=== PATIENT | female | born 1940 | race Caucasian/White ===

== ENCOUNTER 2019-11-22 08:22 | Outpatient (CLI) | payer MEDICARE, SELFPAY ==
--- NOTE | ~2019-11-22 | MM_ITS ---
EXAMINATION: MM screening michelle BI w jina HISTORY: Screening TECHNIQUE: Craniocaudal and mediolateral oblique 3-D tomosynthesis images were obtained and synthetic 2-D images were generated. CAD analysis was submitted and interpreted. COMPARISON: Comparison to multiple prior studies sequentially, with oldest reviewed study dated 09/30. BREAST PARENCHYMAL COMPOSITION: There are scattered areas of fibroglandular density. FINDINGS: There is no evidence of suspicious mass, calcification, or architectural distortion to sugg est malignancy in either breast. There has been no suspicious interval change. IMPRESSION: 1. No mammographic evidence of malignancy. 2. Recommend routine screening mammography in one year. BI-RADS Category 1: Negative Reviewed, dictated and finalized at location A.
== END 2019-11-22 08:23 | disposition home or self-care (01) ==
LOC: ANHIMG 08:25
PROVIDERS: PCP Internal Medicine; Visit Provider Obstetrics & Gynecology
DX: Z12.31 Encounter for screening mammogram for malignant neoplasm of breast (principal)
CPT/HCPCS: 77063; 77067

== ENCOUNTER 2020-11-27 08:25 | Outpatient (CLI) | payer MEDICARE, SELFPAY ==
--- NOTE | ~2020-11-27 | MM_ITS ---
EXAMINATION: MM screening michelle BI w jina HISTORY: Screening mammogram TECHNIQUE: Craniocaudal and mediolateral oblique 3-D tomosynthesis images were obtained and synthetic 2-D images were generated. CAD analysis was submitted and interpreted. COMPARISON: 12/09/2019, , 10/28/2017 bilateral digital screening mammogram examinations BREAST PARENCHYMAL COMPOSITION: The breasts are almost entirely fatty. FINDINGS: There is no evidence of suspicious mass, calcification, or architectural distortion to sugg est malignancy in either breast. There has been no suspicious interval change. IMPRESSION: 1. No mammographic evidence of malignancy. 2. Recommend routine screening mammography in one year. BI-RADS Category 1: Negative Reviewed, dictated and finalized at location A.
== END 2020-11-27 08:26 | disposition home or self-care (01) ==
LOC: ANHIMG 08:32
PROVIDERS: PCP Internal Medicine; Visit Provider Obstetrics & Gynecology
DX: Z12.31 Encounter for screening mammogram for malignant neoplasm of breast (principal)
CPT/HCPCS: 77063; 77067

== ENCOUNTER 2021-08-16 14:02 | Emergency (ER) | payer MEDICARE, SELFPAY ==
[2021-08-16 14:10] VITALS: BP 114/45; PULSE 82; RESP 20; TEMP 36.6; O2SAT 98
--- NOTE | 2021-08-16 14:34 | ED.FEMALEGU ---
HPI - Female Genitourinary General Chief complaint: Urogenital-Female Stated complaint: uti symptoms Time Seen by Provider: 08/16/21 14:24 Source: patient Mode of arrival: ambulatory Limitations: no limitations History of Present Illness HPI Narrative: Patient presents today complaint of a 2-day history of urinary frequency, urgency, dysuria, and incontinence. Denies abdominal pain, back pain, fever, or any additional symptoms. She has been taking [id number] Azo for her symptoms. Last dose was 1 hour prior to arrival. Related Data Home Medications Medication Instructions Recorded Confirmed folic acid 1 mg tablet 1 mg PO DAILY 05/22/19 08/16/21 gabapentin 300 mg capsule 300 mg PO TID 05/28/19 08/16/21 hydroxychloroquine 200 mg tablet 200 mg PO BID 05/28/19 08/16/21 (Plaquenil) methotrexate sodium 2.5 mg tablet 20 mg PO WEEKLY 05/28/19 08/16/21 cholecalciferol (vitamin D3) 50 mcg PO DAILY 12/11/20 08/16/21 multivitamin 1 tablet PO DAILY 06/17/21 06/17/21 aspirin 81 mg tablet 81 mg PO DAILY 08/16/21 08/16/21 vitamin B12 1,000 mcg-folic acid tablet sublingual 08/16/21 400 mcg sublingual tablet Allergies Allergy/AdvReac Type Severity Reaction Status Date / Time cephalexin Allergy Severe RASH Verified 08/16/21 14:21 morphine Allergy Severe HIVES Verified 08/16/21 14:21 propoxyphene AdvReac Severe Unknown Verified 08/16/21 14:21 nitrofurantoin AdvReac Intermediate Weakness Verified 08/16/21 14:21 [From Macrobid] Review of Systems Review of Systems: CONSTITUTIONAL: Denies body aches, fever, chills, or sweats. EYES: Denies visual changes, redness, or discharge. ENT: Denies rhinorrhea, congestion, sore throat, or otalgia. CARDIOVASCULAR: Denies chest pain, palpitations, or edema. RESPIRATORY: Denies cough or dyspnea. GASTROINTESTINAL: Denies abdominal pain, nausea, vomiting, or diarrhea. GENITOURINARY: Denies hematuria.+ Dysuria, frequency, urgency SKIN: Denies rash, itching, or wounds. MUSCULOSKELETAL: Denies back pain, joint pain, or myalgia. NEUROLOGIC: Denies headache, numbness, tingling, or weakness. PSYCH: Denies depression or anxiety. PMFSH Past Medical History Medical History (Updated 08/16/21 @ 14:39 by Teetee Barton, [employer] SCHOOL PROFESSIONAL, ) History of vaginal delivery x 2 Surgical History Surgical History History of hysterectomy History of knee replacement Family History Family History Father Family history of elevated blood lipids Family history of coronary artery disease, Onset Age: 81 Family history of malignant neoplasm of bone, Onset Age: 81 Mother Family history of elevated blood lipids Family history of coronary artery disease, Onset Age: 79 Family history of blood dyscrasia, Onset Age: 79 Family history of osteoarthritis, Onset Age: 79 Sibling Family history of primary malignant neoplasm of liver Family history of renal failure No family history of diabetes mellitus Social History Social History Second hand tobacco smoke exposure: Yes Alcohol intake: never Substance use: never Comments At time of signature, I have reviewed and agree with nursing past medical, surgical, social and family history unless otherwise noted. Please see nursing chart for further information. There is no relevant family history pertinent to the presenting complaint Exam Narrative: GENERAL: Well-appearing, well-nourished, and in no acute distress. HEAD: Normocephalic, atraumatic. EYES: EOMI. No redness or drainage. Conjunctivae normal. ENT: Mucous membranes pink and moist. NECK: Normal AROM. CHEST: No respiratory distress. Clear to auscultation. HEART: Regular rate and rhythm. No murmur appreciated. Normal peripheral pulses. ABDOMEN: Soft, nontender, nondistended, normal active bowel sounds.-CVAT MU
== END 2021-08-16 14:45 | disposition home or self-care (01) ==
PROVIDERS: Emergency Provider Nurse Practitioner; PCP Internal Medicine
DX: N39.0 Urinary tract infection, site not specified (principal); I48.91 Unspecified atrial fibrillation; E78.00 Pure hypercholesterolemia, unspecified; I10 Essential (primary) hypertension; K21.9 Gastro-esophageal reflux disease without esophagitis; Z96.653 Presence of artificial knee joint, bilateral; Z96.611 Presence of right artificial shoulder joint; E03.9 Hypothyroidism, unspecified
CPT/HCPCS: 81003; 87077; 87086; 87186; 99213; G0463

== ENCOUNTER 2021-09-01 10:20 | Outpatient (CLI) | payer MEDICARE, SELFPAY ==
[2021-09-01 13:18] LABS: Appearance Urine Turbid (Clear); Bilirubin Urine Negative (Negative); Blood Urine 1+ (Negative); Glucose Urine UA Negative (Negative); Ketones Urine Negative (Negative); Leukocyte Esterase Ur 2+ LEU/UL (Negative); Nitrate Urine Positive (Negative); Protein Urine 2+ mg/dL (Negative); Specific Grav Ur >= 1.030 (1.001-1.035); Urobilinogen Urine 0.2 mg/dL (<2.0)
[2021-09-01 13:24] LABS: RBC Urine 21-50 /hpf (0-2); Squamous Epithelial Cell Urine Many /hpf (Few); WBC Urine >75 /hpf
[2021-09-01 15:26] LABS: Add Urine Microscopic? YES; Color Urine Dark Yellow (Yellow)
== END 2021-09-01 10:21 | disposition home or self-care (01) ==
LOC: ANHWCLAB 10:21
PROVIDERS: PCP Internal Medicine; Visit Provider Nurse Practitioner
DX: R30.0 Dysuria (principal)
CPT/HCPCS: 81001; 87077; 87086; 87186

== ENCOUNTER 2022-01-28 09:14 | Outpatient (CLI) | payer MEDICARE, SELFPAY ==
--- NOTE | ~2022-01-28 | MM_ITS ---
EXAMINATION: MM screening michelle BI w jina HISTORY: Screening mammogram TECHNIQUE: Craniocaudal and mediolateral oblique 3-D tomosynthesis images were obtained and synthetic 2-D images were generated. CAD analysis was submitted and interpreted. COMPARISON: 11/27/2020, 12/09/2019, 11/09/2018 bilateral screening mammogram examinations BREAST PARENCHYMAL COMPOSITION: There are scattered areas of fibroglandular density. FINDINGS: There is no evidence of suspicious mass, calcification, or architectural distortion to sugg est malignancy in either breast. There has been no suspicious interval change. IMPRESSION: 1. No mammographic evidence of malignancy. 2. Recommend routine screening mammography in one year. BI-RADS Category 1: Negative Reviewed, dictated and finalized at location A. HANDLER
== END 2022-01-28 09:15 | disposition home or self-care (01) ==
PROVIDERS: PCP Internal Medicine; Visit Provider Obstetrics & Gynecology
DX: Z12.31 Encounter for screening mammogram for malignant neoplasm of breast (principal)
CPT/HCPCS: 77063; 77067

== ENCOUNTER 2022-01-29 08:49 | Outpatient (CLI) | payer MEDICARE, SELFPAY ==
--- NOTE | ~2022-01-29 | MR_ITS ---
EXAMINATION: MR lower leg RT wo/w con DATE: 01/29/2022 09:44 INDICATION: Bilateral calf swelling, pain and erythema. Right calf ulcers. TECHNIQUE: Magnetic resonance imaging (MRI) of the right lower leg was performed without intravenous contrast. Sequences included axial, sagittal and coronal T1-weighted FSE and fluid sensitive FSE STIR , axial T1-weighted FS FSE and postcontrast axial and coronal T1-weighted FS FSE. The contralateral l eft lower leg is included on the axial and coronal imaging. COMPARISON: None. FINDINGS: Metallic magnetic field artifact at both knees consistent with bilateral total knee arthroplasties. T his obscures the immediately adjacent bone and soft tissues. Bone alignment is normal. There is piper l bone marrow signal throughout with no reactive edema, fracture or pathologic marrow replacing proce ss. No periostitis. There are small geographic regions of focal fatty atrophy involving portion of th e bilateral soleus and gastrocnemius muscles there is subtle muscular edema without abnormal enhancem ent along the margins of the regions of fatty atrophy. There is diffuse subcutaneous edema throughout the bilateral calves, right slightly more prominent than left. No abscess or other abnormal loculate d fluid collections. No abnormal enhancing lesions or masses identified. Contrast is seen within the larger deep and superficial veins at the bilateral calves. On the STIR images there is suggestion of layering hematocrit levels in some of the intramuscular veins soleal muscles with alternating. On the postcontrast images these are varying enhanced or nonenhanced depending on the axial level of which appear completely contrast-enhanced on the coronal postcontrast images which suggests sluggish flow. No evident venous thrombosis. IMPRESSION: 1. No abscesses or abnormally enhancing lesions identified in either calf. 2. Nonspecific subtle muscular edema along the margins of multiple small geographic regions of fatty atrophy in the bilateral gastrocnemius and soleus muscles suggesting sequela of chronic insult or den ervation change. 2. Relatively symmetric subcutaneous edema at the bilateral calves, right greater than left. No evide nt deep venous thrombosis. There does however appear to be sluggish flow in the intramuscular soleal veins on both the left and right. Reviewed, dictated and finalized at location A. NARY INSTRUCTOR IMPRESSION: 1. No abscesses or abnormally enhancing lesions identified in either calf. 2. Nonspecific subtle muscular edema along the margins of multiple small geogra phic regions of fatty atrophy in the bilateral gastrocnemius and soleus muscles suggesting sequela of chronic insult or denervation change. 2. Relatively symmetric subcutaneous edema at the bilateral calves, right great er than left. No evident deep venous thrombosis. There does however appear to b e sluggish flow in the intramuscular soleal veins on both the left and right.
== END 2022-01-29 08:50 | disposition home or self-care (01) ==
PROVIDERS: PCP Internal Medicine; Visit Provider Internal Medicine
DX: M79.89 Other specified soft tissue disorders (principal)
CPT/HCPCS: 73720; A9577

== ENCOUNTER 2023-03-20 13:05 | Emergency (ER) | payer MEDICARE, SELFPAY ==
--- NOTE | ~2023-03-20 | XR_ITS ---
EXAMINATION: XR chest 2V Exam Date/Time: 03/20/2023 14:50 SPLICER HELPER HISTORY: cough for 3 months Comparison: 02/23/2018. RESULT: Lines, tubes, and devices: Partially visualized right shoulder arthroplasty. Extensive partially vis ualized spinal fusion hardware with fractured bilateral fusion rods, a chronic finding. Lungs and pleura: Mild diffuse reticulonodular opacities. Patchy bilateral groundglass opacities. Li near bibasilar scar/atelectasis Cardiomediastinal silhouette: Stable. Other: No acute osseous or upper abdominal finding. IMPRESSION: Mild interstitial edema and/or respiratory bronchiolitis. Patchy groundglass opacities may represent atelectasis, edema, or infection. Reviewed, dictated and finalized at location K. CER HELPER IMPRESSION: Mild interstitial edema and/or respiratory bronchiolitis. Patchy groundglass op acities may represent atelectasis, edema, or infection.
[2023-03-20 13:21] VITALS: BP 135/61; PULSE 72; RESP 20; TEMP 36.6; O2SAT 100
--- NOTE | 2023-03-20 13:35 | ED.URI ---
HPI - URI/Sore Throat General Chief Complaint: Upper Respiratory Infection <Pat Allen NP - Last Filed: 03/20/23 16:23> Stated Complaint: COUGH <Pat Allen NP - Last Filed: 03/20/23 16:23> Time Seen by Provider: 03/20/23 13:35 <Pat Allen NP - Last Filed: 03/20/23 16:23> Source: patient <Pat Allen NP - Last Filed: 03/20/23 16:23> Mode of arrival: ambulatory <Pat Allen NP - Last Filed: 03/20/23 16:23> Limitations: no limitations <Pat Allen NP - Last Filed: 03/20/23 16:23> History of Present Illness HPI Narrative: 82-year-old female presents with complaint of dry cough for 3 months. Reports that cough for started with COVID and never got better. Reports she was at an appointment with her primary care physician and asked him about cough and was told it could last ?months ?. He did not listen to her lungs at that time because it was not her own appointment. She called back about a month later and complained that she still had cough and was prescribed an antibiotic. She was not seen in office. Patient here today due to continued cough, exhaustion. Reports some mild shortness of breath with exertion but not all the time. Afebrile. Taking Tessalon Perles. Patient would like chest x-ray to rule out pneumonia. All systems reviewed and negative except as noted above. <Pat Allen NP - Last Filed: 03/20/23 16:23> Related Data Home Medications: Home Medications Medication Instructions Recorded Confirmed folic acid 1 mg tablet 1 mg PO DAILY 05/22/19 03/20/23 hydroxychloroquine 200 mg tablet 200 mg PO BID 05/28/19 03/20/23 (Plaquenil) methotrexate sodium 2.5 mg tablet 20 mg PO WEEKLY 05/28/19 03/20/23 multivitamin 1 tablet PO DAILY 06/17/21 09/07/22 vitamin B12 1,000 mcg-folic acid tablet sublingual 08/16/21 09/07/22 400 mcg sublingual tablet gabapentin 300 mg capsule 300 mg PO BID 09/06/22 03/20/23 cholecalciferol (vitamin D3) 50 50 mcg PO DAILY 09/07/22 03/20/23 mcg (2,000 unit) capsule <Pat Allen NP - Last Filed: 03/20/23 16:23> Allergies/Adverse Reactions: Allergies Allergy/AdvReac Type Severity Reaction Status Date / Time cephalexin Allergy Severe RASH Verified 03/20/23 13:20 morphine Allergy Severe HIVES Verified 03/20/23 13:20 nitrofurantoin AdvReac Intermediate Weakness Verified 03/20/23 13:20 [From Macrobid] <Pat Allen NP - Last Filed: 03/20/23 16:23> Review of Systems Review of Systems: CONSTITUTIONAL: Denies fever, chills, or sweats. Reports fatigue. EYES: Denies visual changes, redness, or discharge. ENT: Denies rhinorrhea, congestion, sore throat, or otalgia. CARDIOVASCULAR: Denies chest pain, palpitations, or edema. RESPIRATORY: Reports cough and intermittent dyspnea with exertion. GASTROINTESTINAL: Denies abdominal pain, nausea, vomiting, or diarrhea. GENITOURINARY: Denies dysuria or hematuria. SKIN: Denies rash or itching. MUSCULOSKELETAL: Denies back pain, joint pain, or myalgia. NEUROLOGIC: Denies headache, numbness, or weakness. PSYCHIATRIC: Denies anxiety or depression. All other systems reviewed are negative, except as documented in HPI. <Pat Allen NP - Last Filed: 03/20/23 16:23> [facility] Past Medical History Medical History: Medical History History of vaginal delivery x 2 <Pat Allen NP - Last Filed: 03/20/23 16:23> Surgical History Surgical History: Surgical History H/O shoulder replacement History of back surgery History of hysterectomy History of knee replacement <Pat Allen NP - Last Filed: 03/20/23 16:23> Family History Family History: Family History Father Family history of elevated blood lipids Family hi
[2023-03-20] MEDS: ALBUTEROL SULFATE NEB 2.5 MG/3 ML INH INHALATION (13:51)
--- NOTE | 2023-03-20 14:33 | PC.NURSE ---
[facility] is without an technology applications engineer today. Patient elected to complete her treatment at [facility]
--- NOTE | 2023-03-20 14:34 | PC.NURSE ---
1420 REPORT TO FAIZA MAK AT [facility]. SYLVIE RUTHERFORD RN
== END 2023-03-20 16:24 | disposition home or self-care (01) ==
PROVIDERS: Emergency Provider Nurse Practitioner Family; PCP Nurse Practitioner
DX: J18.1 Lobar pneumonia, unspecified organism (principal)
CPT/HCPCS: 71046; 99213; G0463

== ENCOUNTER 2023-04-04 04:07 | Inpatient (IN) | payer MEDICARE, SELFPAY ==
[2023-04-04] VITALS (19 sets, daily range): BP systolic 106–134; BP diastolic 32–49; PULSE 72–109; RESP 12–28; TEMP 36.6–37.2; O2SAT 92–100; BMI 25.4
--- NOTE | ~2023-04-04 | XR_ITS ---
EXAMINATION: XR chest 1V portable DATE: 04/05/2023 13:31 INDICATION: Status post bronchoscopy TECHNIQUE: frontal view of the chest was obtained. COMPARISON: Chest radiograph and chest CT dated 04/04/2023 FINDINGS: Persistent interstitial and patchy groundglass opacities throughout both lungs relatively sparing the left upper lung zone and with some interval worsening in the right lower lung zone. No pleural effus ion or pneumothorax. Heart size is normal. Severe left glenohumeral osteoarthritis and right-sided re verse total shoulder arthroplasty. Multilevel laminectomies in the lower thoracic spine with T11-T12 interspace pleural effusion and extensive thoracic posterior spinal fusion with bilateral vertical ro d and pedicle screw fixation beginning at T5 and extending to at least T12 and beyond the inferior ma rgin of the [id number]. IMPRESSION: 1. No pneumothorax or pleural effusion post reported interval bronchoscopy. 2. Diffuse bilateral interstitial and airspace opacities consistent with likely chronic interstitial lung disease. There is been some increase in opacities in the right lower lung zone which could repre sent atelectasis, pneumonia or lavage fluid related to the bronchoscopy. Reviewed, dictated and finalized at location A. POND WORKER IMPRESSION: 1. No pneumothorax or pleural effusion post reported interval bronchoscopy. 2. Diffuse bilateral interstitial and airspace opacities consistent with likely chronic interstitial lung disease. There is been some increase in opacities in the right lower lung zone which could represent atelectasis, pneumonia or lava ge fluid related to the bronchoscopy.
--- NOTE | ~2023-04-04 | CT_ITS ---
CT Scan of the Chest without Contrast: Clinical Indication: Chronic cough Technique: Contiguous sections were acquired throughout the chest without intravenous contrast. Dose reduction technique was used on this scan by utilizing automated exposure control and iterative recon struction technique. The dose-length product (DLP) was 179.65 mGy-cm. Findings: There is no evidence of any significant mediastinal, hilar or axillary lymphadenopathy. The mediastin al soft tissues appear normal. There is no evidence of pleural or pericardial effusion. There is extensive interstitial thickening, subpleural reticulation, and mild patchy groundglass opac ity. Findings are consistent with chronic interstitial disease. No suspicious pulmonary nodule seen. Images through the upper abdomen reveal no abnormalities. Extensive spinal fixation hardware is prese nt. There is apparent partial fusion across the T10-T11 disc space with irregular lucency in this reg ion. There is severe degenerative spondylosis in the upper thoracic spine as well. Impression: Chronic interstitial pulmonary disease, as detailed above. Extensive postoperative changes in the spine with severe degenerative changes and areas of fusion. Co rrelate with surgical history. Reviewed, dictated and finalized at [facility]. 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 Extensive postoperative changes in the spine with severe degenerative changes a nd areas of fusion. Correlate with surgical history.
--- NOTE | ~2023-04-04 | XR_ITS ---
Portable chest x-ray Comparison: 03/20/2023 Clinical History: Vazquez's of breath Findings: There is chronic interstitial disease, similar to prior exam. Questionable minimal hazines s left midlung, also probably similar to prior exam. Cardiomediastinal silhouette is stable. Thoraco lumbar spinal fixation hardware and right shoulder arthroplasty are unchanged.. Impression: Probable chronic interstitial disease, unchanged from prior exam. No definite acute pulmonary patholo gy. Extensive orthopedic hardware, as above. Reviewed, dictated and finalized at location M. 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 No definite a cute pulmonary pathology. Extensive orthopedic hardware, as above.
--- NOTE | 2023-04-04 04:19 | ECG_ITS ---
Measurements Intervals [place] Rate: 79 P: 4 DE: 179 QRS: -39 QRSD: 118 T: 7 QT: 403 QTc: 464 Interpretive Statements SINUS RHYTHM LEFT AXIS DEVIATION LEFT VENTRICULAR HYPERTROPHY WITH ST-T CHANGE POOR R WAVE PROGRESSION, ANTERIOR LEADS INFERIOR INFARCT, AGE INDETERMINATE ABNORMAL ECG NO PREVIOUS ECG AVAILABLE FOR COMPARISON Electronically Signed On 04-04-2023 6:25:05 FRENCH FOLDER by Manny Sylvetser D.O.
[2023-04-04 04:37] LABS: Basophils Absolute Auto 0.1 K/mm3 (0.0-0.1); Basophils Percent Auto 0.6 % (0.2-1.2); Eosinophils Absolute Auto 0.2 K/mm3 (0-0.3); Eosinophils Percent Auto 2.7 % (0-4.4); Hematocrit 32.2 % (37.0-47.0); Hemoglobin 10.7 g/dL (12.0-15.0); Immature Granulocyte Absolute 0.03 K/mm3 (0.00-0.031); Immature Granulocyte Percent A 0.4 % (0-0.5); Lymphocytes Percent Auto 7.5 % (18.3-44.2); Mean Corpuscular HGB Conc 33.2 g/dl (32-36); Mean Corpuscular Hemoglobin 32.5 pg (26-34); Mean Corpuscular Volume 97.9 fl (80-100); Mean Platelet Volume 10.3 fl (7.4-10.4); Monocytes Absolute Auto 1.1 K/mm3 (0.1-0.6); Monocytes Percent Auto 13.4 % (2.6-8.5); Neutrophils Absolute Auto 6.1 K/mm3 (1.3-6.7); Neutrophils Percent Auto 75.4 % (45.5-73.1); Platelet Count Result 246 k/mm3 (150-375); Red Blood Count 3.29 M/mm3 (4.2-5.4); Red Cell Distribution Width 14.5 % (11.5-14.5); White Blood Count 8.1 K/mm3 (4.5-10.0)
--- NOTE | 2023-04-04 04:45 | PCRCNOTE ---
RT to ED 10 for updraft treatment. Patient in CT scan and X ray. Will administer when patient returns.
[2023-04-04 04:48] LABS: Alanine Aminotransferase 23 U/L (6-35); Albumin Level 3.8 g/dL (3.5-5.1); Alkaline Phosphatase 56 U/L (38-126); Anion Gap 6 mmol/L (8-16); Aspartate Amino Transferase 47 U/L (14-36); Bilirubin,Total 0.7 mg/dL (0.2-1.3); Blood Urea Nitrogen 17 mg/dL (7-17); Calcium 8.8 mg/dL (8.4-10.2); Carbon Dioxide 28 mmol/L (22-30); Chloride 103 mmol/L (98-107); Estimated CRCL calculation 34 ml/min; Estimated Glomerular Filt Rate > 60; Glucose 110 mg/dL (65-110); Potassium 3.9 mmol/L (3.4-5.0); Sodium 137 mmol/L (137-145)
[2023-04-04] MEDS: IPRATROPIUM BR 0.02% INH SOLN 0.5 MG/2.5 ML VIAL 1 MG INHALATION (04:50)
[2023-04-04] MEDS: ALBUTEROL SULFATE NEB 2.5 MG/3 ML INH 10 MG INHALATION (04:51)
[2023-04-04 04:56] LABS: NT Pro B Type Natriuretic Pept 194 pg/mL (19.9-100)
[2023-04-04 05:13] LABS: Influenza A QL RT-PCR Negative (Negative); Influenza B QL RT-PCR Negative (Negative); RSV RNA, RT-PCR Negative (Negative); SARS-CoV-2 RNA PCR Negative (Negative)
--- NOTE | 2023-04-04 05:32 | ED.GENADULT ---
HPI - General Adult General Chief complaint: Shortness of Breath/Dyspnea Stated complaint: Shortness of breath, Time Seen by Provider: 04/04/23 04:18 History of Present Illness HPI narrative: This is a 82-year-old female presenting ED with chief complaint of shortness of breath. She has had a nonproductive cough since December of last year after she had covid. She has undergone multiple rounds of antibiotics. She has received breathing treatments which she says have helped in the past. She was prescribed an albuterol inhaler but she did not use it because she was unsure how it worked. At this time patient is barely able to walk around her apartment without becoming shortness of breath. She is denying fevers, chest pain, abdominal pain, lower extremity edema. Related Data Home Medications Medication Instructions Recorded Confirmed folic acid 1 mg tablet 1 mg PO DAILY 05/22/19 03/24/23 hydroxychloroquine 200 mg tablet 200 mg PO BID 05/28/19 03/20/23 (Plaquenil) methotrexate sodium 2.5 mg tablet 20 mg PO WEEKLY 05/28/19 03/24/23 multivitamin 1 tablet PO DAILY 06/17/21 03/24/23 vitamin B12 1,000 mcg-folic acid tablet sublingual 08/16/21 03/24/23 400 mcg sublingual tablet gabapentin 300 mg capsule 300 mg PO BID 09/06/22 03/24/23 cholecalciferol (vitamin D3) 50 50 mcg PO DAILY 09/07/22 03/24/23 mcg (2,000 unit) capsule Allergies Allergy/AdvReac Type Severity Reaction Status Date / Time cephalexin Allergy Severe RASH Verified 04/04/23 04:16 morphine Allergy Severe HIVES Verified 04/04/23 04:16 nitrofurantoin AdvReac Intermediate Weakness Verified 04/04/23 04:16 [From Macrobid] [facility] Past Medical History Medical History History of vaginal delivery x 2 Surgical History Surgical History H/O shoulder replacement History of back surgery History of hysterectomy History of knee replacement Family History Family History Father Family history of elevated blood lipids Family history of coronary artery disease, Onset Age: 81 Family history of malignant neoplasm of bone, Onset Age: 81 Mother Family history of elevated blood lipids Family history of coronary artery disease, Onset Age: 79 Family history of blood dyscrasia, Onset Age: 79 Family history of osteoarthritis, Onset Age: 79 Sibling Family history of primary malignant neoplasm of liver Family history of renal failure No family history of diabetes mellitus Social History Social History Smoking status: Never smoker Second hand tobacco smoke exposure: Yes Alcohol intake: never Substance use: never Substance use type: does not use Lack of Transportation: No Lack of Food: Never True Current Housing: I Have Housing Concerned About Future Housing: No Difficulty Paying Gas/Electric Bills: No Difficulty Paying for Meds: No Currently Unemployed: No Education: Associate Degree Difficulty w/ Childcare or Family Care: No Living arrangements: with family Occupation/Education: retired Gender identity (if verbalized by the patient): Female Sexual Orientation (if Verbalized by the Patient): Straight or Heterosexual Exam Narrative: APPEARANCE: No apparent distress. intermittent coughing Head: atraumatic. EYES: EOMI, NOSE: Atraumatic NECK: Trachea midline RESPIRATORY: No increased rate of breathing, speaking full sentences, fine crackles/scattered wheezing CARDIOVASCULAR: RRR, no peripheral edema ABDOMINAL: Non-distended, soft nontender MUSCULOSKELETAl: No obvious deformities NEURO: Alert. Moving 4/4 extremities SKIN:: Warm, dry. Normal color PSYCHIATRIC: Normal affect Course Vital Signs Vital signs: Vital Signs Temperature 97.9 F 04/04/23 04:13 Pulse Rate 85 04/04/23
[2023-04-04] MEDS: guaiFENesin/DEXTROMETHORPHAN 10 ML UDC PO (05:48)
--- NOTE | 2023-04-04 06:37 | PC.NURSE ---
This RN ambulated pt to restroom. Pt able to ambulate with steady gait using her cane, but became short of breath along with increased respiratory rate. Pts O2 saturation stayed between 90-93%. EDP notified.
[2023-04-04 06:59] LABS: Appearance Urine Clear (Clear); Bacteria Urine None Seen /hpf; Blood Urine Negative (Negative); Color Urine Dark Yellow (Yellow); Glucose Urine UA Negative (Negative); Ketones Urine Negative (Negative); Leukocyte Esterase Ur 2+ LEU/UL (Negative); Need Manual Microscopic Reviewed; Nitrate Urine Positive (Negative); Non Pathogenic Casts 0-2; Protein Urine Trace mg/dL (Negative); RBC Urine 0-2 /hpf (0-2); Specific Grav Ur 1.011 (1.001-1.035); Squamous Epithelial Cell Urine None seen /hpf (Few); WBC Urine 51-100 /hpf
[2023-04-04 07:00] LABS: Add Urine Microscopic? YES
--- NOTE | 2023-04-04 08:19 | ADMGEN ---
This patient, Negrita Tomas, was admitted to [facility] Surg Room 324-02 at 0819. Patient/family oriented to hospital policies and general routines including ID bracelet, bed and alarms, visiting hours, pain management, procedures, bathroom and other care routines, personal items, smoking policy, room service/diet, and visiting hours. Information on how to activate the Rapid Response Team has been discussed. Patient/Family are encouraged to report perceived risks to care and to ask questions if they do not understand what they are told or what they should do.
[2023-04-04] MEDS: IPRATROPIUM 0.5 MG/ALBUTEROL SULFATE 2.5 MG AMPUL.NEB 3 ML INHALATION ×2 (13:50→19:25)
--- NOTE | 2023-04-04 14:36 | PM.IMHP ---
H&P: HPI History of Present Illness Date/Time: 04/04/23 14:36 Chief Complaint: Recurrent cough, 3 moth Narrative: Ms Tomas is an 82 yo F with a mHx signficant for Hypothyroidism, RA, GERD, Dyslipidemia Over the last 3 months, she has been battling a persistent cough with little to no sputum; it is aggravated by exertion and activity, alleviated by rest; associated with malaise, poor performance of ADLs; she denies fevers, chillls, chest pain, leg swellings, PND, Orthopnea or hemoptysis. In 12/2022, she developed symptoms of malaise, fatigue, myalgia and flu-like symptoms in 12/2022; she performed a home-kit COVID-19 test that came back positive. She did not develop dyspnea, need oxygen or get any evaluations from a health care center. She simply managed her symptoms supportively with OTC analgesics. 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 The mediastinal soft tissues appear normal. There is no evidence of pleural or pericardial effusion. There is extensive interstitial thickening, subpleural reticulation, and mild patchy groundglass opacity. Findings are consistent with chronic interstitial disease. No suspicious pulmonary nodule seen. CBC: Remarkable for Hb 10 UA: Unremarkable She will be admitted, evaluated and managed for ILD and chronic cough. Review of Systems Constitutional: Constitutional: Reports no additional constitutional complaints Eyes: Eyes: Reports no additional eye complaints ENT: Reports system reviewed and no additional complaints, except as documented Cardiovascular: Cardiovascular: Reports no additional cardiovascular complaints Respiratory: Respiratory: Reports cough and Reports dyspnea Gastrointestinal: Gastrointestinal: Reports no additional gastrointestinal complaints Genitourinary: Genitourinary: Reports no additional female genitourinary complaints Musculoskeletal: Musculoskeletal: Reports no additional musculoskeletal complaints Integumentary/Breasts: Skin/Breast: Reports system reviewed and no additional complaints, except as docu Neurologic: Reports system reviewed and no additional complaints, except as documented Psychiatric: Psychiatric: Reports no additional psychiatric complaints PMFSH Past Medical History Medical History History of vaginal delivery x 2 Surgical History Surgical History H/O shoulder replacement History of back surgery History of hysterectomy History of knee replacement Family History Family History Father Family history of elevated blood lipids Family history of coronary artery disease, Onset Age: 81 Family history of malignant neoplasm of bone, Onset Age: 81 Mother Family history of elevated blood lipids Family history of coronary artery disease, Onset Age: 79 Family history of blood dyscrasia, Onset Age: 79 Family history of osteoarthritis, Onset Age: 79 Sibling Family history of primary malignant neoplasm of liver Family history of renal failure No family history of diabetes mellitus Social History Social History Smoking status: Never smoker Second hand tobacco smoke exposure: Yes Alcohol intake: never Substance use: never Substance use type: does not use Do You Feel Safe in your Home?: Yes Lack of Transportation: No Lack of Food: Never True Current Housing: I Have Housing Concern
--- NOTE | 2023-04-04 15:19 | PM.CNPUL ---
Assessment and Plan Assessment and plan (1) Interstitial lung disease: Code(s): J84.9 - Interstitial pulmonary disease, unspecified Status: Acute Assessment and Plan: An 82-year-old female patient, with a history of seronegative arthritis and long-term methotrexate use for over 5 years, has been experiencing a cough and progressively worsening dyspnea on exertion. These symptoms began following a COVID-19 infection in December of the previous year. Physical examination revealed crackles, and a chest CT scan demonstrated bilateral interstitial lung disease. Upon review, the chest CT primarily showed ground-glass infiltrates, occasional reticulation, rare lung nodules, and mild bronchiectasis. The chest CT pattern is suggestive of chronic hypersensitivity pneumonitis or fibrotic Non-Specific Interstitial Pneumonia (NSIP). In this context, the differential diagnosis includes methotrexate pneumonitis, given the patient's weekly 20 mg methotrexate regimen for over 5 years, or interstitial lung disease associated with her underlying autoimmune condition. The possibility of an infection such as Pneumocystis jiroveci, given her immunosuppressed status, is less likely but should not be overlooked. The plan moving forward includes holding methotrexate, proceeding with serology screening, and considering bronchoscopy with Bronchoalveolar Lavage (BAL). The patient should also be initiated on Deep Vein Thrombosis (DVT) prophylaxis. 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: Qualifiers: Rheumatoid arthritis location: unspecified site Qualified Code(s): M06.00 - Rheumatoid arthritis without rheumatoid factor, unspecified site Code(s): M06.00 - Rheumatoid arthritis without rheumatoid factor, unspecified site Status: Acute History of Present Illness History of Present Illness Consult date: 04/04/23 Chief complaint: Interstitial Hazen Disease Narrative: An 82-year-old female patient, with a history of arthritis resembling psoriatic arthritis without skin manifestations or a combination of inflammatory arthritis and osteoarthritis, has been experiencing a dry cough and progressively worsening shortness of breath over the past three months. She has been on a regimen of 20 mg of methotrexate weekly for the past 5-6 years, managed by the Rheumatology services at [facility]. Her symptoms began following a diagnosis of COVID-19 last December. At the time, she did not exhibit fever or chills and did not require hospitalization. Since then, she has been experiencing a dry cough without sputum production. In recent weeks, she has noticed an increase in shortness of breath, primarily during physical activities. The cough seems to be activity-related and does not occur during sleep. She has not reported chest pain, palpitations, hemoptysis, night sweats, or lower extremity edema. Despite receiving treatment with Augmentin and a one-week course of oral steroids on two separate occasions since December 2022, there has been no improvement in her cough or shortness of breath. A chest CT scan revealed evidence of interstitial lung disease (please refer to the chest CT report for more details). She did not present with leukocytosis. The patient has no history of joint swelling but does experience morning hand stiffness lasting approximately 10-15 minutes due to her arthritis. She has no prior history of lung disease. 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 Review of Systems Review of Systems: The patient has experienced unintentional weight loss in recent weeks, accompanied by a decrease in appetite. She snider
[2023-04-04 16:09] LABS: Rheumatoid Factor < 12.0 IU/ML (<12)
[2023-04-04 16:10] LABS: CRP 5.7 mg/dL (<1.0)
[2023-04-04] MEDS: LEVOTHYROXINE SODIUM 75 MCG TABLET PO (16:22)
[2023-04-04] MEDS: ROSUVASTATIN 5 MG TABLET PO (16:22)
[2023-04-04] MEDS: GABAPENTIN 300 MG CAPSULE PO (16:23)
[2023-04-04] MEDS: IBUPROFEN 600 MG TABLET PO (16:55)
[2023-04-05] VITALS (27 sets, daily range): BP systolic 100–133; BP diastolic 35–63; PULSE 71–121; RESP 12–28; TEMP 36.7–37; O2SAT 91–99
[2023-04-05] MEDS: IPRATROPIUM 0.5 MG/ALBUTEROL SULFATE 2.5 MG AMPUL.NEB 3 ML INHALATION ×4 (01:04→21:42)
[2023-04-05] MEDS: LEVOTHYROXINE SODIUM 75 MCG TABLET PO (05:23)
[2023-04-05 07:23] LABS: Basophils Percent Auto 0.1 % (0.2-1.2); Hematocrit 29.8 % (37.0-47.0); Hemoglobin 9.4 g/dL (12.0-15.0); Immature Granulocyte Absolute 0.07 K/mm3 (0.00-0.031); Immature Granulocyte Percent A 0.5 % (0-0.5); Lymphocytes Absolute Auto 0.63 K/mm3 (0.9-3.2); Lymphocytes Percent Auto 4.7 % (18.3-44.2); Mean Corpuscular HGB Conc 31.5 g/dl (32-36); Mean Corpuscular Hemoglobin 32.1 pg (26-34); Mean Corpuscular Volume 101.7 fl (80-100); Mean Platelet Volume 10.8 fl (7.4-10.4); Monocytes Absolute Auto 1.4 K/mm3 (0.1-0.6); Monocytes Percent Auto 10.6 % (2.6-8.5); Neutrophils Absolute Auto 11.3 K/mm3 (1.3-6.7); Neutrophils Percent Auto 84.1 % (45.5-73.1); Platelet Count Result 222 k/mm3 (150-375); Red Blood Count 2.93 M/mm3 (4.2-5.4); Red Cell Distribution Width 14.7 % (11.5-14.5); White Blood Count 13.5 K/mm3 (4.5-10.0)
[2023-04-05 07:34] LABS: Alanine Aminotransferase 18 U/L (6-35); Albumin Level 3.3 g/dL (3.5-5.1); Alkaline Phosphatase 59 U/L (38-126); Anion Gap 3 mmol/L (8-16); Aspartate Amino Transferase 37 U/L (14-36); Bilirubin,Total 0.4 mg/dL (0.2-1.3); Blood Urea Nitrogen 18 mg/dL (7-17); Calcium 8.9 mg/dL (8.4-10.2); Carbon Dioxide 30 mmol/L (22-30); Chloride 105 mmol/L (98-107); Estimated CRCL calculation 31 ml/min; Estimated Glomerular Filt Rate 60; Glucose 97 mg/dL (65-110); Potassium 3.7 mmol/L (3.4-5.0); Sodium 138 mmol/L (137-145)
[2023-04-05 09:22] LABS: INR 1.1; Prothrombin Time 14.8 Seconds (11.1-14.7)
[2023-04-05] MEDS: CYANOCOBALAMIN 1,000 MCG TABLET 1000 MCG PO (10:15)
[2023-04-05] MEDS: CHOLECALCIFEROL 1,000 UNITS TABLET 2000 UNITS PO (10:15)
[2023-04-05] MEDS: FOLIC ACID 0.4 MG TABLET PO (10:15)
[2023-04-05] MEDS: IBUPROFEN 600 MG TABLET PO ×2 (10:15→21:17)
[2023-04-05] MEDS: GABAPENTIN 300 MG CAPSULE PO ×2 (10:15→17:47)
[2023-04-05] MEDS: FOLIC ACID 1 MG TABLET PO (10:15)
[2023-04-05] MEDS: LACTATED RINGERS 1,000 ML 150 ML IV CONT (11:35)
--- NOTE | 2023-04-05 12:10 | WPDANESEPPF ---
Anes - Initial Pre Proc Eval Procedure: Operation Date: 04/05/23 12:30 Proposed Procedures p Flexible Bronchoscopy - Lonnie Torres MD Date/Time: 04/05/23 12:10 Surgeon: Shola Arredondo MD Pre Op Diagnosis: Interstitial Lung Disease Patient Data Age: 82 Gender: F Height: 1.52 m Weight: 59 kg Last Vital Signs Temp 98.2 F 04/05/23 11:33 Pulse 81 04/05/23 11:33 Resp 20 04/05/23 11:33 BP 133/51 L 04/05/23 11:33 Pulse Ox 96 04/05/23 11:33 O2 Del Method Room Air 04/05/23 11:33 Allergies Allergy/AdvReac Type Severity Reaction Status Date / Time cephalexin Allergy Severe RASH Verified 04/05/23 11:31 morphine Allergy Severe HIVES Verified 04/05/23 11:31 nitrofurantoin AdvReac Intermediate Weakness Verified 04/05/23 11:31 [From Macrobid] Home Medications Medication Instructions Recorded Confirmed Type folic acid 1 mg tablet 1 mg PO DAILY 05/22/19 04/04/23 History hydroxychloroquine 200 mg tablet 100 mg PO BID 05/28/19 04/04/23 History (Plaquenil) methotrexate sodium 2.5 mg tablet 20 mg PO WEEKLY 05/28/19 04/04/23 History multivitamin 1 tablet PO DAILY 06/17/21 04/04/23 History vitamin B12 1,000 mcg-folic acid 1 tablet sublingual EVERY OTHER DAY 08/16/21 04/04/23 History 400 mcg sublingual tablet gabapentin 300 mg capsule 300 mg PO BID 09/06/22 04/04/23 History cholecalciferol (vitamin D3) 50 50 mcg PO DAILY 09/07/22 04/04/23 History mcg (2,000 unit) capsule levothyroxine 75 mcg tablet 75 mcg PO DAILY #90 tabs 01/17/23 04/04/23 Rx omeprazole 20 mg capsule,delayed See Rx Instructions PO ONCE #90 03/15/23 04/04/23 Rx release caps albuterol sulfate 90 mcg/actuation 2 inh inhalation Q4H #8.5 grams 03/24/23 04/04/23 Rx aerosol inhaler rosuvastatin 5 mg tablet See Rx Instructions .Route 03/24/23 04/04/23 Rx .COMPLEX #90 tabs ibuprofen 600 mg tablet 600 mg PO DAILY PRN Pain 04/04/23 04/04/23 History ibuprofen 600 mg tablet 600 mg PO Q12H Pain 04/04/23 04/04/23 History Laboratory Tests 04/04/23 04/05/23 04/05/23 15:50 06:37 08:54 WBC 13.5 H K/mm3 (4.5-10.0) RBC 2.93 L M/mm3 (4.2-5.4) Hgb 9.4 L g/dL (12.0-15.0) Hct 29.8 L % (37.0-47.0) MCV 101.7 H fl (80-100) MCH 32.1 pg (26-34) MCHC 31.5 L g/dl (32-36) RDW 14.7 H % (11.5-14.5) Plt Count 222 k/mm3 (150-375) MPV 10.8 H fl (7.4-10.4) Immature Gran % (Auto) 0.5 % (0-0.5) Neut % (Auto) 84.1 H % (45.5-73.1) Lymph % (Auto) 4.7 L % (18.3-44.2) [place] % (Auto) 10.6 H % (2.6-8.5) Eos % (Auto) 0.0 % (0-4.4) Baso % (Auto) 0.1 L % (0.2-1.2) Lymph # (Auto) 0.63 L K/mm3 (0.9-3.2) [place] # (Auto) 1.4 H K/mm3 (0.1-0.6) Eos # (Auto) 0.0 K/mm3 (0-0.3) Baso # (Auto) 0.0 K/mm3 (0.0-0.1) Abs Immat Gran (auto) 0.07 H K/mm3 (0.00-0.031) Absolute Neuts (auto) 11.3 H K/mm3 (1.3-6.7) Absolute Nucleated RBC 0.0 K/mm3 (0.0-0.012) Nucleated RBC % 0.0 % (0.0-0.2) PT 14.8 H Seconds (11.1-14.7) INR 1.1 Sodium 138 mmol/L (137-145) Potassium 3.7 mmol/L (3.4-5.0) Chloride 105 mmol/L (98-107) Carbon Dioxide 30 mmol/L (22-30) Anion Gap 3 L mmol/L (8-16) BUN 18 H mg/dL (7-17) Creatinine 0.90 mg/dL (0.7-1.0) Estim Creat Clear Calc 31 ml/min Estimated GFR 60 (59 - ) Glucose 97 mg/dL (65-110) Calcium 8.9 mg/dL (8.4-10.2) Total Bilirubin 0.4 mg/dL (0.2-1.3) AST 37 H U/L (14-36) ALT 18 U/L (6-35) Alkaline Phosphatase 59 U/L (38-126) C-Reactive Protein 5.7 H mg/dL (<1.0) Total Protein 6.0 L g/dL (6.3-8.2) Albumin 3.3 L g/dL (3.5-5.1)
[2023-04-05] MEDS: SODIUM CHLORIDE 0.9% IV 500 ML BAG 100 ML IRRIGATION (12:58)
[2023-04-05] MEDS: LIDOCAINE HCL 2% LOCAL INJ 20 ML VIAL INFILTRATE (12:59)
[2023-04-05] MEDS: LIDOCAINE HCL 2% JELLY 5 ML TUBE 1 APPLIC MUCOUS MEM (13:00)
--- NOTE | 2023-04-05 13:51 | PM.PNPUL ---
Progress Note: A&P Assessment and Plan (1) Interstitial lung disease: Code(s): J84.9 - Interstitial pulmonary disease, unspecified Status: Acute Assessment and Plan: An 82-year-old female with seronegative arthritis and a history of long-term methotrexate use presented with a cough and worsening dyspnea on exertion, symptoms that began after a COVID-19 infection 3 months ago. Physical examination revealed crackles and a chest CT scan showed bilateral interstitial lung disease, with features suggestive of chronic hypersensitivity pneumonitis or fibrotic Non-Specific Interstitial Pneumonia (NSIP). The differential diagnosis includes methotrexate pneumonitis due to her long-term use of the drug, or interstitial lung disease related to her autoimmune condition. The possibility of an infection, such as Pneumocystis jiroveci, is less likely but should be ruled out due to her immunosuppressed status. Patient underwent bronchoscopy with BAL this p.m.. Bronchial airways were unremarkable. Lavage was obtained from right lower lobe and left lower lobe. Plan: Continue with supportive care, patient should go on DVT prophylaxis. 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 She underwent bronchoscopy with BAL this p.m. Review of Systems Review of Systems: All systems reviewed & are unremarkable except as noted in HPI and below (HPI and below) Exam Narrative: GENERAL APPEARANCE: Well developed, well nourished, alert and cooperative, and appears to be in no acute distress SKIN: Inspection of the skin reveals no rashes, ulcerations or petechiae. HEENT: Sclerae anicteric and conjunctivae pink and moist. Extraocular movements were intact and pupils were equal, round, and reactive to light. The oral mucosa, hard and soft palate, tongue and posterior pharynx were normal. NECK: Supple. There was no thyroid enlargement, and no tenderness, or masses were felt. LUNGS: Crackles at bases posteriorly mcc up, no wheezing. CARDIAC: There was a regular rate and rhythm without any murmurs, gallops, rubs. ABDOMEN: Soft and nontender with normal bowel sounds. There was no organomegaly. LYMPH NODES: No lymphadenopathy was appreciated in the neck. EXTREMITIES: No cyanosis, clubbing or edema. NEUROLOGIC: Alert and oriented x 3. Normal affect. Objective Data Vital Signs Vital Signs: Vital Signs - 24 hr 04/04/23 13:54 04/04/23 14:00 04/04/23 14:00 Temperature 36.9 C Pulse Rate 89 79 Respiratory Rate 20 18 Blood Pressure 116/42 L Pulse Oximetry 93 94 Oxygen Delivery Room Air Oxygen Flow Rate 04/04/23 16:00 04/04/23 19:25 04/04/23 19:51 Temperature Pulse Rate 82 75 78 Respiratory Rate 18 18 Blood Pressure Pulse Oximetry Oxygen Delivery Oxygen Flow Rate 04/04/23 21:00 04/04/23 20:00 04/05/23 01:05 Temperature 37.2 C Pulse Rate 91 94 81 Respiratory Rate 12 18 Blood Pressure 130/44 L Pulse Oximetry 93 Oxygen Delivery Oxygen Flow Rate 04/05/23 01:22 04/05/23 00:00 04/05/23 04:00 Temperature Pulse Rate 79 77 79 Respiratory Rate 18 Blood Pressure Pulse Oximetry Oxygen Delivery Oxygen Flow Rate 04/05/23 05:38 04/05/23 08:33 04/05/23 08:35 Temperature 36.9 C Pulse Rate 80 73 Respiratory Rate 12 16 Blood Pressure 100/44 L Pulse Oximetry 93 92 Oxygen Delivery Room Air Oxygen Flow Rate 04/05/23 08:40 04/05/23 11:33 04/05/23 13:06 Temperature 36.8 C 36
[2023-04-05 13:52] LABS: Source Bronchial Fluid Bronchial Lavage
[2023-04-05 13:53] LABS: Appearance Bronchial Fluid Hazy; Color Bronchial Fluid Red; Eosinophils Bronchial Fluid 3 %; Lymphocytes Bronchial Fluid 7 %; Macrophages Bronchial Fluid 10; Monocytes Bronchial Fluid 8 %; Neutrophils Bronchial Fluid 64 %; Other Cells Bronchial Fluid 8 %
--- NOTE | 2023-04-05 14:12 | PC.NURSE ---
report from Brianna MAK 1412, patient on her way back up to room after bronchoscopy
[2023-04-05] MEDS: ENOXAPARIN 40 MG/0.4 ML SYRINGE SUB-Q (15:31)
--- NOTE | 2023-04-05 15:54 | PM.IMPN ---
Progress Note: A&P Assessment and Plan (1) Interstitial lung disease: Code(s): J84.9 - Interstitial pulmonary disease, unspecified Status: Acute Assessment and Plan: Consult Pulmonolgy Incentive spirometry supplemental oxygen PRN (2) Cough present for greater than 3 weeks: Code(s): R05.8 - Other specified cough Status: Acute Assessment and Plan: Hold MTX BAL today, 04/07/23 (3) Hypothyroidism, unspecified: Qualifiers: Hypothyroidism type: acquired Qualified Code(s): E03.9 - Hypothyroidism, unspecified Code(s): E03.9 - Hypothyroidism, unspecified Status: Acute Assessment and Plan: Resume Levothyroxine (4) Hyperlipidemia, unspecified: Qualifiers: Hyperlipidemia type: unspecified Qualified Code(s): E78.5 - Hyperlipidemia, unspecified Code(s): E78.5 - Hyperlipidemia, unspecified Status: Acute Assessment and Plan: Resume Statin (5) Acute dyspnea: Code(s): R06.00 - Dyspnea, unspecified Status: Acute (6) Gastro-esophageal reflux disease without esophagitis: Code(s): K21.9 - Gastro-esophageal reflux disease without esophagitis Status: Acute Assessment and Plan: Resume PPI (7) 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 She underwent bronchoscopy with BAL this p.m. Review of Systems Constitutional: Constitutional: Reports no additional constitutional complaints Eyes: Eyes: Reports no additional eye complaints ENT: Reports system reviewed and no additional complaints, except as documented Cardiovascular: Cardiovascular: Reports no additional cardiovascular complaints and Reports dyspnea Respiratory: Respiratory: Reports cough and Reports dyspnea Gastrointestinal: Gastrointestinal: Reports no additional gastrointestinal complaints Genitourinary: Genitourinary: Reports no additional female genitourinary complaints Musculoskeletal: Musculoskeletal: Reports no additional musculoskeletal complaints Integumentary/Breasts: Skin/Breast: Reports system reviewed and no additional complaints, except as docu Neurologic: Reports system reviewed and no additional complaints, except as documented Psychiatric: Psychiatric: Reports no additional psychiatric complaints Objective Data Vital Signs Vital Signs: Vital Signs - 24 hr 04/04/23 16:00 04/04/23 19:25 04/04/23 19:51 Temperature Pulse Rate 82 75 78 Respiratory Rate 18 18 Blood Pressure Pulse Oximetry Oxygen Delivery Oxygen Flow Rate 04/04/23 21:00 04/04/23 20:00 04/05/23 01:05 Temperature 98.9 F Pulse Rate 91 94 81 Respiratory Rate 12 18 Blood Pressure 130/44 L Pulse Oximetry 93 Oxygen Delivery Oxygen Flow Rate 04/05/23 01:22 04/05/23 00:00 04/05/23 04:00 Temperature Pulse Rate 79 77 79 Respiratory Rate 18 Blood Pressure Pulse Oximetry Oxygen Delivery Oxygen Flow Rate 04/05/23 05:38 04/05/23 08:33 04/05/23 08:35 Temperature 98.5 F Pulse Rate 80 73 Respiratory Rate 12 16 Blood Pressure 100/44 L Pulse Oximetry 93 92 Oxygen Delivery Room Air Oxygen Flow Rate 04/05/23 08:40 04/05/23 11:33 04/05/23 13:06 Temperature 98.2 F 98.5 F Pulse Rate 76 81 88 Respiratory Rate 16 20 27 H Blood Pressure 133/51 L 119/63 Pulse Oximetry 96 99 Oxygen Delivery Room
--- NOTE | 2023-04-05 18:49 | PC.NURSE ---
called Shania regarding 13 beats Vtach, no new orders. Spoke to him over the phone at [phone]
[2023-04-06] VITALS (14 sets, daily range): BP systolic 110–160; BP diastolic 45–80; PULSE 63–87; RESP 13–22; TEMP 36.4–36.6; O2SAT 91–95
[2023-04-06] MEDS: IPRATROPIUM 0.5 MG/ALBUTEROL SULFATE 2.5 MG AMPUL.NEB 3 ML INHALATION ×2 (03:06→07:55)
[2023-04-06 06:29] LABS: Basophils Percent Auto 0.1 % (0.2-1.2); Hematocrit 30.7 % (37.0-47.0); Hemoglobin 9.8 g/dL (12.0-15.0); Immature Granulocyte Percent A 0.7 % (0-0.5); Lymphocytes Absolute Auto 0.52 K/mm3 (0.9-3.2); Lymphocytes Percent Auto 3.5 % (18.3-44.2); Mean Corpuscular HGB Conc 31.9 g/dl (32-36); Mean Corpuscular Hemoglobin 32.1 pg (26-34); Mean Corpuscular Volume 100.7 fl (80-100); Mean Platelet Volume 10.5 fl (7.4-10.4); Monocytes Percent Auto 6.4 % (2.6-8.5); Neutrophils Absolute Auto 13.3 K/mm3 (1.3-6.7); Neutrophils Percent Auto 89.3 % (45.5-73.1); Platelet Count Result 251 k/mm3 (150-375); Red Blood Count 3.05 M/mm3 (4.2-5.4); White Blood Count 14.9 K/mm3 (4.5-10.0)
[2023-04-06 06:38] LABS: Alanine Aminotransferase 22 U/L (6-35); Albumin Level 3.6 g/dL (3.5-5.1); Alkaline Phosphatase 63 U/L (38-126); Anion Gap 7 mmol/L (8-16); Aspartate Amino Transferase 44 U/L (14-36); Bilirubin,Total 0.4 mg/dL (0.2-1.3); Blood Urea Nitrogen 24 mg/dL (7-17); Calcium 8.9 mg/dL (8.4-10.2); Carbon Dioxide 25 mmol/L (22-30); Chloride 106 mmol/L (98-107); Estimated CRCL calculation 28 ml/min; Estimated Glomerular Filt Rate 53; Glucose 139 mg/dL (65-110); Potassium 3.9 mmol/L (3.4-5.0); Sodium 138 mmol/L (137-145)
[2023-04-06] MEDS: LEVOTHYROXINE SODIUM 75 MCG TABLET PO (08:00)
[2023-04-06] MEDS: CHOLECALCIFEROL 1,000 UNITS TABLET 2000 UNITS PO (08:05)
[2023-04-06] MEDS: GABAPENTIN 300 MG CAPSULE PO ×2 (08:05→17:24)
[2023-04-06] MEDS: HYDROXYCHLOROQUINE SULFATE 100 MG TABLET PO (08:05)
[2023-04-06] MEDS: ROSUVASTATIN 5 MG TABLET PO (08:05)
[2023-04-06] MEDS: IBUPROFEN 600 MG TABLET PO ×2 (08:05→20:39)
[2023-04-06] MEDS: FOLIC ACID 1 MG TABLET PO (08:05)
--- NOTE | 2023-04-06 08:08 | P.PNAN_ITS ---
Anes - Prog Note Post-Op Date/Time: 04/06/23 08:08 Cardiovascular status: normal Respiratory status: normal Airway patency: baseline Mental status: baseline Post-Op hydration status: normal Vital Signs: Last Vital Signs Temp 36.5 C 04/06/23 05:59 Pulse 76 04/06/23 07:56 Resp 18 04/06/23 07:56 BP 110/53 L 04/06/23 05:59 Pulse Ox 92 04/06/23 07:56 O2 Del Method Room Air 04/06/23 07:56 O2 Flow Rate 2 04/05/23 14:06 FiO2 21 04/06/23 07:56 Pain Score (VAS): 0/10 I/O: Intake & Output 04/05/23 04/06/23 04/06/23 23:59 07:59 15:59 Intake Total 790 750 Balance 790 750 Laboratory Tests 04/06/23 06:20 04/06/23 06:20 04/05/23 04/05/23 04/06/23 08:54 Unknown 06:20 WBC 14.9 H RBC 3.05 L Hgb 9.8 L Hct 30.7 L MCV 100.7 H MCH 32.1 MCHC 31.9 L RDW 15.0 H Plt Count 251 MPV 10.5 H Immature Gran % (Auto) 0.7 H Neut % (Auto) 89.3 H Lymph % (Auto) 3.5 L [place] % (Auto) 6.4 Eos % (Auto) 0.0 Baso % (Auto) 0.1 L Lymph # (Auto) 0.52 L [place] # (Auto) 1.0 H Eos # (Auto) 0.0 Baso # (Auto) 0.0 Abs Immat Gran (auto) 0.10 H Absolute Neuts (auto) 13.3 H Absolute Nucleated RBC 0.0 Nucleated RBC % 0.0 PT 14.8 H INR 1.1 Sodium 138 Potassium 3.9 Chloride 106 Carbon Dioxide 25 Anion Gap 7 L BUN 24 H Creatinine 1.00 Estim Creat Clear Calc 28 Estimated GFR 53 L Glucose 139 H Calcium 8.9 Total Bilirubin 0.4 AST 44 H ALT 22 Alkaline Phosphatase 63 Total Protein 6.0 L Albumin 3.6 Bronch Specimen Source Bronchial lavage Bronchial Fluid Color Red Bronchial Fluid Appearance Hazy Bronchial Neutrophils 64 Bronchial Lymphocytes 7 Bronchial Monocytes 8 Bronchial Eosinophils 3 Bronchial Macrophages 10 Bronchial Other Cells 8 CMV Culture Pending Pneumocystis carinii Ag Pending Microbiology 04/04/23 06:35 Urine Clean Catch Urine Culture - Preliminary Escherichia Coli Post-procedural complaints: none Patient Feedback: Patient satisfied with anesthetic care.
--- NOTE | 2023-04-06 09:00 | PM.PNPUL ---
Progress Note: A&P Assessment and Plan (1) Interstitial lung disease: Code(s): J84.9 - Interstitial pulmonary disease, unspecified Status: Acute Assessment and Plan: An 82-year-old female with seronegative arthritis and a history of long-term methotrexate use presented with a cough and worsening dyspnea on exertion, symptoms that began after a COVID-19 infection 3 months ago. Physical examination revealed crackles and a chest CT scan showed bilateral interstitial lung disease, with features suggestive of chronic hypersensitivity pneumonitis or fibrotic Non-Specific Interstitial Pneumonia (NSIP). The differential diagnosis includes methotrexate pneumonitis due to her long-term use of the drug, or interstitial lung disease related to her autoimmune condition. The possibility of an infection, such as Pneumocystis jiroveci, is less likely but should be ruled out due to her immunosuppressed status. Patient underwent bronchoscopy with BAL yesterday.. Bronchial airways were unremarkable. Lavage was obtained from right lower lobe and left lower lobe. BAL fluid analysis showed mostly neutrophilic lavage. Small number lymphocytes approximately 7%. Remainder of BAL test pending. Plan: Patient was started on Solu-Medrol 60 mg IV. Anticipate discharging patient to home by the end of the week. She will continue with oral steroids on an outpatient basis. She will return to pulmonary clinic for further evaluation with pulmonary function testing. Discussed management with patient and her family. Patient needs to follow-up with her veterinary medicine scientist at [facility] as well. 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 She stated she feels better today. Cough less than before Review of Systems Review of Systems: All systems reviewed & are unremarkable except as noted in HPI and below (HPI and below) Exam Narrative: GENERAL APPEARANCE: Well developed, well nourished, alert and cooperative, and appears to be in no acute distress SKIN: Inspection of the skin reveals no rashes, ulcerations or petechiae. HEENT: Sclerae anicteric and conjunctivae pink and moist. Extraocular movements were intact and pupils were equal, round, and reactive to light. The oral mucosa, hard and soft palate, tongue and posterior pharynx were normal. NECK: Supple. There was no thyroid enlargement, and no tenderness, or masses were felt. LUNGS: Crackles at bases posteriorly snf up, no wheezing. CARDIAC: There was a regular rate and rhythm without any murmurs, gallops, rubs. ABDOMEN: Soft and nontender with normal bowel sounds. There was no organomegaly. LYMPH NODES: No lymphadenopathy was appreciated in the neck. EXTREMITIES: No cyanosis, clubbing or edema. NEUROLOGIC: Alert and oriented x 3. Normal affect. Objective Data Vital Signs Vital Signs: Vital Signs - 24 hr 04/05/23 11:33 04/05/23 13:06 04/05/23 13:16 Temperature 36.8 C 36.9 C Pulse Rate 81 88 87 Respiratory Rate 20 27 H 18 Blood Pressure 133/51 L 119/63 124/53 L Pulse Oximetry 96 99 98 Oxygen Delivery Room Air Simple Face Mask Simple Face Mask Oxygen Flow Rate 6 4 Fraction of Inspired Oxygen 04/05/23 13:26 04/05/23 13:36 04/05/23 13:46 Temperature Pulse Rate 86 78 79 Respiratory Rate 26 H 23 H 28 H Blood Pressure 125/57 L 101/45 L 113/46 L Pulse Oximetry 96 93 92 Oxygen Delivery Nasal Cannula Nasal Cannula Nasal Cannula Oxygen Flow Rate 2 2 2 Fraction of Inspired Oxygen 04/05/23 13:56 04/05/23
[2023-04-06] MEDS: PIPERACILLN/TAZ 3.375GM/NS50ML 3.375 GM/50 ML BAG IVPB ×2 (09:48→17:24)
[2023-04-06] MEDS: methylPREDNISolone SOD SUCC 125 MG VIAL 60 MG IV PUSH (09:48)
[2023-04-06 10:13] LABS: Procalcitonin 0.1 ng/mL
--- NOTE | 2023-04-06 17:45 | PM.IMPN ---
Progress Note: A&P Assessment and Plan (1) Interstitial lung disease: Code(s): J84.9 - Interstitial pulmonary disease, unspecified Status: Acute Assessment and Plan: Consult Pulmonolgy Incentive spirometry supplemental oxygen PRN (2) Cough present for greater than 3 weeks: Code(s): R05.8 - Other specified cough Status: Acute Assessment and Plan: Hold MTX BAL today, 04/07/23 (3) Hypothyroidism, unspecified: Qualifiers: Hypothyroidism type: acquired Qualified Code(s): E03.9 - Hypothyroidism, unspecified Code(s): E03.9 - Hypothyroidism, unspecified Status: Acute Assessment and Plan: Resume Levothyroxine (4) Hyperlipidemia, unspecified: Qualifiers: Hyperlipidemia type: unspecified Qualified Code(s): E78.5 - Hyperlipidemia, unspecified Code(s): E78.5 - Hyperlipidemia, unspecified Status: Acute Assessment and Plan: Resume Statin (5) Acute dyspnea: Code(s): R06.00 - Dyspnea, unspecified Status: Acute (6) Gastro-esophageal reflux disease without esophagitis: Code(s): K21.9 - Gastro-esophageal reflux disease without esophagitis Status: Acute Assessment and Plan: Resume PPI (7) 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 Coli on urine culture Concepciónsydeclan; Plan To undergo a bronchoscopy today, 04/05/23 Hold MTX for concerns of Pneumonitis Time Spent With Patient Time with patient: 25 - 35 minutes Subjective Date/time seen: 04/06/23 17:45 Interval history: Patient has no new respiratory symptoms. She stated she feels better today. Cough less than before Review of Systems Constitutional: Constitutional: Reports no additional constitutional complaints Eyes: Eyes: Reports no additional eye complaints ENT: Reports system reviewed and no additional complaints, except as documented Cardiovascular: Cardiovascular: Reports no additional cardiovascular complaints and Reports dyspnea Respiratory: Respiratory: Reports cough and Reports dyspnea Gastrointestinal: Gastrointestinal: Reports no additional gastrointestinal complaints Genitourinary: Genitourinary: Reports no additional female genitourinary complaints Musculoskeletal: Musculoskeletal: Reports no additional musculoskeletal complaints Integumentary/Breasts: Skin/Breast: Reports system reviewed and no additional complaints, except as docu Neurologic: Reports system reviewed and no additional complaints, except as documented Psychiatric: Psychiatric: Reports no additional psychiatric complaints Objective Data Vital Signs Vital Signs: Vital Signs - 24 hr 04/05/23 18:42 04/05/23 21:36 04/05/23 21:43 Temperature 98.4 F Pulse Rate 121 H 80 77 Respiratory Rate 13 16 Blood Pressure 124/44 L Pulse Oximetry 91 Oxygen Delivery Fraction of Inspired Oxygen 04/05/23 21:53 04/05/23 21:54 04/05/23 20:00 Temperature Pulse Rate 79 Respiratory Rate 16 Blood Pressure Pulse Oximetry 93 Oxygen Delivery Room Air Room Air Fraction of Inspired Oxygen 04/06/23 03:06 04/06/23 03:17 04/05/23 20:00 Temperature Pulse Rate 78 82 76 Respiratory Rate 16 16 Blood Pressure Pulse Oximetry Oxygen Delivery Fraction of Inspired Oxygen 0
[2023-04-06 22:29] LABS: Anti Cyclic Citrullinated Pept <16 Units (<20)
[2023-04-07] VITALS (14 sets, daily range): BP systolic 121–143; BP diastolic 53–67; PULSE 52–96; RESP 14–18; TEMP 36–36.9; O2SAT 87–97
[2023-04-07] MEDS: PIPERACILLN/TAZ 3.375GM/NS50ML 3.375 GM/50 ML BAG IVPB ×3 (01:16→17:05)
[2023-04-07] MEDS: LEVOTHYROXINE SODIUM 75 MCG TABLET PO (05:41)
[2023-04-07 07:04] LABS: Basophils Percent Auto 0.1 % (0.2-1.2); Hematocrit 34.3 % (37.0-47.0); Hemoglobin 10.9 g/dL (12.0-15.0); Immature Granulocyte Absolute 0.11 K/mm3 (0.00-0.031); Immature Granulocyte Percent A 0.8 % (0-0.5); Lymphocytes Absolute Auto 0.97 K/mm3 (0.9-3.2); Lymphocytes Percent Auto 6.8 % (18.3-44.2); Mean Corpuscular HGB Conc 31.8 g/dl (32-36); Mean Corpuscular Hemoglobin 32.2 pg (26-34); Mean Corpuscular Volume 101.2 fl (80-100); Mean Platelet Volume 10.4 fl (7.4-10.4); Monocytes Absolute Auto 1.2 K/mm3 (0.1-0.6); Monocytes Percent Auto 8.1 % (2.6-8.5); Neutrophils Percent Auto 84.2 % (45.5-73.1); Platelet Count Result 287 k/mm3 (150-375); Red Blood Count 3.39 M/mm3 (4.2-5.4); Red Cell Distribution Width 14.8 % (11.5-14.5); White Blood Count 14.3 K/mm3 (4.5-10.0)
[2023-04-07 07:19] LABS: Alanine Aminotransferase 23 U/L (6-35); Albumin Level 3.8 g/dL (3.5-5.1); Alkaline Phosphatase 66 U/L (38-126); Anion Gap 6 mmol/L (8-16); Aspartate Amino Transferase 39 U/L (14-36); Bilirubin,Total 0.6 mg/dL (0.2-1.3); Blood Urea Nitrogen 25 mg/dL (7-17); Calcium 9.1 mg/dL (8.4-10.2); Carbon Dioxide 28 mmol/L (22-30); Chloride 106 mmol/L (98-107); Estimated CRCL calculation 28 ml/min; Estimated Glomerular Filt Rate 53; Glucose 77 mg/dL (65-110); Potassium 3.7 mmol/L (3.4-5.0); Sodium 140 mmol/L (137-145)
--- NOTE | 2023-04-07 09:22 | PM.PNPUL ---
Progress Note: A&P Assessment and Plan (1) Interstitial lung disease: Code(s): J84.9 - Interstitial pulmonary disease, unspecified Status: Acute Assessment and Plan: An 82-year-old female with seronegative arthritis and a history of long-term methotrexate use presented with a cough and worsening dyspnea on exertion, symptoms that began after a COVID-19 infection 3 months ago. Physical examination revealed crackles and a chest CT scan showed bilateral interstitial lung disease, with features suggestive of chronic hypersensitivity pneumonitis or fibrotic Non-Specific Interstitial Pneumonia (NSIP). The differential diagnosis includes methotrexate pneumonitis due to her long-term use of the drug, or interstitial lung disease related to her autoimmune condition. The possibility of an infection, such as Pneumocystis jiroveci, is less likely but should be ruled out due to her immunosuppressed status. Patient underwent bronchoscopy with BAL yesterday.. Bronchial airways were unremarkable. Lavage was obtained from right lower lobe and left lower lobe. BAL fluid analysis showed mostly neutrophilic lavage, with 64% neutrophils, alveolar macrophages 10% eosinophils 3%. Small percentage of lymphocytes, approximately 7%. Remainder of BAL test pending including stain for Pneumocystis jiroveci. Plan: The patient was administered a single dose of Solu-Medrol 60 mg IV yesterday and commenced on a daily regimen of prednisone 40 mg this morning. A comprehensive discussion was held with the patient, her , and daughter regarding future management strategies. At this point, it remains uncertain whether the patient is experiencing late-onset methotrexate-induced pneumonitis with neutrophilia on BAL or an interstitial lung disease like NSIP with fibrotic features associated with her autoimmune condition. An infection such as Pneumocystis jiroveci is deemed unlikely, given the evidence of fibrotic features on the chest CT. The patient will discontinue methotrexate and is scheduled to consult with her eap clinician at [facility] for follow-up. She will have evaluation for home oxygen prior to DC home today. She will continue with prednisone 40 mg daily until she returns to Pulmonary Clinic in approximately 10 days from today for additional investigations. Gave the patient my business card to call to make an appointment in approximately 7-10 days from today. 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 She continues to have a mild coughing no wheezing. He has been afebrile, on room air Review of Systems Review of Systems: All systems reviewed & are unremarkable except as noted in HPI and below (HPI and below) Exam Narrative: GENERAL APPEARANCE: Well developed, well nourished, alert and cooperative, and appears to be in no acute distress SKIN: Inspection of the skin reveals no rashes, ulcerations or petechiae. HEENT: Sclerae anicteric and conjunctivae pink and moist. Extraocular movements were intact and pupils were equal, round, and reactive to light. The oral mucosa, hard and soft palate, tongue and posterior pharynx were normal. NECK: Supple. There was no thyroid enlargement, and no tenderness, or masses were felt. LUNGS: Crackles at bases posteriorly care home up, no wheezing. CARDIAC: There was a regular rate and rhythm without any murmurs, gallops, rubs. ABDOMEN: Soft and nontender with normal bowel sounds. There was no organomegaly. LYMPH NODES: No lymphadenopathy was apprec
[2023-04-07] MEDS: predniSONE 20 MG TABLET 40 MG PO (09:24)
[2023-04-07] MEDS: IBUPROFEN 600 MG TABLET PO ×2 (09:25→21:35)
[2023-04-07] MEDS: CHOLECALCIFEROL 1,000 UNITS TABLET 2000 UNITS PO (09:25)
[2023-04-07] MEDS: ROSUVASTATIN 5 MG TABLET PO (09:25)
[2023-04-07] MEDS: GABAPENTIN 300 MG CAPSULE PO ×2 (09:25→17:07)
[2023-04-07] MEDS: CYANOCOBALAMIN 1,000 MCG TABLET 1000 MCG PO (09:26)
[2023-04-07] MEDS: HYDROXYCHLOROQUINE SULFATE 100 MG TABLET PO (09:26)
--- NOTE | 2023-04-07 15:40 | HOMEO2EVAL ---
Evaluation was performed at [facility] Home Oxygen Evaluation RC: Home Oxygen (O2) Evaluation Start: 04/07/23 15:07 Freq: ONCE Status: Active Protocol: RPE Activity Type Activity Date Activity User E-sign Co-sign Detail Recorded Client Recorded Date Recorded By Document 04/07/23 15:00 CLARITA [email or web address] 04/07/23 15:40 CLARITA Document 04/07/23 15:10 CLARITA [email or web address] 04/07/23 15:40 CLARITA Document 04/07/23 15:12 CLARITA [email or web address] 04/07/23 15:40 CLARITA Document 04/07/23 15:13 CLARITA [email or web address] 04/07/23 15:40 CLARITA Document 04/07/23 15:25 CLARITA [id number] 04/07/23 15:40 CLARITA 04/07/23 04/07/23 04/07/23 15:00 15:10 15:12 Home O2 Evaluation [Oxygen] -Test Phase Resting Exercise Exercise -Oxygen Delivery Room Air Room Air Nasal Cannula -Oxygen Flow Rate (L/min) 1 [Pulse Oximetry] -Pulse Oximetry (90-100 %) 93 87 L 87 L [Pulse Rate] -Pulse Rate (60-100 beats/min) 80 96 [Comments] -Home Oxygen Evaluation Comments [Charges] -Evaluation Charges O2 Evaluation by Pulmonary 04/07/23 04/07/23 15:13 15:25 Home O2 Evaluation [Oxygen] -Test Phase Exercise Resting -Oxygen Delivery Nasal Cannula Room Air -Oxygen Flow Rate (L/min) 2 [Pulse Oximetry] -Pulse Oximetry (90-100 %) 92 93 [Pulse Rate] -Pulse Rate (60-100 beats/min) 93 89 [Comments] -Home Oxygen Evaluation Comments Pt requires 2 L home O2 with activity/ exertion. [Charges] -Evaluation Charges
--- NOTE | 2023-04-07 16:10 | PCRCNOTE ---
Home o2 set up with IV resp care. Tank in room for transport home. 2 L with activity. RN notified.
--- NOTE | 2023-04-07 17:08 | PM.IMPN ---
Progress Note: A&P Assessment and Plan (1) Interstitial lung disease: Code(s): J84.9 - Interstitial pulmonary disease, unspecified Status: Acute Assessment and Plan: Consult Pulmonolgy Incentive spirometry supplemental oxygen PRN (2) Cough present for greater than 3 weeks: Code(s): R05.8 - Other specified cough Status: Acute Assessment and Plan: Hold MTX BAL today, 04/07/23 (3) Hypothyroidism, unspecified: Qualifiers: Hypothyroidism type: acquired Qualified Code(s): E03.9 - Hypothyroidism, unspecified Code(s): E03.9 - Hypothyroidism, unspecified Status: Acute Assessment and Plan: Resume Levothyroxine (4) Hyperlipidemia, unspecified: Qualifiers: Hyperlipidemia type: unspecified Qualified Code(s): E78.5 - Hyperlipidemia, unspecified Code(s): E78.5 - Hyperlipidemia, unspecified Status: Acute Assessment and Plan: Resume Statin (5) Acute dyspnea: Code(s): R06.00 - Dyspnea, unspecified Status: Acute (6) Gastro-esophageal reflux disease without esophagitis: Code(s): K21.9 - Gastro-esophageal reflux disease without esophagitis Status: Acute Assessment and Plan: Resume PPI (7) 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 Coli on urine culture Zosyn; sensitivities: Sensitive to Unasyn, Zosyn and Nitrofurantoin she states that she has a poor tolerance to Nitrofurantoin Will DC home on Zosyn IV Plan To undergo a bronchoscopy today, 04/05/23 Hold MTX for concerns of Pneumonitis Will DC on Prednisone and f/u with Audioprosthologist and Community Development Planner Time Spent With Patient Time with patient: 25 - 35 minutes Subjective Date/time seen: 04/07/23 17:08 Interval history: Patient has no new respiratory symptoms. She continues to have a mild coughing no wheezing. He has been afebrile, on room air She is eager to be discharged. Review of Systems Constitutional: Constitutional: Reports no additional constitutional complaints Eyes: Eyes: Reports no additional eye complaints ENT: Reports system reviewed and no additional complaints, except as documented Cardiovascular: Cardiovascular: Reports no additional cardiovascular complaints and Reports dyspnea Respiratory: Respiratory: Reports cough and Reports dyspnea Gastrointestinal: Gastrointestinal: Reports no additional gastrointestinal complaints Genitourinary: Genitourinary: Reports no additional female genitourinary complaints Musculoskeletal: Musculoskeletal: Reports no additional musculoskeletal complaints Integumentary/Breasts: Skin/Breast: Reports system reviewed and no additional complaints, except as docu Neurologic: Reports system reviewed and no additional complaints, except as documented Psychiatric: Psychiatric: Reports no additional psychiatric complaints Objective Data Vital Signs Vital Signs: Vital Signs - 24 hr 04/06/23 21:04 04/06/23 22:48 04/06/23 20:39 Temperature 97.9 F Pulse Rate 63 64 Respiratory Rate 18 Blood Pressure 160/80 H 148/60 H Pulse Oximetry 91 Oxygen Delivery Oxygen Flow Rate 04/07/23 00:00 04/07/23 04:00 04/07/23 06:00 Temperature 98.4 F Pulse Rate 58 L 52 L 60 Respiratory Rate 18 Blood Pressure 143/65 H Pulse O
[2023-04-07 17:22] LABS: Procalcitonin 0.1 ng/mL
[2023-04-07] MEDS: PANTOPRAZOLE SOD SESQUIHYDRATE 20 MG TAB PO (17:55)
[2023-04-07 19:14] LABS: ANCA Screen Negative (Negative)
[2023-04-08] VITALS (10 sets, daily range): BP systolic 121–143; BP diastolic 41–80; PULSE 43–87; RESP 18–20; TEMP 36.2–36.7; O2SAT 93–95
[2023-04-08] MEDS: PIPERACILLN/TAZ 3.375GM/NS50ML 3.375 GM/50 ML BAG IVPB ×2 (00:12→08:49)
[2023-04-08] MEDS: LEVOTHYROXINE SODIUM 75 MCG TABLET PO (05:18)
[2023-04-08 06:42] LABS: Basophils Percent Auto 0.2 % (0.2-1.2); Eosinophils Percent Auto 0.3 % (0-4.4); Hematocrit 32.4 % (37.0-47.0); Hemoglobin 10.1 g/dL (12.0-15.0); Immature Granulocyte Absolute 0.06 K/mm3 (0.00-0.031); Immature Granulocyte Percent A 0.5 % (0-0.5); Lymphocytes Absolute Auto 1.31 K/mm3 (0.9-3.2); Lymphocytes Percent Auto 11.7 % (18.3-44.2); Mean Corpuscular HGB Conc 31.2 g/dl (32-36); Mean Corpuscular Hemoglobin 31.5 pg (26-34); Mean Corpuscular Volume 100.9 fl (80-100); Mean Platelet Volume 10.8 fl (7.4-10.4); Monocytes Absolute Auto 1.1 K/mm3 (0.1-0.6); Monocytes Percent Auto 9.8 % (2.6-8.5); Neutrophils Absolute Auto 8.7 K/mm3 (1.3-6.7); Neutrophils Percent Auto 77.5 % (45.5-73.1); Platelet Count Result 273 k/mm3 (150-375); Red Blood Count 3.21 M/mm3 (4.2-5.4); Red Cell Distribution Width 14.6 % (11.5-14.5); White Blood Count 11.2 K/mm3 (4.5-10.0)
[2023-04-08 06:58] LABS: Alanine Aminotransferase 21 U/L (6-35); Albumin Level 3.1 g/dL (3.5-5.1); Alkaline Phosphatase 62 U/L (38-126); Anion Gap 6 mmol/L (8-16); Aspartate Amino Transferase 30 U/L (14-36); Bilirubin,Total 0.5 mg/dL (0.2-1.3); Blood Urea Nitrogen 25 mg/dL (7-17); Calcium 8.5 mg/dL (8.4-10.2); Carbon Dioxide 24 mmol/L (22-30); Chloride 110 mmol/L (98-107); Estimated CRCL calculation 31 ml/min; Estimated Glomerular Filt Rate 60; Glucose 72 mg/dL (65-110); Potassium 3.3 mmol/L (3.4-5.0); Sodium 140 mmol/L (137-145)
[2023-04-08] MEDS: GABAPENTIN 300 MG CAPSULE PO ×2 (08:47→16:47)
[2023-04-08] MEDS: HYDROXYCHLOROQUINE SULFATE 100 MG TABLET PO (08:47)
[2023-04-08] MEDS: PANTOPRAZOLE SOD SESQUIHYDRATE 20 MG TAB PO (08:47)
[2023-04-08] MEDS: IBUPROFEN 600 MG TABLET PO ×2 (08:47→20:30)
[2023-04-08] MEDS: CHOLECALCIFEROL 1,000 UNITS TABLET 2000 UNITS PO (08:47)
[2023-04-08] MEDS: ROSUVASTATIN 5 MG TABLET PO (08:47)
[2023-04-08] MEDS: LIDOCAINE HCL 1% LOCAL INJ 2 ML AMPUL 5 ML INFILTRATE (09:45)
[2023-04-08] MEDS: ERTAPENEM 1 GM/NS 50 ML 1 GM/50 ML BAG IVPB (11:24)
[2023-04-08] MEDS: SALINE LOCK FLUSH 10 ML IV PUSH (13:41)
--- NOTE | 2023-04-08 16:21 | PM.IMPN ---
Progress Note: A&P Assessment and Plan (1) Interstitial lung disease: Code(s): J84.9 - Interstitial pulmonary disease, unspecified Status: Acute Assessment and Plan: Consult Pulmonolgy Incentive spirometry supplemental oxygen PRN (2) Cough present for greater than 3 weeks: Code(s): R05.8 - Other specified cough Status: Acute Assessment and Plan: Hold MTX BAL today, 04/07/23 Rx: Steroids, Pulmonology consult (3) Hypothyroidism, unspecified: Qualifiers: Hypothyroidism type: acquired Qualified Code(s): E03.9 - Hypothyroidism, unspecified Code(s): E03.9 - Hypothyroidism, unspecified Status: Acute Assessment and Plan: Resume Levothyroxine (4) Hyperlipidemia, unspecified: Qualifiers: Hyperlipidemia type: unspecified Qualified Code(s): E78.5 - Hyperlipidemia, unspecified Code(s): E78.5 - Hyperlipidemia, unspecified Status: Acute Assessment and Plan: Resume Statin (5) Acute dyspnea: Code(s): R06.00 - Dyspnea, unspecified Status: Acute (6) Gastro-esophageal reflux disease without esophagitis: Code(s): K21.9 - Gastro-esophageal reflux disease without esophagitis Status: Acute Assessment and Plan: Resume PPI (7) 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 Coli on urine culture Zosyn; sensitivities: Sensitive to Unasyn, Zosyn and Nitrofurantoin she states that she has a poor tolerance to Nitrofurantoin Will DC home on Ertapenem 04/08/23: Plan is to set up Ertapenem for outpatient infusion; Care coordination in charge. Plan To undergo a bronchoscopy today, 04/05/23 Hold MTX for concerns of Pneumonitis Will DC on Prednisone and f/u with Lehr Cutter and Outer Diameter Technician Time Spent With Patient Time with patient: 25 - 35 minutes Subjective Date/time seen: 04/08/23 16:21 Interval history: Patient has no new respiratory symptoms. She continues to have a mild coughing no wheezing. He has been afebrile, on room air She is eager to be discharged. Review of Systems Constitutional: Constitutional: Reports no additional constitutional complaints Eyes: Eyes: Reports no additional eye complaints ENT: Reports system reviewed and no additional complaints, except as documented Cardiovascular: Cardiovascular: Reports no additional cardiovascular complaints and Reports dyspnea Respiratory: Respiratory: Reports cough and Reports dyspnea Gastrointestinal: Gastrointestinal: Reports no additional gastrointestinal complaints Genitourinary: Genitourinary: Reports no additional female genitourinary complaints Musculoskeletal: Musculoskeletal: Reports no additional musculoskeletal complaints Integumentary/Breasts: Skin/Breast: Reports system reviewed and no additional complaints, except as docu Neurologic: Reports system reviewed and no additional complaints, except as documented Psychiatric: Psychiatric: Reports no additional psychiatric complaints Objective Data Vital Signs Vital Signs: Vital Signs - 24 hr 04/07/23 22:00 04/07/23 21:20 04/07/23 20:00 Temperature 96.8 F L Pulse Rate 61 Respiratory Rate 14 Blood Pressure 141/67 H Pulse Oximetry 95 Oxygen Delivery Room Air 04/08/23 00:00 04/08/23 04:00 04/08/23
[2023-04-08] MEDS: predniSONE 20 MG TABLET 40 MG PO (16:47)
[2023-04-09] VITALS (8 sets, daily range): BP systolic 116–147; BP diastolic 58–62; PULSE 58–74; RESP 16–18; TEMP 36.6–36.9; O2SAT 95–98
[2023-04-09] MEDS: SALINE LOCK FLUSH 10 ML IV PUSH ×3 (06:17→20:49)
[2023-04-09] MEDS: LEVOTHYROXINE SODIUM 75 MCG TABLET PO (06:17)
[2023-04-09 06:51] LABS: Basophils Percent Auto 0.1 % (0.2-1.2); Eosinophils Percent Auto 0.1 % (0-4.4); Hematocrit 33.3 % (37.0-47.0); Hemoglobin 10.8 g/dL (12.0-15.0); Immature Granulocyte Absolute 0.05 K/mm3 (0.00-0.031); Immature Granulocyte Percent A 0.5 % (0-0.5); Lymphocytes Absolute Auto 0.61 K/mm3 (0.9-3.2); Lymphocytes Percent Auto 6.7 % (18.3-44.2); Mean Corpuscular HGB Conc 32.4 g/dl (32-36); Mean Corpuscular Hemoglobin 32.3 pg (26-34); Mean Corpuscular Volume 99.7 fl (80-100); Mean Platelet Volume 10.7 fl (7.4-10.4); Monocytes Absolute Auto 0.6 K/mm3 (0.1-0.6); Monocytes Percent Auto 6.4 % (2.6-8.5); Neutrophils Absolute Auto 7.9 K/mm3 (1.3-6.7); Neutrophils Percent Auto 86.2 % (45.5-73.1); Platelet Count Result 268 k/mm3 (150-375); Red Blood Count 3.34 M/mm3 (4.2-5.4); Red Cell Distribution Width 14.4 % (11.5-14.5); White Blood Count 9.2 K/mm3 (4.5-10.0)
[2023-04-09 07:02] LABS: Alanine Aminotransferase 20 U/L (6-35); Albumin Level 3.3 g/dL (3.5-5.1); Alkaline Phosphatase 62 U/L (38-126); Anion Gap 5 mmol/L (8-16); Aspartate Amino Transferase 26 U/L (14-36); Bilirubin,Total 0.4 mg/dL (0.2-1.3); Blood Urea Nitrogen 24 mg/dL (7-17); Calcium 8.6 mg/dL (8.4-10.2); Carbon Dioxide 27 mmol/L (22-30); Chloride 107 mmol/L (98-107); Estimated CRCL calculation 34 ml/min; Estimated Glomerular Filt Rate > 60; Glucose 97 mg/dL (65-110); Potassium 4.3 mmol/L (3.4-5.0); Sodium 139 mmol/L (137-145)
[2023-04-09] MEDS: ENOXAPARIN 40 MG/0.4 ML SYRINGE SUB-Q (09:02)
[2023-04-09] MEDS: CHOLECALCIFEROL 1,000 UNITS TABLET 2000 UNITS PO (09:03)
[2023-04-09] MEDS: predniSONE 20 MG TABLET 40 MG PO (09:03)
[2023-04-09] MEDS: CYANOCOBALAMIN 1,000 MCG TABLET 1000 MCG PO (09:03)
[2023-04-09] MEDS: PANTOPRAZOLE SOD SESQUIHYDRATE 20 MG TAB PO (09:04)
[2023-04-09] MEDS: IBUPROFEN 600 MG TABLET PO ×2 (09:04→20:48)
[2023-04-09] MEDS: GABAPENTIN 300 MG CAPSULE PO ×2 (09:04→16:15)
[2023-04-09] MEDS: ROSUVASTATIN 5 MG TABLET PO (09:04)
[2023-04-09] MEDS: HYDROXYCHLOROQUINE SULFATE 100 MG TABLET PO (09:05)
[2023-04-09] MEDS: ERTAPENEM 1 GM/NS 50 ML 1 GM/50 ML BAG IVPB (09:06)
--- NOTE | 2023-04-09 15:43 | PM.IMPN ---
Progress Note: A&P Assessment and Plan (1) Interstitial lung disease: Code(s): J84.9 - Interstitial pulmonary disease, unspecified Status: Acute Assessment and Plan: Related to autoimmune disorder versus methotrexate versus infection Methotrexate on hold BAL results pending Symptoms improving on steroids (2) UTI (urinary tract infection): Qualifiers: Hematuria presence: without hematuria Urinary tract infection type: acute cystitis Qualified Code(s): N30.00 - Acute cystitis without hematuria Code(s): N39.0 - Urinary tract infection, site not specified Status: Inactive Assessment and Plan: Resistant E coli. Continue ertapenem through April 12. (3) Hypothyroidism, unspecified: Qualifiers: Hypothyroidism type: acquired Qualified Code(s): E03.9 - Hypothyroidism, unspecified Code(s): E03.9 - Hypothyroidism, unspecified Status: Acute Assessment and Plan: Resume Levothyroxine (4) Hyperlipidemia, unspecified: Qualifiers: Hyperlipidemia type: unspecified Qualified Code(s): E78.5 - Hyperlipidemia, unspecified Code(s): E78.5 - Hyperlipidemia, unspecified Status: Acute Assessment and Plan: Resume Statin (5) Gastro-esophageal reflux disease without esophagitis: Code(s): K21.9 - Gastro-esophageal reflux disease without esophagitis Status: Acute Assessment and Plan: Continue PEEP Subjective Date/time seen: 04/09/23 15:43 Interval history: Cough much better. No chest pain or shortness of breath. No swelling. Tolerating diet. No GI wants. No further dysuria and frequency. No abnormal bleeding. Joint pain and stiffness improved on steroids Review of Systems Review of Systems: All systems reviewed & are unremarkable except as noted in HPI and below Exam Narrative: HEENT: PERRL, sclerae nonicteric, pharyngeal mucosa pink and intact NECK: No JVD CHEST: Diffuse fine inspiratory crackles with no wheezes. Normal effort. HEART: NL S1/S2, regular, no murmur ABDOMEN: BS+, soft, nontender, no mass, no bruits EXTREMITIES: No cyanosis, edema, or clubbing NEUROLOGIC: CN intact and symmetric to inspection. MUSCULOSKELETAL: Tone and strength symmetric. PSYCH: Alert. Oriented to person, place, and time. Objective Data Vital Signs Vital Signs: Vital Signs - 24 hr 04/08/23 16:00 04/08/23 18:00 04/08/23 20:00 Temperature Pulse Rate 61 61 Respiratory Rate Blood Pressure Pulse Oximetry Oxygen Delivery Room Air 04/08/23 21:57 04/09/23 05:57 04/08/23 20:00 Temperature 97.7 F 97.9 F Pulse Rate 63 60 63 Respiratory Rate 20 18 Blood Pressure 143/61 H 147/58 H Pulse Oximetry 93 98 Oxygen Delivery 04/09/23 00:10 04/09/23 04:00 04/09/23 08:00 Temperature Pulse Rate 58 L 59 L 69 Respiratory Rate Blood Pressure Pulse Oximetry Oxygen Delivery 04/09/23 08:00 04/09/23 12:00 04/09/23 14:00 Temperature 98.4 F Pulse Rate 69 74 71 Respiratory Rate 16 Blood Pressure 116/62 Pulse Oximetry 95 96 Oxygen Delivery Room Air Intake/Output Intake/Output: Intake & Output 04/06/23 04/07/23 04/08/23 04/09/23 23:59 23:59 23:59 23:59 Intake Total 2045 2059 1670 930 Balance 2045 2059 1670 930 Meds/Results Medications: Active Medications Generic Name Dose Route Start Last Admin Trade Name Freq PRN Reason Stop Dose Admin Albuterol/Ipratropium 3 ml 04/06/23 16:34 Ipratropium 0.5 Mg/Albuterol Sulfate 2.5 Mg Ampul.Neb 3 Ml INHALATION Q6H PRN Wheezing Cyanocobalamin 1,000 mcg 04/05/23 09:00 04/09/23 09:03 Cyanocobalamin 1,000 Mcg Tablet PO 1,000 mcg Q48H MIKAYLA Administration Enoxaparin Sodium 40 mg 04/05/23 09:00 04/09/23 09:02 Enoxaparin 40 Mg/0.4 Ml Syringe SUB-Q 40 mg DAILY MIKAYLA Administration Folic Acid 1 mg 04/05/23 09:00 04/09/23 09:01 Folic Acid 1 Mg Tablet PO Not Given
[2023-04-09] MEDS: SACCHAROMYCES BOULARDII 250 MG CAPSULE PO (16:22)
[2023-04-10] MEDS: LEVOTHYROXINE SODIUM 75 MCG TABLET PO (05:53)
[2023-04-10] MEDS: SALINE LOCK FLUSH 10 ML IV PUSH ×2 (05:54→16:22)
[2023-04-10 06:00] VITALS: BP 132/62; PULSE 53; RESP 18; TEMP 36.6; O2SAT 97
[2023-04-10 06:13] LABS: Basophils Percent Auto 0.1 % (0.2-1.2); Eosinophils Absolute Auto 0.2 K/mm3 (0-0.3); Eosinophils Percent Auto 1.7 % (0-4.4); Hematocrit 37.7 % (37.0-47.0); Hemoglobin 11.3 g/dL (12.0-15.0); Immature Granulocyte Absolute 0.07 K/mm3 (0.00-0.031); Immature Granulocyte Percent A 0.7 % (0-0.5); Lymphocytes Absolute Auto 1.23 K/mm3 (0.9-3.2); Lymphocytes Percent Auto 11.8 % (18.3-44.2); Mean Corpuscular Hemoglobin 31.8 pg (26-34); Mean Corpuscular Volume 106.2 fl (80-100); Mean Platelet Volume 10.7 fl (7.4-10.4); Monocytes Percent Auto 9.4 % (2.6-8.5); Neutrophils Absolute Auto 7.9 K/mm3 (1.3-6.7); Neutrophils Percent Auto 76.3 % (45.5-73.1); Platelet Count Result 268 k/mm3 (150-375); Red Blood Count 3.55 M/mm3 (4.2-5.4); Red Cell Distribution Width 14.4 % (11.5-14.5); White Blood Count 10.4 K/mm3 (4.5-10.0)
[2023-04-10 06:30] LABS: Alanine Aminotransferase 18 U/L (6-35); Albumin Level 3.1 g/dL (3.5-5.1); Alkaline Phosphatase 49 U/L (38-126); Anion Gap 5 mmol/L (8-16); Aspartate Amino Transferase 30 U/L (14-36); Bilirubin,Total 0.5 mg/dL (0.2-1.3); Blood Urea Nitrogen 24 mg/dL (7-17); Calcium 8.3 mg/dL (8.4-10.2); Carbon Dioxide 24 mmol/L (22-30); Chloride 110 mmol/L (98-107); Estimated CRCL calculation 34 ml/min; Estimated Glomerular Filt Rate > 60; Glucose 68 mg/dL (65-110); Potassium 3.9 mmol/L (3.4-5.0); Sodium 139 mmol/L (137-145)
[2023-04-10] MEDS: ENOXAPARIN 40 MG/0.4 ML SYRINGE SUB-Q (08:45)
[2023-04-10] MEDS: GABAPENTIN 300 MG CAPSULE PO ×2 (08:45→18:04)
[2023-04-10] MEDS: ERTAPENEM 1 GM/NS 50 ML 1 GM/50 ML BAG IVPB (08:45)
--- NOTE | 2023-04-10 08:49 | PM.IMPN ---
Progress Note: A&P Assessment and Plan (1) Interstitial lung disease: Code(s): J84.9 - Interstitial pulmonary disease, unspecified Status: Acute Assessment and Plan: Related to autoimmune disorder versus methotrexate versus infection Methotrexate on hold BAL results pending Symptoms improving on steroids (2) UTI (urinary tract infection): Qualifiers: Hematuria presence: without hematuria Urinary tract infection type: acute cystitis Qualified Code(s): N30.00 - Acute cystitis without hematuria Code(s): N39.0 - Urinary tract infection, site not specified Status: Inactive Assessment and Plan: Resistant E coli. Continue ertapenem through April 12. Plan for discharge after last dose of ertapenem on 04/12/2023. (3) Hypothyroidism, unspecified: Qualifiers: Hypothyroidism type: acquired Qualified Code(s): E03.9 - Hypothyroidism, unspecified Code(s): E03.9 - Hypothyroidism, unspecified Status: Acute Assessment and Plan: Resume Levothyroxine (4) Hyperlipidemia, unspecified: Qualifiers: Hyperlipidemia type: unspecified Qualified Code(s): E78.5 - Hyperlipidemia, unspecified Code(s): E78.5 - Hyperlipidemia, unspecified Status: Acute Assessment and Plan: Resume Statin (5) Gastro-esophageal reflux disease without esophagitis: Code(s): K21.9 - Gastro-esophageal reflux disease without esophagitis Status: Acute Assessment and Plan: Continue PEEP Subjective Date/time seen: 04/10/23 08:49 Interval history: Mild dry cough intermittently. No chest pain. No shortness of breath at rest but some with exertion such as walking to bathroom. Ate well. Review of Systems Review of Systems: All systems reviewed & are unremarkable except as noted in HPI and below Exam Narrative: HEENT: PERRL, sclerae nonicteric, pharyngeal mucosa pink and intact NECK: No JVD CHEST: Diffuse fine inspiratory crackles with no wheezes. Normal effort. HEART: NL S1/S2, regular, no murmur ABDOMEN: BS+, soft, nontender, no mass, no bruits EXTREMITIES: No cyanosis, edema, or clubbing NEUROLOGIC: CN intact and symmetric to inspection. MUSCULOSKELETAL: Tone and strength symmetric. PSYCH: Alert. Oriented to person, place, and time. Objective Data Vital Signs Vital Signs: Vital Signs - 24 hr 04/09/23 12:00 04/09/23 14:00 04/09/23 21:18 Temperature 98.4 F 97.8 F Pulse Rate 74 71 59 L Respiratory Rate 16 18 Blood Pressure 116/62 139/58 L Pulse Oximetry 96 97 Oxygen Delivery 04/09/23 20:00 04/10/23 06:00 Temperature 97.9 F Pulse Rate 53 L Respiratory Rate 18 Blood Pressure 132/62 Pulse Oximetry 97 97 Oxygen Delivery Room Air Intake/Output Intake/Output: Intake & Output 04/07/23 04/08/23 04/09/23 04/10/23 23:59 23:59 23:59 23:59 Intake Total 2059 1670 1150 50 Balance 2059 1670 1150 50 Meds/Results Medications: Active Medications Generic Name Dose Route Start Last Admin Trade Name Freq PRN Reason Stop Dose Admin Albuterol/Ipratropium 3 ml 04/06/23 16:34 Ipratropium 0.5 Mg/Albuterol Sulfate 2.5 Mg Ampul.Neb 3 Ml INHALATION Q6H PRN Wheezing Cyanocobalamin 1,000 mcg 04/05/23 09:00 04/09/23 09:03 Cyanocobalamin 1,000 Mcg Tablet PO 1,000 mcg Q48H MIKAYLA Administration Enoxaparin Sodium 40 mg 04/05/23 09:00 04/10/23 08:45 Enoxaparin 40 Mg/0.4 Ml Syringe SUB-Q 40 mg DAILY MIKAYLA Administration Folic Acid 1 mg 04/05/23 09:00 04/10/23 08:45 Folic Acid 1 Mg Tablet PO 1 mg DAILY MIKAYLA Administration Folic Acid 0.4 mg 04/05/23 09:00 04/09/23 09:01 Folic Acid 0.4 Mg Tablet PO Not Given Q48H MIKAYLA Gabapentin 300 mg 04/04/23 17:00 04/10/23 08:45 Gabapentin 300 Mg Capsule PO 300 mg BID MIKAYLA Administration Guaifenesin/Dextromethorphan 10 ml 04/06/23 17:44 Guaifenesin/Dextromethorphan 10 Ml Udc PO Q4H PRN Cou
[2023-04-10] MEDS: SACCHAROMYCES BOULARDII 250 MG CAPSULE PO ×2 (09:05→18:04)
[2023-04-10] MEDS: ROSUVASTATIN 5 MG TABLET PO (09:05)
[2023-04-10] MEDS: PANTOPRAZOLE SOD SESQUIHYDRATE 20 MG TAB PO (09:05)
[2023-04-10] MEDS: CHOLECALCIFEROL 1,000 UNITS TABLET 2000 UNITS PO (09:05)
[2023-04-10] MEDS: HYDROXYCHLOROQUINE SULFATE 100 MG TABLET PO (09:05)
[2023-04-10] MEDS: IBUPROFEN 600 MG TABLET PO ×2 (09:05→20:41)
[2023-04-10] MEDS: predniSONE 20 MG TABLET 40 MG PO (09:05)
[2023-04-10 09:32] VITALS: O2SAT 94
[2023-04-10] MEDS: NEOMYCIN/POLYMYXIN/BACITRACIN OINTMENT PACKET 1 PACKET (12:00)
[2023-04-10 14:00] VITALS: BP 135/68; PULSE 72; RESP 18; O2SAT 97
[2023-04-10 20:00] VITALS: O2SAT 97
[2023-04-10 22:00] VITALS: BP 131/65; PULSE 59; RESP 16; TEMP 36.1; O2SAT 95
[2023-04-11] MEDS: LEVOTHYROXINE SODIUM 75 MCG TABLET PO (05:45)
[2023-04-11 06:00] VITALS: BP 174/66; PULSE 67; RESP 14; TEMP 35.8; O2SAT 98
[2023-04-11 06:04] LABS: Basophils Percent Auto 0.1 % (0.2-1.2); Eosinophils Absolute Auto 0.1 K/mm3 (0-0.3); Eosinophils Percent Auto 0.5 % (0-4.4); Hematocrit 33.3 % (37.0-47.0); Hemoglobin 10.8 g/dL (12.0-15.0); Immature Granulocyte Absolute 0.07 K/mm3 (0.00-0.031); Immature Granulocyte Percent A 0.7 % (0-0.5); Lymphocytes Absolute Auto 0.79 K/mm3 (0.9-3.2); Mean Corpuscular HGB Conc 32.4 g/dl (32-36); Mean Corpuscular Hemoglobin 32.3 pg (26-34); Mean Corpuscular Volume 99.7 fl (80-100); Monocytes Percent Auto 9.7 % (2.6-8.5); Platelet Count Result 287 k/mm3 (150-375); Red Blood Count 3.34 M/mm3 (4.2-5.4); Red Cell Distribution Width 14.4 % (11.5-14.5); White Blood Count 9.9 K/mm3 (4.5-10.0)
[2023-04-11 06:15] LABS: Alanine Aminotransferase 18 U/L (6-35); Alkaline Phosphatase 59 U/L (38-126); Anion Gap 3 mmol/L (8-16); Aspartate Amino Transferase 24 U/L (14-36); Bilirubin,Total 0.4 mg/dL (0.2-1.3); Blood Urea Nitrogen 25 mg/dL (7-17); Calcium 8.6 mg/dL (8.4-10.2); Carbon Dioxide 28 mmol/L (22-30); Chloride 108 mmol/L (98-107); Estimated CRCL calculation 34 ml/min; Estimated Glomerular Filt Rate > 60; Glucose 84 mg/dL (65-110); Potassium 3.8 mmol/L (3.4-5.0); Sodium 139 mmol/L (137-145)
[2023-04-11] MEDS: IBUPROFEN 600 MG TABLET PO ×2 (08:39→20:12)
[2023-04-11] MEDS: GABAPENTIN 300 MG CAPSULE PO ×2 (08:39→16:52)
[2023-04-11] MEDS: ROSUVASTATIN 5 MG TABLET PO (08:39)
[2023-04-11] MEDS: FOLIC ACID 1 MG TABLET PO (08:39)
[2023-04-11] MEDS: SACCHAROMYCES BOULARDII 250 MG CAPSULE PO ×2 (08:39→16:52)
[2023-04-11] MEDS: CYANOCOBALAMIN 1,000 MCG TABLET 1000 MCG PO (08:39)
[2023-04-11] MEDS: HYDROXYCHLOROQUINE SULFATE 100 MG TABLET PO (08:39)
[2023-04-11] MEDS: CHOLECALCIFEROL 1,000 UNITS TABLET 2000 UNITS PO (08:39)
[2023-04-11] MEDS: predniSONE 20 MG TABLET 40 MG PO (08:39)
[2023-04-11] MEDS: FOLIC ACID 0.4 MG TABLET PO (08:40)
[2023-04-11] MEDS: PANTOPRAZOLE SOD SESQUIHYDRATE 20 MG TAB PO (08:40)
[2023-04-11] MEDS: ENOXAPARIN 40 MG/0.4 ML SYRINGE SUB-Q (08:42)
[2023-04-11] MEDS: ERTAPENEM 1 GM/NS 50 ML 1 GM/50 ML BAG IVPB (10:00)
--- NOTE | 2023-04-11 11:03 | PCNFU ---
Nutrition Follow-Up Complete: Suboptimal po intake related to appetite as evidenced by pt report, charted intake, unintentional weight loss Goal:PO intake greater than 50% of meals Pt meeting goal. continue with same goal. Pt current nutrition is Regular, nutrition ice cream cups daily. Nutrition recommendation: continue with current plan of care Last recorded weight is 59 kg. Bowel Motility: +BM 04/07 Labs Reviewed: Hgb:10.8, HCt:33.3, Alb:3.0, BUN:25 Meds Noted: lovenox, folic acid, protonix, prednisone. Skin: WNL Additional Notes: Pt continues on a regular diet, intake improved to 50-100%, eating well. Continue to encourage good po intake Monitor intake, wt, labs. Follow up in 7 days.
[2023-04-11 14:00] VITALS: BP 124/49; PULSE 66; RESP 18; TEMP 36.5; O2SAT 96
[2023-04-11] MEDS: SALINE LOCK FLUSH 10 ML IV PUSH ×2 (14:10→22:00)
--- NOTE | 2023-04-11 14:57 | PM.IMPN ---
Progress Note: A&P Assessment and Plan (1) Interstitial lung disease: Code(s): J84.9 - Interstitial pulmonary disease, unspecified Status: Acute Assessment and Plan: Related to autoimmune disorder versus methotrexate versus infection Methotrexate on hold BAL results pending Symptoms improving on steroids (2) UTI (urinary tract infection): Qualifiers: Hematuria presence: without hematuria Urinary tract infection type: acute cystitis Qualified Code(s): N30.00 - Acute cystitis without hematuria Code(s): N39.0 - Urinary tract infection, site not specified Status: Inactive Assessment and Plan: Resistant E coli. Continue ertapenem through April 12. Plan for discharge after last dose of ertapenem on 04/12/2023. Will DC tomorrow, after last dose of ertapenem (3) Hypothyroidism, unspecified: Qualifiers: Hypothyroidism type: acquired Qualified Code(s): E03.9 - Hypothyroidism, unspecified Code(s): E03.9 - Hypothyroidism, unspecified Status: Acute Assessment and Plan: Resume Levothyroxine (4) Hyperlipidemia, unspecified: Qualifiers: Hyperlipidemia type: unspecified Qualified Code(s): E78.5 - Hyperlipidemia, unspecified Code(s): E78.5 - Hyperlipidemia, unspecified Status: Acute Assessment and Plan: Resume Statin (5) Gastro-esophageal reflux disease without esophagitis: Code(s): K21.9 - Gastro-esophageal reflux disease without esophagitis Status: Acute Assessment and Plan: Continue PEEP Subjective Date/time seen: 04/11/23 14:57 Interval history: Seen and examined; eager to go home tomorrow after last dose of Ertapenem Review of Systems Review of Systems: All systems reviewed & are unremarkable except as noted in HPI and below Constitutional: Constitutional: Reports no additional constitutional complaints Eyes: Eyes: Reports no additional eye complaints ENT: Reports system reviewed and no additional complaints, except as documented Cardiovascular: Cardiovascular: Reports no additional cardiovascular complaints and Reports dyspnea Respiratory: Respiratory: Reports cough and Reports dyspnea Gastrointestinal: Gastrointestinal: Reports no additional gastrointestinal complaints Genitourinary: Genitourinary: Reports no additional female genitourinary complaints Musculoskeletal: Musculoskeletal: Reports no additional musculoskeletal complaints Integumentary/Breasts: Skin/Breast: Reports system reviewed and no additional complaints, except as docu Neurologic: Reports system reviewed and no additional complaints, except as documented Psychiatric: Psychiatric: Reports no additional psychiatric complaints Exam Narrative: HEENT: PERRL, sclerae nonicteric, pharyngeal mucosa pink and intact NECK: No JVD CHEST: Diffuse fine inspiratory crackles with no wheezes. Normal effort. HEART: NL S1/S2, regular, no murmur ABDOMEN: BS+, soft, nontender, no mass, no bruits EXTREMITIES: No cyanosis, edema, or clubbing NEUROLOGIC: CN intact and symmetric to inspection. MUSCULOSKELETAL: Tone and strength symmetric. PSYCH: Alert. Oriented to person, place, and time. Objective Data Vital Signs Vital Signs: Vital Signs - 24 hr 04/10/23 20:00 04/10/23 22:00 04/11/23 06:00 Temperature 96.9 F L 96.4 F L Pulse Rate 59 L 67 Respiratory Rate 16 14 Blood Pressure 131/65 174/66 H Pulse Oximetry 97 95 98 Oxygen Delivery Room Air 04/11/23 08:00 04/11/23 14:00 Temperature 97.7 F Pulse Rate 66 Respiratory Rate 18 Blood Pressure 124/49 L Pulse Oximetry 96 Oxygen Delivery Room Air Intake/Output Intake/Output: Intake & Output 04/08/23 04/09/23 04/10/23 04/11/23 23:59 23:59 23:59 23:59 Intake Total 1670 1150 938 286 Balance 1670 1150 938 286 Meds/Results Medications: Active Medications Generic Name Dose Route Start Last Admin Trade Name Freq PRN Reason Stop
[2023-04-11 21:35] VITALS: BP 143/95; PULSE 62; RESP 20; TEMP 36.8; O2SAT 95
[2023-04-11 21:39] VITALS: BP 142/60
[2023-04-12] MEDS: SALINE LOCK FLUSH 10 ML IV PUSH (05:45)
[2023-04-12] MEDS: LEVOTHYROXINE SODIUM 75 MCG TABLET PO (05:45)
[2023-04-12 06:00] VITALS: BP 166/63; PULSE 57; RESP 18; TEMP 36.9; O2SAT 97
[2023-04-12 08:07] VITALS: BP 146/69
[2023-04-12] MEDS: PANTOPRAZOLE SOD SESQUIHYDRATE 20 MG TAB PO (09:10)
[2023-04-12] MEDS: FOLIC ACID 1 MG TABLET PO (09:10)
[2023-04-12] MEDS: predniSONE 20 MG TABLET 40 MG PO (09:10)
[2023-04-12] MEDS: GABAPENTIN 300 MG CAPSULE PO (09:10)
[2023-04-12] MEDS: SACCHAROMYCES BOULARDII 250 MG CAPSULE PO (09:10)
[2023-04-12] MEDS: HYDROXYCHLOROQUINE SULFATE 100 MG TABLET PO (09:10)
[2023-04-12] MEDS: ERTAPENEM 1 GM/NS 50 ML 1 GM/50 ML BAG IVPB (09:10)
[2023-04-12] MEDS: IBUPROFEN 600 MG TABLET PO (09:10)
[2023-04-12] MEDS: CHOLECALCIFEROL 1,000 UNITS TABLET 2000 UNITS PO (09:10)
[2023-04-12] MEDS: ROSUVASTATIN 5 MG TABLET PO (09:11)
[2023-04-12] MEDS: ENOXAPARIN 40 MG/0.4 ML SYRINGE SUB-Q (09:11)
--- NOTE | 2023-04-12 10:56 | PM.DS ---
DS: Admitting Diagnosis Discharge Date 04/12/23 Admitting Diagnosis ILD UTI, E. Coli DS: Discharge Diagnosis Discharge Diagnosis Plan Assessment and Plan Acute and principal conditions 1. ILD Acute hypoxic respiratory failure Cough Dyspnea on exertion. 2. UTI, E. Coli. ESBL s/p Zosyn, Ertapenem s/p bronchoscopy, 04/06/23 with BAL, unremarkable microscopy, stain and culture Prednisone; DC on Prednisome f/u with Pulmonology and Rheumatology post-DC Chronic and stable conditions. 1. RA. -ve RF; MTX held due to concerns for drug related pneumonitis 2. GERD. On PPI 3. Hypothyroidism. on Levofloxacin 4. Dyslipidemia. Resume statin Disposition. DC home VTE prophylaxis. on Lovenox Nutrition. Heart healthy DS: Summary Hospital Course Reason for hospitalization: Dyspnea on exertion UTI, ESBL E. coli ILD Hospital Course: Chief Complaint: Recurrent cough, 3 month Narrative: Ms Tomas is an 82 yo F with a mHx signficant for Hypothyroidism, RA, GERD, Dyslipidemia Over the last 3 months, she has been battling a persistent cough with little to no sputum; it is aggravated by exertion and activity, alleviated by rest; associated with malaise, poor performance of ADLs; she denies fevers, chillls, chest pain, leg swellings, PND, Orthopnea or hemoptysis. In 12/2022, she developed symptoms of malaise, fatigue, myalgia and flu-like symptoms in 12/2022; she performed a home-kit COVID-19 test that came back positive. She did not develop dyspnea, need oxygen or get any evaluations from a health care center. She simply managed her symptoms supportively with OTC analgesics. 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 The mediastinal soft tissues appear normal. There is no evidence of pleural or pericardial effusion. There is extensive interstitial thickening, subpleural reticulation, and mild patchy groundglass opacity. Findings are consistent with chronic interstitial disease. No suspicious pulmonary nodule seen. CBC: Remarkable for Hb 10 UA: Unremarkable She will be admitted, evaluated and managed for ILD and chronic cough. Assessment and Plan Acute and principal conditions 1. ILD Acute hypoxic respiratory failure Cough Dyspnea on exertion. 2. UTI, E. Coli. ESBL s/p Zosyn, Ertapenem Prednisone; DC on Prednisome f/u with Pulmonology and Rheumatology post-DC Chronic and stable conditions. 1. RA. MTX held due to concerns for drug related pneumonitis 2. GERD. On PPI 3. Hypothyroidism. on Levofloxacin 4. Dyslipidemia. Resume statin Disposition. DC home VTE prophylaxis. on Lovenox Nutrition. Heart healthy Time Spent with Patient Time attestation: Total time spent providing and/or coordinating discharge services: Exam Const: General: no acute distress HENMT: Mouth: Yes moist mucous membranes Eyes: General: appearance normal, both eyes and all related structures Pupils: Equal, round and reactive pupils present Neck: Neck: supple Resp: Auscultation: rales bilateral Cardio: Rate: regular rate GI: GI Palp: Yes Soft to palpation and No Tenderness to palpation present (GI) Urinary Catheter: Urinary Catheter: urine clear Skin: General skin exam: normal color Neuro: General: gait normal Extrem: General: normal to inspection Psych: Mental Status: mental status grossly normal DS: Data Data Completed and Pending Pending studies at discharge: Pending at discharge 04/05/23 13:11 Cytology [PTH] Routine Labs on day of discharge: Labs from last 24 hours 04/05/23
== END 2023-04-12 12:26 | disposition home or self-care (01) | DRG 197 ==
LOC: ANHED 06:41 → ANH3MEDSUR 07:25
PROVIDERS: Internal Medicine Pulmonary Disease; Admitting Provider Internal Medicine; Emergency Provider Emergency Medicine; PCP Nurse Practitioner; Visit Provider Internal Medicine
PROC: 0BJ08ZZ Inspection of Tracheobronchial Tree, Via Natural or Artificial Opening Endoscopic (ICD-10-PCS; CPT 31622; principal; 2023-04-05 12:30)
DX: J84.89 Other specified interstitial pulmonary diseases (principal); N39.0 Urinary tract infection, site not specified; Z16.12 Extended spectrum beta lactamase (ESBL) resistance; T45.1X5A Adverse effect of antineoplastic and immunosuppressive drugs, initial encounter; M06.00 Rheumatoid arthritis without rheumatoid factor, unspecified site; E03.9 Hypothyroidism, unspecified; E78.5 Hyperlipidemia, unspecified; K21.9 Gastro-esophageal reflux disease without esophagitis; B96.20 Unspecified Escherichia coli [E. coli] as the cause of diseases classified elsewhere; Z20.822 Contact with and (suspected) exposure to COVID-19; Z96.619 Presence of unspecified artificial shoulder joint; Z96.659 Presence of unspecified artificial knee joint; Z79.631 Long term (current) use of antimetabolite agent
CPT/HCPCS: 36415; 36569; 71045; 71250; 80053; 81001; 83880; 84145; 85025; 85610; 85999; 86036; 86140; 86200; 86430; 87015; 87070; 87077; 87086; 87088; 87102; 87116; 87186; 87205; 87206; 87254; 87281; 87637; 88108; 88305; 93005; 94618; 94640; 99285; A9270; J1100; J1335; J1650; J2543; J2704; J2930; J7040; J7120; J7512

== ENCOUNTER 2023-04-13 13:33 | Outpatient (CLI) | payer MEDICARE, SELFPAY ==
[2023-04-13 13:30] VITALS: PULSE 69; O2SAT 95
[2023-04-13 13:35] VITALS: PULSE 82; O2SAT 87
[2023-04-13 13:40] VITALS: PULSE 82; O2SAT 88
[2023-04-13 13:45] VITALS: PULSE 84; O2SAT 91
[2023-04-13 13:55] VITALS: PULSE 66; O2SAT 95
--- NOTE | 2023-04-13 14:10 | HOMEO2EVAL ---
Evaluation was performed at [facility] Home Oxygen Evaluation RC: Home Oxygen (O2) Evaluation Start: 04/13/23 14:08 Freq: Status: Active Protocol: RPE Activity Type Activity Date Activity User E-sign Co-sign Detail Recorded Client Recorded Date Recorded By Document 04/13/23 13:30 [email or web address] [email or web address] 04/13/23 14:09 DJO Document 04/13/23 13:35 [email or web address] [email or web address] 04/13/23 14:09 DJO Document 04/13/23 13:40 [email or web address] [email or web address] 04/13/23 14:09 DJO Document 04/13/23 13:45 [email or web address] [email or web address] 04/13/23 14:09 DJO Document 04/13/23 13:55 [email or web address] [email or web address] 04/13/23 14:09 DJO 04/13/23 04/13/23 04/13/23 13:30 13:35 13:40 Home O2 Evaluation [Oxygen] -Test Phase Resting Exercise Exercise -Oxygen Delivery Room Air Room Air Nasal Cannula -Oxygen Flow Rate (L/min) 1 [Pulse Oximetry] -Pulse Oximetry (90-100 %) 95 87 L 88 L [Pulse Rate] -Pulse Rate (60-100 beats/min) 69 82 82 [Evaluation] -Activity Tolerance [Charges] -Evaluation Charges O2 Evaluation by Pulmonary 04/13/23 04/13/23 13:45 13:55 Home O2 Evaluation [Oxygen] -Test Phase Exercise Resting -Oxygen Delivery Nasal Cannula Room Air -Oxygen Flow Rate (L/min) 2 [Pulse Oximetry] -Pulse Oximetry (90-100 %) 91 95 [Pulse Rate] -Pulse Rate (60-100 beats/min) 84 66 [Evaluation] -Activity Tolerance Good [Charges] -Evaluation Charges
== END 2023-04-13 13:34 | disposition home or self-care (01) ==
LOC: ANHPFT 13:34
PROVIDERS: PCP Nurse Practitioner; Visit Provider Physician Assistant
DX: J84.9 Interstitial pulmonary disease, unspecified (principal)
CPT/HCPCS: 94618

== ENCOUNTER 2023-04-20 13:06 | Outpatient (CLI) | payer MEDICARE, SELFPAY | END 2023-04-20 13:07 | disposition home or self-care (01) | PROVIDERS: PCP Nurse Practitioner; Visit Provider Internal Medicine Pulmonary Disease | DX: J84.9 Interstitial pulmonary disease, unspecified (principal) | CPT/HCPCS: 36415; 86038 ==

== ENCOUNTER 2023-04-29 09:41 | Outpatient (CLI) | payer MEDICARE, SELFPAY ==
--- NOTE | ~2023-04-29 | CT_ITS ---
EXAMINATION: CT chest high resolution wo wi DATE: 04/29/2023 10:38 INDICATION: Interstitial pulmonary disease TECHNIQUE: Computed tomography (CT) of the chest was performed without intravenous contrast. The dose -length product (DLP) was 132.41 mGy-cm. Automated exposure control and iterative reconstruction tech nique were employed. COMPARISON: 04/04/2023 FINDINGS: There are widespread subpleural groundglass and reticular opacities which demonstrate inter jody worsening since the comparison examination. No bronchiectasis or honeycombing are identified. No pleural effusion or pneumothorax. Cardiomegaly is noted. No definite thoracic lymphadenopathy is iden tified. There are changes of posterior thoracolumbar fusion. IMPRESSION: 1. Chronic interstitial lung disease in a pattern of nonspecific interstitial pneumonia (NSIP). Inter jody worsening of airspace opacities could reflect superimposed pneumonia and/or pulmonary edema versu s acute exacerbation. Reviewed, dictated and finalized at location B. DROMAT MANAGER IMPRESSION: 1. Chronic interstitial lung disease in a pattern of nonspecific interstitial p neumonia (NSIP). Interval worsening of airspace opacities could reflect superim posed pneumonia and/or pulmonary edema versus acute exacerbation.
[2023-04-29 10:45] VITALS: PULSE 75; O2SAT 95
[2023-04-29 10:50] VITALS: PULSE 93; O2SAT 87
[2023-04-29 10:55] VITALS: PULSE 96; O2SAT 88
[2023-04-29 11:00] VITALS: PULSE 99; O2SAT 90
[2023-04-29 11:15] VITALS: PULSE 78; O2SAT 95
--- NOTE | 2023-04-29 11:51 | HOMEO2EVAL ---
Evaluation was performed at [facility] Home Oxygen Evaluation RC: Home Oxygen (O2) Evaluation Start: 04/29/23 11:49 Freq: Status: Active Protocol: RPE Activity Type Activity Date Activity User E-sign Co-sign Detail Recorded Client Recorded Date Recorded By Document 04/29/23 10:45 [email or web address] 04/29/23 11:51 DJO Document 04/29/23 10:50 [email or web address] [email or web address] 04/29/23 11:51 DJO Document 04/29/23 10:55 [email or web address] [email or web address] 04/29/23 11:51 DJO Document 04/29/23 11:00 [email or web address] [email or web address] 04/29/23 11:51 DJO Document 04/29/23 11:15 [email or web address] [email or web address] 04/29/23 11:51 DJO 04/29/23 04/29/23 04/29/23 10:45 10:50 10:55 Home O2 Evaluation [Oxygen] -Test Phase Resting Exercise Exercise -Oxygen Delivery Room Air Room Air Nasal Cannula -Oxygen Flow Rate (L/min) 1 [Pulse Oximetry] -Pulse Oximetry (90-100 %) 95 87 L 88 L [Pulse Rate] -Pulse Rate (60-100 beats/min) 75 93 96 [Evaluation] -Activity Tolerance [Charges] -Evaluation Charges O2 Evaluation by Pulmonary 04/29/23 04/29/23 11:00 11:15 Home O2 Evaluation [Oxygen] -Test Phase Exercise Resting -Oxygen Delivery Nasal Cannula Room Air -Oxygen Flow Rate (L/min) 2 [Pulse Oximetry] -Pulse Oximetry (90-100 %) 90 95 [Pulse Rate] -Pulse Rate (60-100 beats/min) 99 78 [Evaluation] -Activity Tolerance Good [Charges] -Evaluation Charges
--- NOTE | 2023-04-29 13:23 | WPDPFTINT ---
PFT Procedure Performed PFT Procedure Performed Spirometry with Pre/Post Bronchodilator Plethysmography (Lung Vol) Diffusing Cap (DLCO) Flow Vol Loop PFT Interpretation This is a pulmonary function test with pre and post-bronchodilator spirometry, plethysmography and diffusing capacity. The test was performed and results interpreted in accordance with the 2019 and 2005 ATS/ERS Task Force guidelines respectively using the Global Lung Function Initiative-2012 reference equations. Patient demonstrated good effort and cooperation. Reproducibility criteria were met. The quality of the pre bronchodilator spirometry maneuver was Grade A and post bronchodilator spirometry maneuver was Grade A. Findings: Spirometry: There is an early expiratory pause in 1 of 3 pre bronchodilator maneuvers and in 1 of 3 post bronchodilator maneuvers. Otherwise the contour of the expiratory flow tracing is normal. The contour the inspiratory flow tracing is normal. The pre bronchodilator FVC is 1.50 L, 57% predicted. The pre bronchodilator FEV1 is 1.26 L, 63% predicted. The pre bronchodilator FEV1: FVC ratio was 84%. The post bronchodilator FVC is 1.44 L, representing a 4% decrease. The post bronchodilator FEV1 is 1.26 L, representing no change. The post bronchodilator FEV1: FVC ratio is 87%. Plethysmography: The total lung capacity is 2.76 L, 55% predicted. The functional residual capacity is 1.41 L, 54% predicted. The residual volume is 1.23 L, 58% predicted. Diffusing capacity: The diffusing capacity unadjusted for hemoglobin and carboxyhemoglobin is 7.9, 41% predicted. The diffusing capacity adjusted for alveolar volume is 3.51, 84% predicted. Impression: There is a moderate restrictive ventilatory abnormality. The spirometry demonstrates an early expiratory pause in 1 of 3 pre bronchodilator maneuvers and 1 of 3 post bronchodilator maneuvers that is consistent with a starting hesitation to the maneuver. There is no significant improvement after inhaling a single dose of albuterol. The diffusing capacity unadjusted for hemoglobin and carboxyhemoglobin is moderately decreased and normalizes when adjusted for alveolar volume. There are no prior studies for comparison
== END 2023-04-29 09:42 | disposition home or self-care (01) ==
PROVIDERS: PCP Nurse Practitioner; Visit Provider Internal Medicine Pulmonary Disease
DX: J84.9 Interstitial pulmonary disease, unspecified (principal); R94.2 Abnormal results of pulmonary function studies
CPT/HCPCS: 71250; 94060; 94618; 94726; 94729

== ENCOUNTER 2023-05-04 11:45 | Outpatient (CLI) | payer MEDICARE, SELFPAY ==
--- NOTE | ~2023-05-04 | XR_ITS ---
XR chest 2V DATE: 05/04/2023 12:16 INDICATION: Interstitial pulmonary disease TECHNIQUE: PA and lateral views COMPARISON: April 21, 2023 CT chest high resolution scan 04/05/2023 portable AP chest 03/20/2023 PA and lateral chest FINDINGS: Heart size is within normal limits. There is mild aortic unfolding. Extensive chronic interstitial fibrotic changes are noted. There is increased density overlying the l eft mid lung costello suggesting superimposed infiltrate or atelectasis. No pleural effusion or pulmonary vascular congestion or pneumothorax is detected. Diffuse osteopenia. Right glenohumeral joint replacement. Bilateral thoracolumbar spinal rods and pedicle screws. IMPRESSION: Chronic interstitial fibrotic change with suspicion of superimposed infiltrate or atelect asis in the left mid lung compared to 03/20/2023 Reviewed, dictated and finalized at location B. ISTICIAN IMPRESSION: Chronic interstitial fibrotic change with suspicion of superimposed infiltrate or atelectasis in the left mid lung compared to 03/20/2023
[2023-05-04 12:40] LABS: Basophils Percent Auto 0.5 % (0.2-1.2); Eosinophils Absolute Auto 0.1 K/mm3 (0-0.3); Eosinophils Percent Auto 0.6 % (0-4.4); Hemoglobin 11.8 g/dL (12.0-15.0); Immature Granulocyte Absolute 0.05 K/mm3 (0.00-0.031); Immature Granulocyte Percent A 0.6 % (0-0.5); Lymphocytes Absolute Auto 0.28 K/mm3 (0.9-3.2); Lymphocytes Percent Auto 3.6 % (18.3-44.2); Mean Corpuscular HGB Conc 31.9 g/dl (32-36); Mean Corpuscular Hemoglobin 32.9 pg (26-34); Mean Corpuscular Volume 103.1 fl (80-100); Mean Platelet Volume 10.8 fl (7.4-10.4); Monocytes Absolute Auto 0.6 K/mm3 (0.1-0.6); Neutrophils Absolute Auto 6.8 K/mm3 (1.3-6.7); Neutrophils Percent Auto 86.7 % (45.5-73.1); Platelet Count Result 219 k/mm3 (150-375); Red Blood Count 3.59 M/mm3 (4.2-5.4); Red Cell Distribution Width 14.2 % (11.5-14.5); White Blood Count 7.9 K/mm3 (4.5-10.0)
[2023-05-04 13:00] LABS: NT Pro B Type Natriuretic Pept 445 pg/mL (19.9-100)
== END 2023-05-04 11:46 | disposition home or self-care (01) ==
PROVIDERS: PCP Nurse Practitioner; Visit Provider Internal Medicine Pulmonary Disease
DX: R91.8 Other nonspecific abnormal finding of lung field (principal); J84.9 Interstitial pulmonary disease, unspecified; I50.9 Heart failure, unspecified
CPT/HCPCS: 36415; 71046; 83880; 85025

== ENCOUNTER 2023-05-05 08:28 | Outpatient (CLI) | payer MEDICARE, SELFPAY | END 2023-05-05 08:29 | disposition home or self-care (01) | LOC: ANHLAB 08:29 | PROVIDERS: PCP Nurse Practitioner; Visit Provider Internal Medicine Pulmonary Disease | DX: J84.9 Interstitial pulmonary disease, unspecified (principal) | CPT/HCPCS: 87070; 87205 ==

== ENCOUNTER 2023-05-11 09:14 | Outpatient (RCR) | payer MEDICARE, SELFPAY | END 2023-08-08 23:59 | disposition home or self-care (01) | LOC: ANHLAB 09:14 | PROVIDERS: PCP Nurse Practitioner; Visit Provider Internal Medicine Pulmonary Disease | DX: J84.9 Interstitial pulmonary disease, unspecified (principal); R05.8 Other specified cough | CPT/HCPCS: 87070; 87205 ==

== ENCOUNTER 2023-05-17 13:12 | Outpatient (CLI) | payer MEDICARE, SELFPAY ==
--- NOTE | ~2023-05-17 | XR_ITS ---
EXAMINATION: XR chest 2V DATE: 05/17/2023 13:53 INDICATION: Other specified cough TECHNIQUE: PA and lateral views of the chest are obtained. COMPARISON: 03/03/2024 FINDINGS: There are chronic reticular opacities of the lungs. There are persistent airspace opacities of the left midlung zone. No pleural effusion or pneumothorax. The heart size is normal. There are c hanges of posterior thoracolumbar fusion. 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 Changes of right shoulder arthroplasty are noted. IMPRESSION: 1. Chronic interstitial lung disease without definite acute cardiopulmonary abnormality. Reviewed, dictated and finalized at location L. ON AND BOND COLLECTION CLERK IMPRESSION: 1. Chronic interstitial lung disease without definite acute cardiopulmonary abn ormality.
[2023-05-17 13:53] LABS: Basophils Percent Auto 0.1 % (0.2-1.2); Eosinophils Percent Auto 0.1 % (0-4.4); Hematocrit 37.6 % (37.0-47.0); Hemoglobin 11.7 g/dL (12.0-15.0); Immature Granulocyte Absolute 0.13 K/mm3 (0.00-0.031); Immature Granulocyte Percent A 0.8 % (0-0.5); Lymphocytes Absolute Auto 0.44 K/mm3 (0.9-3.2); Lymphocytes Percent Auto 2.8 % (18.3-44.2); Mean Corpuscular HGB Conc 31.1 g/dl (32-36); Mean Corpuscular Hemoglobin 31.8 pg (26-34); Mean Corpuscular Volume 102.2 fl (80-100); Mean Platelet Volume 10.2 fl (7.4-10.4); Monocytes Absolute Auto 0.2 K/mm3 (0.1-0.6); Monocytes Percent Auto 1.2 % (2.6-8.5); Neutrophils Absolute Auto 15.2 K/mm3 (1.3-6.7); Platelet Count Result 379 k/mm3 (150-375); Red Blood Count 3.68 M/mm3 (4.2-5.4); Red Cell Distribution Width 13.8 % (11.5-14.5)
[2023-05-17 14:28] LABS: Alanine Aminotransferase 22 U/L (6-35); Albumin Level 3.8 g/dL (3.5-5.1); Alkaline Phosphatase 55 U/L (38-126); Anion Gap 9 mmol/L (8-16); Aspartate Amino Transferase 34 U/L (14-36); Bilirubin,Total 0.7 mg/dL (0.2-1.3); Blood Urea Nitrogen 26 mg/dL (7-17); Calcium 8.9 mg/dL (8.4-10.2); Carbon Dioxide 27 mmol/L (22-30); Chloride 101 mmol/L (98-107); Estimated Glomerular Filt Rate > 60; Glucose 131 mg/dL (65-110); Potassium 4.3 mmol/L (3.4-5.0); Sodium 137 mmol/L (137-145)
== END 2023-05-17 13:13 | disposition home or self-care (01) ==
PROVIDERS: PCP Nurse Practitioner; Visit Provider Internal Medicine Pulmonary Disease
DX: J84.9 Interstitial pulmonary disease, unspecified (principal); R05.8 Other specified cough
CPT/HCPCS: 36415; 71046; 80053; 85025

== ENCOUNTER 2023-06-06 12:40 | Outpatient (CLI) | payer MEDICARE, SELFPAY ==
--- NOTE | ~2023-06-06 | XR_ITS ---
Clinical Indication: Interstitial pulmonary disease PA and lateral views of the chest: Comparison: 05/17/2023 Findings: Hazy/interstitial pulmonary disease the right lung base and left midlung is similar to prio r exam. Cardiomediastinal silhouette is within normal limits. Stable extensive spinal fixation hardw are as well as right shoulder arthroplasty. Impression: Stable haziness/interstitial pulmonary disease in the right lung base and left midlung. Extensive orthopedic hardware, as above, unchanged. Reviewed, dictated and finalized at location M. Impression: Stable haziness/interstitial pulmonary disease in the right lung base and left midlung. Extensive orthopedic hardware, as above, unchanged.
== END 2023-06-06 12:41 | disposition home or self-care (01) ==
LOC: ANHIMG 12:42
PROVIDERS: PCP Nurse Practitioner; Visit Provider Nurse Practitioner Family
DX: J84.9 Interstitial pulmonary disease, unspecified (principal); R91.8 Other nonspecific abnormal finding of lung field
CPT/HCPCS: 71046

== ENCOUNTER 2023-06-10 10:26 | Outpatient (CLI) | payer MEDICARE, SELFPAY ==
--- NOTE | ~2023-06-10 | XR_ITS ---
XR_[id number]_CR DATE: 06/10/2023 10:55 INDICATION: Neck pain TECHNIQUE: AP, open-mouth, odontoid and lateral views COMPARISON: None FINDINGS: There is cervical and thoracic kyphosis. Pedicle screws and rods are noted at the thoracic spine. There is normal alignment of C1 and C2. The odontoid process appears intact. There is approximately 2 mm anterolisthesis at C3-4 and C4-5. Moderately prominent degenerative disc disease at C4-5. Severe degenerative disease at C5-6 and C6-7. Degenerative changes of the apophyseal joints throughout the cervical spine. Osteopenia IMPRESSION: Kyphosis Thoracic spinal rods Osteopenia Moderate degenerative disease at C4-5 and severe degenerative disc disease at C5-6 and C6-7 2 mm anterolisthesis at C3-4 and C4-5 Reviewed, dictated and finalized at Location A. Reviewed, dictated and finalized at location B. IMPRESSION: Kyphosis Thoracic spinal rods Osteopenia Moderate degenerative disease at C4-5 and severe degenerative disc disease at C 5-6 and C6-7 2 mm anterolisthesis at C3-4 and C4-5
== END 2023-06-10 10:27 ==
LOC: MICIMG 10:27
PROVIDERS: PCP Nurse Practitioner; Visit Provider Nurse Practitioner
DX: M50.321 Other cervical disc degeneration at C4-C5 level (principal); M50.322 Other cervical disc degeneration at C5-C6 level; M50.323 Other cervical disc degeneration at C6-C7 level; M43.12 Spondylolisthesis, cervical region; M40.202 Unspecified kyphosis, cervical region; M40.204 Unspecified kyphosis, thoracic region; M85.88 Other specified disorders of bone density and structure, other site; Z98.1 Arthrodesis status
CPT/HCPCS: 72040

== ENCOUNTER 2023-08-01 09:33 | Outpatient (CLI) | payer MEDICARE, SELFPAY ==
--- NOTE | ~2023-08-01 | MM_ITS ---
EXAMINATION: MM screening michelle BI w jina HISTORY: Screening mammogram TECHNIQUE: Craniocaudal and mediolateral oblique 3-D tomosynthesis images were obtained and synthetic 2-D images were generated. CAD analysis was submitted and interpreted. COMPARISON: 01/28/2022, 11/27/2020 bilateral screening mammogram examinations BREAST PARENCHYMAL COMPOSITION: There are scattered areas of fibroglandular density. FINDINGS: There is no evidence of suspicious mass, calcification, or architectural distortion to sugg est malignancy in either breast. There has been no suspicious interval change. IMPRESSION: 1. No mammographic evidence of malignancy. 2. Recommend routine screening mammography in one year. BI-RADS Category 1: Negative Reviewed, dictated and finalized at location A.
== END 2023-08-01 09:34 | disposition home or self-care (01) ==
LOC: ANHIMG 09:38
PROVIDERS: PCP Nurse Practitioner; Visit Provider Obstetrics & Gynecology
DX: Z12.31 Encounter for screening mammogram for malignant neoplasm of breast (principal)
CPT/HCPCS: 77063; 77067

== ENCOUNTER 2023-08-18 12:12 | Outpatient (RCR) | payer MEDICARE, SELFPAY ==
[2023-08-18 13:20] VITALS: BMI 26.1
== END 2023-11-07 12:07 | disposition home or self-care (01) ==
LOC: ANHWOC 12:12
PROVIDERS: PCP Nurse Practitioner; Visit Provider Nurse Practitioner
DX: L89.90 Pressure ulcer of unspecified site, unspecified stage (principal)
CPT/HCPCS: 99214; G0463

== ENCOUNTER 2023-09-04 17:49 | Emergency (ER) | payer MEDICARE, SELFPAY ==
[2023-09-04 18:02] VITALS: BP 147/60; PULSE 83; RESP 16; TEMP 36.4; O2SAT 99
--- NOTE | 2023-09-04 18:07 | ED.FEMALEGU ---
HPI - Female Genitourinary General Chief complaint: Urogenital-Female Stated complaint: uti Source: patient and RN notes reviewed Mode of arrival: ambulatory Limitations: no limitations History of Present Illness HPI Narrative: 82 y/o female presented for c/o painful urination, urgency and frequency. Onset last night. Reports history of UTIs and says it feels similar. Denies hematuria, nausea, vomiting, abdominal pain, flank pain, constipation, diarrhea, fevers or chills. Took AZO last night and twice today. Related Data Home Medications Medication Instructions Recorded Confirmed multivitamin 1 tablet PO DAILY 06/17/21 09/04/23 vitamin B12 1,000 mcg-folic acid 1 tablet sublingual EVERY OTHER DAY 08/16/21 09/04/23 400 mcg sublingual tablet gabapentin 300 mg capsule 300 mg PO Q8H 09/06/22 09/04/23 cholecalciferol (vitamin D3) 50 50 mcg PO DAILY 09/07/22 09/04/23 mcg (2,000 unit) capsule ibuprofen 600 mg tablet 600 mg PO DAILY PRN Pain 04/04/23 09/04/23 ibuprofen 600 mg tablet 600 mg PO Q12H Pain 04/04/23 09/04/23 hydroxychloroquine 200 mg tablet 100 mg PO QPM 06/06/23 09/04/23 (Plaquenil) mycophenolate mofetil 500 mg tablet 1,000 mg PO QPM 06/10/23 09/04/23 hydroxychloroquine 200 mg tablet 200 mg PO QAM 09/04/23 09/04/23 mycophenolate mofetil 500 mg tablet 1,500 mg PO QAM 09/04/23 09/04/23 Allergies Allergy/AdvReac Type Severity Reaction Status Date / Time cephalexin Allergy Severe RASH Verified 09/04/23 17:56 morphine Allergy Severe HIVES Verified 09/04/23 17:56 nitrofurantoin AdvReac Intermediate Weakness Verified 09/04/23 17:56 [From Macrobid] Review of Systems Review of Systems: CONSTITUTIONAL: Denies body aches, fever, chills, or sweats. CARDIOVASCULAR: Denies chest pain, palpitations, or edema. RESPIRATORY: Denies cough or dyspnea. GASTROINTESTINAL: Denies abdominal pain, nausea, vomiting, or diarrhea. GENITOURINARY: Reports dysuria, frequency, urgency, denies hematuria, flank pain SKIN: Denies rash, itching, or wounds. MUSCULOSKELETAL: Denies back pain or myalgia. PMFSH Past Medical History Medical History History of vaginal delivery x 2 Surgical History Surgical History H/O shoulder replacement History of back surgery History of hysterectomy History of knee replacement Family History Family History Father Family history of elevated blood lipids Family history of coronary artery disease, Onset Age: 81 Family history of malignant neoplasm of bone, Onset Age: 81 Mother Family history of elevated blood lipids Family history of coronary artery disease, Onset Age: 79 Family history of blood dyscrasia, Onset Age: 79 Family history of osteoarthritis, Onset Age: 79 Sibling Family history of primary malignant neoplasm of liver Family history of renal failure No family history of diabetes mellitus Social History Social History Smoking status: Never smoker Second hand tobacco smoke exposure: Yes Alcohol intake: never Substance use: never Substance use type: does not use Do You Feel Safe in your Home?: Yes Lack of Transportation: No Lack of Food: Never True Current Housing: I Have Housing Concerned About Future Housing: No Difficulty Paying Gas/Electric Bills: No Difficulty Paying for Meds: No Currently Unemployed: No Education: Associate Degree Difficulty w/ Childcare or Family Care: No Living arrangements: with family Occupation/Education: retired Gender identity (if verbalized by the patient): Female Sexual Orientation (if Verbalized by the Patient): Straight or Heterosexual Spiritual care concerns: No Comments At time of signature, I have reviewed and agree with nursing past medical, surgical, social and famil
== END 2023-09-04 18:30 | disposition home or self-care (01) ==
PROVIDERS: Emergency Provider Nurse Practitioner Family; PCP Nurse Practitioner
DX: N39.0 Urinary tract infection, site not specified (principal); B96.20 Unspecified Escherichia coli [E. coli] as the cause of diseases classified elsewhere
CPT/HCPCS: 81003; 87077; 87086; 87088; 87186; 99213; G0463

== ENCOUNTER 2023-09-16 09:30 | Outpatient (RCR) | payer MEDICARE, SELFPAY ==
[2023-08-09 12:03] VITALS: BP 140/70; PULSE 78; RESP 16; O2SAT 98
[2023-08-09 12:09] VITALS: PULSE 78
== END 2023-09-16 10:38 | disposition home or self-care (01) ==
LOC: ANHCPREHAB 09:30
PROVIDERS: PCP Nurse Practitioner
DX: J84.9 Interstitial pulmonary disease, unspecified (principal)
CPT/HCPCS: 94625; G0239

== ENCOUNTER 2023-11-01 07:38 | Outpatient (CLI) | payer MEDICARE, SELFPAY ==
[2023-11-01 09:37] LABS: Add Urine Microscopic? YES; Appearance Urine Turbid (Clear); Bacteria Urine 4+ /hpf; Bilirubin Urine 1+ (Negative); Blood Urine 3+ (Negative); Color Urine Dark Yellow (Yellow); Glucose Urine UA Negative (Negative); Ketones Urine Negative (Negative); Leukocyte Esterase Ur 3+ LEU/UL (Negative); Nitrate Urine Positive (Negative); Non Pathogenic Casts 0-2; Protein Urine 4+ mg/dL (Negative); RBC Urine >100 /hpf (0-2); Specific Grav Ur 1.022 (1.001-1.035); Squamous Epithelial Cell Urine None Seen /hpf (Few); WBC Urine >100 /hpf (0-3)
== END 2023-11-01 07:39 | disposition home or self-care (01) ==
LOC: ANHLAB 07:40
PROVIDERS: PCP Nurse Practitioner; Visit Provider Nurse Practitioner
DX: R39.9 Unspecified symptoms and signs involving the genitourinary system (principal)
CPT/HCPCS: 81001; 87077; 87086; 87088; 87186

== ENCOUNTER 2024-01-02 14:49 | Outpatient (CLI) | payer MEDICARE, SELFPAY ==
--- NOTE | ~2024-01-02 | XR_ITS ---
EXAMINATION: XR chest 2V DATE: 01/02/2024 15:09 INDICATION: Cough TECHNIQUE: PA and lateral views of the chest were obtained. COMPARISON: Chest radiograph dated 06/06/2023 FINDINGS: Unchanged mild elevation of the left hemidiaphragm. No significant interval change in bilateral diffu se coarse reticular and mild groundglass opacities with peripheral and lower lung predominance. No ne w airspace opacities, pleural effusion or pneumothorax. Heart size is normal. Excessive instrumented posterior spinal fusion with bilateral vertical maureen and pedicle screw fixation beginning in the upper thoracic spine and extending to the lower thoracic spine. Reverse right total shoulder arthroplasty. IMPRESSION: 1. Stable appearance of peripheral and lower lung predominant coarse interstitial and mild airspace o pacities consistent with chronic interstitial lung disease. Reviewed, dictated and finalized at location A. IMPRESSION: 1. Stable appearance of peripheral and lower lung predominant coarse interstiti al and mild airspace opacities consistent with chronic interstitial lung diseas e.
== END 2024-01-02 14:50 | disposition home or self-care (01) ==
LOC: ANHIMG 14:56
PROVIDERS: PCP Nurse Practitioner; Visit Provider Internal Medicine
DX: R91.8 Other nonspecific abnormal finding of lung field (principal); R05.9 Cough, unspecified
CPT/HCPCS: 71046

== ENCOUNTER 2024-02-21 01:13 | Emergency (ER) | payer MEDICARE, SELFPAY ==
[2024-02-21 01:37] VITALS: BP 162/68; PULSE 90; RESP 15; TEMP 36.3; O2SAT 97
--- NOTE | 2024-02-21 01:42 | ECG_ITS ---
Test Date: 2024-02-21 01:48:57 Measurements Intervals [place] Rate: 87 P: -5 [place]: 179 QRS: -41 QRSD: 120 T: 42 QT: 354 QTc: 426 Interpretive Statements SINUS RHYTHM MARKED LEFT AXIS DEVIATION [QRS AXIS < -30] LEFT VENTRICULAR HYPERTROPHY AND ST-T CHANGE [VOLTAGE CRITERIA PLUS ST/T ABNORMALITY] POSSIBLE ANTERIOR MYOCARDIAL INFARCTION , OF INDETERMINATE AGE [30 ms Q WAVE IN V3/V4, OR R < 0.2 mV IN V4] No previous ECG available for comparison Electronically Signed On 02-21-2024 15:15:17 SOLUTIONS DELIVERY CONSULTANT by Henny Anton M.D.
--- NOTE | 2024-02-21 03:05 | PC.NURSE ---
Pt came to triage desk and states she does not want to wait to be seen any longer. Pt states she would rather go home and take some ibuprofen and follow up with her PCP in the morning. Pt was helped into her husbands car by ED security.
== END 2024-02-21 03:33 | disposition left against medical advice (07) ==
PROVIDERS: Emergency Provider Emergency Medicine; PCP Nurse Practitioner
DX: R07.9 Chest pain, unspecified (principal)
CPT/HCPCS: 93005; 99199

== ENCOUNTER 2024-05-14 18:07 | Inpatient (IN) | payer MEDICARE, SELFPAY ==
[2024-05-14] VITALS (10 sets, daily range): BP systolic 92–151; BP diastolic 34–62; PULSE 87–118; RESP 20–24; TEMP 36.8–38.8; O2SAT 91–99
--- NOTE | ~2024-05-14 | XR_ITS ---
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 RESULT: Lines, tubes, and devices: Partially visualized spinal fusion hardware. Partially visualized right s houlder is posterior hardware. Lungs and pleura: Moderate diffuse coarse reticular and groundglass pulmonary opacities. Left hemidi aphragm elevation. Cardiomediastinal silhouette: Stable. Other: No acute osseous or upper abdominal finding. IMPRESSION: No acute cardiopulmonary process. Chronic interstitial lung disease. Reviewed, dictated and finalized at location K. FURRING INSTALLER
--- NOTE | 2024-05-14 18:14 | ECG_ITS ---
Test Date: 2024-05-14 20:21:07 Measurements Intervals [place] Rate: 106 P: -12 CA: 172 QRS: -44 QRSD: 130 T: 109 QT: 369 QTc: 492 Interpretive Statements SINUS TACHYCARDIA LEFT AXIS DEVIATION INTRAVENTRICULAR CONDUCTION DELAY LEFT VENTRICULAR HYPERTROPHY AND ST-T CHANGE POSSIBLE ANTERIOR MYOCARDIAL INFARCTION , OF INDETERMINATE AGE CONSIDER INFERIOR INFARCT, AGE INDETERMINATE BASELINE ARTIFACT- I, III, AVR, AVL ABNORMAL ECG Compared to ECG 02/21/2024 01:48:57 HEART RATE HAS INCREASED Electronically Signed On 05-15-2024 06:36:44 SERVER SUPPORT TECHNICIAN by Manny Sylvester D.O.
[2024-05-14] MEDS: IPRATROPIUM 0.5 MG/ALBUTEROL SULFATE 2.5 MG AMPUL.NEB 3 ML INHALATION (18:38)
[2024-05-14 18:57] LABS: Hemoglobin 9.1 g/dL (12.0-15.0); Mean Corpuscular HGB Conc 32.5 g/dl (32-36); Mean Corpuscular Hemoglobin 31.9 pg (26-34); Mean Corpuscular Volume 98.2 fl (80-100); Mean Platelet Volume 10.7 fl (7.4-10.4); Platelet Count Result 216 k/mm3 (150-375); Red Blood Count 2.85 M/mm3 (4.2-5.4); Red Cell Distribution Width 13.2 % (11.5-14.5)
--- NOTE | 2024-05-14 18:58 | ED.GENADULT ---
HPI - General Adult General Chief complaint: Fever Stated complaint: Fever, cough, weakness Time Seen by Provider: 05/14/24 18:11 History of Present Illness HPI narrative: The patient is 83-year-old female who presents emergency department with chief complaint of cough fever nausea the patient states that she has felt a little short of breath but the patient is chronically on oxygen and has history of interstitial lung disease. Related Data Home Medications ?Medication ?Instructions ?Recorded ?Confirmed ?Last Taken ?Type multivitamin 1 tablet PO DAILY 06/17/21 04/23/24 04/03/23 History gabapentin 300 mg capsule 300 mg PO Q8H 09/06/22 04/23/24 04/03/23 History cholecalciferol (vitamin D3) 50 50 mcg PO DAILY 09/07/22 04/23/24 04/03/23 History mcg (2,000 unit) capsule ibuprofen 600 mg tablet 600 mg PO Q12H Pain 04/04/23 04/23/24 04/03/23 21:00 History prednisone 5 mg tablet 5 mg PO DAILY 10/06/23 04/23/24 Unknown History vitamin B12 1,000 mcg-folic acid 1 tablet sublingual EVERY OTHER DAY 10/06/23 04/23/24 Unknown History 400 mcg sublingual tablet mycophenolate mofetil 500 mg tablet 1,000 mg PO QPM 04/03/24 04/23/24 Unknown History mycophenolate mofetil 500 mg tablet 1,500 mg PO QAM 04/03/24 04/23/24 Unknown History Allergies Allergy/AdvReac Type Severity Reaction Status Date / Time cephalexin Allergy Severe RASH Verified 04/20/24 12:08 morphine Allergy Severe HIVES Verified 04/20/24 12:08 nitrofurantoin (From AdvReac Intermediate Weakness Verified 04/20/24 12:08 Macrobid) Review of Systems Review of Systems: A 10 system review of systems was completed on the patient and is negative except for what is stated in the HPI. Nursing and ancillary documentation was reviewed. [facility], [facility] Past Medical History Medical History BMI 24.0-24.9, adult History of vaginal delivery x 2 Surgical History Surgical History H/O shoulder replacement History of back surgery History of hysterectomy History of knee replacement Family History Family History Father Family history of elevated blood lipids Family history of coronary artery disease, Onset Age: 81 Family history of malignant neoplasm of bone, Onset Age: 81 Acute myocardial infarction Mother Family history of elevated blood lipids Family history of coronary artery disease, Onset Age: 79 Family history of blood dyscrasia, Onset Age: 79 Family history of osteoarthritis, Onset Age: 79 Heart disease Acute myocardial infarction CHF (congestive heart failure) Sibling Family history of primary malignant neoplasm of liver Family history of renal failure No family history of diabetes mellitus Heart disease Diabetes mellitus Social History Social History Smoking status: Never smoker Second hand tobacco smoke exposure: Yes Alcohol intake: never Substance use: never Substance use type: does not use Do You Feel Safe in your Home?: Yes Lack of Transportation: No Lack of Food: Never True Current Housing: I Have Housing Concerned About Future Housing: No Difficulty Paying Gas/Electric Bills: No Difficulty Paying for Meds: No Currently Unemployed: No Education: Associate Degree Difficulty w/ Childcare or Family Care: No Living arrangements: with family Occupation/Education: retired Additional occupation/education comments: -[employer] Gender identity (if verbalized by the patient): Female Sexual Orientation (if Verbalized by the Patient): Straight or Heterosexual Spiritual care concerns: No Exam Narrative: GENERAL: Well-appearing, well-nourished, and in no acute distress. HEAD: Normocephalic, atraumatic. EYES: PERRLA and EOMI. ENT: Nares clear, no rhinorrhea or epistaxis. Mucous membranes moist. NECK: Supple. CHEST: Clear to auscultation. No respiratory distress. HEART: Regular rate and rhythm. No murmur heard. Normal peripheral pulses. ABDOMEN: Soft, nontender, nondistended, normal active bowel sounds. EXTREMITIES: Normal range of motion. No edema. SKIN: Warm, dry, no rash. NEURO: No focal deficits. Alert and oriented x3. PSYCH: Normal mood and affect. Course Vital Signs Vital signs: Vital Signs Temperature 38.8 C H 05/14/24 18:05 Pulse Rate 115 H 05/14/24 18:05 Respiratory Rate 24 H 05/14/24 18:05 Blood Pressure 151/62 H 05/14/24 18:05 Pulse Oximetry 94 05/14/24 18:05 Oxygen Delivery Nasal Cannula 05/14/24 18:05 Oxygen Flow Rate 2 05/14/24 18:05 Temperature 38.8 C H 05/14/24 18:05 Pulse Rate 118 H 05/14/24 18:48 Respiratory Rate 24 H 05/14/24 18:48 Blood Pressure 151/62 H 05/14/24 18:05 Pulse Oximetry 97 05/14/24 18:38 Oxygen Delivery Nasal Cannula 05/14/24 18:38 Oxygen Flow Rate 2 05/14/24 18:38 Fraction of Inspired Oxygen 28 05/14/24 18:38 Medical Decision Making Vital Signs Vital Signs: Vital Signs Temperature 38.8 C H 05/14/24 18:05 Pulse Rate 115 H 05/14/24 18:05 Respiratory Rate 24 H 05/14/24 18:05 Blood Pressure 151/62 H 05/14/24 18:05 Pulse Oximetry 94 05/14/24 18:05 Oxygen Delivery Nasal Cannula 05/14/24 18:05 Oxygen Flow Rate 2 05/14/24 18:05 Temperature 38.8 C H 05/14/24 18:05 Pulse Rate 118 H 05/14/24 18:48 Respiratory Rate 24 H 05/14/24 18:48 Blood Pressure 151/62 H 05/14/24 18:05 Pulse Oximetry 97 05/14/24 18:38 Oxygen Delivery Nasal Cannula 05/14/24 18:38 Oxygen Flow Rate 2 05/14/24 18:38 Fraction of Inspired Oxygen 28 05/14/24 18:38 Lab Data 05/14/24 18:43 05/14/24 18:43 Labs: Lab Results 05/14/24 05/14/24 Range/Units 18:43 18:49 WBC 8.0 (4.5-10.0) K/mm3 RBC 2.85 L (4.2-5.4) M/mm3 Hgb 9.1 L (12.0-15.0) g/dL Hct 28.0 L (37.0-47.0) % MCV 98.2 (80-100) fl MCH 31.9 (26-34) pg MCHC 32.5 (32-36) g/dl RDW 13.2 (11.5-14.5) % Plt Count 216 (150-375) k/mm3 MPV 10.7 H (7.4-10.4) fl Immature Gran % (Auto) Not Reportable Neut % (Auto) Not Reportable Lymph % (Auto) Not Reportable [place] % (Auto) Not Reportable Eos % (Auto) Not Reportable Baso % (Auto) Not Reportable Lymph # (Auto) Not Reportable [place] # (Auto) Not Reportable Eos # (Auto) Not Reportable Baso # (Auto) Not Reportable Abs Immat Gran (auto) Not Reportable Absolute Neuts (auto) Not Reportable Absolute Nucleated RBC Not Reportable Total Counted 100 Neutrophils % (Manual) 83 H (46-73) % Band Neutrophils % 9 H (0-6) % Lymphocytes % (Manual) 3.0 L (18-44) % Monocytes % (Manual) 3 (3-9) % Eosinophils % (Manual) 2 (0-4) % Nucleated RBC % Not Reportable Abs Neuts (Manual) 7.36 H (1.7-7.2) K/mm3 Abs Lymphs (Manual) 0.24 L (1.1-4.5) K/mm3 Abs Monocytes (Manual) 0.24 (0.1-0.90) K/mm3 Absolute Eos (Manual) 0.16 (0.02-0.50) K/mm3 Platelet Estimate Adequate (Adequate) Schistocytes None seen PT 16.2 H (11.1-14.7) Seconds INR 1.2 APTT 31.0 (22.3-36.8) Seconds Sodium 135 L (137-145) mmol/L Potassium 3.2 L (3.4-5.0) mmol/L Chloride 101 (98-107) mmol/L Carbon Dioxide 24 (22-30) mmol/L Anion Gap 10 (4-12) mmol/L BUN 24 H (7-17) mg/dL Creatinine 1.14 H (0.7-1.0) mg/dL Estim Creat Clear Calc Not Reportable Estimated GFR 46 L (59 - ) Glucose 103 (65-110) mg/dL Lactic Acid 1.7 (0.7-2.0) mmol/L Calcium 8.9 (8.4-10.2) mg/dL Magnesium 1.8 (1.6-2.3) mg/dL Total Bilirubin 0.8 (0.2-1.3) mg/dL AST 36 (14-36) U/L ALT 20 (6-35) U/L Alkaline Phosphatase 78 (38-126) U/L Troponin I 0.047 H* (0.000-0.034) ng/mL NT-Pro-B Natriuret Pep 1060 H (19.9-100) pg/mL Total Protein 7.0 (6.3-8.2) g/dL Albumin 3.3 L (3.5-5.1) g/dL Procalcitonin 1.8 ng/mL Urine Color Yellow (Yellow) Urine Appearance Cloudy H (Clear) Urine pH 5.5 (5.0-9.0) Ur Specific [place] 1.019 (1.001-1.035) Urine Protein 2+ H (Negative) mg/dL Urine Glucose (UA) Negative (Negative) mg/dL Urine Ketones Negative (Negative) mg/dL Ur Blood (Man) Trace (Negative) Urine Nitrate Positive H (Negative) Urine Bilirubin Negative (Negative) Urine Urobilinogen 0.2 (<2.0) mg/dL Leukocyte Esterase Rfl 3+ H (Negative) PALOA/UL Urine RBC 0-2 (0-2) /hpf Urine WBC >100 H (0-3) /hpf Ur Squamous Epith Cells None seen (Few) /hpf Urine Bacteria 4+ H /hpf Urine Casts 0-2 Influenza A (RT-PCR) Negative (Negative) Influenza B (RT-PCR) Negative (Negative) RSV (RT-PCR) Negative (Negative) SARS-CoV-2 RNA (RT-PCR) Negative (Negative) Discharge Plan Discharge Clinical Impression: Acute UTI, Sepsis, Elevated troponin Patient Disposition: Still a Patient Condition: Stable Patient Language: Turkmen Prescriptions: No Action mycophenolate mofetil 500 mg tablet 1,500 mg PO QAM mycophenolate mofetil 500 mg tablet 1,000 mg PO QPM multivitamin Tablet 1 tablet PO DAILY gabapentin 300 mg capsule 300 mg PO Q8H cholecalciferol (vitamin D3) 50 mcg (2,000 unit) capsule 50 mcg PO DAILY prednisone 5 mg tablet 5 mg PO DAILY vitamin [id number] acid 1,000-400 mcg tablet, sublingual 1 tablet SUBLINGUAL EVERY OTHER DAY Rx Instructions: Takes every other day ibuprofen 600 mg Tablet 600 mg PO Q12H omeprazole 20 mg capsule,delayed release(DR/EC) See Rx Instructions PO ONCE Qty: 90 3RF Rx Instructions: 20mg PO once daily; levothyroxine 88 mcg tablet 88 mcg PO DAILY Qty: 90 1RF rosuvastatin 5 mg tablet See Rx Instructions .ROUTE .COMPLEX Qty: 90 1RF Dose Instruction: TAKE 1 TABLET BY MOUTH DAILY Rx Instructions: TAKE 1 TABLET BY MOUTH DAILY Follow-up/Referrals: Rajinder Rick APRN [Primary Care Provider] - Time of Disposition: 19:44
[2024-05-14 19:06] LABS: Add Urine Microscopic? YES; Appearance Urine Cloudy (Clear); Bacteria Urine 4+ /hpf; Bilirubin Urine Negative (Negative); Blood Urine Trace (Negative); Color Urine Yellow (Yellow); Glucose Urine UA Negative (Negative); Ketones Urine Negative (Negative); Leukocyte Esterase Ur 3+ LEU/UL (Negative); Nitrate Urine Positive (Negative); Non Pathogenic Casts 0-2; Protein Urine 2+ mg/dL (Negative); RBC Urine 0-2 /hpf (0-2); Specific Grav Ur 1.019 (1.001-1.035); Squamous Epithelial Cell Urine None Seen /hpf (Few); Urobilinogen Urine 0.2 mg/dL (<2.0); WBC Urine >100 /hpf (0-3); pH Urine 5.5 (5.0-9.0)
[2024-05-14 19:13] LABS: INR 1.2; Prothrombin Time 16.2 Seconds (11.1-14.7)
[2024-05-14 19:17] LABS: Lactic Acid Reflex 1.7 mmol/L (0.7-2.0)
[2024-05-14 19:19] LABS: Alanine Aminotransferase 20 U/L (6-35); Albumin Level 3.3 g/dL (3.5-5.1); Alkaline Phosphatase 78 U/L (38-126); Anion Gap 10 mmol/L (4-12); Aspartate Amino Transferase 36 U/L (14-36); Bilirubin,Total 0.8 mg/dL (0.2-1.3); Blood Urea Nitrogen 24 mg/dL (7-17); Calcium 8.9 mg/dL (8.4-10.2); Carbon Dioxide 24 mmol/L (22-30); Chloride 101 mmol/L (98-107); Estimated Glomerular Filt Rate 46; Glucose 103 mg/dL (65-110); Magnesium 1.8 mg/dL (1.6-2.3); Potassium 3.2 mmol/L (3.4-5.0); Sodium 135 mmol/L (137-145)
--- OUTSIDE RECORDS SUMMARY | 2024-05-14 19:22 | XMS_ITS | Clinical Summary ---
Author Organization [facility] Address [address] Attn: Epic Prelude ADT MARLEEN DODD [id number] Care Team Providers Care Optical Instrument Assembly Supervisor Name Role Phone Erik Xie MD Primary Care Provider [phone] Allergies Active Allergy Reactions Criticality Noted Date Comments Cephalexin Hives High 07/03/2015 Morphine Hives High 07/03/2015 Medications levothyroxine 50 mcg tablet Take 50 mcg by mouth daily ticket collector or usher. 07/03/2015 Active acetaminophen (TYLENOL ORAL) Take by mouth. 07/03/2015 Active rosuvastatin (CRESTOR) 5 mg tablet Take 5 mg by mouth daily at bedtime. 07/03/2015 Active ramipriL (ALTACE) 5 mg capsule Take 5 mg by mouth daily. 07/03/2015 Active omeprazole (PriLOSEC) 20 mg Capsule, Delayed Release(E.C.) Take 20 mg by mouth daily. 07/03/2015 Active Social History Tobacco Use Types Packs/Day Years Used Date Smoking Tobacco: Never Alcohol Use Standard Drinks/Week Comments Not Asked 0 (1 standard drink = 0.6 oz pur e alcohol) Comments Unknown Sex and Gender Information Value Date Recorded Sex Assigned at Not on file Legal Sex Female 2:24 AM VB DEVELOPER Gender Identity Not on file Sexual Orientation Not on file Last Filed Vital Signs Vital Sign Reading Time Taken Comments Blood Pressure 122/61 07/03/2015 10:41 AM CDT Pulse 84 07/03/2015 10:41 AM CDT Temperature 37.2 C (98.9 F) 07/03/2015 10:41 AM CDT Respiratory Rate 20 07/03/2015 10:41 AM CDT Oxygen Saturation - - Inhaled Oxygen Concentration - - Weight 65.8 kg (145 lb) 07/03/2015 10:41 AM CDT Height 157.5 cm (5' 2 ) 07/03/2015 10:41 AM CDT Body Mass Index 26.52 07/03/2015 10:41 AM CDT Plan of Treatment Health Maintenance Due Date Last Done Comments DTAP/TDAP/TD VACCINES (1 - Tdap) 1960 PNEUMOCOCCAL VACCINE 65+ YEARS (1 of 1 - PCV) 12/09/18 92 ZOSTER VACCINE (1 of 2) 12/10/1991 OSTEOPOROSIS SCREENING 2006 RSV VACCINE (60+ or ) (1 - 1-dose 75+ series) 2016 INFLUENZA VACCINE (#1) 2023 Care Teams Optical Instrument Assembly Supervisor Relationship Specialty Start Date End Date Erik Xie MD [address] [facility] [address] [place] [address] PCP - General Internal Medicine 07/03/15
--- OUTSIDE RECORDS SUMMARY | 2024-05-14 19:22 | XMS_ITS | Referral Summary ---
Author Organization [facility] Address [address] [place] [address] Care Team Providers Care Hospital Tray Service Worker Name Role Phone Provider, N Ot A User/ Primary Care Provider Radha vailable Source Comments [facility],non-owned Affiliates and Associated Physician Practices is amultiple site organization consisting of ambulatory clinics and hospital sitesin [place], [place], [place] and [place]. This disclosure is being madepursuant to the Care Everywhere program and may not contain all information available regarding this patient. Last updated 17.[facility] Immunizations Name Administration Dates Next Due INFLUENZA VACCINE, HIGH-DOSE , QUADR. (FLUZONE HIGH-DOSE QUADRIVALENT; 65Y+), 0.7 ML (HD-[id number]) 12/08/2015 Social History Tobacco Use Types Packs/Day Years Used Date Smoking Tobacco: Never Assessed Sex and Gender Information Value Date Recorded Sex Assigned at Not on file Gender Identity Not on file Sexual Orientation Not on file Plan of Treatment Not on file Care Teams Hospital Tray Service Worker Relationship Specialty Start Date End Date Provider, N Ot A User/ PCP - General 12/08/15
--- OUTSIDE RECORDS SUMMARY | 2024-05-14 19:22 | XMS_ITS | Encounter Summary ---
Author Organization [facility] Address [address] [place] [address] Care Team Providers Care Blend Plant Operator Name Role Phone Erik Xie MD Primary Care Provider [phone] Encounter Details Date Type Department Care Team (Late st Contact Info) Description 05/13/2006 Outpatient Historical [facility] Dwain Laughlin, DO [address] [place] [address] Abdominal Pain, Unspecified Site (Primary Dx) Social History Tobacco Use Types Packs/Day Years Used Date Smoking Tobacco: Never Assessed Comments Unknown Sex and Gender Information Value Date Recorded Sex Assigned at Not on file Legal Sex Female 3:03 AM UNIFORM DESIGNER Gender Identity Not on file Sexual Orientation Not on file documented as of this encounter Plan of Treatment Not on file documented as of this encounter Procedures Procedure Name Priority Date/Time Associated Diagnosis Comments RBC MORPHOLOGY Routine 05/13/2006 9:46 PM UNIFORM DESIGNER CBC WITH DIFFERENTIAL Routine 05/13/2006 9:46 PM UNIFORM DESIGNER CBC WITH DIFFERENTIAL Routine 05/13/2006 9:46 PM UNIFORM DESIGNER LIPASE Routine 05/13/2006 9:46 PM UNIFORM DESIGNER AMYLASE Routine 05/13/2006 9:46 PM UNIFORM DESIGNER COMPREHENSIVE METABOLIC PANEL Routine 05/13/2006 9:46 PM UNIFORM DESIGNER URINALYSIS WITH REFLEX CULTURE Routine 05/13/2006 9:30 PM UNIFORM DESIGNER documented in this encounter Results * RBC MORPHOLOGY (05/13/2006 9:46 PM UNIFORM DESIGNER) 05/13/2006 9:46 PM UNIFORM DESIGNER Historical Provider HEMATOLOGY ORDERABLES Final Result Performing Organization Address [facility] de Phone Number INTERFACE SYSTEM Refer to clinic/hospital department * CBC WITH DIFFERENTIAL (05/13/2006 9:46 PM UNIFORM DESIGNER) BANDS 0 0 - 6 % INTERFACE SYSTEM PLATELET EST. Adequate INTERF HIEU SYSTEM 05/13/2006 9:46 PM UNIFORM DESIGNER 05/13/2006 10:30 PM UNIFORM DESIGNER Historical Provider HEMATOLOGY ORDERABLES Final Result Performing Organization Address [facility] Phone Number INTERFACE SYSTEM Refer to clinic/hospital department * CBC WITH DIFFERENTIAL (05/13/2006 9:46 PM UNIFORM DESIGNER) WBC 6.9 4.5 - 11.0 10E3 INTERFACE SYSTEM RBC 4.08 3.80 - 5.30 10E6 INTERFACE SYSTEM HEMOGLOBIN 12.1 11.7 - 16.0 g/dL INTERFACE SYSTEM HEMATOCRIT 36.7 35.0 - 47.0 % INTERFACE SYSTEM MCV 90 81 - 101 fL INTERFACE SYSTEM MCH 29.6 27 - 34 pG INTERFACE SYSTEM MCHC 32.9 31.0 - 36.0 g/dL INTERFACE SYSTEM RDW CV 14.4 11 - 16 CV INTERFACE SYSTEM PLATELETS 312 150 - 450 10E3 INTERFACE SYSTEM MPV 8.7 8.6 - 11.7 fl INTERFACE SYSTEM NEUTROPHIL 59 36 - 78 % INTERFACE SYSTEM LYMPHOCYTES 35 24 - 44 % INTERFAC E SYSTEM MONOCYTE 5 0 - 8 % INTERFACE SYSTEM EOSINOPHILS 1 0 - 6 % INTERFAC E SYSTEM BASOPHILS 0 0 - 1 % INTERFACE SYSTEM NEUTROPHIL ABSOLUTE 4.33 1.62 - 8.58 10E3 INTERFACE SYSTEM LYMPHOCYTE ABSOLUTE 1.92 1.08 - 4.84 10E3 INTERFACE SYSTEM MONOCYTE ABSOLUTE 0.52 0.10 - 0.88 10E3 INTERFACE SYSTEM BASOPHILS ABSOLUTE 0.07 0.0 - 0.72 10E3 INTERFACE SYSTEM EOSINOPHIL ABSOLUTE 0.06 0.0 - 0.30 10E3 INTERFACE SYSTEM 05/13/2006 9:46 PM UNIFORM DESIGNER 05/13/2006 10:08 PM UNIFORM DESIGNER Historical Provider HEMATOLOGY ORDERABLES Final Result INTERFACE SYSTEM Refer to clinic/hospital department * LIPASE (05/13/2006 9:46 PM UNIFORM DESIGNER) LIPASE 27 5 - 51 U/L INTERFACE SYSTEM 05/13/2006 9:46 PM UNIFORM DESIGNER 05/13/2006 10:24 PM UNIFORM DESIGNER Historical Provider CHEMISTRY ORDERABLES Final R esult Performing Organization Address [facility] Phone Number INTERFACE SYSTEM Refer to clinic/hospital department * (ABNORMAL) AMYLASE (05/13/2006 9:46 PM UNIFORM DESIGNER) AMYLASE 27(L) 30 - 110 U/L INTERFACE SYSTEM 05/13/2006 9:46 PM UNIFORM DESIGNER 05/13/2006 10:24 PM UNIFORM DESIGNER Historical Provider CHEMISTRY ORDERABLES Final R esult Performing Organization Address [facility] Phone Number INTERFACE SYSTEM Refer to clinic/hospital department * (ABNORMAL) COMPREHENSIVE METABOLIC PANEL (05/13/2006 9:46 PM UNIFORM DESIGNER) SODIUM 141 137 - 145 mmol/L INTERFACE SYSTEM POTASSIUM 3.7 3.6 - 5.0 mmol/L INTERFACE SYSTEM CHLORIDE 108 95 - 110 mmol/L INTERFACE SYSTEM CO2 25 20 - 31 mmol/L INTERFACE SYSTEM ANION GAP 8 0 - 12 INTERFACE SYSTEM BUN 15 6 - 20 mg/dL INTERFACE SYSTEM CREATININE 0.6 0.6 - 1.3 mg/dL INTERFACE SYSTEM GLUCOSE 94 70 - 110 mg/dL INTERFACE SYSTEM TOTAL PROTEIN 6.3 6.2 - 8.3 gm/dL INTERFACE SYSTEM ALBUMIN 4.0 3.5 - 5.0 g/dL INTERFACE SYSTEM CALCIUM 8.6 8.2 - 10.3 mg/dL INTERFACE SYSTEM BILIRUBIN TOTAL 0.2 0.0 - 1.5 mg/dL INTERFACE SYSTEM ALKALINE PHOSPHATASE 61 34 - 132 U/L INTERFACE SYSTEM AST 31 3 - 45 U/L INTERFACE SYSTEM ALT 29 7 - 40 U/L INTERFACE SYSTEM HEMOLYSIS 1+(A) No Hemo INTERFACE SYSTEM 05/13/2006 9:46 PM UNIFORM DESIGNER 05/13/2006 10:24 PM UNIFORM DESIGNER us Historical Provider CHEMISTRY ORDERABLES Final R esult Performing Organization Address [facility]/ZIP Co de Phone Number INTERFACE SYSTEM Refer to clinic/hospital department * (ABNORMAL) URINALYSIS WITH REFLEX CULTURE (05/13/2006 9:30 PM UNIFORM DESIGNER) COLOR UA Yellow INTERFACE SYSTEM CLARITY UA Clear INTERFACE SYSTEM SPECIFIC GRAVITY UA 1.025 1.005 - 1.030 INTERFACE SYSTEM PH UA 5.5 4.6 - 8.0 INTERFACE SYSTEM PROTEIN UA Negative Negative MG/DL INTERFACE SYSTEM GLUCOSE UA Negative Negative mg/dL INTERFACE SYSTEM KETONES UA Trace(A) Negative mg/dL INTERFACE SYSTEM BILIRUBIN UA Negative Negative INTERFA CE SYSTEM BLOOD UA Negative Negative INTERFACE SYSTEM UROBILINOGEN UA 0.2 0.1 - 1.0 EU/dL INTERFACE SYSTEM NITRITE UA Negative Negative INTERFACE SYSTEM LEUKOCYTE ESTERASE UA Negative Negative INTERFACE SYSTEM RBC UA none seen 0 - 3 /HPF INTERFACE SYSTEM WBC UA 0-3 0 - 5 /HPF INTERFACE SYSTEM EPITHELIAL CELLS, URINE 0-5 /HPF INTERFACE SYSTEM MULTIPLE OF MEDIAN 1+ INTERFACE SYSTEM BACTERIA UA Rare Neg INTERFAC E SYSTEM URINE CULTURE ORDER No INTERFACE SYSTEM 05/13/2006 9:30 PM UNIFORM DESIGNER 05/13/2006 9:45 PM UNIFORM DESIGNER us Historical Provider URINE ORDERABLES Final Resul t Performing Organization Address [facility]/ZIP Co de Phone Number INTERFACE SYSTEM Refer to clinic/hospital department documented in this encounter Visit Diagnoses Diagnosis Abdominal pain, unspecified site- Primary documented in this encounter Care Teams Blend Plant Operator Relationship Specialty Start Date End Date Erik Xie MD [address] [facility] [address] [place] [address] PCP - General Internal Medicine 07/03/15 documented as of this encounter
--- OUTSIDE RECORDS SUMMARY | 2024-05-14 19:22 | XMS_ITS | Encounter Summary ---
Author Organization [facility] Address [address] [place] [address] Phone Care Team Providers Care Locate Technician Name Role Phone Nael Mccormick Primary Care Provider [phone] Encounter Details Date Type Department Care Team (Latest Contact Info) Description 05/17/2023 Orders Only [facility] Scanning, Provider Social History Tobacco Use Types Packs/Day Years Used Date Smoking Tobacco: Never Smokeless Tobacco: Never Alcohol Use Standard Drinks/Week Comments Never 0 (1 standard drink = 0.6 oz pur e alcohol) AUDIT-C Answer Date Recorded Q1: How often do you have a drink containing alc ohol? Never 03/24/2020 Average Number of Drinks Not on file 021 Frequency of Binge Drinking Not on file 06/2020 Personal Safety Answer Date Recorded Getting School Help Needed Denies 04/07 Comments Unknown Sex and Gender Information Value Date Recorded Sex Assigned at Not on file Legal Sex Female 7:53 PM ELECTRODE CLEANER Gender Identity Female 03/18/2020 8:08 AM ELECTRODE CLEANER Sexual Orientation Straight 12/13/2019 2: 05 PM CDT documented as of this encounter Plan of Treatment Not on file documented as of this encounter Procedures Procedure Name Priority Date/Time Associated Diagnosis Comments SCAN - RADIOLOGY/IMAGING 05/17/2023 SCAN - LABS 05/17/2023 documented in this encounter Results * SCAN - LABS (05/17/2023) us Provider Scanning Final Result * SCAN - RADIOLOGY/IMAGING (05/17/2023) Anatomical Region Laterality Modality Other us Provider Scanning Final Result documented in this encounter Visit Diagnoses Not on filedocumented in this encounter Additional Health Concerns Infection Onset Date Last Indicated Resolved Time 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 01/18/2024 01/18/2024 04/17/2024 3:[address] documented as of this encounter Care Teams Locate Technician Relationship Specialty Start Date End Date Nael Mccormick DO PCP - General Internal Medicine 09/29/17 documented as of this encounter
--- OUTSIDE RECORDS SUMMARY | 2024-05-14 19:22 | XMS_ITS | Encounter Summary ---
Author Organization [facility] Address [address] [place] [address] Phone Care Team Providers Care Gambling Floor Supervisor Name Role Phone Nael Mccormick Primary Care Provider [phone] Marcus Paredes MD Unavailable [phone] Encounter Details Date Type Department Care Team (Late st Contact Info) Description 11/20/2019 Orders Only [facility] Scanning, Provider Social History Tobacco Use Types Packs/Day Years Used Date Smoking Tobacco: Never Smokeless Tobacco: Never Comments Unknown Sex and Gender Information Value Date Recorded Sex Assigned at Not on file Legal Sex Female 7:53 PM ASSESSMENT NURSE PRACTITIONER Gender Identity Female 03/18/2020 8:08 AM ASSESSMENT NURSE PRACTITIONER Sexual Orientation Straight 12/13/2019 2: 05 PM CDT documented as of this encounter Plan of Treatment Not on file documented as of this encounter Procedures Procedure Name Priority Date/Time Associated Diagnosis Comments SCAN - LABS 11/20/2019 documented in this encounter Results * SCAN - LABS (11/20/2019) us Provider Scanning Final Result documented in [...] documented as of this encounter Care Teams Gambling Floor Supervisor Relationship Specialty Start Date End Date Nael Mccormick DO PCP - General Internal Medicine 09/29/17 Marcus Paredes MD Referring Physician Family Practice 08/26/22 08/26/22 documented as of this encounter
--- OUTSIDE RECORDS SUMMARY | 2024-05-14 19:22 | XMS_ITS | Clinical Summary ---
Author Organization [facility] Address [address] [place] [address] Care Team Providers Care Electric Blanket Packer Name Role Phone Provider, N Ot A User/ Primary Care Provider Radha vailable Source Comments [facility] Affiliates and Associated Physician Practices is amultiple site organization consisting of ambulatory clinics and hospital sitesin [place], [place], [place] and [place]. This disclosure is being madepursuant to the Care Everywhere program and may not contain all information available regarding this patient. Last updated 17.[facility] Immunizations Name Administration Dates Next Due INFLUENZA VACCINE, HIGH-DOSE , QUADR. (FLUZONE HIGH-DOSE QUADRIVALENT; 65Y+), 0.7 ML ([id number]) 12/08/2015 Social History Tobacco Use Types Packs/Day Years Used Date Smoking Tobacco: Never Assessed Sex and Gender Information Value Date Recorded Sex Assigned at Not on file Gender Identity Not on file Sexual Orientation Not on file Plan of Treatment Health Maintenance Due Date Last Done Comments BONE DENSITY TESTING 1941 DTAP/TDAP/TD VACCINES (1 - Tdap) 1960 PNEUMOCOCCAL VACCINE 50+ (1 of 1 - PCV) 12/10/1991 ZOSTER VACCINE (1 of 2) 12/10/1991 Respiratory Syncytial Virus (RSV) Vaccine Pt: or over 60 yrs (1 - 1-dose 75+ series) 2016 COVID-19 VACCINE ( - 2023-2 5 season) 2023 INFLUENZA VACCINE (#1) 2023 12/08/2015 DEPRESSION SCREENING 03/21/2024 HEPATITIS B VACCINE Aged Out No longe r eligible based on patient's age to complete this topic HIB VACCINE Aged Out No longer eligi ble based on patient's age to complete this topic HPV VACCINE Aged Out No longer eligi ble based on patient's age to complete this topic MENINGOCOCCAL (Group B) VACCINE Aged Out No longer eligible based on patient's age to complete this topic MENINGOCOCCAL VACCINE Aged Out No kristin job eligible based on patient's age to complete this topic Care Teams Electric Blanket Packer Relationship Specialty Start Date End Date Provider, N Ot A User/ PCP - General 12/08/15
--- OUTSIDE RECORDS SUMMARY | 2024-05-14 19:22 | XMS_ITS | Encounter Summary ---
Author Organization [facility] Address [address] [facility] [place] [address] Phone Care Team Providers Care Real Estate Office Supervisor Name Role Phone Nael Mccormick Primary Care Provider [phone] Encounter Details Date Type Department Care Team (Latest Contact Info) Description 04/29/2023 Orders Only [facility] Scanning, Provider [...] on file Legal Sex Female 7:53 PM DIRECT SERVICE WORKER Gender Identity Female 03/18/2020 8:08 AM DIRECT SERVICE WORKER Sexual Orientation Straight 12/13/2019 2: 05 PM CDT documented as of this encounter Plan of Treatment Not on file documented as of this encounter Procedures Procedure Name Priority Date/Time Associated Diagnosis Comments PULMONARY - RESULT SCAN 04/29/2023 documented in this encounter Results * PULMONARY - RESULT SCAN (04/29/2023) Anatomical Region Laterality Modality Other us Provider [...] documented as of this encounter Care Teams Real Estate Office Supervisor Relationship Specialty Start Date End Date Nael Mccormick DO PCP - General Internal Medicine 09/29/17 documented as of this encounter
--- OUTSIDE RECORDS SUMMARY | 2024-05-14 19:22 | XMS_ITS | Encounter Summary ---
Author Organization [facility] Address [address] [place] [address] Phone Care Team Providers Care Emergency Medical Technician Name Role Phone Nael Mccormick Primary Care Provider Marcus Paredes MD Unavailable [phone] Encounter Details Date Type Department Care Team (Late st Contact Info) Description 11/09/2018 Orders Only [facility] Scanning, Provider Social History Tobacco Use Types Packs/Day Years Used Date Smoking Tobacco: Never Smokeless Tobacco: Never Comments Unknown Sex and Gender Information Value Date Recorded Sex Assigned at Not on file Legal Sex Female 7:53 PM POLISHER NUMERAL Gender Identity Female 03/18/2020 8:08 AM POLISHER NUMERAL Sexual Orientation Straight 12/13/2019 2: 05 PM CDT documented as of this encounter Plan of Treatment Not on file documented as of this encounter Procedures Procedure Name Priority Date/Time Associated Diagnosis Comments SCAN - RADIOLOGY/IMAGING 11/09/2018 documented in this encounter Results * SCAN - RADIOLOGY/IMAGING (11/09/2018) Anatomical Region Laterality Modality Other us Provider [...] documented as of this encounter Care Teams Emergency Medical Technician Relationship Specialty Start Date End Date Nael Mccormick DO PCP - General Internal Medicine 09/29/17 Marcus Paredes MD Referring Physician Family Practice 08/26/22 08/26/22 documented as of this encounter
--- OUTSIDE RECORDS SUMMARY | 2024-05-14 19:22 | XMS_ITS | Continuity of Care Document ---
Author Name [facility] Address [address] [place] [address] Organization [facility] Care Team Providers Care Tray Filler Name Role Phone [facility] Unavailable Unavailable Problems Problem Status Onset Date Problem Type Date of Resolution Comme nts Source Urinary tract infectious disease (disorder) 12/17/2023 Diagnosis Abdominal distension (gaseous) Active Diagnosis History of urinary tract infection (situation) Diagnosis Allergies, Adverse Reactions, Alerts Substance Category Reaction Severity Reaction type Status Date Reported Comments Source morphine Assertion Drug allergy [facility] Keflex Assertion Drug allergy [facility] Macrodantin Assertion Drug allergy [facility] Results Order Name Results Value Reference Range Date Interpretation Comments Source GENERAL CHEMISTRY AST-SGOT 28 U/L 12/16 22:44 :00 [facility] GENERAL CHEMISTRY Albumin 3.2 g/dL 3.4 - 5.0 12/16 22:44 :00 [facility] GENERAL CHEMISTRY Alkaline Phosphatase 61 U/L 35 - 104 12/16 22:44 :00 [facility] GENERAL CHEMISTRY ALT-SGPT 15 U/L 10 - 40 12/16 22:44 :00 [facility] GENERAL CHEMISTRY BUN 16 mg/dL 8 - 23 12/16 22:44 :00 [facility] GENERAL CHEMISTRY Calcium 8.9 mg/dL 8.3 - 10.6 12/16 22:44 :00 [facility] GENERAL CHEMISTRY Glucose Lvl 129 mg/dL 70 - 139 12/16 22:44 :00 [facility] GENERAL CHEMISTRY Chloride 103 mmol/L 98 - 107 12/16 22:44 :00 [facility] GENERAL CHEMISTRY Sodium 137 mmol/L 136 - 145 12/16 22:44 :00 [facility] GENERAL CHEMISTRY Potassium 3.4 mmol/L 3.5 - 5.1 12/16 22:44 :00 [facility] GENERAL CHEMISTRY CO2 27 mmol/L 20 - 31 12/16 22:44 :00 [facility] GENERAL CHEMISTRY Anion gap 10 mmol/L 0 - 20 12/16 22:44 :00 [facility] GENERAL CHEMISTRY T Bili 0.33 mg/dL 0.30 - 1.20 12/16 22:44 :00 [facility] GENERAL CHEMISTRY Total Protein 6.4 g/dL 5.7 - 8.2 12/16 22:44 :00 [facility] GENERAL CHEMISTRY Creatinine, standardized 1.0 mg/dL 0.5 - 1.0 12/16 22:44 :00 Interpretive Data: Wiyilp-kh-isy e transgender patients on testosterone therapy should have results assessed using the male reference range. Pqfj-ym-idcjn e transgender patients on hormone-modul ating therapy clinical judgment is advisedfor assessment. [facility] GENERAL CHEMISTRY Estimated GFR for Adults 58 mL/min/1.7 3m 12/16 22:44 :00 Interpretive Data: Changed to CKD-EPI 2020 on 2020. [facility] CHEMISTRY Estimated GFR for peds Not calculated 12/16 22:44 :00 Interpretive Data: The estimated GFR was calculated using the Tello rojas Faustin equation (2009) . Reference: Pediatric GFR calculator at [employer] Website. [facility] HEMATOLOGY PROFILES WBC 10.32 x10(9)/L 3.50 - 10.50 12/16 22:44 :00 [facility] HEMATOLOGY PROFILES RBC 2.48 x10(12)/L 3.90 - 5.03 12/16 22:44 :00 [facility] HEMATOLOGY PROFILES HGB 7.9 g/dL 12.0 - 15.5 12/16 22:44 :00 Interpretive Data: Wwjwkz-jl-alu e transgender patients on testosterone therapy should have results assessed using the male reference range. Oxcq-ie-nowcw e transgender patients on hormone-modul ating therapy clinical judgment is advisedfor assessment. [facility] HEMATOLOGY PROFILES HCT 25.4 % 34.9 - 44.5 12/16 22:44 :00 Interpretive Data: Zfusai-rv-bcd e transgender patients on testosterone therapy should have results assessed using the male reference range. Bbmk-rf-vdukt e transgender patients on hormone-modul ating therapy clinical judgment is advisedfor assessment. [facility] HEMATOLOGY PROFILES MCV 102.4 fL 81.6 - 98.3 12/16 22:44 :00 [facility] HEMATOLOGY PROFILES MCH 31.9 pg 26.0 - 33.0 12/16 22:44 :00 [facility] HEMATOLOGY PROFILES MCHC 31.1 g/dL 32.0 - 36.0 12/16 22:44 :00 [facility] HEMATOLOGY PROFILES RDW CV 12.6 % 11.9 - 15.5 12/16 22:44 :00 [facility] HEMATOLOGY PROFILES RDW SD 47.6 fL 36.4 - 46.3 12/16 22:44 :00 [facility] HEMATOLOGY PROFILES PLT 176 x10(9)/L 150 - 450 12/16 22:44 :00 [facility] HEMATOLOGY PROFILES MPV 10.6 8.0 - 12.0 12/16 22:44 :00 [facility] HEMATOLOGY PROFILES % Nucleated RBCs 0.0 % 12/16 22:44 :00 [facility] HEMATOLOGY PROFILES Absolute Nucleated RBCs 0.0 x10(9)/L 0.0 - 0.0 12/16 22:44 :00 Interpretive Data: Normal values not established in patients less than 18 years old. [facility] HEMATOLOGY PROFILES % Neutrophils 90.6 % 12/16 22:44 :00 [facility] HEMATOLOGY PROFILES % Lymphocytes 2.4 % 12/16 22:44 :00 [facility] HEMATOLOGY PROFILES % Monocytes 5.5 % 12/16 22:44 :00 [facility] HEMATOLOGY PROFILES % Eosinophils 0.6 % 12/16 22:44 :00 [facility] HEMATOLOGY PROFILES % Basophils 0.2 % 12/16 22:44 :00 [facility] HEMATOLOGY PROFILES % Immature Granulocytes 0.70 % 0.02 - 0.42 12/16 22:44 :00 [facility] HEMATOLOGY PROFILES Absolute Granulocytes 9.35 x10(9)/L 1.70 - 7.00 12/16 22:44 :00 [facility] HEMATOLOGY PROFILES Abs Lymphocytes 0.25 x10(9)/L 0.90 - 2.90 12/16 22:44 :00 [facility] HEMATOLOGY PROFILES Abs Monocytes 0.57 x10(9)/L 0.30 - 0.90 12/16 22:44 :00 [facility] HEMATOLOGY PROFILES Abs Eosinophils 0.06 x10(9)/L 0.05 - 0.50 12/16 22:44 :00 [facility] HEMATOLOGY PROFILES Abs Basophils 0.02 x10(9)/L 0.00 - 0.30 12/16 22:44 :00 [facility] HEMATOLOGY PROFILES Abs Immature Granulocytes 0.07 x10(9)/L 0.00 - 0.03 12/16 22:44 :00 [facility] HEMATOLOGY PROFILES Morphology Present *NA* (12/17/23 5:44 PM) 12/16 22:44 :00 [facility] HEMATOLOGY PROFILES Platelet Estimate Adequate *NA* (12/17/23 5:44 PM) 12/16 22:44 :00 [facility] HEMATOLOGY PROFILES Macro 1+ (25-50%) *NA* (12/17/23 5:44 PM) 12/16 22:44 :00 [facility] HEMATOLOGY PROFILES Internal Review Yes (12/17/23 5:44 PM) 12/16 22:44 :00 [facility] HEMATOLOGY PROFILES QA Review Agree (12/17/23 5:44 PM) 12/16 22:44 :00 [facility] URINALYSIS Urine Collection Method Clean Catch UR (12/17/23 5:39 PM) 12/16 22:39 :00 [facility] URINALYSIS CLARITY Cloudy *ABNORMAL* (12/17/23 5:39 PM) 12/16 22:39 :00 [facility] URINALYSIS COLOR Yellow (12/17/23 5:39 PM) 12/16 22:39 :00 [facility] URINALYSIS SPECIFIC GRAVITY 1.018 1.006 - 1.030 12/16 22:39 :00 [facility] URINALYSIS UA PH 5 (12/17/23 5:39 PM) 4.5 - 8.0 12/16 22:39 :00 [facility] URINALYSIS UA GLUCOSE Negative mg/dL 12/16 22:39 :00 [facility] URINALYSIS UA KETONES Negative mg/dL 12/16 22:39 :00 [facility] URINALYSIS BILIRUBIN Negative (12/17/23 5:39 PM) 12/16 22:39 :00 [facility] URINALYSIS UA UROBILINOGEN Negative Domenica unit/dL 0.2 - 1.0 12/16 22:39 :00 [facility] URINALYSIS UA BLOOD Moderate *ABNORMAL* (12/17/23 5:39 PM) 12/16 22:39 :00 [facility] URINALYSIS UA LEUKOCYTES Large *ABNORMAL* (12/17/23 5:39 PM) 12/16 22:39 :00 [facility] URINALYSIS UA NITRITE Negative (12/17/23 5:39 PM) 12/16 22:39 :00 [facility] URINALYSIS UA PROTEIN 100 mg/dL 12/16 22:39 :00 [facility] URINALYSIS WBC >30 /hpf 0 - 3 12/16 22:39 :00 [facility] URINALYSIS WBC CLUMPS Present *ABNORMAL* (12/17/23 5:39 PM) 12/16 22:39 :00 [facility] URINALYSIS RBC >30 /hpf 0 - 2 12/16 22:39 :00 [facility] URINALYSIS UA Epithelial Cells Moderate /lpf 12/16 22:39 :00 [facility] URINALYSIS UA Bacteria 1+ *ABNORMAL* (12/17/23 5:39 PM) 12/16 22:39 :00 [facility] Consultation Notes Results Value Date Source Emergency Services Note Basic Informatio n Chief Complaint MSC- CONFUSION AT TIMES, N/V YEST, SORE THROAT SINCE YEST. KNOWN UTI AND UROLOGIST UNSURE OF WHAT TO TRY NEXT. History of Present Illness Patient is an 83-year-old female with PMH of recurrent UTIs, arthritis, hypothyroidism, interstitial lung disease on home O2 who presents today with family due to mental status changes, nausea, and urgency. Patient states that she sees a urologist for her recurrent UTIs and that she was recently prescribed methenamine hippurate for her most recent UTI. She is allergic to keflex and macrodantin. Family with her also reports that she has been more confused over the past few days, but that this is intermittent. Patient states that she was nauseous yesterday but not today, and that she has had a sore throat today. Review of Systems Review of systems is negative except as otherwise stated in the HPI. Physical Exam Vitals and Measurements T: 37.5 C HR: 89 RR: 27 BP: 133/60 SpO2: 94% WT: 58.1 kg General: Alert and oriented, no acute distress. HEENT: Normocephalic, PERRLA, EOMI, normal conjunctiva, moist mucous membranes. Neck: Supple, no JVD. Cardiac: Regular rate and rhythm, no murmur, no edema, adequate peripheral perfusion. Pulmonary: Clear to auscultation bilaterally, symmetric expansion, normal inspiratory effort. Abdomen: Soft, non-tender, non-distended, no rebound or guarding. MSK: Normal strength, no deformity or ecchymosis. Integument: Warm, dry, no rash. Neuro: CN II-XII grossly intact, no focal deficits. Psych: Cooperative, appropriate mood and affect. Procedure Medical Decision Making Presentation: Patient is an 83-year-old female with PMH of recurrent UTIs currently on methenamine hippurate, hypothyroidism, interstitial lung disease on home O2, and arthritis who presents today with family due to increased confusion, urgency, and nausea. Patient states that she was having increased pain and nausea yesterday, which she thinks was due to the methenamine hippurate and has since stopped taking it. Here in the emergency department, vital signs are within normal limits. See physical exam above. Differential Diagnoses: Include but are not limited to UTI, pyelonephritis (less likely due to lack of fevers), kidney stone (less likely due to lack of flank or abdominal pain) Labs/Imaging (independently interpreted by myself): Labs obtained: CBC, CMP, UA Pertinent laboratory results: No evidence of leukocytosis. Macrocytic anemia noted with hemoglobin of 7.9 and MCV of 102.4. normal electrolytes. normal kidney function. UA shows evidence of UTI. ED Course: Patient treated here in the ED with 1g IV ceftriaxone. Patient reports that her allergy to keflex was that she got a rash at one time. She states that she has had augmentin and other cephalosporins without issue. On re-evaluation, patient is resting on the stretcher comfortably. Discussed results with the patient and her family. Prescribed cefpodoxime. Advised patient to follow up with her PCP when she gets back home. Patient is in agreement with plan. All questions answered at this time. Return precautions given. Disposition: Discharge home Reexamination/Reevaluation Assessment/Plan 1. Urinary tract infection Orders: cefpodoxime(cefpodoxime 100 mg oral tablet), 100 mg= 1 Tablet(s), Oral, q12h Patient Education UTI (Urinary Tract Infection): Female Follow Up With When Contact Information Return to Emergency Department Within As Needed, only if needed Additional Instructions: If symptoms worsen. [facility] [address] [place] [address] Follow up with primary care provider Within 1 to 2 weeks Additional Instructions: If symptoms persist. You must contact this provider to schedule your appointment. Medication Reconciliation ED Forms Attestation by Carlos Willett MD on December 20, 2023 17:22 I personally saw and evaluated the patient. I discussed the management with the resident and reviewed the resident s note. I agree with the documented findings and plan of care. Procedures: No procedures were performed during the visit. Critical Care: No critical care was needed for this visit. Problem List/Past Medical History Procedure/Surgical History Medication Administration Given cefTRIAXone, 1 g, IV Push. For: Urinary tract infection Allergies Keflex Macrodantin morphine Social History Family History Lab Results HEMATOLOGY PROFILES LATEST RESULTS WBC 12/17/23 17:44 10.32 RBC 12/17/23 17:44 2.48 Low HGB 12/17/23 17:44 7.9 Low HCT 12/17/23 17:44 25.4 Low MCV 12/17/23 17:44 102.4 High MCH 12/17/23 17:44 31.9 MCHC 12/17/23 17:44 31.1 Low RDW SD 12/17/23 17:44 47.6 High RDW CV 12/17/23 17:44 12.6 PLT 12/17/23 17:44 176 MPV 12/17/23 17:44 10.6 % Neutrophils 12/17/23 17:44 90.6 Absolute Granulocytes 12/17/23 17:44 9.35 High % Immature Granulocytes 12/17/23 17:44 .70 High Abs Immature Granulocytes 12/17/23 17:44 0.07 High % Lymphocytes 12/17/23 17:44 2.4 Abs Lymphocytes 12/17/23 17:44 0.25 Low % Monocytes 12/17/23 17:44 5.5 Abs Monocytes 12/17/23 17:44 0.57 % Eosinophils 12/17/23 17:44 0.6 Abs Eosinophils 12/17/23 17:44 0.06 % Basophils 12/17/23 17:44 0.2 Abs Basophils 12/17/23 17:44 0.02 % Nucleated RBCs 12/17/23 17:44 0.0 Absolute Nucleated RBCs 12/17/23 17:44 0.0 RBC Morphology 12/17/23 17:44 Present Macrocytosis 12/17/23 17:44 1+ (25-50%) Platelet Estimate 12/17/23 17:44 Adequate Internal Review 12/17/23 17:44 Yes GENERAL CHEMISTRY LATEST RESULTS Sodium 12/17/23 17:44 137 Potassium 12/17/23 17:44 3.4 Low Chloride 12/17/23 17:44 103 CO2 12/17/23 17:44 27 Anion gap 12/17/23 17:44 10 Glucose Lvl 12/17/23 17:44 129 BUN 12/17/23 17:44 16 Creatinine, standardized 12/17/23 17:44 1.0 Estimated GFR for Adults 12/17/23 17:44 58 Low Estimated GFR for peds 12/17/23 17:44 Not calculated Calcium 12/17/23 17:44 8.9 Total Protein 12/17/23 17:44 6.4 Albumin 12/17/23 17:44 3.2 Low T Bili 12/17/23 17:44 0.33 Alkaline Phosphatase 12/17/23 17:44 61 AST-SGOT 12/17/23 17:44 28 ALT-SGPT 12/17/23 17:44 15 URINALYSIS LATEST RESULTS COLOR 12/17/23 17:39 Yellow CLARITY 12/17/23 17:39 Cloudy Abnormal SPECIFIC GRAVITY 12/17/23 17:39 1.018 UA PH 12/17/23 17:39 5 UA GLUCOSE 12/17/23 17:39 Negative UA KETONES 12/17/23 17:39 Negative BILIRUBIN 12/17/23 17:39 Negative UA UROBILINOGEN 12/17/23 17:39 Negative UA BLOOD 12/17/23 17:39 Moderate Abnormal UA LEUKOCYTES 12/17/23 17:39 Large Abnormal UA NITRITE 12/17/23 17:39 Negative UA PROTEIN 12/17/23 17:39 100 Abnormal WBC 12/17/23 17:39 >30 Abnormal WBC CLUMPS 12/17/23 17:39 Present Abnormal RBC 12/17/23 17:39 >30 Abnormal UA Epithelial Cells 12/17/23 17:39 Moderate Abnormal UA Bacteria 12/17/23 17:39 1+ Abnormal Urine Collection Method 12/17/23 17:39 Clean Catch UR Diagnostic Results ECG 12/17/2023 Vital Signs Vital Sign Value Date Comments Source SpO2 98 % 12/18/2023 00:14:56 [facility] Respiratory Rate 24 12/18/2023 00:14:45 [facility] Heart Rate 75 bpm 12/18/2023 00:14:15 [facility] Respiratory Rate 23 12/17/2023 23:47:21 [facility] SpO2 98 % 12/17/2023 23:47:21 [facility] Heart Rate 80 bpm 12/17/2023 23:47:19 [facility] SpO2 94 % 12/17/2023 22:53:47 [facility] Heart Rate 89 bpm 12/17/2023 22:53:46 [facility] Respiratory Rate 27 12/17/2023 22:53:46 [facility] Mean NIBP 62 mm[Hg] 12/17/2023 22:53:00 [facility] SBP NIBP 133 mm[Hg] 12/17/2023 22:53:00 [facility] DBP NIBP 60 mm[Hg] 12/17/2023 22:53:00 [facility] Temperature (Celsius) 37.5 Rosa 12/17/2023 22:53:00 [facility] Weight (kg) 58.1 kg 12/17/2023 22:31:00 [facility] SBP NIBP 126 mm[Hg] 12/17/2023 22:31:00 [facility] DBP NIBP 60 mm[Hg] 12/17/2023 22:31:00 [facility] Heart Rate 94 bpm 12/17/2023 22:31:00 [facility] Respiratory Rate 22 12/17/2023 22:31:00 [facility] SpO2 93 % 12/17/2023 22:31:00 [facility] Temperature (Celsius) 38.1 Rosa 12/17/2023 22:31:00 [facility] Encounters Location Location Details Encounter Type Encounter Number Reason For Visit Attending Provider ADM Date DC Date Status Source [facility] Emergency [id number] Danielito Clementine 12/16 22:29 :43 12/17 00:25 :00 [facility] Social History Social History Date Source No data available for this section 12/18/2023 [facility]
--- OUTSIDE RECORDS SUMMARY | 2024-05-14 19:22 | XMS_ITS | Encounter Summary ---
Author Organization [facility] Address [address] [place] [address] Phone Care Team Providers Care Aircraft Metalsmith Name Role Phone Erik Xie MD Primary Care Provider [phone] Nael Mccormick DO Primary Care Provider [phone] Marcus Paredes MD Unavailable [phone] Encounter Details Date Type Department Care Team (Latest Contact Info) Description 11/05/2016 Orders Only [facility] CONVERSION Scanning, Provider Social History Tobacco Use Types Packs/Day Years Used Date Smoking Tobacco: Never Assessed Comments Unknown Sex and Gender Information Value Date Recorded Sex Assigned at Not on file Legal Sex Female 7:53 PM 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 Gender Identity Female 03/18/2020 8:08 AM 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 Sexual Orientation Straight 12/13/2019 2: 05 PM CDT documented as of this encounter Plan of Treatment Not on file documented as of this encounter Procedures Procedure Name Priority Date/Time Associated Diagnosis Comments VASCULAR LABORATORY REPORT 11/05/2016 7:21 AM CDT documented in this encounter Results * VASCULAR LABORATORY REPORT (11/05/2016 7:21 AM CDT) Anatomical Region Laterality Modality Ultrasound us Provider Scanning CV VASCULAR PROCEDURES Final R esult documented in this encounter Visit Diagnoses Not [...] documented as of this encounter Care Teams Aircraft Metalsmith Relationship Specialty Start Date End Date Erik Xie MD PCP - General 08/18/16 09/28/17 Nael Mccormick DO PCP - General Internal Medicine 09/29/17 Marcus Paredes MD Referring Physician Family Practice 08/26/22 08/26/22 documented as of this encounter
--- OUTSIDE RECORDS SUMMARY | 2024-05-14 19:22 | XMS_ITS | Encounter Summary ---
Author Organization [facility] Address [address] [place] [address] Phone Care Team Providers Care Claims Assistant Name Role Phone Nael Mccormick Primary Care Provider [phone] Encounter Details Date Type Department Care Team (Latest Contact Info) Description 06/06/2023 Orders Only [facility] Scanning, Provider [...] Answer Date Recorded Getting School Help Needed Not on file 06/03 Comments Unknown Sex and Gender Information Value Date Recorded Sex Assigned at Not on file Legal Sex Female 7:53 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 Gender Identity Female 03/18/2020 8:08 AM ELECTRONICS TECHNOLOGY DEPARTMENT CHAIR Sexual Orientation Straight 12/13/2019 2: 05 PM CDT documented as of this encounter Plan of Treatment Not on file documented as of this encounter Procedures Procedure Name Priority Date/Time Associated Diagnosis Comments SCAN - RADIOLOGY/IMAGING 06/06/2023 documented in this encounter Results * SCAN - RADIOLOGY/IMAGING (06/06/2023) Anatomical Region Laterality Modality Other us Provider [...] documented as of this encounter Care Teams Claims Assistant Relationship Specialty Start Date End Date Nael Mccormick DO PCP - General Internal Medicine 09/29/17 documented as of this encounter
--- OUTSIDE RECORDS SUMMARY | 2024-05-14 19:22 | XMS_ITS | Clinical Summary ---
Author Organization [facility] Address [facility] [place] [address] Care Team Providers Care Director Teen Post Name Role Phone Unavailable Primary Care Provider Unavailabl e Social History Tobacco Use Types Packs/Day Years Used Date Smoking Tobacco: Never Assessed Comments Unknown Sex and Gender Information Value Date Recorded Sex Assigned at Not on file Legal Sex Female 5:08 PM CDT Gender Identity Not on file Sexual Orientation Not on file Plan of Treatment Health Maintenance Due Date Last Done Comments DTaP, Tdap and Td Vaccines ( 1 - Tdap) 1960 Zoster Vaccines (1 of 2) 12/10/1991 Dexa Scan (General) 2006 Pneumococcal Vaccine: 65+ Ye ars (1 of 1 - PCV) 2006 RSV Immunization or 60+ Years (1 - 1-dose 75+ series) 2016 COVID-19 Vaccine (2023-2 5 season) 2023 Influenza Adult (#1) 2023 Meningococcal B Vaccine Aged Out No l onger eligible based on patient's age to complete this topic Meningococcal Vaccine Aged Out No kristin job eligible based on patient's age to complete this topic RSV Immunizations Under 20 Months Aged Out No longer eligible based on patient's age to complete this topic
--- OUTSIDE RECORDS SUMMARY | 2024-05-14 19:22 | XMS_ITS | Clinical Summary ---
Author Organization [facility] al Address [address] [place] [address] Care Team Providers Care Lead Inspector Name Role Phone Nael Mccormick DO Primary Care Provider [phone] Allergies Active Allergy Reactions Criticality Noted Date Comments Cephalexin Hives Medium Patient reported tolerating amoxicillin, augmentin, and cefpodoxime. Morphine Hives Medium Nitrofurantoin Headache,Nausea only Low 03/06/2020 Medications multivitamin capsule daily. 03/08/20 08 Active omeprazole (PriLOSEC) 20 mg capsule Take 1 capsule (20 mg total) by mouth daily 0 08/17/19 18 Active cholecalcifer ol (VITAMIN D-3) 2,000 unit tablet 1 tablet (2,000 Units total) daily Active rosuvastatin (CRESTOR) 5 mg tablet TAKE 1 TABLET BY MOUTH DAILY 90 tablet 03/24/19 19 Active cyanocobalami n (Vitamin B-12) 1,000 mcg tabletIndicat ions:Preventi on of Vitamin B12 Deficiency Take 1 tablet (1,000 mcg total) by mouth every other day Active levothyroxine (SYNTHROID) 88 mcg tablet Take 1 tablet (88 mcg total) by mouth daily 12/08/19 24 Active hydroxychloro quine (PLAQUENIL) 200 mg tablet Take 1 tablet (200 mg total) by mouth daily 04/08/19 25 Active gabapentin (NEURONTIN) 300 mg capsule Take 1 capsule (300 mg total) by mouth 2 (two) times a day Active hydroxychloro quine (PLAQUENIL) 200 mg tablet Take 0.5 tablets (100 mg total) by mouth nightly Active predniSONE (DELTASONE) 10 mg tablet Take 0.5 tablets (5 mg) by mouth daily Active azaTHIOprine (IMURAN) 50 mg tablet Take 1 tablet (50 mg total) by mouth daily 30 tablet 5 04/26/19 25 025 Active cevimeline (EVOXAC) 30 mg capsule Take 1 capsule (30 mg total) by mouth 3 (three) times a day 270 capsule 05/11/19 25 Active cevimeline (EVOXAC) 30 mg capsuleIndica tions:Xerosto shadia Secondary to Sjogren's Syndrome Take 1 capsule (30 mg total) by mouth 2 (two) times a day 025 Discontinued cefdinir (OMNICEF) 300 mg capsuleIndica tions:Skin/So ft Tissue Infection,Uri nary Tract/Genitou rinary Infection,Rosa lulitis of right hand, UTI with Klebsiella oxytoca Take 1 capsule (300 mg total) by mouth 2 (two) times a day for 5 days 10 capsule 04/13/19 25 025 Additional Information Patient not taking.Reported on 04/26/2024 mycophenolate mofetil (CELLCEPT) 500 mg tablet Take 2 tablets (1,000 mg total) by mouth 2 (two) times a day 360 tablet 1 05/09/19 25 025 Discontinued(Th erapy completed) Active Problems Problem Noted Date Diagnosed Date Erosive osteoarthritis of right hand 04/12/2024 Cellulitis of hand, right 04/10/2024 Hypokalemia 04/10/2024 Hypoglycemia, unspecified 04/10/2024 Stage 3a chronic kidney disease 04/10/2024 Idiopathic peripheral neuropathy 04/10/2024 Cellulitis of right hand 04/09/2024 Abdominal distension (gaseous) 01/23/2024 Abnormal weight loss 01/23/2024 Other fatigue 01/23/2024 Moderate protein-calorie malnutrition (CMS/HCC) 01/08/2024 Acute on chronic respiratory failure with hypoxi a (CMS/HCC) 01/08/2024 Assessment & Plan (01/08/2024 5:14 PM CDT): See pneumonia problem Pneumonia 01/07/2024 Assessment & Plan (01/07/2024 12:06 PM CDT): Recent COVID infection on 12/18 and felt to be declining since then with persistent cough and SOB. CT PE noting increased ground glass opacities and septal line thickening with known fibrotic changes, thought to be due to infectious vs worsening ILD. RVP + for COVID and mycoplasma pneumonia. Now back to home oxygen requirement of 2L. Significantly improved SOB. -Pulmonology following -Azithro 500mg x1 (01/05), followed by 250mg x4 days (01/06-01/09) - continue Dexamethasone 6mg x 5 days and Remdesivir x 4 days - switch to prednisone 40 mg daily after dex with plan for longer taper w/ pulm -Pulmonary hygiene with incentive spirometry and OOB daily -Oxygen assessment prior to discharge Assessment & Plan (01/08/2024 5:11 PM CDT): 83F with history of CTD-ILD on MMF presented with progressive SOB, productive cough, fatigue and loss of appetite. Diagnosed with COVID infection 12/19/23, not treated, and since that time has felt her breathing has steadily declined. Labs notable for leukocytosis. CT PE with findings of increased GGOs and septal line thickening with known fibrotic changes of ILD. 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 Could have had an ILD flare triggered by the pneumonia. RECS Azithro 500mg x1, followed by 250mg x4 days for M. Pneumoniae Dexamethasone and Remdesivir for Covid-19, w prednisone taper on discharge over 9 days to 10 mg po daily. Hold MMF and HCQ during acute infection (Rx per rheumatology and Dr. Watt as outpatient). Bactrim PJP prophylaxis after azithromycin done (watch QTc). PPI Hearing loss 01/07/2024 Assessment & Plan (01/07/2024 12:10 PM CDT): Reports sudden bilateral hearing loss after recent COVID infection that begun ~1 week ago. No history of diminished hearing. Denies associated symptoms. Possible sinus infection given immunosuppressed state with MMF with current covid infx/ myco PNA vs autoimmune hearing loss. Significantly improved hearing today. -uncertain if improvement due to steroid vs antibiotics vs anti-viral -continue to monitor -consider outpatient audiology referral if not continuing to improve Macrocytic anemia 01/06/2024 Assessment & Plan (01/07/2024 12:20 PM CDT): Progressive over past few months. Being worked up by Silvering Applicator and has Heme appt 01/18 - outpatient workup: iron studies c/w AoCD, LDH high but normal hapto and bili, direct sandra negative, vit D WNL, parvovirus + - workup here: folate WNL, B12 wnl, retic abnormally normal, peripheral smear/ zinc/HIV/ copper ordered. no active s/sx of bleed. Possible 2/2 MMF but only one cell line affected. - s/p 1u pRBC in ED. Hgb 6.6->7.9->7.9 - consent located in Media tab, transfuse if < 7 - monitor CBC - has outpatient Heme appt 01/18 Urinary tract infection, site not specified 12/19 Assessment & Plan (01/07/2024 12:16 PM CDT): C/o dysuria. Hx chronic UTI, most recently on Cefpodoxime x7d (12/17-12/23). No cx data available. Appears she has been Rx'd methenamine but is not on home med list provided by pt. UA in ED with 3+ leuk esterase and >50 WBC with noted hematuria, Urine culture + e coli. Bcx NGTD 01/06. - urine culture drug susceptibilities pending - s/p macrobid in ED, change to CTX given PNA above - monitor CBC - follows with OP urologist for frequent UTIs but requests referral to urology here for 2nd opinion. - possible hematuria noted in UA is chronic or 2/2 UTI, consider repeat UA after current treatment to assess if needs further OP eval Seronegative rheumatoid arthritis (CMS/HCC) 12/19 Assessment & Plan (01/07/2024 11:47 AM CDT): Follows with Dr. Fausitn, Rheum. 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 -Rheumatology following - MMF and HCQ on hold - Not on steroids at home but is now on 40 mg daily prednison for pulmonary concerns (ILD and covid PNA), noted elsewhere Physical deconditioning 01/05/2024 Assessment & Plan (01/08/2024 5:07 PM CDT): Needs PT Assessment & Plan (01/08/2024 8:32 AM CDT): Months of functional decline and general deconditioning from worsening ILD and multiple recent infections (covid, UTI, PNA). With noted recent weight loss over past year. -Consulted paving foreman: appreciate recs -PT/OT to evaluate, however pt now does not want placement and would like to go home after discharge ILD (interstitial lung disease) ([facility]) 2023 Assessment & Plan (01/08/2024 5:12 PM CDT): See pneumonia problem Assessment & Plan (01/07/2024 12:47 PM CDT): Follows with Dr. Watt, Pulm. P/w shortness of breath, FTT symptoms since March but now progressive since COVID diagnosis 12/18. Not on steroids at home. CT showed findings c/w ILD exacerbation and possible superimposed viral PNA. RVP + for covid and mycoplasma PNA. Required up to 5L in ED, now back to home requirement of 2L. TTE with LVEF 55-60%, grade 1 diastolic dysfunction, PASP 26 mmHg, normal RA pressure. - pulmonology following: See pneumonia for abx and steroid management - CMV, sputum cultures, MRSA pending - hold MMF - incentive spirometer Urinary tract infection 10/22/2016 Ischial bursitis 09/09/2016 Arthropathy of shoulder region 08/13/2016 Osteoarthritis of hand 05/20/2016 Encounter for preventive health examination 04/2016 Rheumatoid arthritis(714.0) 01/29/2016 Arthritis 10/16/2015 Assessment & Plan (01/01/2021 11:48 AM CDT): She has several episodes of joint courtney in one or several of her finger/hand joints at various times of the day. The pain is stiffness and aching that lasts 5-10 minutes and improves if she moves her joints which could be inflammatory or could be due to erosive osteoarthritis. She does not think the medications (HCQ, MTX, Xeljanz) have helped at all. She has morning stiffness 20-30 minutes. -Will trial coming off medications -Stop MTX today and see how she does -Consider stopping Xeljanz at next visit Peripheral neuropathic pain 10/16/2015 Magnetic resonance imaging of brain abnormal Paraparesis ([facility]) 03/06/2015 Osteoarthritis of multiple joints 04/27/2012 Assessment & Plan (01/01/2021 11:47 AM CDT): She has several episodes of joint courtney in one or several of her finger/hand joints at various times of the day. The pain is stiffness and aching that lasts 5-10 minutes and improves if she moves her joints which could be inflammatory or could be due to erosive osteoarthritis. She does not think the medications (HCQ, MTX, Xeljanz) have helped at all. HAs Heberden's nodes/chronic bony changes c/w OA. -Offered diclofenac gel but patient did not want it because not having bothersome enough symptoms. Sprain of rotator cuff capsule 02/28/2012 Shoulder pain 02/25/2012 Osteoarthritis of cervical spine without myelopa thy 01/13/2012 Arthralgia 12/23/2011 Scoliosis 07/05/2011 Polymyalgia rheumatica ([facility]) 10/08/2010 Hypercholesteremia 07/18/2010 High risk medication use 07/18/2010 Assessment & Plan (01/01/2021 11:44 AM CDT): On HCQ and Xeljanz, stopping MTX for Inflammatory Arthritis. Patient has had baseline CBC, CMP, HBV, HCV and TB screening. -Yearly lipid panel -Yearly TB screen -CBC and CMP every 3 months -Ok to continue above medications unless results from above testing are concerning Hypothyroidism 07/18/2010 Assessment & Plan (01/06/2024 10:35 AM CDT): TSH 6.28 with T3 1.75 11/30 -> Synthroid increased to 88mcg 12/07 - continue synthroid 88mcg - outpt TFTs Encounter for preventive health examination 02/19 Encounters Date Type Department Care Team Description 5 Documentation [facility] Rheumatology [facility] 5th [place] [address] [place] [address] Ashu Faustin MD 5 8:02 AM K[employer] PICKER CLOTH - 5 11:59 PM [facility]OTH Hospital Encounter [address] [address] Macrocytic anemia; High risk medication use Discharge Disposition: Discharge to home or self care 5 8:00 AM KNOT PICKER CLOTH Lab [facility] Outpatient Lab at [address] [phone] Need for prophylactic chemotherapy (Primary Dx); Simple chronic anemia 5 Orders Only [facility] Rheumatology [address] [place] [address] [place] [address] Ashu Faustin MD Macrocytic anemia (Primary Dx) 5 2:30 PM KNOT PICKER CLOTH Office Visit [facility] Hematology [address] [facility] Floor 6 [place] [address] Cecy Bowser MD Anemia, unspecified type (Primary Dx) 5 1:30 PM [employer]ER CLOTH Lab [facility] - Lab Collection [address] [facility] [address] 6 [place] [address] Anemia, unspecified type; High risk medication use 5 11:00 AM K[employer] PICKER CLOTH Office Visit [facility] Rheumatology [address] [place] [address] [place] [address] Ashu Faustin MD ILD (interstitial lung disease) (CMS/HCC) (HCC) (Primary Dx); High risk medication use 5 9:00 AM [employer]OTH Therapy [facility] Physical Therapy [address] [phone] Margareth Lake DPT Spinal deformity (Primary Dx) 5 9:00 AM [employer]OTH Lab [facility] Outpatient Lab at [address] [phone] Hypercholesteremia (Primary Dx); High risk medication use 5 8:53 AM K[employer] PICKER CLOTH - 5 11:59 PM [facility]OTH Hospital Encounter [address] [address] Acute cystitis without hematuria; Macrocytic anemia; Cellulitis of hand, right; Hypokalemia; Hypoglycemia, unspecified; Stage 3a chronic kidney disease (HCC) Discharge Disposition: Discharge to home or self care 5 12:22 PM K[employer] PICKER CLOTH - 5 2:23 PM [employer]OTH Hospital Encounter [address] [address] Chip Garrido MD Paruchuri, Tharun, MD Yaganti, Srinivasarao C., MD Cellulitis of right hand (Primary Dx); Hypokalemia; Long-term use of immunosuppressant medication; Acute cystitis without hematuria; Hypoglycemia, unspecified; Macrocytic anemia; Seronegative rheumatoid arthritis (CMS/HCC) (HCC); Hypercholesteremia; Stage 3a chronic kidney disease (HCC); Idiopathic peripheral neuropathy; Acquired hypothyroidism; Cellulitis of hand, right; Erosive osteoarthritis of right hand Discharge Disposition: Discharge to home or self care 5 9:30 AM K[employer] PICKER CLOTH Office Visit [facility] Convenient Care at [address] [phone] Mendy Leonard NP Swelling of right hand (Primary Dx); Cellulitis of right arm; Cellulitis of right hand 5 Orders Only [facility] Rheumatology [address] [facility] Advanced Medicine 5th [place] [address] Ashu Faustin MD 5 Documentation [facility] Rheumatology [address] [facility] 5th [place] [address] [place] [address] Ashu Faustin MD 5 9:30 AM [employer]OTH Therapy [facility] Physical Therapy [address] [address] Margareth Lake DPT Spinal deformity (Primary Dx) 4 10:09 AM KNOT PICKER CLOTH - 4 11:59 PM [employer] P[employer]ER CLOTH Hospital Encounter [facility] Radiology [facility] Advanced Medicine ([facility]) [address] [place] [address] Seronegative arthritis; ILD (interstitial lung disease) (CMS/HCC) (HCC); Macrocytic anemia; High risk medication use; Dry mouth; Neck swelling Discharge Disposition: Discharge to home or self care 4 Plan of Care Documentation [facility] Physical Therapy [address] [place] [phone] 4 11:00 AM K[employer] P[employer]OTH Therapy [facility] Physical Therapy [address] [place] [phone] Margareth Lake DPT Spinal deformity (Primary Dx) 4 Telephone [facility] Rheumatology [address] [place] [address] Advanced Medicine 5th [place] [address] [place] [address] Shakeel Monaco MD 4 2:09 PM KNOT PICKER CLOTH - 4 11:59 PM [employer] P[employer]ER CLOTH Hospital Encounter [address] [address] Elevated serum creatinine Discharge Disposition: Discharge to home or self care 4 8:30 AM K[employer] PICKER CLOTH Lab [facility] Outpatient Lab at [address] [phone] Hyperlipidemia (Primary Dx); Hypothyroidism 4 Telephone [facility] Con[facility]ient Care at [address] [phone] Yen Curry MA 4 Orders Only [address] [address] Mendy Leonard NP 4 4:22 PM K[employer] P[employer]ER CLOTH - 4 11:59 PM [employer]OTH Hospital Encounter [address] [address] Discharge Disposition: Discharge to home or self care 4 4:15 PM [employer]OTH Lab [facility] Outpatient Lab at [address] [phone] 4 11:34 AM K[employer] PICKER CLOTH - 4 11:59 PM K[employer] PICKER CLOTH Hospital Encounter [facility] [address] [place] [address] Seronegative arthritis; ILD (interstitial lung disease) ([facility]) (HCC); Macrocytic anemia; High risk medication use; Dry mouth; Neck swelling Discharge Disposition: Discharge to home or self care 4 11:15 AM KNOT PICKER CLOTH Lab [facility] Endocrinology Metabolism and Lipid [address] [place] [address] [place] [phone] Seronegative arthritis; ILD (interstitial lung disease) ([facility]/HCC) (HCC); Macrocytic anemia; High risk medication use; Dry mouth; Neck swelling 4 10:15 AM K[employer] PICKER CLOTH Office Visit [facility] Rheumatology [address] [place] [address] [place] [phone] Ashu Faustin MD Seronegative arthritis (Primary Dx); ILD (interstitial lung disease) ([facility]) (HCC); Macrocytic anemia; High risk medication use; Dry mouth; Neck swelling 4 Orders Only [facility] Rheumatology [address] [place] [address] [place] [phone] Ashu Faustin MD Elevated serum creatinine (Primary Dx) 4 10:24 AM KNOT PICKER CLOTH - 4 11:59 PM [facility] P[employer]ER CLOTH Hospital Encounter [address] [address] Acute cystitis with hematuria Discharge Disposition: Discharge to home or self care 4 9:45 AM K[employer] PICKER CLOTH Office Visit [facility] Convenient Care at [address] [phone] Brianda Hodgson NP Rib pain on left side (Primary Dx); Acute cystitis with hematuria 4 9:40 AM K[employer] PICKER CLOTH Ancillary Procedure [facility] Imaging at [address] [phone] Rib pain on left side 4 Telephone [facility] Orthopaedic Surgery [address] [place] [address] 6th [place] [address] [place] [address] Chirag Zavala MD Fall from Last 3 Months Immunizations Immunization Administration Dates Next Due Influenza, Quadrivalent, Hig h Dose, Preservative Free, Intrr 11/21/2019,12/08/2015 Influenza, Trivalent, Adjuva nted, Intramuscular 12/16/2017 Influenza, Trivalent, High D ose, Split, Preservative Free, Intramuscular 12/06/2018,12/20/2016,01/23/2015 Influenza, Trivalent, IM (MDV) 12/13/2012,2011 Influenza, Unspecified 12/08/2015 Pneumococcal Conjugate PCV 13 10/03/2014 Pneumococcal Conjugate Pcv20 04/26/2024 Pneumococcal Polysaccharide PPV23 2018,03/17/2017,12/13/2012,12/22 ZOSTER Recombinant 05/23/2017,03/17/2017 Surgical History Surgery Date Site/Laterality Comments CENTRAL LINE PLACEMENT > 5 YEARS 03/31/2015 N/A PUNCTURE CERVICAL W INJECTION 05/02/2015 N/A SPINAL FUSION 2006 and 2016 FLUORO GUIDED INJECTION SHOU LDER LEFT 01/19/2022 Left FLUORO GUIDED INJECTION SHOU LDER LEFT 05/31/2022 Left KNEE SURGERY BL knees 2003 and 2009 SHOULDER SURGERY Right 2017 Medical History Medical History Date Comments Scoliosis Arthritis Osteoarthritis Thyroid disease Urinary tract infection Varicella Hypercholesteremia Hypertension Lung disease, interstitial (CMS/HCC) ([facility]) Acute on chronic respiratory failure with hypoxi a (CMS/HCC) ([facility]) 01/08/2024 Family History Medical History Relation Name Comments Heart disease Brother Hypertension Father Arthritis Mother Gout Mother Heart disease Mother Hypertension Mother Diabetes Sister Relation Name Status Comments Brother Father Mother Sister Social History Tobacco Use Types Packs/Day Years Used Date Smoking Tobacco: Never Passive Smoke Exposure: Never Smokeless Tobacco: Never Tobacco Cessation:Counseling Given: Not Answered Alcohol Use Standard Drinks/Week Comments Never 0 (1 standard drink = 0.6 oz pur e alcohol) [facility] Utilities Answer Date Recorded In the past 12 months has th e electric, gas, oil, or water company threatened to shut off services in your home? No 04/10/2024 Social Connection and Isolation Panel [NHANES] A nswer Date Recorded In a typical week, how many times do you talk on the phone with family, friends, or neighbors? Three times a week 04/10/19 How often do you get togethe r with friends or relatives? Three times a week 04/10/2024 How often do you attend chur ch or sikhism services? 1 to 4 times per year 04/10/2024 Do you belong to any clubs o r organizations such as evangelical groups, unions, fraternal or athletic groups, or school groups? Yes 04/10/2024 How often do you attend meet ings of the clubs or organizations you belong to? 1 to 4 times per year 04/10/2024 Are you , , di vorced, , never , or living with a partner? 04/10/2024 AUDIT-C Answer Date Recorded Q1: How often do you have a drink containing alcohol? Never 04/09/2024 Q2: How many drinks containi ng alcohol do you have on a typical day when you are drinking? Patient does not drink Q3: How often do you have si x or more drinks on one occasion? Never 04/09/2024 Overall Financial Resource Strain (CARDIA) Answe r Date Recorded How hard is it for you to pa y for the very basics like food, housing, medical care, and heating? Not hard at all 04/10/2024 Hunger Vital Sign Answer Date Recorded Within the past 12 months, y ou worried that your food would run out before you got the money to buy more. Never true 04/10/19 Within the past 12 months, t he food you bought just didn't last and you didn't have money to get more. Never true 04/10/2024 PRAPARE - Transportation Answer Date Re corded In the past 12 months, has l ack of transportation kept you from medical appointments or from getting medications? No 03/22 In the past 12 months, has l ack of transportation kept you from meetings, work, or from getting things needed for daily living? No 04/10/2024 Housing Stability Vital Sign Answer Brown e Recorded In the last 12 months, was t here a time when you were not able to pay the mortgage or rent on time? No 04/10/2024 In the past 12 months, how m any times have you moved where you were living? 0 04/10/2024 At any time in the past 12 m [facility], were you homeless or living in a half-way (including now)? No 04/10/2024 Personal Safety Answer Date Recorded Have you ever been in or are you currently in a harmful physical or emotional relationship or is someone making you feel afraid or unsafe? 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 Not on file Not on file Obstetrics History Last Filed Vital Signs Vital Sign Reading Time Taken Comments Blood Pressure 131/73 04/26/2024 2:21 PM KNOT PICKER CLOTH first bp 150/66 right arm sitting Pulse 84 04/26/2024 2:21 PM KNOT PICKER CLOTH Temperature 36.5 C (97.7 F) 04/26/2024 2:21 PM KNOT PICKER CLOTH Respiratory Rate 16 04/12/2024 7:37 AM KNOT PICKER CLOTH Oxygen Saturation 97% 04/26/2024 2:2 1 PM K[employer] PICKER CLOTH Inhaled Oxygen Concentration - - Weight 53.3 kg (117 lb 6.4 oz) 04/26/2024 2:21 PM KNOT PICKER CLOTH Height 146.2 cm (4' 9.56 ) 04/26/2024 2 :21 PM KNOT PICKER CLOTH Body Mass Index 24.91 04/26/2024 2:21 PM KNOT PICKER CLOTH Plan of Treatment Health Maintenance Due Date Last Done Comments Depression Screening 1941 DTaP/Tdap/Td Vaccine (1 - Tdap) 1952 Hepatitis B Screening 12[birth year]10/1958 Well Visit 65+ 2006 Influenza Vaccine (#1) 2023 0, 12/06/2018, 12/16/2017, Additional history exists Osteoporosis Screening-Bone Density Scan 01/06/2025 01/06/2023, 01/01/2021, 05/20/2016, Additional history exists Fall Risk Assessment 04/12/2025 04/12/2024 Zoster Vaccine Completed 05/23/2017, 03/17/2017 Pneumococcal vaccine 65+ Completed 025, 01/18/2019, 03/17/2017, Additional history exists Procedures Procedure Name Priority Date/Time Associated Diagnosis Comments EGFR Routine 05/04/2024 8:02 AM K[employer] PICKER CLOTH High risk medication use DIFFERENTIAL AUTO Routine 05/04/2024 8:0 2 AM K[employer] P[employer]ER CLOTH High risk medication use CBC WITH AUTO DIFFERENTIAL Routine 05/04/2024 8:02 AM K[employer] P[employer]ER CLOTH High risk medication use COMPREHENSIVE METABOLIC PANEL Routine 05/04/2024 8:02 AM [facility] High risk medication use TPMT ACTIVITY Routine 05/04/2024 8:02 AM [facility] High risk medication use LACTATE DEHYDROGENASE Routine 05/04/2024 8:02 AM [facility] Macrocytic anemia EGFR Routine 04/26/2024 1:42 PM [facility] High risk medication use DIFFERENTIAL AUTO Routine 04/26/2024 1:4 2 PM [facility] Anemia, unspecified type COMPREHENSIVE METABOLIC PANEL Routine 04/26/2024 1:42 PM [facility] High risk medication use ERYTHROCYTE SEDIMENTATION RATE Routine 04/26/2024 1:42 PM [facility] Anemia, unspecified type CRP (ACUTE PHASE) Routine 04/26/2024 1:4 2 PM [facility] Anemia, unspecified type VITAMIN B12 Routine 04/26/2024 1:42 PM [facility] Anemia, unspecified type IRON PROFILE W/ IBC Routine 04/26/2024 1 :42 PM [facility] Anemia, unspecified type FERRITIN Routine 04/26/2024 1:42 PM [facility] Anemia, unspecified type HAPTOGLOBIN Routine 04/26/2024 1:42 PM [facility] Anemia, unspecified type LACTATE DEHYDROGENASE Routine 04/26/2024 1:42 PM [facility] [facility] Anemia, unspecified type RETICULOCYTES Routine 04/26/2024 1:42 PM [facility] Anemia, unspecified type ERYTHROPOIETIN Routine 04/26/2024 1:42 PM [facility] Anemia, unspecified type CBC WITH AUTO DIFFERENTIAL Routine 04/26/2024 1:42 PM [facility] Anemia, unspecified type EGFR Routine 04/19/2024 8:53 AM [facility] Hypokalemia Hypoglycemia, unspecified Stage 3a chronic kidney disease (HCC) BASIC METABOLIC PANEL Routine 04/19/2024 8:53 AM [facility] Hypokalemia Hypoglycemia, unspecified Stage 3a chronic kidney disease (HCC) CBC WITHOUT DIFFERENTIAL Routine 04/19/2024 8:53 AM [facility] Acute cystitis without hematuria Macrocytic anemia Cellulitis of hand, right EGFR Routine 04/12/2024 3:00 AM [facility] [facility] DIFFERENTIAL AUTO Routine 04/12/2024 3:0 0 AM [facility] [facility] MAGNESIUM Routine 04/12/2024 3:00 AM [facility] BASIC METABOLIC PANEL Routine 04/12/2024 3:00 AM [facility] [facility] CBC WITH AUTO DIFFERENTIAL Routine 04/12/2024 3:00 AM [facility] [facility] EGFR Routine 04/11/2024 3:03 AM [facility] DIFFERENTIAL AUTO Routine 04/11/2024 3:0 3 AM [facility] BASIC METABOLIC PANEL Routine 04/11/2024 3:03 AM [facility] CBC WITH AUTO DIFFERENTIAL Routine 04/11/2024 3:03 AM [facility] HEMOGLOBIN AND HEMATOCRIT Timed 04/10/2024 4:42 PM [facility] [facility] [employer] TRANSFUSE RED BLOOD CELLS Timed 04/10/2024 12:27 PM [facility] [facility] [employer] PREPARE RBC Timed 04/10/2024 11:56 AM [facility] [facility] [employer] B ABO / RH CONFIRMATION TESTING STAT 04/10/2024 11:10 AM [facility] [facility] CROSSMATCH Timed 04/10/2024 10:28 AM [facility] [facility] [employer] ANTIBODY SCREEN Timed 04/10/2024 10:28 AM [facility] [facility] ABO/RH Timed 04/10/2024 10:28 AM [facility] TYPE AND SCREEN Timed 04/10/2024 10:28 AM [facility] MRSA ONLY (STAPHYLOCOCCUS AUREUS) PCR Routine 04/10/2024 8:42 AM [facility] [facility] [employer] THYROID FUNCTION CASCADE Routine 04/10/2024 3:55 AM [facility] [facility] EGFR Routine 04/10/2024 3:55 AM [facility] [facility] DIFFERENTIAL AUTO Routine 04/10/2024 3:5 5 AM [facility] [facility] MAGNESIUM Routine 04/10/2024 3:55 AM [facility] [facility] [employer] COMPREHENSIVE METABOLIC PANEL Routine 04/10/2024 3:55 AM [facility] [facility] CBC WITH AUTO DIFFERENTIAL Routine 04/10/2024 3:55 AM [facility] [facility] BLOOD CULTURE STAT 04/09/2024 1:57 PM [facility] [facility] BLOOD CULTURE STAT 04/09/2024 1:48 PM [facility] URINALYSIS, MICROSCOPIC ONLY STAT 04/09/2024 12:56 PM [facility] [facility] URINE CULTURE STAT 04/09/2024 12:56 PM [facility] [facility] URINALYSIS AND REFLEX TO MICROSCOPIC AND CULTURE STAT 04/09/2024 12:56 PM [facility] [facility] XR HAND RIGHT 3 OR MORE VIEWS ED 04/09/2024 10:54 AM [facility] [facility] XR CHEST 1 VIEW ED 04/09/2024 10:53 AM [facility] [facility] [employer] MAGNESIUM STAT 04/09/2024 10:48 AM [facility] [facility] [employer] EGFR STAT 04/09/2024 10:48 AM [facility] [facility] URIC ACID STAT 04/09/2024 10:48 AM [facility] [facility] MANUAL DIFFERENTIAL STAT 04/09/2024 1 0:48 AM [facility] [facility] DIFFERENTIAL AUTO STAT 04/09/2024 10: 48 AM [facility] [facility] [employer] SEPSIS LACTATE WITH REFLEX Routine 04/09/2024 10:48 AM [facility] [facility] [employer] COMPREHENSIVE METABOLIC PANEL STAT 04/09/2024 10:48 AM [facility] [facility] [employer] CBC WITH AUTO DIFFERENTIAL STAT 04/09/2024 10:48 AM [facility] [facility] [employer] US SOFT TISSUE NECK Schedule Routine, Read Routine (OP Routine) 03/13/2024 12:10 PM [facility] [facility] Seronegative arthritis ILD (interstitial lung disease) (CMS/HCC) (HCC) Macrocytic anemia High risk medication use Dry mouth Neck swelling EGFR Routine 02/27/2024 9:00 AM [facility] [facility] Elevated serum creatinine BASIC METABOLIC PANEL Routine 02/27/2024 9:00 AM [facility] [facility] [employer] Elevated serum creatinine CLINICAL PATHOLOGY REPORT Routine 02/23/2024 4:22 PM [facility] [facility] [employer] IMMUNOFIXATION, URINE Routine 02/23/2024 4:22 PM [facility] [facility] IMMUNOTYPING Routine 02/23/2024 11:34 AM [facility] [facility] [employer] Seronegative arthritis ILD (interstitial lung disease) (CMS/HCC) (HCC) Macrocytic anemia High risk medication use Dry mouth Neck swelling PROTEIN ELECTROPHORESIS, WITH REFLEX, SERUM Routine 02/23/2024 11:34 AM [facility] [facility] Seronegative arthritis ILD (interstitial lung disease) (CMS/HCC) (HCC) Macrocytic anemia High risk medication use Dry mouth Neck swelling COMPREHENSIVE METABOLIC PANEL Routine 02/23/2024 11:34 AM [facility] [facility] Seronegative arthritis ILD (interstitial lung disease) (CMS/HCC) (HCC) Macrocytic anemia High risk medication use Dry mouth Neck swelling CBC WITH AUTO DIFFERENTIAL Routine 02/23/2024 11:34 AM [facility] [employer] Seronegative arthritis ILD (interstitial lung disease) (CMS/HCC) (HCC) Macrocytic anemia High risk medication use Dry mouth Neck swelling URINE CULTURE Routine 02/22/2024 2:38 PM [facility] [facility] [employer] Acute cystitis with hematuria POCT URINALYSIS DIPSTICK Routine 02/22/2024 10:17 AM [employer] [facility] [employer] Rib pain on left side XR CHEST PA LATERAL 2 VIEWS Schedule CAMILA, Read CAMILA (Appt Today, Awaiting Results) 02/22/2024 9:49 AM [facility] [facility] [employer] Rib pain on left side DEXA AXIAL SKELETON BONE DENSITY 1 OR MORE SITES Schedule Routine, Read Routine (OP Routine) 01/06/2023 9:55 AM CDT Osteopenia after menopause from Last 3 Months or Most Recently Relevant to Health Maintenance Results * eGFR (05/04/2024 8:02 AM [facility]) eGFR 64 >=60 mL/min/1. 73 m2 Comment: Interpretive Data Reference Interval Normal >/= 90 mL/min/1.73m2 Mildly decreased* 60 - 89 mL/min/1.73m2 Mildly to moderately decreased 45 - 59 mL/min/1.73m2 Moderately to severely decreased 30 - 44 mL/min/1.73m2 Severely decreased 15 - 29 mL/min/1.73m2 Kidney Failure < 15 mL/min/1.73m2 *Relative to young adult level Estimated glomerular filtration rate is determined by the 2020 CKD-EPI equation recommended by the National Kidney Foundation (A Unifying Approach to GFR Estimation: Recommendations of the NKF-ASK Task Force on Reassessing the Inclusion of Race in Diagnosing Kidney Disease, JASN 2020). The CKD-EPI equation should not be used for patients with unstable renal function and has not been validated in children and those over 70. Current interpretive data was last reviewed 2021. Blood 05/04/2024 8:02 AM [facility] 05/04/2024 5:58 PM [facility] [employer] us Ashu Faustin MD LAB BLOOD ORDERABLES Fin al Result [facility] [id number] [place] [address] * Differential, auto (05/04/2024 8:02 AM [facility] [facility] [employer]) Neutrophil abs 2.5 1.5 - 6.5 K/cumm Imm gran abs 0.0 0.0 - 0.1 K/cumm [facility] Lymphocyte abs 1.7 0.8 - 3.3 K/cumm [facility] Monocyte abs 0.6 0.2 - 0.8 K/cumm [facility] Eosinophil abs 0.1 0.0 - 0.5 K/cumm [facility] Basophil abs 0.0 0.0 - 0.1 K/cumm [facility] Neutrophil pct 51.2 % [facility] Comment: Interpretive Data Percent cell count reference ranges are not reported, since discordance with absolute values may lead to misinterpretation of CBC data. Current Interpretive Data was last revised on 2017. Imm gran pct 0.4 % [facility] Comment: Interpretive Data Percent cell count reference ranges are not reported, since discordance with absolute values may lead to misinterpretation of CBC data. Current Interpretive Data was last revised on 2017. Lymphocyte pct 35.2 % [facility] Comment: Interpretive Data Percent cell count reference ranges are not reported, since discordance with absolute values may lead to misinterpretation of CBC data. Current Interpretive Data was last revised on 2017. Monocyte pct 11.2 % [facility] Comment: Interpretive Data Percent cell count reference ranges are not reported, since discordance with absolute values may lead to misinterpretation of CBC data. Current Interpretive Data was last revised on 2017. Eosinophil pct 1.6 % [facility] Comment: Interpretive Data Percent cell count reference ranges are not reported, since discordance with absolute values may lead to misinterpretation of CBC data. Current Interpretive Data was last revised on 2017. Basophil pct 0.4 % [facility] Comment: Interpretive Data Percent cell count reference ranges are not reported, since discordance with absolute values may lead to misinterpretation of CBC data. Current Interpretive Data was last revised on 2017. Blood 05/04/2024 8:02 AM [facility] 05/04/2024 4:55 PM [employer] us Ashu Faustin MD LAB BLOOD ORDERABLES Fin al Result [facility] [address] Department of Laboratories [place], [place] [id number] * (ABNORMAL) TPMT activity profile, RBC (05/04/2024 8:02 AM [facility] [facility]) 6-METHYLMERCAPTOPURI NE 4.41 3.00 - 6.66 [facility] 6-Methylmercaptopuri ne Riboside 4.53(L) 5.04 - 9.57 [facility] 6-METHYLTHIOGUANINE RIBOSIDE 2.89 2.70 - 5.84 [facility] Interpretation,Comp See Footnote [facility] Comment: *Normal* In this whole blood sample, the profile of activity of thiopurine methyltransferase using three different substrates was essentially normal. ADDITIONAL INFORMATION Liquid Chromatography-Tandem Mass Spectrometry (LC-MS/MS) This test was developed and its performance characteristics determined by [facility] in a manner consistent with CLIA requirements. This test has not been cleared or approved by the U.S. Food and Drug Administration. Reviewed by See Footnote [facility] Comment: RESULT: Marc Farr M.D., Ph.D. Test Performed by: [address] [address] Surveillance Inspector: Pardeep Jaime Ph.D.; CLIA# [id number] Blood 05/04/2024 8:02 AM [facility] 05/04/2024 4:55 PM [employer] Ashu Faustin MD LAB BLOOD ORDERABLES Fin al Result [facility] [address] Department [place] [address] [facility] * (ABNORMAL) CBC with auto differential (05/04/2024 8:02 AM [facility] [facility] [employer]) WBC 4.9 3.8 - 9.9 K/cumm Hgb 10.3(L) 11.9 - 15.5 g/dL [facility] Hct 34.9(L) 35.6 - 45.5 % [facility] Plt 191 150 - 400 K/cumm [facility] MPV 11.5 9.1 - 12.3 fL [facility] RBC 3.31(L) 3.90 - 5.20 M/cumm [facility] MCV 105.4(H) 81.3 - 96.4 fL [facility] MCH 31.1 27.1 - 33.3 pg [facility] MCHC 29.5(L) 32.3 - 35.7 g/dL [facility] RDW CV 14.0 11.1 - 14.9 % [facility] RDW SD 55.3(H) 35.7 - 48.1 fL [facility] NRBC abs 0.00 0.00 - 0.01 K/cumm [facility] Blood 05/04/2024 8:02 AM [facility] [facility] 05/04/2024 4:55 PM [employer] Ashu Faustin MD LAB BLOOD ORDERABLES Fin al Result [facility] [address] Department [place] [address] * (ABNORMAL) Lactate dehydrogenase (LD) (05/04/2024 8:02 AM [facility] [facility]) Lactate dehydrogenase (LDH) 422(H) 100 - 250 Units/L Blood 05/04/2024 8:02 AM [facility] [facility] 05/04/2024 4:55 PM [employer] Ashu Faustin MD LAB BLOOD ORDERABLES Fin al Result [facility] [address] Department [place] [address] * Comprehensive metabolic panel (05/04/2024 8:02 AM [facility]) Pathologist [facility] Sodium 141 135 - 145 mmol/L Potassium, pl 3.9 3.3 - 4.9 mmol/L [facility] Chloride 102 97 - 110 mmol/L [facility] CO2 28 22 - 32 mmol/L [facility] Anion gap 11 2 - 15 mmol/L [facility] BUN 15 6 - 25 mg/dL [facility] Creatinine 0.90 0.60 - 1.10 mg/dL [facility] Glucose 75 70 - 199 mg/dL [facility] Comment: Interpretive Data Fasting glucose >/= 126 mg/dl is diagnostic for diabetes. Fasting is defined as no caloric intake for at least 8 hours. Fasting glucose between 100 mg/dl to 125 mg/dl is diagnostic of prediabetes. In a patient with classic symptoms of hyperglycemia or hyperglycemic crisis, a random glucose >/= 200 mg/dl is diagnostic for diabetes. In the absence of unequivocal hyperglycemia, results should be confirmed by repeat testing. The classification and Diagnosis of Diabetes Diabetes Care 2021; 46: S19-S40. Current interpretive data was last revised 2022. Calcium 9.1 8.5 - 10.3 mg/dL [facility] Bilirubin, total 0.2 0.1 - 1.2 mg/dL [facility] Protein, pl 6.7 6.5 - 8.5 g/dL [facility] Albumin 3.7 3.5 - 5.0 g/dL [facility] Alk phos 56 40 - 130 Units/L [facility] CH ALT 18 7 - 45 Units/L [facility] AST 44 10 - 45 Units/L [facility] CH Blood 05/04/2024 8:02 AM [facility] 05/04/2024 4:55 PM [employer] Ashu Faustin MD LAB BLOOD ORDERABLES Fin al Result Performing Organization Address City/[facility]/ZIP Co de Phone Number [facility] [address] [facility] Department [place] [address] * (ABNORMAL) eGFR (04/26/2024 1:42 PM [facility] [facility] [employer]) eGFR 53(L) >=60 mL/min/1. 73 m2 Comment: Interpretive Data Reference Interval Normal >/= 90 mL/min/1.73m2 Mildly decreased* 60 - 89 mL/min/1.73m2 Mildly to moderately decreased 45 - 59 mL/min/1.73m2 Moderately to severely decreased 30 - 44 mL/min/1.73m2 Severely decreased 15 - 29 mL/min/1.73m2 Kidney Failure < 15 mL/min/1.73m2 *Relative to young adult level Estimated glomerular filtration rate is determined by the 2020 CKD-EPI equation recommended by the National Kidney Foundation (A Unifying Approach to GFR Estimation: Recommendations of the NKF-ASK Task Force on Reassessing the Inclusion of Race in Diagnosing Kidney Disease, JASN 202). The CKD-EPI equation should not be used for patients with unstable renal function and has not been validated in children and those over 70. Current interpretive data was last reviewed 2021. Blood 04/26/2024 1:42 PM [facility] [employer] 04/26/2024 1:52 PM [employer] Ashu Faustin MD LAB BLOOD ORDERABLES Fin al Result [facility] [place] [address] * (ABNORMAL) Differential, auto (04/26/2024 1:42 PM [facility]) Neutrophil abs 7.2(H) 1.5 - 6.5 K/cumm Comment:Testing performed by : [facility], [address] [place] [phone] Lymphocyte abs 2.8 0.8 - 3.3 K/cumm [facility] Comment:Testing performed by : [facility], [address] [place] [phone] Monocyte abs 0.9(H) 0.2 - 0.8 K/cumm [facility] Comment:Testing performed by : [facility], [address] [place] [phone] Eosinophil abs 0.2 0.0 - 0.5 K/cumm [facility] Comment:Testing performed by : [facility], [address] [place], [place] [id number] Basophil abs 0.1 0.0 - 0.1 K/cumm [facility] Comment:Testing performed by : [facility], [address] [place] [phone] Neutrophil pct 64.5 % [facility] Comment: Interpretive Data Percent cell count reference ranges are not reported, since discordance with absolute values may lead to misinterpretation of CBC data. Current Interpretive Data was last revised on 2017. Testing performed by: [facility], [address] [place] [phone] Lymphocyte pct 25.2 % [facility] Comment: Interpretive Data Percent cell count reference ranges are not reported, since discordance with absolute values may lead to misinterpretation of CBC data. Current Interpretive Data was last revised on 2017. Testing performed by: [facility], [address] [place] [phone] Monocyte pct 8.2 % [facility] Comment: Interpretive Data Percent cell count reference ranges are not reported, since discordance with absolute values may lead to misinterpretation of CBC data. Current Interpretive Data was last revised on 2017. Testing performed by: [facility], [address] [place] [phone] Eosinophil pct 1.5 % [facility] Comment: Interpretive Data Percent cell count reference ranges are not reported, since discordance with absolute values may lead to misinterpretation of CBC data. Current Interpretive Data was last revised on 2017. Testing performed by: [facility], [address] [place] [phone] Basophil pct 0.6 % [facility] Comment: Interpretive Data Percent cell count reference ranges are not reported, since discordance with absolute values may lead to misinterpretation of CBC data. Current Interpretive Data was last revised on 2017. Testing performed by: [facility], [address] [place] [phone] Blood 04/26/2024 1:42 PM [facility] [facility] 04/26/2024 1:48 PM [employer] Cecy Bowser MD LAB BLOOD ORDERABLES Final Result Performing Organization Address [facility]/ZIP Co de Phone Number [facility] [place] [address] * Iron profile w/ IBC (04/26/2024 1:42 PM [facility] [facility]) Pathologist [facility] Iron 69 35 - 145 mcg/dL TIBC 252 250 - 400 mcg/dL [facility] Transferrin saturation 27 20 - 50 % [facility] Blood 04/26/2024 1:42 PM [facility]OTH 04/26/2024 1:52 PM [employer]OTH Cecy Bowser MD LAB BLOOD ORDERABLES Final Result Performing Organization Address City/[facility]/ZIP Co de Phone Number [facility] [address] * (ABNORMAL) CBC with auto differential (04/26/2024 1:42 PM [facility]) WBC 11.2(H) 3.8 - 9.9 K/cumm Comment:Testing performed by : [facility], [address] [place] [phone] Hgb 11.3(L) 11.9 - 15.5 g/dL [facility] Comment:Testing performed by : [facility], [address] [place], [place] [phone] Hct 35.5(L) 35.6 - 45.5 % [facility] Comment:Testing performed by : [facility], [address] [place], [place] [phone] Plt 404(H) 150 - 400 K/cumm [facility] Comment:Testing performed by : [facility], [address] [place], [place] [phone] MPV 8.1 6.8 - 10.4 fL [facility] Comment:Testing performed by : [facility], [address] [place], [place] [phone] RBC 3.57(L) 3.90 - 5.20 M/cumm [facility] Comment:Testing performed by : [facility], [address] [place], [place] [phone] MCV 99.4(H) 81.3 - 96.4 fL [facility] Comment:Testing performed by : [facility], [address] [place] [address] MCH 31.8 27.1 - 33.3 pg [facility] Comment:Testing performed by : [facility], [address] [place] [address] MCHC 32.0(L) 32.3 - 35.7 g/dL [facility] Comment:Testing performed by : [facility], [address] [place] [address] RDW CV 15.3(H) 11.1 - 14.9 % [facility] Comment:Testing performed by : [facility], [address] [place] [address] NRBC abs 0.00 0.00 - 0.01 K/cumm [facility] Comment:Testing performed by : [facility], [address] [place] [address] Blood 04/26/2024 1:42 PM [facility] [employer] 04/26/2024 1:48 PM [employer] Cecy Bowser MD LAB BLOOD ORDERABLES Final Result Performing Organization Address [facility] de Phone Number [facility] [place] [address] * Erythropoietin (04/26/2024 1:42 PM [facility] [facility]OTH) Pathologist [facility] Erythropoietin 9.9 2.6 - 18.5 mIUnits/mL [facility] Comment: Test Performed by: [facility] [address] [place] [address] Surveillance Inspector: Pardeep Jaime Ph.D.; CLIA# [id number] Blood 04/26/2024 1:42 PM [facility] 04/26/2024 6:21 PM [employer] Cecy Bowser MD LAB BLOOD ORDERABLES Final Result Performing Organization Address [facility] Co de Phone Number [facility] [place] [address] [facility] * Erythrocyte sedimentation rate (04/26/2024 1:42 PM [facility]) Pathologist [facility] Erythrocyte sedimentation rate 15 1 - 30 mm/hr Blood 04/26/2024 1:42 PM [facility] [employer] 04/26/2024 5:10 PM [facility]OTH Result [facility] Cecy Bowser MD LAB BLOOD ORDERABLES Final Result Performing Organization Address [facility] de Phone Number [facility] [place] [address] * Reticulocyte Count (04/26/2024 1:42 PM [facility]) Retics, absolute 0.045 0.020 - 0.100 M/cumm Comment:Testing performed by : [facility], [address] [place] [phone] Retics 1.2 0.5 - 1.8 % [facility] Comment:Testing performed by : [facility], [address] [place] [phone] Blood 04/26/2024 1:42 PM [facility]OTH 04/26/2024 1:48 PM [facility] [employer] Cecy Bowser MD LAB BLOOD ORDERABLES Final Result Performing Organization Address City/State/[facility] Co de Phone Number [facility] [employer] [place] [address] * CRP (acute phase) (04/26/2024 1:42 PM [facility]) CRP 3.6 <=10.0 mg/L Blood 04/26/2024 1:42 PM [facility]OTH 04/26/2024 2:19 PM [facility] [employer]OTH Cecy Bowser MD LAB BLOOD ORDERABLES Final Result Performing Organization Address [facility] Co de Phone Number [facility] [employer] [place] [address] * (ABNORMAL) Lactate dehydrogenase (LD) (04/26/2024 1:42 PM [facility]) Lactate dehydrogenase (LDH) 336(H) 100 - 250 Units/L Blood 04/26/2024 1:42 PM [facility]OTH 04/26/2024 1:52 PM [facility]ER CLOTH Result [facility] Cecy Bowser MD LAB BLOOD ORDERABLES Final Result Performing Organization Address City/[facility] [place] [address] * Haptoglobin (04/26/2024 1:42 PM [facility]ER CLOTH) Haptoglobin 159.0 30.0 - 200.0 mg/dL Blood 04/26/2024 1:42 PM [facility] [facility]ER CLOTH 04/26/2024 2:19 PM [facility] [facility] [employer]OTH Cecy Bowser MD LAB BLOOD ORDERABLES Final Result Performing Organization Address [facility] [place] [address] * (ABNORMAL) Ferritin (04/26/2024 1:42 PM K[facility] PICKER CLOTH) [facility] Ferritin 583(H) 13 - 150 ng/mL Blood 04/26/2024 1:42 PM [facility] [facility]ER CLOTH 04/26/2024 1:52 PM [employer]OTH Cecy Bowser MD LAB BLOOD ORDERABLES Final Result Performing Organization Address [facility] de Phone Number [facility] [address] * (ABNORMAL) Vitamin B12 (04/26/2024 1:42 PM [facility]ER CLOTH) [facility] Vitamin B12 >2,000(H) 230 - 1,250 pg/mL Blood 04/26/2024 1:42 PM [facility] 04/26/2024 2:19 PM [facility] Cecy Bowser MD LAB BLOOD ORDERABLES Final Result Performing Organization Address [facility] [place] [address] * (ABNORMAL) Comprehensive metabolic panel (04/26/2024 1:42 PM [facility]) [facility] Sodium 142 135 - 145 mmol/L Potassium, pl 3.8 3.3 - 4.9 mmol/L [facility] Chloride 103 97 - 110 mmol/L [facility] CO2 33(H) 22 - 32 mmol/L [facility] Anion gap 6 2 - 15 mmol/L [facility] BUN 19 6 - 25 mg/dL [facility] Creatinine 1.05 0.60 - 1.10 mg/dL [facility] Glucose 108 70 - 199 mg/dL [facility] Comment: Interpretive Data Fasting glucose >/= 126 mg/dl is diagnostic for diabetes. Fasting is defined as no caloric intake for at least 8 hours. Fasting glucose between 100 mg/dl to 125 mg/dl is diagnostic of prediabetes. In a patient with classic symptoms of hyperglycemia or hyperglycemic crisis, a random glucose >/= 200 mg/dl is diagnostic for diabetes. In the absence of unequivocal hyperglycemia, results should be confirmed by repeat testing. The classification and Diagnosis of Diabetes Diabetes Care 2021; 46: S19-S40. Current interpretive data was last revised 2022. Calcium 9.5 8.5 - 10.3 mg/dL [facility] Bilirubin, total 0.3 0.1 - 1.2 mg/dL [facility] Protein, pl 7.2 6.5 - 8.5 g/dL [facility] Albumin 3.8 3.5 - 5.0 g/dL [facility] Alk phos 58 40 - 130 Units/L [facility] ALT 14 7 - 45 Units/L [facility] AST 27 10 - 45 Units/L [facility] Blood 04/26/2024 1:42 PM [facility] 04/26/2024 1:52 PM [employer] us Ashu Faustin MD LAB BLOOD ORDERABLES Fin al Result [facility] [place] [address] * eGFR (04/19/2024 8:53 AM [facility] [facility] [employer]) eGFR 60 >=60 mL/min/1. 73 m2 Comment: Interpretive Data Reference Interval Normal >/= 90 mL/min/1.73m2 Mildly decreased* 60 - 89 mL/min/1.73m2 Mildly to moderately decreased 45 - 59 mL/min/1.73m2 Moderately to severely decreased 30 - 44 mL/min/1.73m2 Severely decreased 15 - 29 mL/min/1.73m2 Kidney Failure < 15 mL/min/1.73m2 *Relative to young adult level Estimated glomerular filtration rate is determined by the 2020 CKD-EPI equation recommended by the National Kidney Foundation (A Unifying Approach to GFR Estimation: Recommendations of the NKF-ASK Task Force on Reassessing the Inclusion of Race in Diagnosing Kidney Disease, JASN 2020). The CKD-EPI equation should not be used for patients with unstable renal function and has not been validated in children and those over 70. Current interpretive data was last reviewed 2021. Blood 04/19/2024 8:53 AM [facility] [facility] [employer] 04/19/2024 7:01 PM [employer] us Keny Gomes MD LAB BLOOD ORDERABLES Final Result [facility] [address] [place] [address] * (ABNORMAL) CBC without differential (04/19/2024 8:53 AM [facility] [facility] [employer]) WBC 6.5 3.8 - 9.9 K/cumm Hgb 10.3(L) 11.9 - 15.5 g/dL [facility] Hct 35.7 35.6 - 45.5 % [facility] Plt 497(H) 150 - 400 K/cumm [facility] MPV 10.9 9.1 - 12.3 fL [facility] RBC 3.31(L) 3.90 - 5.20 M/cumm [facility] MCV 107.9(H) 81.3 - 96.4 fL [facility] MCH 31.1 27.1 - 33.3 pg [facility] MCHC 28.9(L) 32.3 - 35.7 g/dL [facility] RDW CV 14.8 11.1 - 14.9 % [facility] RDW SD 58.2(H) 35.7 - 48.1 fL [facility] NRBC abs 0.00 0.00 - 0.01 K/cumm [facility] Blood (Blood, Venous) 04/19/2024 8:53 AM [facility] [facility] 04/19/2024 6:55 PM [facility] [employer] Narrative [facility] - 04/19/2024 7:29 PM [facility] [facility] [employer] Forward results to Dr.Eddie Mccormick-PMAn Keny Gomes MD LAB BLOOD ORDERABLES Final Result [facility] [address] [place] [address] * (ABNORMAL) Basic metabolic panel (04/19/2024 8:53 AM [facility] [facility] [employer]) Sodium 141 135 - 145 mmol/L Potassium, pl 4.4 3.3 - 4.9 mmol/L [facility] Chloride 103 97 - 110 mmol/L [facility] CO2 28 22 - 32 mmol/L [facility] Anion gap 10 2 - 15 mmol/L [facility] BUN 16 6 - 25 mg/dL [facility] Creatinine 0.95 0.60 - 1.10 mg/dL [facility] Glucose 69(L) 70 - 199 mg/dL [facility] Comment: Interpretive Data Fasting glucose >/= 126 mg/dl is diagnostic for diabetes. Fasting is defined as no caloric intake for at least 8 hours. Fasting glucose between 100 mg/dl to 125 mg/dl is diagnostic of prediabetes. In a patient with classic symptoms of hyperglycemia or hyperglycemic crisis, a random glucose >/= 200 mg/dl is diagnostic for diabetes. In the absence of unequivocal hyperglycemia, results should be confirmed by repeat testing. The classification and Diagnosis of Diabetes Diabetes Care 2021; 46: S19-S40. Current interpretive data was last revised 2022. Calcium 9.9 8.5 - 10.3 mg/dL [facility] Blood 04/19/2024 8:53 AM [facility] 04/19/2024 6:55 PM [facility]OTH Narrative [facility] - 04/19/2024 7:27 PM [employer]OTH Forward results to Dr.Eddie Mccormick-PMAn Has the patient fasted?->No Keny Gomes MD LAB BLOOD ORDERABLES Final Result Performing Organization Address City/[facility]/ZIP Co de Phone Number [facility] [address] [place] [place] [address] * (ABNORMAL) eGFR (04/12/2024 3:00 AM [facility] [employer]) [facility] eGFR 58(L) >=60 mL/min/1. 73 m2 Comment: Interpretive Data Reference Interval Normal >/= 90 mL/min/1.73m2 Mildly decreased* 60 - 89 mL/min/1.73m2 Mildly to moderately decreased 45 - 59 mL/min/1.73m2 Moderately to severely decreased 30 - 44 mL/min/1.73m2 Severely decreased 15 - 29 mL/min/1.73m2 Kidney Failure < 15 mL/min/1.73m2 *Relative to young adult level Estimated glomerular filtration rate is determined by the 2020 CKD-EPI equation recommended by the National Kidney Foundation (A Unifying Approach to GFR Estimation: Recommendations of the NKF-ASK Task Force on Reassessing the Inclusion of Race in Diagnosing Kidney Disease, JASN 2020). The CKD-EPI equation should not be used for patients with unstable renal function and has not been validated in children and those over 70. Current interpretive data was last reviewed 2021. Blood 04/12/2024 3:00 AM [employer] 04/12/2024 4:06 AM [employer] us Keny Gomes MD LAB BLOOD ORDERABLES Final Result [facility] [address] [facility] Department [place] [address] * (ABNORMAL) Differential, auto (04/12/2024 3:00 AM [employer]) [facility] Neutrophil abs 6.3 1.5 - 6.5 K/cumm Imm gran abs 0.6(H) 0.0 - 0.1 K/cumm [facility] Lymphocyte abs 1.5 0.8 - 3.3 K/cumm [facility] Monocyte abs 0.6 0.2 - 0.8 K/cumm [facility] Eosinophil abs 0.1 0.0 - 0.5 K/cumm [facility] Basophil abs 0.0 0.0 - 0.1 K/cumm [facility] Neutrophil pct 69.3 % [facility] Comment: Interpretive Data Percent cell count reference ranges are not reported, since discordance with absolute values may lead to misinterpretation of CBC data. Current Interpretive Data was last revised on 2017. Imm gran pct 6.1 % [facility] Comment: Interpretive Data Percent cell count reference ranges are not reported, since discordance with absolute values may lead to misinterpretation of CBC data. Current Interpretive Data was last revised on 2017. Lymphocyte pct 15.9 % [facility] Comment: Interpretive Data Percent cell count reference ranges are not reported, since discordance with absolute values may lead to misinterpretation of CBC data. Current Interpretive Data was last revised on 2017. Monocyte pct 6.8 % [facility] Comment: Interpretive Data Percent cell count reference ranges are not reported, since discordance with absolute values may lead to misinterpretation of CBC data. Current Interpretive Data was last revised on 2017. Eosinophil pct 1.5 % [facility] Comment: Interpretive Data Percent cell count reference ranges are not reported, since discordance with absolute values may lead to misinterpretation of CBC data. Current Interpretive Data was last revised on 2017. Basophil pct 0.4 % [facility] Comment: Interpretive Data Percent cell count reference ranges are not reported, since discordance with absolute values may lead to misinterpretation of CBC data. Current Interpretive Data was last revised on 2017. Blood 04/12/2024 3:00 AM [facility] 04/12/2024 4:06 AM [employer] Zita Gates MD LAB BLOOD ORDERABLES Final R esult [facility] [address] [facility] Department [place] [address] * (ABNORMAL) CBC with auto differential (04/12/2024 3:00 AM [employer]) WBC 9.2 3.8 - 9.9 K/cumm Hgb 9.1(L) 11.9 - 15.5 g/dL [facility] Hct 27.8(L) 35.6 - 45.5 % [facility] Plt 306 150 - 400 K/cumm [facility] MPV 11.1 9.1 - 12.3 fL [facility] RBC 2.85(L) 3.90 - 5.20 M/cumm [facility] MCV 97.5(H) 81.3 - 96.4 fL [facility] MCH 31.9 27.1 - 33.3 pg [facility] MCHC 32.7 32.3 - 35.7 g/dL [facility] RDW CV 15.9(H) 11.1 - 14.9 % [facility] RDW SD 57.1(H) 35.7 - 48.1 fL [facility] NRBC abs 0.00 0.00 - 0.01 K/cumm [facility] Blood 04/12/2024 3:00 AM [facility] [employer] 04/12/2024 4:06 AM [employer] Zita Gates MD LAB BLOOD ORDERABLES Final R esult Performing Organization Address City/[facility]/ZIP Co de Phone Number [address] [place] [address] * Magnesium (04/12/2024 3:00 AM [facility] [employer]) [facility] Magnesium 2.4 1.4 - 2.5 mg/dL Blood 04/12/2024 3:00 AM [employer] 04/12/2024 4:06 AM [employer]OTH Keny Gomes MD LAB BLOOD ORDERABLES Final Result Performing Organization Address City/[facility] Co de Phone Number [address] [place] [address] * Basic metabolic panel (04/12/2024 3:00 AM [facility] [employer]) Pathologist [facility] Sodium 140 135 - 145 mmol/L Potassium, pl 3.8 3.3 - 4.9 mmol/L [facility] Comment:Hemolyzed; Potassium value may be falsely elevated by as much as 1.0 mmol/L. Suggest redraw and reanalysis. Chloride 107 97 - 110 mmol/L [facility] CO2 24 22 - 32 mmol/L [facility] Anion gap 9 2 - 15 mmol/L [facility] BUN 16 6 - 25 mg/dL [facility] Creatinine 0.97 0.60 - 1.10 mg/dL [facility] Glucose 91 70 - 199 mg/dL [facility] Comment: Interpretive Data Fasting glucose >/= 126 mg/dl is diagnostic for diabetes. Fasting is defined as no caloric intake for at least 8 hours. Fasting glucose between 100 mg/dl to 125 mg/dl is diagnostic of prediabetes. In a patient with classic symptoms of hyperglycemia or hyperglycemic crisis, a random glucose >/= 200 mg/dl is diagnostic for diabetes. In the absence of unequivocal hyperglycemia, results should be confirmed by repeat testing. The classification and Diagnosis of Diabetes Diabetes Care 2021; 46: S19-S40. Current interpretive data was last revised 2022. Calcium 8.7 8.5 - 10.3 mg/dL [facility] Blood 04/12/2024 3:00 AM [employer] 04/12/2024 4:06 AM [employer] Keny Gomes MD LAB BLOOD ORDERABLES Final Result [facility] [address] [facility] Department [place] [address] * (ABNORMAL) eGFR (04/11/2024 3:03 AM [facility] [employer]) eGFR 47(L) >=60 mL/min/1. 73 m2 Comment: Interpretive Data Reference Interval Normal >/= 90 mL/min/1.73m2 Mildly decreased* 60 - 89 mL/min/1.73m2 Mildly to moderately decreased 45 - 59 mL/min/1.73m2 Moderately to severely decreased 30 - 44 mL/min/1.73m2 Severely decreased 15 - 29 mL/min/1.73m2 Kidney Failure < 15 mL/min/1.73m2 *Relative to young adult level Estimated glomerular filtration rate is determined by the 2020 CKD-EPI equation recommended by the National Kidney Foundation (A Unifying Approach to GFR Estimation: Recommendations of the NKF-ASK Task Force on Reassessing the Inclusion of Race in Diagnosing Kidney Disease, JASN 2020). The CKD-EPI equation should not be used for patients with unstable renal function and has not been validated in children and those over 70. Current interpretive data was last reviewed 2021. Blood 04/11/2024 3:03 AM [employer] 04/11/2024 3:22 AM [employer] us Keny Gomes MD LAB BLOOD ORDERABLES Final Result [facility] [address] [facility] Department [place] [address] * (ABNORMAL) Differential, auto (04/11/2024 3:03 AM [facility] [facility] [employer]) Neutrophil abs 6.9(H) 1.5 - 6.5 K/cumm Imm gran abs 0.8(H) 0.0 - 0.1 K/cumm [facility] Lymphocyte abs 1.3 0.8 - 3.3 K/cumm [facility] Monocyte abs 0.8 0.2 - 0.8 K/cumm [facility] Eosinophil abs 0.1 0.0 - 0.5 K/cumm [facility] Basophil abs 0.0 0.0 - 0.1 K/cumm [facility] Neutrophil pct 70.2 % [facility] Comment: Interpretive Data Percent cell count reference ranges are not reported, since discordance with absolute values may lead to misinterpretation of CBC data. Current Interpretive Data was last revised on 2017. Imm gran pct 7.9 % [facility] Comment: Interpretive Data Percent cell count reference ranges are not reported, since discordance with absolute values may lead to misinterpretation of CBC data. Current Interpretive Data was last revised on 2017. Lymphocyte pct 12.9 % [facility] Comment: Interpretive Data Percent cell count reference ranges are not reported, since discordance with absolute values may lead to misinterpretation of CBC data. Current Interpretive Data was last revised on 2017. Monocyte pct 7.7 % [facility] Comment: Interpretive Data Percent cell count reference ranges are not reported, since discordance with absolute values may lead to misinterpretation of CBC data. Current Interpretive Data was last revised on 2017. Eosinophil pct 1.1 % [facility] Comment: Interpretive Data Percent cell count reference ranges are not reported, since discordance with absolute values may lead to misinterpretation of CBC data. Current Interpretive Data was last revised on 2017. Basophil pct 0.2 % [facility] Comment: Interpretive Data Percent cell count reference ranges are not reported, since discordance with absolute values may lead to misinterpretation of CBC data. Current Interpretive Data was last revised on 2017. Blood 04/11/2024 3:03 AM [facility] [employer] 04/11/2024 3:23 AM [employer] us Zita Gates MD LAB BLOOD ORDERABLES Final R esult Performing Organization Address [facility] Co de Phone Number [facility] [address] [facility] Department of Laboratories [place], [place] [id number] * (ABNORMAL) CBC with auto differential (04/11/2024 3:03 AM [facility] [employer]) WBC 9.9 3.8 - 9.9 K/cumm Hgb 8.6(L) 11.9 - 15.5 g/dL [facility] Hct 26.4(L) 35.6 - 45.5 % [facility] Plt 241 150 - 400 K/cumm [facility] MPV 10.8 9.1 - 12.3 fL [facility] RBC 2.71(L) 3.90 - 5.20 M/cumm [facility] MCV 97.4(H) 81.3 - 96.4 fL [facility] MCH 31.7 27.1 - 33.3 pg [facility] MCHC 32.6 32.3 - 35.7 g/dL [facility] RDW CV 16.3(H) 11.1 - 14.9 % [facility] RDW SD 56.5(H) 35.7 - 48.1 fL [facility] NRBC abs 0.00 0.00 - 0.01 K/cumm [facility] Blood 04/11/2024 3:03 AM [facility] [employer] 04/11/2024 3:23 AM [employer] us Zita Gates MD LAB BLOOD ORDERABLES Final R esult [facility] [address] [facility] [place] [address] * (ABNORMAL) Basic metabolic panel (04/11/2024 3:03 AM [employer]) Sodium 141 135 - 145 mmol/L Potassium, pl 3.2(L) 3.3 - 4.9 mmol/L [facility] Chloride 108 97 - 110 mmol/L [facility] CO2 25 22 - 32 mmol/L [facility] Anion gap 8 2 - 15 mmol/L [facility] BUN 15 6 - 25 mg/dL [facility] Creatinine 1.16(H) 0.60 - 1.10 mg/dL [facility] Glucose 86 70 - 199 mg/dL [facility] Comment: Interpretive Data Fasting glucose >/= 126 mg/dl is diagnostic for diabetes. Fasting is defined as no caloric intake for at least 8 hours. Fasting glucose between 100 mg/dl to 125 mg/dl is diagnostic of prediabetes. In a patient with classic symptoms of hyperglycemia or hyperglycemic crisis, a random glucose >/= 200 mg/dl is diagnostic for diabetes. In the absence of unequivocal hyperglycemia, results should be confirmed by repeat testing. The classification and Diagnosis of Diabetes Diabetes Care 2021; 46: S19-S40. Current interpretive data was last revised 2022. Calcium 8.7 8.5 - 10.3 mg/dL [facility] Blood 04/11/2024 3:03 AM [facility] [employer] 04/11/2024 3:22 AM [employer] us Keny Gomes MD LAB BLOOD ORDERABLES Final Result Performing Organization Address [facility] Co de Phone Number [facility] [address] [facility] [place] [employer] [place] [address] * (ABNORMAL) Hemoglobin and hematocrit (04/10/2024 4:42 PM [facility] [facility] [employer]) Hgb 8.5(L) 11.9 - 15.5 g/dL Hct 26.1(L) 35.6 - 45.5 % [facility] Blood 04/10/2024 4:42 PM [facility] [employer] 04/10/2024 4:45 PM [employer] Keny Gomes MD LAB BLOOD ORDERABLES Final Result Performing Organization Address [facility] Co de Phone Number ANDREAS [address] [place] [place] [address] * Transfuse RBC (04/10/2024 4:12 PM [facility]) Blood Kevin Helen Kapoor NP BLOOD TRANSFUSION ORDERA BLES Final Result Performing Organization Address [facility] Co de Phone Number ANDREAS [address] [place] [place] [address] * Prepare RBC: 1 Units (04/10/2024 11:56 AM [facility]) Units requested 1 Units requested Ready [facility] Unit Number [id number] Product code [id number] [facility] Blood Expiration Date [id number] [facility] Product Blood Type (for scanning) [address] [facility] Product Blood Type APOS [facility] Dispense Status DISPENSED [facility] Blood 04/10/2024 11:5 6 AM [facility] 04/10/2024 11:56 AM [facility] Kevin Helen Kapoor NP BLOOD BANK PRODUCT ORDER BEATRICE Final Result Performing Organization Address [facility] Co de Phone Number ANDREAS [address] [place] [place] [address] * ABO / Rh Confirmation Testing (04/10/2024 11:10 AM [facility]) ABO/Rh Confirmation A Positive [facility] Blood 04/10/2024 11:1 0 AM [facility] 04/10/2024 11:30 AM [facility] Kevin Tabalayna Kapoor NP LAB BLOOD ORDERABLES Fin al Result Performing Organization Address City/[facility] Co de Phone Number [address] [address] [facility] * ABO/Rh (04/10/2024 10:28 AM [facility]) Pathologist [facility] ABO/Rh A Positive Blood 04/10/2024 10:2 8 AM [facility] 04/10/2024 11:00 AM [facility] Narrative [facility] - 04/10/2024 11:41 AM [facility] Has the patient had Daratumumab or Isatuximab in the past 6 months?->Unknown Kevin Helen Kapoor NP LAB BLOOD BANK TEST ORDE RABLES Final Result [address] [address] * Crossmatch (04/10/2024 10:28 AM [facility]) Pathologist [facility] Crossmatch Compatible [facility] Unit number for crossmatch [id number] [facility] Blood 04/10/2024 10:2 8 AM [facility] 04/10/2024 11:00 AM [facility] Keny Gomes MD LAB BLOOD BANK TEST O RDERABLES Final Result Performing Organization Address City/[facility]/ZIP Co de Phone Number [address] [address] * Antibody screen (04/10/2024 10:28 AM [facility]) Pathologist [facility] Sandra, indirect, Gel Interpretation Negative ABSC Blood 04/10/2024 10:2 8 AM [facility] 04/10/2024 11:00 AM [facility] Narrative [facility] - 04/10/2024 11:41 AM [facility] Has the patient had Daratumumab or Isatuximab in the past 6 months?->[facility] BLOOD BANK TEST ORDE RABLES Final Result [facility] [address] [facility] [place] [address] * MRSA Only (Staphylococcus aureus) PCR Nasal (04/10/2024 8:42 AM [facility]) Pathologist [facility] PCR Scrn, Methicillin resistant Staphylococcus aureus (MRSA) Not Detected Not Detected Comment: Interpretive Data Testing performed using Nucleic Acid Amplification with the [employer] Xpert MRSA NxG Assay. This assay detects target DNA from mecA, mecC and the SCCmec insertion site of Staphylococcus aureus using Real-Time PCR and has been cleared by the FDA. Performance characteristics have been verified by the [facility]. Current Interpretive Data was last revised on 2022 Nasal 04/10/2024 8:42 AM [facility] 04/10/2024 9:21 AM [facility] Keny Gomes MD LAB MICROBIOLOGY - [facility] ORDERABLES Final Result Performing Organization Address City/State/[facility] Co de Phone Number [facility] [place] [employer] [place] [address] * (ABNORMAL) eGFR (04/10/2024 3:55 AM [facility]) Pathologist [facility] eGFR 54(L) >=60 mL/min/1. 73 m2 Comment: Interpretive Data Reference Interval Normal >/= 90 mL/min/1.73m2 Mildly decreased* 60 - 89 mL/min/1.73m2 Mildly to moderately decreased 45 - 59 mL/min/1.73m2 Moderately to severely decreased 30 - 44 mL/min/1.73m2 Severely decreased 15 - 29 mL/min/1.73m2 Kidney Failure < 15 mL/min/1.73m2 *Relative to young adult level Estimated glomerular filtration rate is determined by the 2020 CKD-EPI equation recommended by the National Kidney Foundation (A Unifying Approach to GFR Estimation: Recommendations of the NKF-ASK Task Force on Reassessing the Inclusion of Race in Diagnosing Kidney Disease, JASN 2020). The CKD-EPI equation should not be used for patients with unstable renal function and has not been validated in children and those over 70. Current interpretive data was last reviewed 2021. Blood 04/10/2024 3:55 AM [employer] 04/10/2024 5:32 AM [employer] Zita Gates MD LAB BLOOD ORDERABLES Final R esult [facility] [address] [facility] [place] [address] * (ABNORMAL) Differential, auto (04/10/2024 3:55 AM [employer]OTH) Pathologist [facility] Neutrophil abs 7.1(H) 1.5 - 6.5 K/cumm Imm gran abs 0.8(H) 0.0 - 0.1 K/cumm [facility] Lymphocyte abs 1.0 0.8 - 3.3 K/cumm [facility] Monocyte abs 0.8 0.2 - 0.8 K/cumm [facility] Eosinophil abs 0.1 0.0 - 0.5 K/cumm [facility] Basophil abs 0.0 0.0 - 0.1 K/cumm [facility] Neutrophil pct 72.5 % [facility] Comment: Interpretive Data Percent cell count reference ranges are not reported, since discordance with absolute values may lead to misinterpretation of CBC data. Current Interpretive Data was last revised on 2017. Imm gran pct 8.5 % [facility] Comment: Interpretive Data Percent cell count reference ranges are not reported, since discordance with absolute values may lead to misinterpretation of CBC data. Current Interpretive Data was last revised on 2017. Lymphocyte pct 9.8 % [facility] Comment: Interpretive Data Percent cell count reference ranges are not reported, since discordance with absolute values may lead to misinterpretation of CBC data. Current Interpretive Data was last revised on 2017. Monocyte pct 7.9 % [facility] Comment: Interpretive Data Percent cell count reference ranges are not reported, since discordance with absolute values may lead to misinterpretation of CBC data. Current Interpretive Data was last revised on 2017. Eosinophil pct 1.0 % [facility] Comment: Interpretive Data Percent cell count reference ranges are not reported, since discordance with absolute values may lead to misinterpretation of CBC data. Current Interpretive Data was last revised on 2017. Basophil pct 0.3 % [facility] Comment: Interpretive Data Percent cell count reference ranges are not reported, since discordance with absolute values may lead to misinterpretation of CBC data. Current Interpretive Data was last revised on 2017. Blood 04/10/2024 3:55 AM [employer] 04/10/2024 5:30 AM [employer] Zita Gates MD LAB BLOOD ORDERABLES Final R esult Performing Organization Address [facility] Co de Phone Number [address] [place] [place] [address] * Thyroid Function [place] (04/10/2024 3:55 AM [employer]OTH) [facility] TSH 2.64 0.30 - 4.20 mcIUnit/mL Blood 04/10/2024 3:55 AM [employer] 04/10/2024 5:32 AM [employer] Keny Gomes MD LAB BLOOD ORDERABLES Final Result Performing Organization Address [facility] de Phone Number [address] [place] [place] [address] * (ABNORMAL) CBC with auto differential (04/10/2024 3:55 AM [employer]) [facility] WBC 9.8 3.8 - 9.9 K/cumm Hgb 6.6(L) 11.9 - 15.5 g/dL [facility] Hct 20.7(L) 35.6 - 45.5 % [facility] Plt 240 150 - 400 K/cumm [facility] MPV 11.3 9.1 - 12.3 fL [facility] RBC 2.01(L) 3.90 - 5.20 M/cumm [facility] MCV 103.0(H) 81.3 - 96.4 fL [facility] MCH 32.8 27.1 - 33.3 pg [facility] MCHC 31.9(L) 32.3 - 35.7 g/dL [facility] RDW CV 14.8 11.1 - 14.9 % [facility] RDW SD 54.5(H) 35.7 - 48.1 fL [facility] NRBC abs 0.00 0.00 - 0.01 K/cumm [facility] Blood 04/10/2024 3:55 AM [employer] 04/10/2024 5:30 AM [employer] Zita Gates MD LAB BLOOD ORDERABLES Final R esult Performing Organization Address [facility] Co de Phone Number [address] [place] [place] [address] * Magnesium (04/10/2024 3:55 AM [employer]) [facility] Magnesium 1.5 1.4 - 2.5 mg/dL Blood 04/10/2024 3:55 AM [employer] 04/10/2024 5:32 AM [employer]OTH Zita Gates MD LAB BLOOD ORDERABLES Final R [facility] Performing Organization Address [facility] de Phone Number [address] [place] [place] [address] * (ABNORMAL) Comprehensive metabolic panel (04/10/2024 3:55 AM [employer]OTH) [facility] Sodium 145 135 - 145 mmol/L Potassium, pl 3.4 3.3 - 4.9 mmol/L [facility] Chloride 110 97 - 110 mmol/L [facility] CO2 26 22 - 32 mmol/L [facility] Anion gap 9 2 - 15 mmol/L [facility] BUN 17 6 - 25 mg/dL [facility] Creatinine 1.03 0.60 - 1.10 mg/dL [facility] Glucose 67(L) 70 - 199 mg/dL [facility] Comment: Interpretive Data Fasting glucose >/= 126 mg/dl is diagnostic for diabetes. Fasting is defined as no caloric intake for at least 8 hours. Fasting glucose between 100 mg/dl to 125 mg/dl is diagnostic of prediabetes. In a patient with classic symptoms of hyperglycemia or hyperglycemic crisis, a random glucose >/= 200 mg/dl is diagnostic for diabetes. In the absence of unequivocal hyperglycemia, results should be confirmed by repeat testing. The classification and Diagnosis of Diabetes Diabetes Care 202; 46: S19-S40. Current interpretive data was last revised 2022. Calcium 8.8 8.5 - 10.3 mg/dL [facility] Bilirubin, total <0.2 0.1 - 1.2 mg/dL [facility] Protein, pl 5.3(L) 6.5 - 8.5 g/dL [facility] Albumin 3.1(L) 3.5 - 5.0 g/dL [facility] Alk phos 52 40 - 130 Units/L [facility] ALT 13 7 - 45 Units/L [facility] AST 18 10 - 45 Units/L [facility] Blood 04/10/2024 3:55 AM [employer] 04/10/2024 5:32 AM [employer] Zita Gates MD LAB BLOOD ORDERABLES Final R esult [facility] [address] [facility] [place] [address] * Blood culture Blood Peripheral (04/09/2024 1:57 PM [employer]) Report Final Report: No growth Comment:Testing performed by : [facility], [address] [facility] [place]., [address] Blood (Peripheral) 04/09/2024 1:57 PM [employer] 04/09/2024 5:10 PM [employer]OTH Narrative [facility] - 04/14/2024 7:00 AM [employer] From a different site than #1. Draw Blood cultures before administration of Antibiotics Collection->Peripheral 1. Blood cultures are incubated for 4 days on a continuously monitored blood culture system. The first report of a negative culture is issued within 24 hours of receipt of the specimen in the laboratory. 2. Positive culture results are reported as soon as they are detected. 3. The most important factor for detection of microbes in the setting of bloodstream infection is the volume of blood submitted for culture. Failure to collect an optimal blood volume can result in false negative blood cultures. 4. For pediatric patients, the recommended blood volume to collect follows a weight based strategy. See the electronic test catalog for collection instructions. 5. For positive blood cultures, a rapid molecular test may be performed for organism identification using the sona ePlex blood culture identification panel for gram positive (BCID-GP) and gram negative (BCID-GN) organisms. This nucleic acid amplification test detects microbial DNA in positive blood culture broth. This assay has been cleared by the [place] Food and Drug Administration and its performance characteristics have been verified by the [facility] Microbiology Laboratory. For questions about this culture, contact the Microbiology Laboratory at [phone]. Interpretive data was last revised on 24. us Chip Garrido MD LAB MICROBIOLOGY - GENERAL ORDERABLES Final Result [facility] [address] [facility] [place] [address] * Blood culture Blood Peripheral (04/09/2024 1:48 PM [employer]) Report Final Report: No growth Comment:Testing performed by : [facility], [address] [facility], [place]., [address] Blood (Peripheral) 04/09/2024 1:48 PM [employer] 04/09/2024 5:10 PM K[employer]ER [employer]OTH [facility] - 04/14/2024 7:00 AM [employer]OTH Draw Blood cultures before administration of Antibiotics Collection->Peripheral 1. Blood cultures are incubated for 4 days on a continuously monitored blood culture system. The first report of a negative culture is issued within 24 hours of receipt of the specimen in the laboratory. 2. Positive culture results are reported as soon as they are detected. 3. The most important factor for detection of microbes in the setting of bloodstream infection is the volume of blood submitted for culture. Failure to collect an optimal blood volume can result in false negative blood cultures. 4. For pediatric patients, the recommended blood volume to collect follows a weight based strategy. See the electronic test catalog for collection instructions. 5. For positive blood cultures, a rapid molecular test may be performed for organism identification using the sona ePlex blood culture identification panel for gram positive (BCID-GP) and gram negative (BCID-GN) organisms. This nucleic acid amplification test detects microbial DNA in positive blood culture broth. This assay has been cleared by the [place] Food and Drug Administration and its performance characteristics have been verified by the [facility] Microbiology Laboratory. For questions about this culture, contact the Microbiology Laboratory at [phone]. Interpretive data was last revised on 24. Chip Garrido MD LAB MICROBIOLOGY - GENERAL ORDERABLES Final Result Performing Organization Address City/State/[facility] Co de Phone Number [facility] [address] [facility] [place] [address] * (ABNORMAL) Urinalysis reflex to microscopic and culture Urine (04/09/2024 12:56 PM [employer]OTH) Color, ur Yellow Yellow Clarity, ur Clear Clear [facility] Specific gravity, ur 1.011 1.003 - 1.030 [facility] pH, urine 6.5 [facility] Comment: Interpretive Data U rine pH is affected by diet, medications, systemic acid-base disturbances, and renal tubular function. pH may affect urinary stone formation. For example, urine pH below 6.0 may help reduce the tendency for calcium phosphate stones and pH greater than 6.0 may reduce the tendency for uric acid stone formation. Source: [facility] Current Interpretive Data was last revised on 2017 Protein, ur ql Negative Negative [facility] Glucose, ur ql Negative Negative [facility] Ketones, ur Negative Negative [facility] Bilirubin, ur Negative Negative [facility] Blood, ur Negative Negative [facility] Urobilinogen, ur <2.0 <2.0 mg/dL [facility] Nitrite, ur Negative Negative [facility] Leukocyte esterase, ur 2+(A) Negative [facility] UA reflex comment Reflex to microscopic UA will be performed. [facility] Urine 04/09/2024 12:5 6 PM [employer] 04/09/2024 1:05 PM [employer]OTH Narrative [facility] - 04/09/2024 1:08 PM [employer] If patient unable to urinate, straight cath Chip Garrido MD LAB MICROBIOLOGY - GENERAL ORDERABLES Final Result Performing Organization Address City/[facility] de Phone Number [address] [address] * (ABNORMAL) Urinalysis, microscopic only (04/09/2024 12:56 PM [employer]OTH) WBC, ur 21-50(A) 0 - 5 /HPF RBC, ur 0-2 0 - 2 /HPF [facility] Epithelial cells, squamous, ur 1-5 0 - 5 /HPF [facility] Bacteria, ur 1+(A) [facility] Mucous, ur Present(A) [facility] Culture Reflex Comment Reflex to urine culture will be performed. [facility] Urine 04/09/2024 12:5 6 PM [employer]OTH 04/09/2024 1:05 PM [employer]OTH Danielle AVELAR LAB URINE ORDERABLES Final Resu lt Performing Organization Address [facility] de Phone Number [address] [place] [employer] [place] [address] * (ABNORMAL) Urine culture Urine (04/09/2024 12:56 PM [employer]OTH) Report Final Report: Greater than or equal to 100,000 colonies/mL of Klebsiella oxytoca (.) Comment:Testing performed by : [facility], [address] [facility], [place]., [address] Organism KLEBSIELLA OXYTOCA [facility] Urine 04/09/2024 12:5 6 PM [employer]OTH 04/09/2024 3:04 PM [employer]OTH Narrative [facility] - 04/13/2024 6:47 AM [employer]OTH Urine culture reflexed based upon urinalysis results. Testing performed by [facility] Microbiology Laboratory ([phone]) Organism Antibiotic Method Susceptibility Klebsiella oxytoca Ampicillin INTERPRETATION Resistant Klebsiella oxytoca Cefazolin INTERPRETATION Susceptible Klebsiella oxytoca Nitrofurantoin INTERPRETATION Susceptible Klebsiella oxytoca Gentamicin INTERPRETATION Susceptible Klebsiella oxytoca Trimethoprim with Sulfamethoxazole INTERPRETATION Susceptible Klebsiella oxytoca Meropenem INTERPRETATION Susceptible Klebsiella oxytoca Cefepime INTERPRETATION Susceptible Klebsiella oxytoca Ciprofloxacin INTERPRETATION Susceptible Klebsiella oxytoca Ceftazidime INTERPRETATION Susceptible Klebsiella oxytoca Ceftriaxone INTERPRETATION Susceptible Klebsiella oxytoca Piperacillin/Tazobactam INTERPRETAT ION Susceptible Klebsiella oxytoca Cephalexin INTERPRETATION Susceptible Klebsiella oxytoca Cefuroxime-axetil INTERPRETATION Susceptible Klebsiella oxytoca Cefdinir INTERPRETATION Susceptible Danielle AVELAR LAB MICROBIOLOGY - GENERAL ORDE DANII Final Result [facility] [address] [facility] [place] [address] * XR Hand Right 3 or More Views (04/09/2024 10:54 AM [employer]) Anatomical Region Laterality Modality Upper Extremities, Hand Right Computed Radiography 04/09/2024 11:2 1 AM [employer] Narrative 04/09/2024 11:25 AM [employer] EXAM DESCRIPTION: XR HAND RIGHT 3 OR MORE VIEWS REASON FOR STUDY: possible infection Pt presents with swelling, red, warm right hand. States she noticed a small bruise and that got bigger and by Tuesday the bruise was gone but hand was getting more swollen and red. TECHNIQUE: 3 radiographic view(s) of the right hand . COMPARISON: None FINDINGS: No acute fracture or dislocation. Severe joint space narrowing, marginal osteophytosis, and central erosions most prominently involving the 2nd and 5th distal interphalangeal and 3rd through 5th proximal interphalangeal joints. There is periarticular soft tissue swelling. No radiopaque foreign body. 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 THIS IS AN ELECTRONICALLY VERIFIED FINAL REPORT 04/09/2024 11:25 AM - Electronically signed by Erik Evangelista M.D. KR T: Report ID: [id number] Reading Location: [id number] Procedure Note Erik Evangelista MD - 04/09/2024 EXAM DESCRIPTION: XR HAND RIGHT 3 OR MORE VIEWS REASON FOR STUDY: possible infection Pt presents with swelling, red, warm right hand. States she noticed asmall bruise and that got bigger and by Tuesday the bruise was gonebut hand was getting more swollen and red. TECHNIQUE: 3 radiographic view(s) of the right hand . COMPARISON: None FINDINGS: No acute fracture or dislocation. Severe joint space narrowing, marginal osteophytosis, and central erosions most prominently involvingthe 2nd and 5th distal interphalangeal and 3rd through 5th proximal interphalangeal joints. There is periarticular soft tissue swelling. No radiopaque foreign body. 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 THIS IS AN ELECTRONICALLY VERIFIED FINAL REPORT 04/09/2024 11:25 AM - Electronically signed by Erik RAMEY T: Report ID: [id number] Reading Location: [id number] Danielle AVELAR IMG XR PROCEDURES Final Result * XR Chest 1 Vw Portable (if patient condition/safety warrant portable) (04/09/2024 10:53 AM [employer]) Anatomical Region Laterality Modality Body, Chest N/A Computed Radiogr aphy 04/09/2024 11:1 1 AM [employer]OTH Narrative 04/09/2024 11:21 AM [employer]OTH EXAM DESCRIPTION: XR CHEST 1 VIEW REASON FOR STUDY: suspected infection Pt amaury complaints of worsening sob x3days TECHNIQUE: 1 radiographic view(s) of the chest. COMPARISON: 02/22/2024 FINDINGS: LUNGS: No focal opacity, pleural effusion, or pneumothorax. Stable diffuse coarsened interstitial opacities consistent with patient's known interstitial lung disease as seen on prior chest CT. HEART/MEDIASTINUM: Cardiac silhouette normal in size. Mediastinal and hilar contours appear normal. LINES/TUBES: None. BONES: No acute osseous abnormality. Right shoulder reverse arthroplasty. Postsurgical changes of the thoracolumbar spine. IMPRESSION: Stable coarsened interstitial opacities consistent with patient's known interstitial lung disease. No definite acute airspace disease. THIS IS AN ELECTRONICALLY VERIFIED FINAL REPORT 04/09/2024 11:21 AM - Electronically signed by Erki RAMEY T: Report ID: [id number] Reading Location: [id number] Procedure Note Erik Evangelista MD - 04/09/2024 EXAM DESCRIPTION: XR CHEST 1 VIEW REASON FOR STUDY: suspected infection Pt amaury complaints of worsening sob x3days TECHNIQUE: 1 radiographic view(s) of the chest. COMPARISON: 02/22/2024 FINDINGS: LUNGS: No focal opacity, pleural effusion, or pneumothorax. Stable diffuse coarsened interstitial opacities consistent with patient's known interstitial lung disease as seen on prior chest CT. HEART/MEDIASTINUM: Cardiac silhouette normal in size. Mediastinal andhilar contours appear normal. LINES/TUBES: None. BONES: No acute osseous abnormality. Right shoulder reversearthroplasty. Postsurgical changes of the thoracolumbar spine. IMPRESSION: Stable coarsened interstitial opacities consistent withpatient's known interstitial lung disease. No definite acute airspace disease. THIS IS AN ELECTRONICALLY VERIFIED FINAL REPORT 04/09/2024 11:21 AM - Electronically signed by Erik Evangelista M.D. KR T: Report ID: [id number] Reading Location: [place] [address] Chip Garrido MD IMG XR PROCEDURES Final Re sult * Sepsis Lactate w/ Reflex (04/09/2024 10:48 AM [employer]) [facility] Sepsis Lactate 1.5 0.7 - 2.0 mmol/L Blood 04/09/2024 10:4 8 AM [employer] 04/09/2024 10:55 AM [employer]OTH Chip Garrido MD LAB BLOOD ORDERABLES Final Result [facility] [address] [facility] [place] [address] * (ABNORMAL) eGFR (04/09/2024 10:48 AM [employer]OTH) Pathologist [facility] eGFR 52(L) >=60 mL/min/1. 73 m2 Comment: Interpretive Data Reference Interval Normal >/= 90 mL/min/1.73m2 Mildly decreased* 60 - 89 mL/min/1.73m2 Mildly to moderately decreased 45 - 59 mL/min/1.73m2 Moderately to severely decreased 30 - 44 mL/min/1.73m2 Severely decreased 15 - 29 mL/min/1.73m2 Kidney Failure < 15 mL/min/1.73m2 *Relative to young adult level Estimated glomerular filtration rate is determined by the 2020 CKD-EPI equation recommended by the National Kidney Foundation (A Unifying Approach to GFR Estimation: Recommendations of the NKF-ASK Task Force on Reassessing the Inclusion of Race in Diagnosing Kidney Disease, JASN 202). The CKD-EPI equation should not be used for patients with unstable renal function and has not been validated in children and those over 70. Current interpretive data was last reviewed 2021. Blood 04/09/2024 10:4 8 AM [employer]OTH 04/09/2024 10:55 AM [employer]OTH us Chip Garrido MD LAB BLOOD ORDERABLES Final Result [facility] [address] [facility] [place] [address] * (ABNORMAL) Differential, auto (04/09/2024 10:48 AM [employer]) Neutrophil abs 9.4(H) 1.5 - 6.5 K/cumm Imm gran abs 0.9(H) 0.0 - 0.1 K/cumm [facility] Lymphocyte abs 0.6(L) 0.8 - 3.3 K/cumm [facility] Monocyte abs 1.1(H) 0.2 - 0.8 K/cumm [facility] Eosinophil abs 0.1 0.0 - 0.5 K/cumm [facility] Basophil abs 0.0 0.0 - 0.1 K/cumm [facility] Neutrophil pct 77.3 % [facility] Comment: Interpretive Data Percent cell count reference ranges are not reported, since discordance with absolute values may lead to misinterpretation of CBC data. Current Interpretive Data was last revised on 2017. Imm gran pct 7.1 % [facility] Comment: Interpretive Data Percent cell count reference ranges are not reported, since discordance with absolute values may lead to misinterpretation of CBC data. Current Interpretive Data was last revised on 2017. Lymphocyte pct 5.3 % [facility] Comment: Interpretive Data Percent cell count reference ranges are not reported, since discordance with absolute values may lead to misinterpretation of CBC data. Current Interpretive Data was last revised on 2017. Monocyte pct 8.9 % [facility] Comment: Interpretive Data Percent cell count reference ranges are not reported, since discordance with absolute values may lead to misinterpretation of CBC data. Current Interpretive Data was last revised on 2017. Eosinophil pct 1.1 % [facility] Comment: Interpretive Data Percent cell count reference ranges are not reported, since discordance with absolute values may lead to misinterpretation of CBC data. Current Interpretive Data was last revised on 2017. Basophil pct 0.3 % [facility] Comment: Interpretive Data Percent cell count reference ranges are not reported, since discordance with absolute values may lead to misinterpretation of CBC data. Current Interpretive Data was last revised on 2017. Blood 04/09/2024 10:4 8 AM [employer]OTH 04/09/2024 10:55 AM [employer]ER [employer]OTH us Chip Garrido MD LAB BLOOD ORDERABLES Final Result [facility] [address] [facility] [place] [address] * (ABNORMAL) CBC with auto differential (04/09/2024 10:48 AM [employer]OTH) WBC 12.1(H) 3.8 - 9.9 K/cumm Hgb 7.5(L) 11.9 - 15.5 g/dL [facility] Hct 24.2(L) 35.6 - 45.5 % [facility] Plt 249 150 - 400 K/cumm [facility] MPV 10.9 9.1 - 12.3 fL [facility] [facility] RBC 2.35(L) 3.90 - 5.20 M/cumm [facility] MCV 103.0(H) 81.3 - 96.4 fL [facility] MCH 31.9 27.1 - 33.3 pg [facility] MCHC 31.0(L) 32.3 - 35.7 g/dL [facility]RE[facility] RDW CV 14.8 11.1 - 14.9 % ANDREAS RDW SD 54.8(H) 35.7 - 48.1 fL [facility] NRBC abs 0.00 0.00 - 0.01 K/cumm ANDREAS Blood 04/09/2024 10:4 8 AM [facility] 04/09/2024 10:55 AM [facility] Chip Garrido MD LAB BLOOD ORDERABLES Edite d Result - Final Performing Organization Address City/[facility] Co de Phone Number ANDREAS [address] [place] [place] [address] * (ABNORMAL) Manual Differential (04/09/2024 10:48 AM K[employer] [facility]ER CLOTH) Differential Auto RBC morphology Present(A) [facility] Hypochromasia 3-7/HPF(A) [facility] Anisocytosis Slight(A) [facility] Macrocytes 3-7/HPF(A) [facility] Platelet estimate Automated Count Confirmed ANDREAS Blood 04/09/2024 10:4 8 AM [facility] 04/09/2024 10:55 AM [facility] [employer]OTH Chip Garrido MD LAB BLOOD ORDERABLES Final Result Performing Organization Address City/[facility] Co de Phone Number ANDREAS [address] [place] [address] * Uric acid (04/09/2024 10:48 AM [facility]OTH) Uric acid 3.0 2.5 - 7.0 mg/dL Blood 04/09/2024 10:4 8 AM [facility] [facility]OTH 04/09/2024 10:55 AM [facility]OTH Cihp Garrido MD LAB BLOOD ORDERABLES Final Result Performing Organization Address City/[facility] Co de Phone Number ANDREAS [address] [place] [place] [address] * Magnesium (04/09/2024 10:48 AM K[facility]ER CLOTH) Pathologist [facility] Magnesium 1.5 1.4 - 2.5 mg/dL Blood 04/09/2024 10:4 8 AM [employer]OTH 04/09/2024 10:55 AM [facility]OTH Chip Garrido MD LAB BLOOD ORDERABLES Final Result [facility] [address] [facility] [place] [address] * (ABNORMAL) Comprehensive metabolic panel (04/09/2024 10:48 AM [facility]OTH) Pathologist [facility] Sodium 142 135 - 145 mmol/L Potassium, pl 3.1(L) 3.3 - 4.9 mmol/L [facility] Comment:Hemolyzed; Potassium value may be falsely elevated by as much as 1.0 mmol/L. Suggest redraw and reanalysis. Chloride 107 97 - 110 mmol/L [facility] CO2 26 22 - 32 mmol/L [facility] Anion gap 9 2 - 15 mmol/L [facility] BUN 15 6 - 25 mg/dL [facility] Creatinine 1.06 0.60 - 1.10 mg/dL [facility] Glucose 101 70 - 199 mg/dL [facility] Comment: Interpretive Data Fasting glucose >/= 126 mg/dl is diagnostic for diabetes. Fasting is defined as no caloric intake for at least 8 hours. Fasting glucose between 100 mg/dl to 125 mg/dl is diagnostic of prediabetes. In a patient with classic symptoms of hyperglycemia or hyperglycemic crisis, a random glucose >/= 200 mg/dl is diagnostic for diabetes. In the absence of unequivocal hyperglycemia, results should be confirmed by repeat testing. The classification and Diagnosis of Diabetes Diabetes Care 2021; 46: S19-S40. Current interpretive data was last revised 2022. Calcium 9.2 8.5 - 10.3 mg/dL [facility] Bilirubin, total 0.2 0.1 - 1.2 mg/dL [facility] Protein, pl 6.2(L) 6.5 - 8.5 g/dL [facility] Albumin 3.7 3.5 - 5.0 g/dL [facility] Alk phos 63 40 - 130 Units/L [facility]RE[facility] ALT 14 7 - 45 Units/L [facility] AST 24 10 - 45 Units/L [facility] Comment:Hemolyzed; result ma y be falsely elevated Blood 04/09/2024 10:4 8 AM [employer]OTH 04/09/2024 10:55 AM [employer]OTH us Chip Garrido MD LAB BLOOD ORDERABLES Final Result [facility] [address] [facility] Department [place] [address] * US Soft Tissue Neck (03/13/2024 12:10 PM [facility] [facility] [employer]OTH) Anatomical Region Laterality Modality Head and Neck N/A Ultrasound 03/13/2024 12:4 6 PM [facility]OTH Addenda Addendum by Barb Ball MD on 03/13/2024 12:53 PM [facility]OTH The submandibular glands are hypervascular, and symmetric. Electronically signed by: Barb Ball M.D. Impressions 03/13/2024 12:46 PM [facility] [facility] [employer]OTH 1. No focal sonographic abnormality of the submandibular glands. 2. No cervical lymphadenopathy. Electronically signed by: Barb Ball M.D. Narrative 03/13/2024 12:46 PM [facility] [facility] [employer]OTH EXAMINATION: US SOFT TISSUE NECK HISTORY: Bilateral submandibular masses, right anterior cervical lymphadenopathy noted on physical examination, undergoing workup for Sjogren's COMPARISON: None. FINDINGS: Bilateral submandibular glands are symmetric and normal in size. The echotexture is homogeneous. Vascularity is symmetric. No focal lesion within the submandibular glands. No stone is identified. No cervical lymphadenopathy. Procedure Note Barb Ball MD - 03/13/2024 EXAMINATION: US SOFT TISSUE NECK HISTORY: Bilateral submandibular masses, right anterior cervical lymphadenopathy noted on physical examination, undergoing workup for Sjogren's COMPARISON: None. FINDINGS: Bilateral submandibular glands are symmetric and normal in size. The echotexture is homogeneous. Vascularity is symmetric. No focal lesion within the submandibular glands. No stone is identified. No cervical lymphadenopathy. IMPRESSION: 1. No focal sonographic abnormality of the submandibular glands. 2. No cervical lymphadenopathy. Electronically signed by: Barb Ball M.D. Shakeel Monaco MD IMG US PROCEDURES Edited Result - Final * (ABNORMAL) eGFR (02/27/2024 9:00 AM [facility] [facility]OTH) eGFR 58(L) >=60 mL/min/1. 73 m2 Comment: Interpretive Data Reference Interval Normal >/= 90 mL/min/1.73m2 Mildly decreased* 60 - 89 mL/min/1.73m2 Mildly to moderately decreased 45 - 59 mL/min/1.73m2 Moderately to severely decreased 30 - 44 mL/min/1.73m2 Severely decreased 15 - 29 mL/min/1.73m2 Kidney Failure < 15 mL/min/1.73m2 *Relative to young adult level Estimated glomerular filtration rate is determined by the 2020 CKD-EPI equation recommended by the National Kidney Foundation (A Unifying Approach to GFR Estimation: Recommendations of the NKF-ASK Task Force on Reassessing the Inclusion of Race in Diagnosing Kidney Disease, JASN 2020). The CKD-EPI equation should not be used for patients with unstable renal function and has not been validated in children and those over 70. Current interpretive data was last reviewed 2021. Blood 02/27/2024 9:00 AM [facility] [facility] [employer]OTH 02/27/2024 4:56 PM [employer]OTH us Ashu Faustin MD LAB BLOOD ORDERABLES Fin al Result [facility] [address] Department [place] [address] * Basic metabolic panel (02/27/2024 9:00 AM K[employer] [facility]ER CLOTH) Sodium 142 135 - 145 mmol/L Potassium, pl 3.4 3.3 - 4.9 mmol/L [facility] Chloride 101 97 - 110 mmol/L [facility] CO2 26 22 - 32 mmol/L [facility] Anion gap 15 2 - 15 mmol/L [facility] BUN 22 6 - 25 mg/dL [facility] Creatinine 0.98 0.60 - 1.10 mg/dL [facility] Glucose 85 70 - 199 mg/dL [facility] Comment: Interpretive Data Fasting glucose >/= 126 mg/dl is diagnostic for diabetes. Fasting is defined as no caloric intake for at least 8 hours. Fasting glucose between 100 mg/dl to 125 mg/dl is diagnostic of prediabetes. In a patient with classic symptoms of hyperglycemia or hyperglycemic crisis, a random glucose >/= 200 mg/dl is diagnostic for diabetes. In the absence of unequivocal hyperglycemia, results should be confirmed by repeat testing. The classification and Diagnosis of Diabetes Diabetes Care 2021; 46: S19-S40. Current interpretive data was last revised 2022. Calcium 9.4 8.5 - 10.3 mg/dL [facility] Blood 02/27/2024 9:00 AM [facility] [facility]OTH 02/27/2024 4:38 PM [facility]OTH Ashu Faustin MD LAB BLOOD ORDERABLES Fin al Result Performing Organization Address City/State/[facility] Co de Phone Number [address] Department [place] [address] * Clinical pathology report (02/23/2024 4:22 PM [facility]) Miscellaneous 02/23/2024 4:2 2 PM [facility] [facility]OTH 02/28/2024 8:33 AM [facility]OTH Narrative 03/01/2024 9:47 AM [facility]OTH EPIC results best viewed via link to PDF Department of Pathology [address] [place] [id number] Final Report Note to Patients: This report may contain a detailed description of human tissue sent by a health care provider to the laboratory for pathologic evaluation. The content of this report is essential for diagnosis and may provide important critical findings. This information may be unfamiliar to patients to review without a medical professional present. It is advised that the patient review this report in the presence of a health care provider who can answer questions and explain the details. Patient Name: NEGRITA ROPER Address: [address] [place] [address] Gender: F : 1940 (Age: 83) Service: Location: Hospital #: [id number] Patient Type: SPECIMEN Taken: 02/23/2024 Received: 02/28/2024 Accessioned: 02/28/2024 Physician(s): Shakeel Monaco MD Specimen(s) Received A: Urine Urine Protein Immunofixation ElectrophoresisReported:03/01/2024 Interpretation: Urine Protein Immunofixation: Normal urine immunofixation study. Comment: Urine Protein Immunofixation: Examination of G, A and M heavy chains as well as kappa and lambda light chains reveals no evidence of abnormal bands. Tim Howard MD PhDReport Electronically Reviewed and Signed Out By Tim Howard MD PhD 03/01/2024 09:44:29 The performance characteristics of some immunohistochemical stains, fluorescence in-situ hybridization tests and immunophenotyping by flow cytometry cited in this report (if any) were determined by the Surgical Pathology Department at as part of an ongoing quality controller program and in compliance with federally mandated regulations drawn from the Clinical Laboratory Improvement Act of 1988 (CLIA '88). Some of these tests rely on the use of analyte specific reagents and are subject to specific labeling requirements by the US Food and Drug Administration. Such diagnostic tests may only be performed in a facility that is certified by the Department of Health and Human Services as a high complexity laboratory under CLIA '88. The FDA has determined that such clearance or approval is not necessary. This test is used for clinical purposes. It should not be regarded as investigational or for research. Nevertheless, federal rules concerning the medical use of analyte specific reagents require that the following disclaimer be attached to the report: This test was developed and its performance characteristics determined by the Surgical Pathology Department [facility]. It has not been cleared or approved by the U. S. Food and Drug Administration. REPORT IMAGES AND SCANNED DOCUMENTS, IF INCLUDED, ONLY VIEWABLE IN PDF VERSION OF REPORTe o Shakeel Monaco MD LAB PATHOLOGY ORDERABLES Final Result * Immunofixation, urine (02/23/2024 4:22 PM [facility] [facility]ER CLOTH) Pathologist [facility] Immunofixation , Ur See Cl Path Rpt Urine 02/23/2024 4:22 PM [facility] CLOTH 02/23/2024 8:17 PM [employer]OTH Shakeel Monaco MD LAB URINE ORDERABLES Ksenia l Result [facility] [address] Department [place] [address] * Immunotyping, serum (02/23/2024 11:34 AM K[employer]ER CLOTH) [facility] Immunosubtraction Please see comment Comment: NO PARAPROTEIN DETECTED Reviewed and signed by Catrachito Espitia MD, PhD 02/24/2024 Blood 02/23/2024 11:3 4 AM [facility] [facility]OTH 02/23/2024 4:57 PM [employer]OTH Shakeel Monaco MD LAB BLOOD ORDERABLES Ksenia l Result [facility] Department [place] [address] * (ABNORMAL) CBC with auto differential (02/23/2024 11:34 AM K[employer]ER CLOTH) [facility] White Blood Count 10.5 3.6 - 11.2 K/uL [facility] RBC 2.96(L) 3.63 - 4.92 M/uL [facility] Hemoglobin 9.8(L) 11.9 - 15.5 g/dL [facility] Comment:Repeated and Verifie d Hematocrit 29.5(L) 36.1 - 44.3 % [facility] Comment:Repeated and Verifie d MCV 99.6(H) 80.0 - 97.6 fL [facility] MCH 32.9 26.7 - 33.7 pg [facility] MCHC 33.1 32.7 - 35.5 g/dL [facility] RBC Dist Width 14.3 12.3 - 17.0 % [facility] Platelet Count 227 140 - 440 K/uL [facility] Comment:Repeated and Verifie d MPV 8.6 6.8 - 10.4 fL [facility] Neutrophils % 88.7(H) 38.7 - 74.5 % [facility] Lymphocyte % 4.0(L) 20.0 - 54.3 % [facility] Monocytes % 5.8 4.3 - 13.5 % [facility] Eosinophils % 1.1 0.0 - 6.0 % [facility] Basophil % 0.4 0.0 - 3.0 % [facility] Absolute Neutrophil 9.3(H) 1.8 - 6.6 K/uL [facility] Absolute Lymphocyte 0.4(L) 0.8 - 3.3 K/uL [facility] Absolute Monocyte 0.6 0.2 - 1.2 K/uL [facility] Absolute Eosinophil 0.1 0.0 - 0.5 K/uL [facility] Absolute Basophil 0.0 0.0 - 0.2 K/uL [facility] Nucleated RBC % 0.0 0.0 - 0.4 /100 WBC [facility] Blood 02/23/2024 11:3 4 AM [employer]OTH 02/23/2024 12:47 PM [employer]OTH us Shakeel Monaco MD LAB BLOOD ORDERABLES Ksenia leonardo Result [facility] * Protein electrophoresis with reflex, serum (02/23/2024 11:34 AM [facility]ER CLOTH) Protein, sr 6.3 6.2 - 8.2 g/dL Albumin 3.7 3.2 - 5.0 g/dL [facility] Alpha-1 globulin 0.4 0.2 - 0.4 g/dL [facility] Alpha-2 globulin 0.7 0.5 - 1.0 g/dL [facility] Beta-1 globulin 0.4 0.3 - 0.6 g/dL [facility] Beta-2 globulin 0.3 0.2 - 0.6 g/dL [facility] Gamma globulin 0.8 0.5 - 1.7 g/dL [facility] SPEP interp Please see comment [facility] Comment: No apparent monoclonal peak Reviewed and signed by Catrachito Espitia MD, PhD 02/24/2024 Blood 02/23/2024 11:3 4 AM [facility]OTH 02/23/2024 4:54 PM [employer]OTH Shakeel Monaco MD LAB BLOOD ORDERABLES Ksenia l Result [facility] Department [place] [address] * (ABNORMAL) Comprehensive metabolic panel (02/23/2024 11:34 AM [facility] CLOTH) Total Protein 6.8 6.1 - 8.4 g/dL [facility] Albumin 4.1 3.5 - 5.2 g/dL [facility] Calcium 9.2 8.6 - 10.3 mg/dL [facility] BUN 26(H) 7 - 23 mg/dL [facility] Total Bilirubin 0.29 0.20 - 1.40 mg/dL [facility] Alk Phos, Total 59 35 - 129 IU/L [facility] AST (SGOT) 18 11 - 47 IU/L [facility] ALT (SGPT) 13 6 - 53 IU/L [facility] Creatinine 1.31(H) 0.60 - 1.10 mg/dL [facility] Sodium 143 135 - 145 mmol/L [facility] Potassium 3.2(L) 3.3 - 5.1 mmol/L [facility] Chloride 103 95 - 107 mmol/L [facility] CO2 Content 26 21 - 29 mmol/L [facility] Glucose 120(H) 64 - 99 mg/dL [facility] Comment: NONFASTING GLUCOSE RANGE = 64-199 mg/dL FASTING GLUCOSE 64 - 99 = NORMAL FASTING GLUCOSE 100 - 125 = IMPAIRED FASTING GLUCOSE FASTING GLUCOSE >=126 = PROVISIONAL DIAGNOSIS OF DIABETES eGFR 40.7(L) >60.0 mL/min/1.7 3 m2 [facility] Blood 02/23/2024 11:3 4 AM [facility]ER CLOTH 02/23/2024 12:47 PM [employer] CLOTH us Shakeel Monaco MD LAB BLOOD ORDERABLES Ksenia l Result [facility] * (ABNORMAL) Urine culture Urine, clean voided (02/22/2024 2:38 PM K[facility]ER CLOTH) Report Final Report: Greater than or equal to 100,000 colonies/mL of Escherichia coli The susceptibility pattern of this Escherichia coli indicates the possible production of an extended spectrum beta lactamase (ESBL). Patients infected with ESBL-producing organisms require contact isolation precautions. For therapeutic options for this organism, please contact infectious diseases. (.) Comment:Testing performed by : [facility], [address] [facility] [address] Organism ESCHERICHIA COLI [facility] Urine, clean voided 02/22/2024 2:38 PM [facility] [facility]ER CLOTH 02/22/2024 6:43 PM [facility] P[employer]ER CLOTH Narrative ANDREAS - 02/25/2024 10:16 AM K[facility]ER CLOTH Testing performed by [facility] Microbiology Laboratory ([phone]) Organism Antibiotic Method Susceptibility Escherichia coli Ampicillin INTERPRETATION Resistant Escherichia coli Cefazolin INTERPRETATION Resistant Escherichia coli Nitrofurantoin INTERPRETATION Susceptible Escherichia coli Gentamicin INTERPRETATION Susceptible Escherichia coli Trimethoprim with Sulfamethoxazole INTERPRETATION Resistant Escherichia coli Meropenem INTERPRETATION Susceptible Escherichia coli Cefepime INTERPRETATION Susceptible Dose-dependent Escherichia coli Ciprofloxacin INTERPRETATION Resistant Escherichia coli Ceftazidime INTERPRETATION Susceptible Escherichia coli Ceftriaxone INTERPRETATION Resistant Escherichia coli Cephalexin INTERPRETATION Resistant Escherichia coli Cefuroxime-axetil INTERPRETATION Resistant Escherichia coli Cefdinir INTERPRETATION Resistant Escherichia coli Amikacin INTERPRETATION Susceptible Escherichia coli Aztreonam INTERPRETATION Intermediate Escherichia coli Imipenem INTERPRETATION Susceptible Escherichia coli Ertapenem INTERPRETATION Susceptible Escherichia coli Minocycline INTERPRETATION Susceptible Escherichia coli Tobramycin INTERPRETATION Susceptible Escherichia coli Levofloxacin INTERPRETATION Resistant Escherichia coli Doxycycline INTERPRETATION Resistant Escherichia coli Fosfomycin INTERPRETATION Susceptible us Brianda Hodgson NP LAB MICROBIOLOGY - GENERAL ORD ERABLES Final Result [facility] [address] Department [place] [address] * (ABNORMAL) POCT urinalysis dipstick (02/22/2024 10:17 AM K[employer] [facility]ER CLOTH) Color, Urine, POC Yellow Clarity, ur, POC Cloudy(A) Clear Glucose, ur, POC Negative Negative MG/DL Bilirubin, ur, POC Negative Negative, Small, Moderate, Large Ketones, ur, POC Trace(A) Negative Specific [place], POC 1.030 1.003 - 1.030 Blood, ur, POC Moderate(A) Negative pH, ur, POC 5.5 5.0 - 8.0 Protein, ur, POC 100.(A) Negative Urobilinogen, urine, POC 0.2 0.2 - 1.0 mg/dL Nitrite, ur, POC Positive(A) Negative Leukocytes, ur, POC Small(A) Negative Lot Number 0 Urine 02/22/2024 10:1 7 AM [employer]OTH Brianda Hodgson NP POINT OF CARE TEST ORDERABLES Final Result * XR Chest PA Lateral 2 Views (02/22/2024 9:49 AM K[employer] [facility]ER CLOTH) Anatomical Region Laterality Modality Body, Chest N/A Digital Radiogra phy 02/22/2024 10:1 3 AM [facility]ER CLOTH Narrative 02/22/2024 10:16 AM [facility]ER CLOTH EXAM DESCRIPTION: XR CHEST PA LATERAL 2 VIEWS REASON FOR STUDY: pain Fell night before last, anterior chest/sternal pain. Non-smoker. Prior spinal surgery. Interstitial lung disease TECHNIQUE: 2 radiographic view(s) of the chest. COMPARISON: 01/05/2024 FINDINGS: LUNGS: Stable diffuse chronic interstitial coarsening. No focal consolidation. No evidence of pneumothorax. No pleural effusion. HEART/MEDIASTINUM: Cardiac silhouette normal in size. Mediastinal and hilar contours appear normal. LINES/TUBES: None. BONES: No acute abnormality. Reverse right shoulder arthroplasty. Posterior spinal fusion. IMPRESSION: No acute cardiopulmonary abnormality. THIS IS AN ELECTRONICALLY VERIFIED FINAL REPORT 02/22/2024 10:16 AM - Electronically signed by Erik Earlevilleberkley RAMYE T: Report ID: [id number] Reading Location: [id number] Procedure Note Erik Evangelista MD - 02/22/2024 EXAM DESCRIPTION: XR CHEST PA LATERAL 2 VIEWS REASON FOR STUDY: pain Fell night before last, anterior chest/sternal pain. Non-smoker. Priorspinal surgery. Interstitial lung disease TECHNIQUE: 2 radiographic view(s) of the chest. COMPARISON: 01/05/2024 FINDINGS: LUNGS: Stable diffuse chronic interstitial coarsening. Nofocal consolidation. No evidence of pneumothorax. No pleural effusion. HEART/MEDIASTINUM: Cardiac silhouette normal in size. Mediastinal andhilar contours appear normal. LINES/TUBES: None. BONES: No acute abnormality. Reverse right shoulder arthroplasty.Posterior spinal fusion. IMPRESSION: No acute cardiopulmonary abnormality. THIS IS AN ELECTRONICALLY VERIFIED FINAL REPORT 02/22/2024 10:16 AM - Electronically signed by Erik RAMEY T: Report ID: [id number] Reading Location: [id number] Brianda Hodgson [employer]OS[employer] QUALITY ENGINEER IMG XR PROCEDURES Final Result * Dexa Axial Skeleton Bone Density 1 or 2 Site (01/06/2023 9:55 AM CDT) Anatomical Region Laterality Modality Body N/A Radiographic Dianelys ging Narrative 01/13/2023 2:28 PM CDT Patient Name: Negrita Roper Date of : 1940 Date of scan: 01/06/2023 Bone mineral density was performed on a [employer] Discovery Densitometer. Based on machine cross-calibration and precision studies the least significant changes of this densitometer is 0.024 g/cm2 at the spine, 0.020 g/cm2 at the total proximal femur, and 0.014g/cm2 at the forearm. HISTORY: This is a 82 y.o. postmenopausal female with a history of low bone mass and thyroid disease. She reports that she has never smoked. She has never used smokeless tobacco. Currently on treatment with calcium, vitamin D, and thyroid hormone, previously treated with hormone replacement therapy, and current complaint of arm pain. INDICATIONS: Menopause status and history of low bone mass. FINDINGS: BONE MINERAL DENSITY OF THE PROXIMAL FEMUR Bone Mineral Density (BMD) of the left hip total was found to be 0.773 gm/cm2. This corresponds to a T-score standard deviations from the mean of young adults of -1.4. Femoral neck is 0.688 gm/cm2 with a T-score (standard deviations from the mean of young adults) of -1.4. When compared to the previous study of 01/01/2021 there has been a -0.030 gm/cm (-3.7%) decrease in bone density that is considered significant. BONE MINERAL DENSITY OF THE FOREARM Bone Mineral density (BMD) of the left proximal 1/3 of the radius measures 0.584 gm/cm2. This corresponds to a T-score (standard deviations from the mean of young adults) of -1.8. When compared to the previous study of 01/01/2021 there has been a -0.024 gm/cm (-3.9%) decrease in bone density that is considered significant. A forearm bone density study was performed instead of a spine study because of presence of surgical hardware. SUMMARY: Bone mineral density shows evidence of low bone mass at the proximal femur and forearm and moderately increased fracture risk (Osteopenia). There has been a significant decrease in bone density since previous measurement. ADDITIONAL COMMENTS: Postmenopausal Women and Men Over 50: Diagnostic criteria: Osteoporosis: BMD at or below -2.5 T-score; Osteopenia (low bone mass): BMD between -1.0 and -2.5 T-score. If the patient has a history of a fragility fracture, a fracture that occurred with trauma equivalent to a fall from a standing position or less, then the diagnosis is osteoporosis regardless of bone density. The history and data sections of the bone mineral density scan were prepared by Yamila Perez([place]) WILLIAM who is accredited by the International Society of Clinical Densitometry. The overall patient assessment and scan interpretation were performed by Cinthia Gong MD who is certified by the International Society of Clinical Densitometry. 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
--- OUTSIDE RECORDS SUMMARY | 2024-05-14 19:22 | XMS_ITS | Clinical Summary ---
Author Organization [facility] Address [address] [place] [address] Phone Care Team Providers Care Director Sales And Trade Marketing Name Role Phone Erik Xie MD Primary Care Provider [phone] Allergies Active Allergy Reactions Criticality Noted Date Comments Cephalexin Hives High 07/03/2015 Morphine Hives High 07/03/2015 Medications rosuvastatin (CRESTOR) 5 mg tablet Take 5 mg by mouth daily at bedtime. Active omeprazole (PRILOSEC) 20 mg Capsule, Delayed Release(E.C.) Take 20 mg by mouth daily. 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 Active ramipril (ALTACE) 5 mg capsule Take 5 mg by mouth daily. Active ACETAMINOPHEN (TYLENOL ORAL) Take by mouth. 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 Gender Identity Not on file Sexual Orientation Not on file Last Filed Vital Signs Vital Sign Reading Time Taken Comments Blood Pressure 122/61 07/03/2015 10:41 AM CDT Pulse 84 07/03/2015 10:41 AM CDT Temperature 37.2 C (98.9 F) 07/03/2015 10:41 AM CDT Respiratory Rate 20 07/03/2015 10:41 AM CDT Oxygen Saturation 96% 07/03/2015 10:41 AM CDT Inhaled Oxygen Concentration - - Weight 65.8 [...] 75+ series) 2016 INFLUENZA VACCINE (#1) 2023 Insurance [employer]OR Care Teams Director Sales And Trade Marketing Relationship Specialty Start Date End Date Erik Xie MD [address] [facility] [address] [place] [address] PCP - General Internal Medicine 07/03/15
--- OUTSIDE RECORDS SUMMARY | 2024-05-14 19:22 | XMS_ITS | Encounter Summary ---
Author Organization [facility] Address [address] [place] [address] Phone Care Team Providers Care Mold Builder Name Role Phone Nael Mccormick Primary Care Provider [phone] Encounter Details Date Type Department Care Team (Latest Contact Info) Description 05/04/2023 Orders Only [facility] Scanning, Provider [...] on file Legal Sex Female 7:53 PM HEAD CONCIERGE Gender Identity Female 03/18/2020 8:08 AM HEAD CONCIERGE Sexual Orientation Straight 12/13/2019 2: 05 PM CDT documented as of this encounter Plan of Treatment Not on file documented as of this encounter Procedures Procedure Name Priority Date/Time Associated Diagnosis Comments SCAN - RADIOLOGY/IMAGING 05/04/2023 documented in this encounter Results * SCAN - RADIOLOGY/IMAGING (05/04/2023) Anatomical Region Laterality Modality Other us Provider [...] documented as of this encounter Care Teams Mold Builder Relationship Specialty Start Date End Date Nael Mccormick DO PCP - General Internal Medicine 09/29/17 documented as of this encounter
--- OUTSIDE RECORDS SUMMARY | 2024-05-14 19:22 | XMS_ITS | Referral Summary ---
Author Organization [facility] al Address [address] [place] [address] Care Team Providers Care Network Associate Name Role Phone Nael Mccormick DO Primary Care Provider [phone] Encounters Date Type Department Care Team Description 5 Documentation [facility] Rheumatology [address] [place] [address] [place] [phone] Ashu Faustin MD 5 8:02 AM SOILS TECHNICIAN - 5 11:59 PM SOILS TECHNICIAN Hospital Encounter [address] [address] Macrocytic anemia; High risk medication use Discharge Disposition: Discharge to home or self care 5 8:00 AM SOILS TECHNICIAN Lab [facility] Outpatient Lab at [address] [phone] Need for prophylactic chemotherapy (Primary Dx); Simple chronic anemia 5 Orders Only [facility] Rheumatology [address] [place] [address] [place] [address] Ashu Faustin MD Macrocytic anemia (Primary Dx) 5 11:00 AM SOILS TECHNICIAN Office Visit [facility] Rheumatology [address] [place] [address] [place] [address] Ashu Faustin MD ILD (interstitial lung disease) (CMS/HCC) (HCC) (Primary Dx); High risk medication use 5 1:30 PM SOILS TECHNICIAN Lab [facility] - Lab Collection [address] [facility] 6 [place] [address] Anemia, unspecified type; High risk medication use 5 2:30 PM SOILS TECHNICIAN Office Visit [facility] Hematology [address] [facility] 6 [place] [address] Cecy Bowser MD Anemia, unspecified type (Primary Dx) 5 9:00 AM SOILS TECHNICIAN Therapy [facility] Physical Therapy [address] [facility] [address] [place] [address] Margareth Lake DPT Spinal deformity (Primary Dx) 5 8:53 AM SOILS TECHNICIAN - 5 11:59 PM SOILS TECHNICIAN Hospital Encounter [address] [address] Acute cystitis without hematuria; Macrocytic anemia; Cellulitis of hand, right; Hypokalemia; Hypoglycemia, unspecified; Stage 3a chronic kidney disease (HCC) Discharge Disposition: Discharge to home or self care 5 9:00 AM SOILS TECHNICIAN Lab [facility] Outpatient Lab at [address] [phone] Hypercholesteremia (Primary Dx); High risk medication use 5 12:22 PM SOILS TECHNICIAN - 5 2:23 PM SOILS TECHNICIAN Hospital Encounter [address] [address] Chip Garrido MD Paruchuri, Tharun, MD [place], [...] Discharge to home or self care 5 Orders Only [facility] Rheumatology [address] [facility] Advanced Medicine 5th [place] [address] [place] [address] Ashu Faustin MD 5 9:30 AM SOILS TECHNICIAN Office Visit [facility] Care at [address] [phone] Mendy Leonard NP Swelling of right hand (Primary Dx); Cellulitis of right arm; Cellulitis of right hand 5 Documentation [facility] Rheumatology [address] [place] [address] 5th [place] [address] Ashu Faustin MD 5 9:30 AM SOILS TECHNICIAN Therapy [facility] Physical Therapy [address] [place] [phone] Margareth Lake DPT Spinal deformity (Primary Dx) 4 10:09 AM SOILS TECHNICIAN - 4 11:59 PM SOILS TECHNICIAN Hospital Encounter [facility] [address] [place] [phone] Seronegative arthritis; ILD (interstitial lung disease) (CMS/HCC) (HCC); Macrocytic anemia; High risk medication use; Dry mouth; Neck swelling Discharge Disposition: Discharge to home or self care 4 Plan of Care Documentation [facility] Physical Therapy [address] [place] [phone] 4 11:00 AM SOILS TECHNICIAN Therapy [facility] Physical Therapy [address] [place] [phone] Margareth Lake DPT Spinal deformity (Primary Dx) 4 Telephone [facility] Rheumatology [address] [place] [address] Advanced Medicine 5th [place] [address] Shakeel Monaco MD 4 2:09 PM SOILS TECHNICIAN - 4 11:59 PM SOILS TECHNICIAN Hospital Encounter [address] [address] Elevated serum creatinine Discharge Disposition: Discharge to home or self care 4 8:30 AM SOILS TECHNICIAN Lab [facility] Outpatient Lab at [address] [phone] Hyperlipidemia (Primary Dx); Hypothyroidism 4 Telephone [facility] Convenient Care at [address] [phone] Yen Curry MA 4 Orders Only [address] [address] Mendy Leonard NP 4 4:22 PM SOILS TECHNICIAN - 4 11:59 PM SOILS TECHNICIAN Hospital Encounter [address] [address] Discharge Disposition: Discharge to home or self care 4 4:15 PM SOILS TECHNICIAN Lab [facility] Outpatient Lab at [address] [phone] 4 Orders Only [facility] Rheumatology [address] [place] [address] [place] [address] Ashu Faustin MD Elevated serum creatinine (Primary Dx) 4 11:34 AM SOILS TECHNICIAN - 4 11:59 PM SOILS TECHNICIAN Hospital Encounter [address] [address] Seronegative arthritis; ILD (interstitial lung disease) ([facility]/HCC) (HCC); Macrocytic anemia; High risk medication use; Dry mouth; Neck swelling Discharge Disposition: Discharge to home or self care 4 11:15 AM SOILS TECHNICIAN Lab [facility] Endocrinology Metabolism and Lipid [address] [place] [address] [place] [address] Seronegative arthritis; ILD (interstitial lung disease) ([facility]/HCC) (HCC); Macrocytic anemia; High risk medication use; Dry mouth; Neck swelling 4 10:15 AM SOILS TECHNICIAN Office Visit [facility] Rheumatology [address] [place] [address] 5th [place] [address] Ashu Faustin MD Seronegative arthritis (Primary Dx); ILD (interstitial lung disease) (CMS/HCC) (HCC); Macrocytic anemia; High risk medication use; Dry mouth; Neck swelling 4 10:24 AM SOILS TECHNICIAN - 4 11:59 PM SOILS TECHNICIAN Hospital Encounter [address] [address] Acute cystitis with hematuria Discharge Disposition: Discharge to home or self care 4 Telephone [facility] Orthopaedic Surgery [address] [place] [address] 6th [place] [address] Chirag Zavala MD Fall 4 9:40 AM SOILS TECHNICIAN Ancillary Procedure [facility] Imaging at [address] [phone] Rib pain on left side 4 9:45 AM SOILS TECHNICIAN Office Visit [facility] Convenient Care at [address] [phone] Brianda Hodgson NP Rib pain on left side (Primary Dx); Acute cystitis with hematuria from Last 3 Months Allergies Active Allergy Reactions Criticality Noted Date [...] thickening with known fibrotic changes of ILD. 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 Could have [...] past few months. Being worked up by [employer] and has Heme appt 01/18 - outpatient [...] (01/07/2024 11:47 AM CDT): Follows with Dr. Faustin, Rheum. 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 -Rheumatology [...] recent weight loss over past year. 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 04/27/2012 [...] 01/13/2012 Arthralgia 12/23/2011 Scoliosis 07/05/2011 Polymyalgia rheumatica ([facility]) 10/08/2010 Hypercholesteremia 07/18/2010 High risk medication [...] TFTs Encounter for preventive health examination 02/19 Immunizations Immunization Administration Dates Next Due Influenza, Quadrivalent, Hig h Dose, Preservative Free, Intrr 11/21/2019,12/08/2015 Influenza, Trivalent, Adjuva nted, Intramuscular 12/16/2017 Influenza, Trivalent, High D ose, Split, Preservative Free, Intramuscular 12/06/2018,12/20/2016,01/23/2015 Influenza, Trivalent, IM (MDV) 12/13/2012,2011 Influenza, Unspecified 12/08/2015 Pneumococcal Conjugate PCV 13 10/03/2014 Pneumococcal Conjugate Pcv20 04/26/2024 Pneumococcal Polysaccharide PPV23 2018,03/17/2017,12/13/2012,12/22 ZOSTER Recombinant 05/23/2017,03/17/2017 Social History Tobacco Use Types Packs/Day Years Used Date Smoking Tobacco: Never Passive Smoke Exposure: Never Smokeless Tobacco: Never Tobacco Cessation:Counseling Given: Not Answered Alcohol Use Standard Drinks/Week Comments Never 0 (1 standard drink = 0.6 oz pur e alcohol) [facility] Utilities Answer Date Recorded In the past 12 months has [employer], gas, oil, or water [employer] threatened to shut off services in your [...] often do you attend chur ch or sabianist services? 1 to 4 times per year 04/10/2024 Do you belong to any clubs o r organizations such as protestant groups, unions, fraternal or athletic groups, or [...] money to buy more. Never true 04/10/19 25 Within the past 12 months, t he [...] any time in the past 12 m [facility], were you homeless or living in a prison (including now)? No 04/10/2024 Personal Safety Answer Date Recorded Have you ever been in or are you currently in a harmful physical or emotional relationship or is someone making you feel afraid or unsafe? 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 file Not on file Not on file Last Filed Vital Signs Vital Sign Reading Time Taken Comments Blood Pressure 131/73 04/26/2024 2:21 PM SOILS TECHNICIAN first bp 150/66 right arm sitting Pulse 84 04/26/2024 2:21 PM SOILS TECHNICIAN Temperature 36.5 C (97.7 F) 04/26/2024 2:21 PM SOILS TECHNICIAN Respiratory Rate 16 04/12/2024 7:37 AM SOILS TECHNICIAN Oxygen Saturation 97% 04/26/2024 2:2 1 PM SOILS TECHNICIAN Inhaled Oxygen Concentration - - Weight 53.3 kg (117 lb 6.4 oz) 04/26/2024 2:21 PM SOILS TECHNICIAN Height 146.2 cm (4' 9.56 ) 04/26/2024 2 :21 PM SOILS TECHNICIAN Body Mass Index 24.91 04/26/2024 2:21 PM SOILS TECHNICIAN Plan of Treatment Not on file Procedures Procedure Name Priority Date/Time Associated Diagnosis Comments EGFR Routine 05/04/2024 8:02 AM SOILS TECHNICIAN High risk medication use DIFFERENTIAL AUTO Routine 05/04/2024 8:0 2 AM SOILS TECHNICIAN High risk medication use CBC WITH AUTO DIFFERENTIAL Routine 05/04/2024 8:02 AM SOILS TECHNICIAN High risk medication use COMPREHENSIVE METABOLIC PANEL Routine 05/04/2024 8:02 AM SOILS TECHNICIAN High risk medication use TPMT ACTIVITY Routine 05/04/2024 8:02 AM SOILS TECHNICIAN High risk medication use LACTATE DEHYDROGENASE Routine 05/04/2024 8:02 AM SOILS TECHNICIAN Macrocytic anemia EGFR Routine 04/26/2024 1:42 PM SOILS TECHNICIAN High risk medication use DIFFERENTIAL AUTO Routine 04/26/2024 1:4 2 PM SOILS TECHNICIAN Anemia, unspecified type COMPREHENSIVE METABOLIC PANEL Routine 04/26/2024 1:42 PM SOILS TECHNICIAN High risk medication use ERYTHROCYTE SEDIMENTATION RATE Routine 04/26/2024 1:42 PM SOILS TECHNICIAN Anemia, unspecified type CRP (ACUTE PHASE) Routine 04/26/2024 1:4 2 PM SOILS TECHNICIAN Anemia, unspecified type VITAMIN B12 Routine 04/26/2024 1:42 PM SOILS TECHNICIAN Anemia, unspecified type IRON PROFILE W/ IBC Routine 04/26/2024 1 :42 PM SOILS TECHNICIAN Anemia, unspecified type FERRITIN Routine 04/26/2024 1:42 PM SOILS TECHNICIAN Anemia, unspecified type HAPTOGLOBIN Routine 04/26/2024 1:42 PM SOILS TECHNICIAN Anemia, unspecified type LACTATE DEHYDROGENASE Routine 04/26/2024 1:42 PM SOILS TECHNICIAN Anemia, unspecified type RETICULOCYTES Routine 04/26/2024 1:42 PM SOILS TECHNICIAN Anemia, unspecified type ERYTHROPOIETIN Routine 04/26/2024 1:42 PM SOILS TECHNICIAN Anemia, unspecified type CBC WITH AUTO DIFFERENTIAL Routine 04/26/2024 1:42 PM SOILS TECHNICIAN Anemia, unspecified type EGFR Routine 04/19/2024 8:53 AM SOILS TECHNICIAN Hypokalemia Hypoglycemia, unspecified Stage 3a chronic kidney disease (HCC) BASIC METABOLIC PANEL Routine 04/19/2024 8:53 AM SOILS TECHNICIAN Hypokalemia Hypoglycemia, unspecified Stage 3a chronic kidney disease (HCC) CBC WITHOUT DIFFERENTIAL Routine 04/19/2024 8:53 AM SOILS TECHNICIAN Acute cystitis without hematuria Macrocytic anemia Cellulitis of hand, right EGFR Routine 04/12/2024 3:00 AM SOILS TECHNICIAN DIFFERENTIAL AUTO Routine 04/12/2024 3:0 0 AM SOILS TECHNICIAN MAGNESIUM Routine 04/12/2024 3:00 AM SOILS TECHNICIAN BASIC METABOLIC PANEL Routine 04/12/2024 3:00 AM SOILS TECHNICIAN CBC WITH AUTO DIFFERENTIAL Routine 04/12/2024 3:00 AM SOILS TECHNICIAN EGFR Routine 04/11/2024 3:03 AM SOILS TECHNICIAN DIFFERENTIAL AUTO Routine 04/11/2024 3:0 3 AM SOILS TECHNICIAN BASIC METABOLIC PANEL Routine 04/11/2024 3:03 AM SOILS TECHNICIAN CBC WITH AUTO DIFFERENTIAL Routine 04/11/2024 3:03 AM SOILS TECHNICIAN HEMOGLOBIN AND HEMATOCRIT Timed 04/10/2024 4:42 PM SOILS TECHNICIAN TRANSFUSE RED BLOOD CELLS Timed 04/10/2024 12:27 PM SOILS TECHNICIAN PREPARE RBC Timed 04/10/2024 11:56 AM SOILS TECHNICIAN B ABO / RH CONFIRMATION TESTING STAT 04/10/2024 11:10 AM SOILS TECHNICIAN CROSSMATCH Timed 04/10/2024 10:28 AM SOILS TECHNICIAN ANTIBODY SCREEN Timed 04/10/2024 10:28 AM SOILS TECHNICIAN ABO/RH Timed 04/10/2024 10:28 AM SOILS TECHNICIAN TYPE AND SCREEN Timed 04/10/2024 10:28 AM SOILS TECHNICIAN MRSA ONLY (STAPHYLOCOCCUS AUREUS) PCR Routine 04/10/2024 8:42 AM SOILS TECHNICIAN THYROID FUNCTION CASCADE Routine 04/10/2024 3:55 AM SOILS TECHNICIAN EGFR Routine 04/10/2024 3:55 AM SOILS TECHNICIAN DIFFERENTIAL AUTO Routine 04/10/2024 3:5 5 AM SOILS TECHNICIAN MAGNESIUM Routine 04/10/2024 3:55 AM SOILS TECHNICIAN COMPREHENSIVE METABOLIC PANEL Routine 04/10/2024 3:55 AM SOILS TECHNICIAN CBC WITH AUTO DIFFERENTIAL Routine 04/10/2024 3:55 AM SOILS TECHNICIAN BLOOD CULTURE STAT 04/09/2024 1:57 PM SOILS TECHNICIAN BLOOD CULTURE STAT 04/09/2024 1:48 PM SOILS TECHNICIAN URINALYSIS, MICROSCOPIC ONLY STAT 04/09/2024 12:56 PM SOILS TECHNICIAN URINE CULTURE STAT 04/09/2024 12:56 PM SOILS TECHNICIAN URINALYSIS AND REFLEX TO MICROSCOPIC AND CULTURE STAT 04/09/2024 12:56 PM SOILS TECHNICIAN XR HAND RIGHT 3 OR MORE VIEWS ED 04/09/2024 10:54 AM SOILS TECHNICIAN XR CHEST 1 VIEW ED 04/09/2024 10:53 AM SOILS TECHNICIAN MAGNESIUM STAT 04/09/2024 10:48 AM SOILS TECHNICIAN EGFR STAT 04/09/2024 10:48 AM SOILS TECHNICIAN URIC ACID STAT 04/09/2024 10:48 AM SOILS TECHNICIAN MANUAL DIFFERENTIAL STAT 04/09/2024 1 0:48 AM SOILS TECHNICIAN DIFFERENTIAL AUTO STAT 04/09/2024 10: 48 AM SOILS TECHNICIAN SEPSIS LACTATE WITH REFLEX Routine 04/09/2024 10:48 AM SOILS TECHNICIAN COMPREHENSIVE METABOLIC PANEL STAT 04/09/2024 10:48 AM SOILS TECHNICIAN CBC WITH AUTO DIFFERENTIAL STAT 04/09/2024 10:48 AM SOILS TECHNICIAN US SOFT TISSUE NECK Schedule Routine, Read Routine (OP Routine) 03/13/2024 12:10 PM SOILS TECHNICIAN Seronegative arthritis ILD (interstitial lung disease) (CMS/HCC) (HCC) Macrocytic anemia High risk medication use Dry mouth Neck swelling EGFR Routine 02/27/2024 9:00 AM SOILS TECHNICIAN Elevated serum creatinine BASIC METABOLIC PANEL Routine 02/27/2024 9:00 AM SOILS TECHNICIAN Elevated serum creatinine CLINICAL PATHOLOGY REPORT Routine 02/23/2024 4:22 PM SOILS TECHNICIAN IMMUNOFIXATION, URINE Routine 02/23/2024 4:22 PM SOILS TECHNICIAN IMMUNOTYPING Routine 02/23/2024 11:34 AM SOILS TECHNICIAN Seronegative arthritis ILD (interstitial lung disease) (CMS/HCC) (HCC) Macrocytic anemia High risk medication use Dry mouth Neck swelling PROTEIN ELECTROPHORESIS, WITH REFLEX, SERUM Routine 02/23/2024 11:34 AM SOILS TECHNICIAN Seronegative arthritis ILD (interstitial lung disease) (CMS/HCC) (HCC) Macrocytic anemia High risk medication use Dry mouth Neck swelling COMPREHENSIVE METABOLIC PANEL Routine 02/23/2024 11:34 AM SOILS TECHNICIAN Seronegative arthritis ILD (interstitial lung disease) (CMS/HCC) (HCC) Macrocytic anemia High risk medication use Dry mouth Neck swelling CBC WITH AUTO DIFFERENTIAL Routine 02/23/2024 11:34 AM SOILS TECHNICIAN Seronegative arthritis ILD (interstitial lung disease) (CMS/HCC) (HCC) Macrocytic anemia High risk medication use Dry mouth Neck swelling URINE CULTURE Routine 02/22/2024 2:38 PM SOILS TECHNICIAN Acute cystitis with hematuria POCT URINALYSIS DIPSTICK Routine 02/22/2024 10:17 AM SOILS TECHNICIAN Rib pain on left side XR CHEST PA LATERAL 2 VIEWS Schedule CAMILA, Read CAMILA (Appt Today, Awaiting Results) 02/22/2024 9:49 AM SOILS TECHNICIAN Rib pain on left side DEXA AXIAL SKELETON BONE DENSITY 1 OR MORE SITES Schedule Routine, Read Routine (OP Routine) 01/06/2023 9:55 AM CDT Osteopenia after menopause from Last 3 Months or Most Recently Relevant to Health Maintenance Results * eGFR (05/04/2024 8:02 AM SOILS TECHNICIAN) eGFR 64 >=60 mL/min/1. 73 m2 Comment: [...] last reviewed 2021. Blood 05/04/2024 8:02 AM SOILS TECHNICIAN 05/04/2024 5:58 PM SOILS TECHNICIAN us Ashu Faustin MD LAB BLOOD ORDERABLES Fin al Result ANDRE[facility] [id number] Department [place] [address] * Differential, auto (05/04/2024 8:02 AM SOILS TECHNICIAN) Neutrophil abs 2.5 1.5 - 6.5 K/cumm Imm gran abs 0.0 0.0 - 0.1 K/cumm [facility] Lymphocyte abs 1.7 0.8 - 3.3 K/cumm [facility] Monocyte abs 0.6 0.2 - 0.8 K/cumm [facility] Eosinophil abs 0.1 0.0 - 0.5 K/cumm [facility] Basophil abs 0.0 0.0 - 0.1 K/cumm [facility] Neutrophil pct 51.2 % [facility] Comment: Interpretive Data Percent cell count reference ranges are not reported, since discordance with absolute values may lead to misinterpretation of CBC data. Current Interpretive Data was last revised on 2017. Imm gran pct 0.4 % [facility] Comment: Interpretive Data Percent cell count reference ranges are not reported, since discordance with absolute values may lead to misinterpretation of CBC data. Current Interpretive Data was last revised on 2017. Lymphocyte pct 35.2 % [facility] Comment: Interpretive Data Percent cell count reference ranges are not reported, since discordance with absolute values may lead to misinterpretation of CBC data. Current Interpretive Data was last revised on 2017. Monocyte pct 11.2 % [facility] Comment: Interpretive Data Percent cell count reference ranges are not reported, since discordance with absolute values may lead to misinterpretation of CBC data. Current Interpretive Data was last revised on 2017. Eosinophil pct 1.6 % [facility] Comment: Interpretive Data Percent cell count reference ranges are not reported, since discordance with absolute values may lead to misinterpretation of CBC data. Current Interpretive Data was last revised on 2017. Basophil pct 0.4 % [facility] Comment: Interpretive Data Percent cell count reference ranges are not reported, since discordance with absolute values may lead to misinterpretation of CBC data. Current Interpretive Data was last revised on 2017. Blood 05/04/2024 8:02 AM SOILS TECHNICIAN 05/04/2024 4:55 PM SOILS TECHNICIAN us Ashu Faustin MD LAB BLOOD ORDERABLES Fin al Result [facility] [id number] Department [place] [address] * (ABNORMAL) TPMT activity profile, RBC (05/04/2024 8:02 AM SOILS TECHNICIAN) 6-METHYLMERCAPTOPURI NE 4.41 3.00 - 6.66 [facility] 6-Methylmercaptopuri ne Riboside 4.53(L) 5.04 - 9.57 [facility] 6-METHYLTHIOGUANINE RIBOSIDE 2.89 2.70 - 5.84 [facility] Interpretation,Comp See Footnote [facility] B[facility]NS Comment: *Normal* In this whole blood sample, the profile of activity of thiopurine methyltransferase using three different substrates was essentially normal. ADDITIONAL INFORMATION Liquid Chromatography-Tandem Mass Spectrometry (LC-MS/MS) This test was developed and its performance characteristics determined by [facility] in a manner consistent with CLIA requirements. This test has not been cleared or approved by the U.S. Food and Drug Administration. Reviewed by See Footnote [facility] BURNS Comment: RESULT: Marc Farr M.D., Ph.D. Test Performed by: [place] [address] [employer] Washing Machine Operator: Pardeep Jaime Ph.D.; CLIA# [id number] Blood 05/04/2024 8:02 AM SOILS TECHNICIAN 05/04/2024 4:55 PM SOILS TECHNICIAN Ashu Faustin MD LAB BLOOD ORDERABLES Fin al Result [facility] [id number] Department [place] [address] [facility] * (ABNORMAL) CBC with auto differential (05/04/2024 8:02 AM SOILS TECHNICIAN) WBC 4.9 3.8 - 9.9 K/cumm Hgb 10.3(L) 11.9 - 15.5 g/dL [facility] Hct 34.9(L) 35.6 - 45.5 % [facility] Plt 191 150 - 400 K/cumm [facility] MPV 11.5 9.1 - 12.3 fL [facility] RBC 3.31(L) 3.90 - 5.20 M/cumm [facility] MCV 105.4(H) 81.3 - 96.4 fL [facility] MCH 31.1 27.1 - 33.3 pg [facility] MCHC 29.5(L) 32.3 - 35.7 g/dL [facility] RDW CV 14.0 11.1 - 14.9 % [facility] RDW SD 55.3(H) 35.7 - 48.1 fL [facility] NRBC abs 0.00 0.00 - 0.01 K/cumm [facility] Blood 05/04/2024 8:02 AM SOILS TECHNICIAN 05/04/2024 4:55 PM SOILS TECHNICIAN Ashu Faustin MD LAB BLOOD ORDERABLES Fin al Result Performing Organization Address City/[facility]/ZIP Co de Phone Number [facility] [id number] [address] [facility] [email or web address] [place], [place] [id number] * (ABNORMAL) Lactate dehydrogenase (LD) (05/04/2024 8:02 AM SOILS TECHNICIAN) Lactate dehydrogenase (LDH) 422(H) 100 - 250 Units/L Blood 05/04/2024 8:02 AM SOILS TECHNICIAN 05/04/2024 4:55 PM SOILS TECHNICIAN Ashu Faustin MD LAB BLOOD ORDERABLES Fin al Result Performing Organization Address City/[facility] Co de Phone Number [facility] [id number] [place] [address] * Comprehensive metabolic panel (05/04/2024 8:02 AM SOILS TECHNICIAN) Pathologist [facility] Sodium 141 135 - 145 mmol/L Potassium, pl 3.9 3.3 - 4.9 mmol/L [facility] Chloride 102 97 - 110 mmol/L [facility] CO2 28 22 - 32 mmol/L [facility] Anion gap 11 2 - 15 mmol/L [facility] BUN 15 6 - 25 mg/dL [facility] Creatinine 0.90 0.60 - 1.10 mg/dL [facility] Glucose 75 70 - 199 mg/dL [facility] Comment: Interpretive Data Fasting glucose >/= [...] Calcium 9.1 8.5 - 10.3 mg/dL [facility] Bilirubin, total 0.2 0.1 - 1.2 mg/dL [facility] Protein, pl 6.7 6.5 - 8.5 g/dL [facility] Albumin 3.7 3.5 - 5.0 g/dL [facility] Alk phos 56 40 - 130 Units/L [facility] ALT 18 7 - 45 Units/L [facility] AST 44 10 - 45 Units/L [facility] Blood 05/04/2024 8:02 AM SOILS TECHNICIAN 05/04/2024 4:55 PM SOILS TECHNICIAN Ashu Faustin MD LAB BLOOD ORDERABLES Fin al Result [facility] [address] Department of Laboratories [place] [id number] * (ABNORMAL) eGFR (04/26/2024 1:42 PM SOILS TECHNICIAN) eGFR 53(L) >=60 mL/min/1. 73 m2 Comment: [...] last reviewed 2021. Blood 04/26/2024 1:42 PM SOILS TECHNICIAN 04/26/2024 1:52 PM SOILS TECHNICIAN us Ashu Faustin MD LAB BLOOD ORDERABLES Fin al Result [facility] Department [place] [address] * (ABNORMAL) Differential, auto (04/26/2024 1:42 PM SOILS TECHNICIAN) Neutrophil abs 7.2(H) 1.5 - 6.5 K/cumm Comment:Testing performed by : [facility], [address] [place] [phone] Lymphocyte abs 2.8 0.8 - 3.3 K/cumm [facility] Comment:Testing performed by : [facility] [facility] [address] [place] [phone] Monocyte abs 0.9(H) 0.2 - 0.8 K/cumm CERNER BJ Comment:Testing performed by : [facility], [address] [place] [phone] Eosinophil abs 0.2 0.0 - 0.5 K/cumm CERNER BJ Comment:Testing performed by : [facility], [address] [place] [phone] Basophil abs 0.1 0.0 - 0.1 K/cumm CERNER BJ Comment:Testing performed by : [facility], [address] [place] [phone] Neutrophil pct 64.5 % CERNER BJ Comment: Interpretive Data Percent cell count reference ranges are not reported, since discordance with absolute values may lead to misinterpretation of CBC data. Current Interpretive Data was last revised on 2017. Testing performed by: [facility], [address] [place] [phone] Lymphocyte pct 25.2 % CERNER BJ Comment: Interpretive Data Percent cell count reference ranges are not reported, since discordance with absolute values may lead to misinterpretation of CBC data. Current Interpretive Data was last revised on 2017. Testing performed by: [facility], [address] [place] [phone] Monocyte pct 8.2 % CERENE MCKEON Comment: Interpretive Data Percent cell count reference ranges are not reported, since discordance with absolute values may lead to misinterpretation of CBC data. Current Interpretive Data was last revised on 2017. Testing performed by: [facility], [address] [place] [phone] Eosinophil pct 1.5 % CERNER BJ Comment: Interpretive Data Percent cell count reference ranges are not reported, since discordance with absolute values may lead to misinterpretation of CBC data. Current Interpretive Data was last revised on 2017. Testing performed by: [facility], [address] [place] [address] Basophil pct 0.6 % CERENE MCKEON Comment: Interpretive Data Percent cell count reference ranges are not reported, since discordance with absolute values may lead to misinterpretation of CBC data. Current Interpretive Data was last revised on 2017. Testing performed by: [facility], [address] [place] [phone] Blood 04/26/2024 1:42 PM SOILS TECHNICIAN 04/26/2024 1:48 PM SOILS TECHNICIAN Cecy Bowser MD LAB BLOOD ORDERABLES Final Result [facility] Department [place] [address] * Iron profile w/ IBC (04/26/2024 1:42 PM SOILS TECHNICIAN) Iron 69 35 - 145 mcg/dL TIBC 252 250 - 400 mcg/dL [facility] Transferrin saturation 27 20 - 50 % ANDREAS [facility] Blood 04/26/2024 1:42 PM SOILS TECHNICIAN 04/26/2024 1:52 PM SOILS TECHNICIAN us Cecy Bowser MD LAB BLOOD ORDERABLES Final Result ANDREAS [facility] Department [place] [address] * (ABNORMAL) CBC with auto differential (04/26/2024 1:42 PM SOILS TECHNICIAN) WBC 11.2(H) 3.8 - 9.9 K/cumm Comment:Testing performed by : [facility], [address] [place] [address] Hgb 11.3(L) 11.9 - 15.5 g/dL ANDREAS MCKEON Comment:Testing performed by : [facility], [address] [place] [address] Hct 35.5(L) 35.6 - 45.5 % ANDREAS MCKEON Comment:Testing performed by : [facility], [address] [place] [address] Plt 404(H) 150 - 400 K/cumm CERENE MCKEON Comment:Testing performed by : [facility], [address] [place] [address] MPV 8.1 6.8 - 10.4 fL CERENE MCKEON Comment:Testing performed by : [facility], [address] [place] [address] RBC 3.57(L) 3.90 - 5.20 M/cumm CERENE MCKEON Comment:Testing performed by : [facility], [address] [place] [address] MCV 99.4(H) 81.3 - 96.4 fL CERENE BJ Comment:Testing performed by : [facility], [address] [place] [address] MCH 31.8 27.1 - 33.3 pg CERENE BJ Comment:Testing performed by : [facility], [address] [place] [address] MCHC 32.0(L) 32.3 - 35.7 g/dL CERNER [facility] Comment:Testing performed by : [facility], [address] [place] [phone] RDW CV 15.3(H) 11.1 - 14.9 % [facility] Comment:Testing performed by : [facility], [address] [place] [phone] NRBC abs 0.00 0.00 - 0.01 K[facility]umm [facility] Comment:Testing performed by : [facility], [address] [place] [phone] Blood 04/26/2024 1:42 PM SOILS TECHNICIAN 04/26/2024 1:48 PM SOILS TECHNICIAN Cecy Bowser MD LAB BLOOD ORDERABLES Final Result Performing Organization Address [facility] Co de Phone Number [facility] [place] [address] * Erythropoietin (04/26/2024 1:42 PM SOILS TECHNICIAN) Pathologist [facility] Erythropoietin 9.9 2.6 - 18.5 mIUnits/mL [facility] Comment: Test Performed by: [facility] [address] [id number] [employer] Washing Machine Operator: Pardeep Jaime Ph.D.; CLIA# [id number] Blood 04/26/2024 1:42 PM SOILS TECHNICIAN 04/26/2024 6:21 PM SOILS TECHNICIAN Cecy Bowser MD LAB BLOOD ORDERABLES Final Result [facility] [place] [address] [facility] * Erythrocyte sedimentation rate (04/26/2024 1:42 PM SOILS TECHNICIAN) Pathologist [facility] Erythrocyte sedimentation rate 15 1 - 30 mm/hr Blood 04/26/2024 1:42 PM SOILS TECHNICIAN 04/26/2024 5:10 PM SOILS TECHNICIAN Cecy Bowser MD LAB BLOOD ORDERABLES Final Result Performing Organization Address [facility] de Phone Number [facility] [email or web address] [address] * Reticulocyte Count (04/26/2024 1:42 PM SOILS TECHNICIAN) Pathologist [facility] Retics, absolute 0.045 0.020 - 0.100 M/cumm Comment:Testing performed by : [facility], [address] [place] [phone] Retics 1.2 0.5 - 1.8 % [facility] Comment:Testing performed by : [facility], [address] [place] [phone] Blood 04/26/2024 1:42 PM SOILS TECHNICIAN 04/26/2024 1:48 PM SOILS TECHNICIAN Cecy Bowser MD LAB BLOOD ORDERABLES Final Result Performing Organization Address [facility] Co de Phone Number [facility] [email or web address] [address] * CRP (acute phase) (04/26/2024 1:42 PM SOILS TECHNICIAN) [facility] CRP 3.6 <=10.0 mg/L Blood 04/26/2024 1:42 PM SOILS TECHNICIAN 04/26/2024 2:19 PM SOILS TECHNICIAN Result [facility] Cecy Bowser MD LAB BLOOD ORDERABLES Final Result Performing Organization Address [facility] Co de Phone Number [place], [place] [phone] * (ABNORMAL) Lactate dehydrogenase (LD) (04/26/2024 1:42 PM SOILS TECHNICIAN) Pathologist [facility] Lactate dehydrogenase (LDH) 336(H) 100 - 250 Units/L Blood 04/26/2024 1:42 PM SOILS TECHNICIAN 04/26/2024 1:52 PM SOILS TECHNICIAN us Cecy Bowser MD LAB BLOOD ORDERABLES Final Result Performing Organization Address [facility] Co de Phone Number [facility] [email or web address] [address] * Haptoglobin (04/26/2024 1:42 PM SOILS TECHNICIAN) Haptoglobin 159.0 30.0 - 200.0 mg/dL Blood 04/26/2024 1:42 PM SOILS TECHNICIAN 04/26/2024 2:19 PM SOILS TECHNICIAN us Cecy Bowser MD LAB BLOOD ORDERABLES Final Result Performing Organization Address [facility] de Phone Number [facility] [place] [address] * (ABNORMAL) Ferritin (04/26/2024 1:42 PM SOILS TECHNICIAN) Ferritin 583(H) 13 - 150 ng/mL Blood 04/26/2024 1:42 PM SOILS TECHNICIAN 04/26/2024 1:52 PM SOILS TECHNICIAN us Cecy Bowser MD LAB BLOOD ORDERABLES Final Result Performing Organization Address [facility] Co de Phone Number [facility] [email or web address] [address] * (ABNORMAL) Vitamin B12 (04/26/2024 1:42 PM SOILS TECHNICIAN) Vitamin B12 >2,000(H) 230 - 1,250 pg/mL Blood 04/26/2024 1:42 PM SOILS TECHNICIAN 04/26/2024 2:19 PM SOILS TECHNICIAN us Cecy Bowser MD LAB BLOOD ORDERABLES Final Result Performing Organization Address [facility]/State/ZIP Co de Phone Number [facility] Department [place] [address] * (ABNORMAL) Comprehensive metabolic panel (04/26/2024 1:42 PM SOILS TECHNICIAN) Sodium 142 135 - 145 mmol/L Potassium, pl 3.8 3.3 - 4.9 mmol/L [facility] Chloride 103 97 - 110 mmol/L [facility] CO2 33(H) 22 - 32 mmol/L [facility] Anion gap 6 2 - 15 mmol/L [facility] BUN 19 6 - 25 mg/dL [facility] Creatinine 1.05 0.60 - 1.10 mg/dL [facility] Glucose 108 70 - 199 mg/dL [facility] Comment: Interpretive Data Fasting glucose >/= [...] 2022. Calcium 9.5 8.5 - 10.3 mg/dL [facility] Bilirubin, total 0.3 0.1 - 1.2 mg/dL [facility] Protein, pl 7.2 6.5 - 8.5 g/dL [facility] Albumin 3.8 3.5 - 5.0 g/dL [facility] Alk phos 58 40 - 130 Units/L [facility] ALT 14 7 - 45 Units/L [facility] AST 27 10 - 45 Units/L [facility] Blood 04/26/2024 1:42 PM SOILS TECHNICIAN 04/26/2024 1:52 PM SOILS TECHNICIAN us Ashu Faustin MD LAB BLOOD ORDERABLES Fin al Result Performing Organization Address City/[facility]/ZIP Co de Phone Number [facility] Department [place] [address] * eGFR (04/19/2024 8:53 AM SOILS TECHNICIAN) eGFR 60 >=60 mL/min/1. 73 m2 Comment: [...] last reviewed 2021. Blood 04/19/2024 8:53 AM SOILS TECHNICIAN 04/19/2024 7:01 PM SOILS TECHNICIAN us Keny Gomes MD LAB BLOOD ORDERABLES Final Result [facility] [address] Department [place] [address] * (ABNORMAL) CBC without differential (04/19/2024 8:53 AM SOILS TECHNICIAN) WBC 6.5 3.8 - 9.9 K/cumm Hgb 10.3(L) 11.9 - 15.5 g/dL [facility] Hct 35.7 35.6 - 45.5 % [facility] Plt 497(H) 150 - 400 K/cumm [facility] MPV 10.9 9.1 - 12.3 fL [facility] RBC 3.31(L) 3.90 - 5.20 M/cumm [facility] MCV 107.9(H) 81.3 - 96.4 fL CERNER CH MCH 31.1 27.1 - 33.3 pg CERNER MCHC 28.9(L) 32.3 - 35.7 g/dL CERNER CH RDW CV 14.8 11.1 - 14.9 % CERNER CH RDW SD 58.2(H) 35.7 - 48.1 fL [facility] NRBC abs 0.00 0.00 - 0.01 K/cumm [facility] Blood (Blood, Venous) 04/19/2024 8:53 AM SOILS TECHNICIAN 04/19/2024 6:55 PM SOILS TECHNICIAN Narrative CERNER CH - 04/19/2024 7:29 PM SOILS TECHNICIAN Forward results to Dr.Eddie Mccormick-PMD us Keny Gomes MD LAB BLOOD ORDERABLES Final Result [facility] [address] Department [place] [address] * (ABNORMAL) Basic metabolic panel (04/19/2024 8:53 AM SOILS TECHNICIAN) Sodium 141 135 - 145 mmol/L Potassium, pl 4.4 3.3 - 4.9 mmol/L [facility] Chloride 103 97 - 110 mmol/L [facility] CO2 28 22 - 32 mmol/L [facility] Anion gap 10 2 - 15 mmol/L [facility] BUN 16 6 - 25 mg/dL [facility] Creatinine 0.95 0.60 - 1.10 mg/dL [facility] Glucose 69(L) 70 - 199 mg/dL [facility] Comment: Interpretive Data Fasting glucose >/= [...] 2022. Calcium 9.9 8.5 - 10.3 mg/dL ANDREAS Blood 04/19/2024 8:53 AM SOILS TECHNICIAN 04/19/2024 6:55 PM SOILS TECHNICIAN Narrative ANDREAS - 04/19/2024 7:27 PM SOILS TECHNICIAN Forward results to Dr.Eddie Mccormick-PMD Has the patient fasted?->No Keny Gomes MD LAB BLOOD ORDERABLES Final Result [facility] [address] Department [place] [address] * (ABNORMAL) eGFR (04/12/2024 3:00 AM SOILS TECHNICIAN) eGFR 58(L) >=60 mL/min/1. 73 m2 Comment: [...] last reviewed 2021. Blood 04/12/2024 3:00 AM SOILS TECHNICIAN 04/12/2024 4:06 AM SOILS TECHNICIAN Keny Gomes MD LAB BLOOD ORDERABLES Final Result ANDREAS [address] [facility] Department [place] [address] * (ABNORMAL) Differential, auto (04/12/2024 3:00 AM SOILS TECHNICIAN) Neutrophil abs 6.3 1.5 - 6.5 K/cumm Imm gran abs 0.6(H) 0.0 - 0.1 K/cumm [facility] Lymphocyte abs 1.5 0.8 - 3.3 K/cumm [facility] Monocyte abs 0.6 0.2 - 0.8 K/cumm [facility] Eosinophil abs 0.1 0.0 - 0.5 K/cumm [facility] Basophil abs 0.0 0.0 - 0.1 K/cumm [facility] Neutrophil pct 69.3 % [facility] Comment: Interpretive Data Percent cell count reference ranges are not reported, since discordance with absolute values may lead to misinterpretation of CBC data. Current Interpretive Data was last revised on 2017. Imm gran pct 6.1 % [facility] Comment: Interpretive Data Percent cell count reference ranges are not reported, since discordance with absolute values may lead to misinterpretation of CBC data. Current Interpretive Data was last revised on 2017. Lymphocyte pct 15.9 % [facility] Comment: Interpretive Data Percent cell count reference ranges are not reported, since discordance with absolute values may lead to misinterpretation of CBC data. Current Interpretive Data was last revised on 2017. Monocyte pct 6.8 % [facility] Comment: Interpretive Data Percent cell count reference ranges are not reported, since discordance with absolute values may lead to misinterpretation of CBC data. Current Interpretive Data was last revised on 2017. Eosinophil pct 1.5 % [facility] Comment: Interpretive Data Percent cell count reference ranges are not reported, since discordance with absolute values may lead to misinterpretation of CBC data. Current Interpretive Data was last revised on 2017. Basophil pct 0.4 % [facility] Comment: Interpretive Data Percent cell count reference ranges are not reported, since discordance with absolute values may lead to misinterpretation of CBC data. Current Interpretive Data was last revised on 2017. Blood 04/12/2024 3:00 AM SOILS TECHNICIAN 04/12/2024 4:06 AM SOILS TECHNICIAN Zita Gates MD LAB BLOOD ORDERABLES Final R esult Performing Organization Address [facility] Co de Phone Number [address] [address] * (ABNORMAL) CBC with auto differential (04/12/2024 3:00 AM SOILS TECHNICIAN) Pathologist [facility] WBC 9.2 3.8 - 9.9 K/cumm Hgb 9.1(L) 11.9 - 15.5 g/dL [facility] Hct 27.8(L) 35.6 - 45.5 % [facility] Plt 306 150 - 400 K/cumm [facility] MPV 11.1 9.1 - 12.3 fL [facility] RBC 2.85(L) 3.90 - 5.20 M/cumm [facility] MCV 97.5(H) 81.3 - 96.4 fL [facility] MCH 31.9 27.1 - 33.3 pg [facility] MCHC 32.7 32.3 - 35.7 g/dL [facility] RDW CV 15.9(H) 11.1 - 14.9 % [facility] RDW SD 57.1(H) 35.7 - 48.1 fL [facility] NRBC abs 0.00 0.00 - 0.01 K/cumm [facility] Blood 04/12/2024 3:00 AM SOILS TECHNICIAN 04/12/2024 4:06 AM SOILS TECHNICIAN Zita Gates MD LAB BLOOD ORDERABLES Final R esult Performing Organization Address City/[facility] Co de Phone Number [address] [place] [address] * Magnesium (04/12/2024 3:00 AM SOILS TECHNICIAN) Pathologist [facility] Magnesium 2.4 1.4 - 2.5 mg/dL Blood 04/12/2024 3:00 AM SOILS TECHNICIAN 04/12/2024 4:06 AM SOILS TECHNICIAN Keny Gomes MD LAB BLOOD ORDERABLES Final Result Performing Organization Address City/[facility]/ZIP Co de Phone Number ANDREAS [address] [place] [address] * Basic metabolic panel (04/12/2024 3:00 AM SOILS TECHNICIAN) [facility] Sodium 140 135 - 145 mmol/L Potassium, pl 3.8 3.3 - 4.9 mmol/L [facility] Comment:Hemolyzed; Potassium value may be falsely elevated by as much as 1.0 mmol/L. Suggest redraw and reanalysis. Chloride 107 97 - 110 mmol/L [facility] CO2 24 22 - 32 mmol/L [facility] Anion gap 9 2 - 15 mmol/L [facility] BUN 16 6 - 25 mg/dL [facility] Creatinine 0.97 0.60 - 1.10 mg/dL [facility] Glucose 91 70 - 199 mg/dL [facility] Comment: Interpretive Data Fasting glucose >/= [...] 2022. Calcium 8.7 8.5 - 10.3 mg/dL [facility] Blood 04/12/2024 3:00 AM SOILS TECHNICIAN 04/12/2024 4:06 AM SOILS TECHNICIAN us Keny Gomes MD LAB BLOOD ORDERABLES Final Result Performing Organization Address City/[facility]/ZIP Co de Phone Number ANDREAS [address] [place] [address] * (ABNORMAL) eGFR (04/11/2024 3:03 AM SOILS TECHNICIAN) [facility] eGFR 47(L) >=60 mL/min/1. 73 m2 Comment: [...] last reviewed 2021. Blood 04/11/2024 3:03 AM SOILS TECHNICIAN 04/11/2024 3:22 AM SOILS TECHNICIAN Keny Gomes MD LAB BLOOD ORDERABLES Final Result [place] [address] [facility] Department [place] [address] * (ABNORMAL) Differential, auto (04/11/2024 3:03 AM SOILS TECHNICIAN) Neutrophil abs 6.9(H) 1.5 - 6.5 K/cumm Imm gran abs 0.8(H) 0.0 - 0.1 K/cumm [facility] Lymphocyte abs 1.3 0.8 - 3.3 K/cumm [facility] Monocyte abs 0.8 0.2 - 0.8 K/cumm [facility] Eosinophil abs 0.1 0.0 - 0.5 K/cumm [facility] Basophil abs 0.0 0.0 - 0.1 K/cumm [facility] Neutrophil pct 70.2 % [facility] Comment: Interpretive Data Percent cell count reference ranges are not reported, since discordance with absolute values may lead to misinterpretation of CBC data. Current Interpretive Data was last revised on 2017. Imm gran pct 7.9 % [facility] Comment: Interpretive Data Percent cell count reference ranges are not reported, since discordance with absolute values may lead to misinterpretation of CBC data. Current Interpretive Data was last revised on 2017. Lymphocyte pct 12.9 % [facility] Comment: Interpretive Data Percent cell count reference ranges are not reported, since discordance with absolute values may lead to misinterpretation of CBC data. Current Interpretive Data was last revised on 2017. Monocyte pct 7.7 % [facility] Comment: Interpretive Data Percent cell count reference ranges are not reported, since discordance with absolute values may lead to misinterpretation of CBC data. Current Interpretive Data was last revised on 2017. Eosinophil pct 1.1 % [facility] Comment: Interpretive Data Percent cell count reference ranges are not reported, since discordance with absolute values may lead to misinterpretation of CBC data. Current Interpretive Data was last revised on 2017. Basophil pct 0.2 % [facility] Comment: Interpretive Data Percent cell count reference ranges are not reported, since discordance with absolute values may lead to misinterpretation of CBC data. Current Interpretive Data was last revised on 2017. Blood 04/11/2024 3:03 AM SOILS TECHNICIAN 04/11/2024 3:23 AM SOILS TECHNICIAN Zita Gates MD LAB BLOOD ORDERABLES Final R esult [facility] [address] [facility] Department of Laboratories [place], [place] [id number] * (ABNORMAL) CBC with auto differential (04/11/2024 3:03 AM SOILS TECHNICIAN) WBC 9.9 3.8 - 9.9 K/cumm Hgb 8.6(L) 11.9 - 15.5 g/dL [facility] Hct 26.4(L) 35.6 - 45.5 % [facility] Plt 241 150 - 400 K/cumm [facility] MPV 10.8 9.1 - 12.3 fL [facility] RBC 2.71(L) 3.90 - 5.20 M/cumm [facility] MCV 97.4(H) 81.3 - 96.4 fL [facility] MCH 31.7 27.1 - 33.3 pg [facility] MCHC 32.6 32.3 - 35.7 g/dL [facility] RDW CV 16.3(H) 11.1 - 14.9 % [facility] RDW SD 56.5(H) 35.7 - 48.1 fL [facility] NRBC abs 0.00 0.00 - 0.01 K/cumm [facility] Blood 04/11/2024 3:03 AM SOILS TECHNICIAN 04/11/2024 3:23 AM SOILS TECHNICIAN Zita Gates MD LAB BLOOD ORDERABLES Final R esult [facility] [address] [facility] Department [place] [address] * (ABNORMAL) Basic metabolic panel (04/11/2024 3:03 AM SOILS TECHNICIAN) Sodium 141 135 - 145 mmol/L Potassium, pl 3.2(L) 3.3 - 4.9 mmol/L [facility] Chloride 108 97 - 110 mmol/L [facility] CO2 25 22 - 32 mmol/L [facility] Anion gap 8 2 - 15 mmol/L [facility] BUN 15 6 - 25 mg/dL [facility] Creatinine 1.16(H) 0.60 - 1.10 mg/dL [facility] Glucose 86 70 - 199 mg/dL [facility] Comment: Interpretive Data Fasting glucose >/= [...] 2022. Calcium 8.7 8.5 - 10.3 mg/dL [facility] Blood 04/11/2024 3:03 AM SOILS TECHNICIAN 04/11/2024 3:22 AM SOILS TECHNICIAN Keny Gomes MD LAB BLOOD ORDERABLES Final Result Performing Organization Address [facility] Co de Phone Number ANDREAS [address] [address] * (ABNORMAL) Hemoglobin and hematocrit (04/10/2024 4:42 PM SOILS TECHNICIAN) Pathologist [facility] Hgb 8.5(L) 11.9 - 15.5 g/dL Hct 26.1(L) 35.6 - 45.5 % [facility] Blood 04/10/2024 4:42 PM SOILS TECHNICIAN 04/10/2024 4:45 PM SOILS TECHNICIAN Keny Gomes MD LAB BLOOD ORDERABLES Final Result Performing Organization Address [facility] Co de Phone Number [address] [address] * Transfuse RBC (04/10/2024 4:12 PM SOILS TECHNICIAN) Blood Kevin Helen Kapoor NP BLOOD TRANSFUSION ORDERA BLES Final Result Performing Organization Address [facility] de Phone Number [address] [address] * Prepare RBC: 1 Units (04/10/2024 11:56 AM SOILS TECHNICIAN) Pathologist [facility] Units requested 1 Units requested Ready [facility] Unit Number [id number] Product code [id number] [facility] Blood Expiration Date [id number] ANDREAS Product Blood Type (for scanning) 6200 ANDREAS Product Blood Type APOS AND[facility] Dispense Status [facility] Blood 04/10/2024 11:5 6 AM SOILS TECHNICIAN 04/10/2024 11:56 AM SOILS TECHNICIAN Kevin Helen Kapoor PROFESSOR OF LEGAL STUDIES BLOOD BANK PRODUCT ORDER BEATRICE Final Result Performing Organization Address [facility] Co de Phone Number [address] [place] [address] * ABO / Rh Confirmation Testing (04/10/2024 11:10 AM SOILS TECHNICIAN) ABO/Rh Confirmation A Positive [facility] Blood 04/10/2024 11:1 0 AM SOILS TECHNICIAN 04/10/2024 11:30 AM SOILS TECHNICIAN [facility] Helen Kapoor PROFESSOR OF LEGAL STUDIES LAB BLOOD ORDERABLES Fin al Result Performing Organization Address [facility] de Phone Number [address] [address] [facility] * ABO/Rh (04/10/2024 10:28 AM SOILS TECHNICIAN) ABO/Rh A Positive Blood 04/10/2024 10:2 8 AM SOILS TECHNICIAN 04/10/2024 11:00 AM SOILS TECHNICIAN Narrative [facility] - 04/10/2024 11:41 AM SOILS TECHNICIAN Has the patient had Daratumumab or Isatuximab in the past 6 months?->[facility] Kapoor NP LAB BLOOD BANK TEST ORDE RABLES Final Result Performing Organization Address [facility] Co de Phone Number [address] [email or web address] [address] * Crossmatch (04/10/2024 10:28 AM SOILS TECHNICIAN) Crossmatch Compatible [facility] Unit number for crossmatch [id number] [facility] Blood 04/10/2024 10:2 8 AM SOILS TECHNICIAN 04/10/2024 11:00 AM SOILS TECHNICIAN Keny Gomes MD LAB BLOOD BANK TEST O RDERABLES Final Result Performing Organization Address [facility]/ZIP Co de Phone Number [address] [email or web address] [address] * Antibody screen (04/10/2024 10:28 AM SOILS TECHNICIAN) [facility] Sandra, indirect, Gel Interpretation Negative ABSC Blood 04/10/2024 10:2 8 AM SOILS TECHNICIAN 04/10/2024 11:00 AM SOILS TECHNICIAN Narrative [facility] - 04/10/2024 11:41 AM SOILS TECHNICIAN Has the patient had Daratumumab or Isatuximab in the past 6 months?->Unknown Kevin Kapoor NP LAB BLOOD BANK TEST ORDE RABLES Final Result Performing Organization Address City/[facility]/ZIP Co de Phone Number [address] [email or web address] [address] * MRSA Only (Staphylococcus aureus) PCR Nasal (04/10/2024 8:42 AM SOILS TECHNICIAN) [facility] PCR Scrn, Methicillin resistant Staphylococcus aureus (MRSA) Not Detected Not Detected Comment: Interpretive Data Testing performed using Nucleic Acid Amplification with the [employer] Xpert MRSA NxG Assay. This assay detects target DNA from mecA, mecC and the SCCmec insertion site of Staphylococcus aureus using Real-Time PCR and has been cleared by the FDA. Performance characteristics have been verified by the [facility]. Current Interpretive Data was last revised on 2022 Nasal 04/10/2024 8:42 AM SOILS TECHNICIAN 04/10/2024 9:21 AM SOILS TECHNICIAN Keny Gomes MD LAB MICROBIOLOGY - NERAL ORDERABLES Final Result [address] [email or web address] [address] * (ABNORMAL) eGFR (04/10/2024 3:55 AM SOILS TECHNICIAN) [facility] eGFR 54(L) >=60 mL/min/1. 73 m2 Comment: [...] last reviewed 2021. Blood 04/10/2024 3:55 AM SOILS TECHNICIAN 04/10/2024 5:32 AM SOILS TECHNICIAN Zita Gates MD LAB BLOOD ORDERABLES Final R esult [facility] [address] [facility] Department [place] [address] * (ABNORMAL) Differential, auto (04/10/2024 3:55 AM SOILS TECHNICIAN) Neutrophil abs 7.1(H) 1.5 - 6.5 K/cumm Imm gran abs 0.8(H) 0.0 - 0.1 K/cumm [facility] Lymphocyte abs 1.0 0.8 - 3.3 K/cumm [facility] Monocyte abs 0.8 0.2 - 0.8 K/cumm [facility] Eosinophil abs 0.1 0.0 - 0.5 K/cumm [facility] Basophil abs 0.0 0.0 - 0.1 K/cumm [facility] Neutrophil pct 72.5 % [facility] Comment: Interpretive Data Percent cell count reference ranges are not reported, since discordance with absolute values may lead to misinterpretation of CBC data. Current Interpretive Data was last revised on 2017. Imm gran pct 8.5 % [facility] Comment: Interpretive Data Percent cell count reference ranges are not reported, since discordance with absolute values may lead to misinterpretation of CBC data. Current Interpretive Data was last revised on 2017. Lymphocyte pct 9.8 % [facility] Comment: Interpretive Data Percent cell count reference ranges are not reported, since discordance with absolute values may lead to misinterpretation of CBC data. Current Interpretive Data was last revised on 2017. Monocyte pct 7.9 % [facility] Comment: Interpretive Data Percent cell count reference ranges are not reported, since discordance with absolute values may lead to misinterpretation of CBC data. Current Interpretive Data was last revised on 2017. Eosinophil pct 1.0 % [facility] Comment: Interpretive Data Percent cell count reference ranges are not reported, since discordance with absolute values may lead to misinterpretation of CBC data. Current Interpretive Data was last revised on 2017. Basophil pct 0.3 % [facility] Comment: Interpretive Data Percent cell count reference ranges are not reported, since discordance with absolute values may lead to misinterpretation of CBC data. Current Interpretive Data was last revised on 2017. Blood 04/10/2024 3:55 AM SOILS TECHNICIAN 04/10/2024 5:30 AM SOILS TECHNICIAN Zita Gates MD LAB BLOOD ORDERABLES Final R esult Performing Organization Address City/[facility] Co de Phone Number [address] [address] * Thyroid Function [place] (04/10/2024 3:55 AM SOILS TECHNICIAN) Pathologist [facility] TSH 2.64 0.30 - 4.20 mcIUnit/mL Blood 04/10/2024 3:55 AM SOILS TECHNICIAN 04/10/2024 5:32 AM SOILS TECHNICIAN Keny Gomes MD LAB BLOOD ORDERABLES Final Result Performing Organization Address [facility] Co de Phone Number [address] [email or web address] [address] * (ABNORMAL) CBC with auto differential (04/10/2024 3:55 AM SOILS TECHNICIAN) Pathologist [facility] WBC 9.8 3.8 - 9.9 K/cumm Hgb 6.6(L) 11.9 - 15.5 g/dL [facility] Hct 20.7(L) 35.6 - 45.5 % [facility] Plt 240 150 - 400 K/cumm [facility] MPV 11.3 9.1 - 12.3 fL [facility] RBC 2.01(L) 3.90 - 5.20 M/cumm [facility] MCV 103.0(H) 81.3 - 96.4 fL [facility] MCH 32.8 27.1 - 33.3 pg [facility] MCHC 31.9(L) 32.3 - 35.7 g/dL [facility] RDW CV 14.8 11.1 - 14.9 % [facility] RDW SD 54.5(H) 35.7 - 48.1 fL [facility] NRBC abs 0.00 0.00 - 0.01 K/cumm [facility] Blood 04/10/2024 3:55 AM SOILS TECHNICIAN 04/10/2024 5:30 AM SOILS TECHNICIAN Zita Gates MD LAB BLOOD ORDERABLES Final R esult Performing Organization Address City/[facility] Co de Phone Number [address] [place] [address] * Magnesium (04/10/2024 3:55 AM SOILS TECHNICIAN) [facility] Magnesium 1.5 1.4 - 2.5 mg/dL Blood 04/10/2024 3:55 AM SOILS TECHNICIAN 04/10/2024 5:32 AM SOILS TECHNICIAN Zita Gates MD LAB BLOOD ORDERABLES Final R esult Performing Organization Address City/[facility] Co de Phone Number [address] [email or web address] [address] * (ABNORMAL) Comprehensive metabolic panel (04/10/2024 3:55 AM SOILS TECHNICIAN) [facility] Sodium 145 135 - 145 mmol/L Potassium, pl 3.4 3.3 - 4.9 mmol/L [facility] Chloride 110 97 - 110 mmol/L [facility] CO2 26 22 - 32 mmol/L [facility] Anion gap 9 2 - 15 mmol/L [facility] BUN 17 6 - 25 mg/dL [facility] Creatinine 1.03 0.60 - 1.10 mg/dL [facility] Glucose 67(L) 70 - 199 mg/dL [facility] Comment: Interpretive Data Fasting glucose >/= [...] 2022. Calcium 8.8 8.5 - 10.3 mg/dL [facility] Bilirubin, total <0.2 0.1 - 1.2 mg/dL [facility] Protein, pl 5.3(L) 6.5 - 8.5 g/dL [facility] Albumin 3.1(L) 3.5 - 5.0 g/dL [facility] Alk phos 52 40 - 130 Units/L [facility] ALT 13 7 - 45 Units/L [facility] AST 18 10 - 45 Units/L [facility] Blood 04/10/2024 3:55 AM SOILS TECHNICIAN 04/10/2024 5:32 AM SOILS TECHNICIAN Zita Gates MD LAB BLOOD ORDERABLES Final R esult [facility] [address] [facility] Department [place] [address] * Blood culture Blood Peripheral (04/09/2024 1:57 PM SOILS TECHNICIAN) Report Final Report: No growth Comment:Testing performed by : [facility], [address] [place]., [address] Blood (Peripheral) 04/09/2024 1:57 PM SOILS TECHNICIAN 04/09/2024 5:10 PM SOILS TECHNICIAN Narrative [facility] - 04/14/2024 7:00 AM SOILS TECHNICIAN From a different site than #1. Draw [...] performance characteristics have been verified by the [facility] Microbiology Laboratory. For questions about this culture, contact the Microbiology Laboratory at [phone]. Interpretive data was last revised on 24. us Chip Garrido MD LAB MICROBIOLOGY - GENERAL ORDERABLES Final Result [facility] [address] [facility] Department [place] [address] * Blood culture Blood Peripheral (04/09/2024 1:48 PM SOILS TECHNICIAN) Report Final Report: No growth Comment:Testing performed by : [facility], [address] [facility] [place]., [address] Blood (Peripheral) 04/09/2024 1:48 PM SOILS TECHNICIAN 04/09/2024 5:10 PM SOILS TECHNICIAN Narrative [facility] - 04/14/2024 7:00 AM SOILS TECHNICIAN Draw Blood cultures before administration of Antibiotics [...] performance characteristics have been verified by the [facility]biology [facility]. For questions about this culture, contact the Microbiology Laboratory at [phone]. Interpretive data was last revised on 24. us Chip Garrido MD LAB MICROBIOLOGY - GENERAL ORDERABLES Final Result [facility] [address] [facility] Department [place] [address] * (ABNORMAL) Urinalysis reflex to microscopic and culture Urine (04/09/2024 12:56 PM SOILS TECHNICIAN) Color, ur Yellow Yellow Clarity, ur Clear Clear [facility] Specific gravity, ur 1.011 1.003 - 1.030 [facility] pH, urine 6.5 [facility] Comment: Interpretive Data U rine pH is affected by diet, medications, systemic acid-base disturbances, and renal tubular function. pH may affect urinary stone formation. For example, urine pH below 6.0 may help reduce the tendency for calcium phosphate stones and pH greater than 6.0 may reduce the tendency for uric acid stone formation. Source: [facility] Current Interpretive Data was last revised on 2017 Protein, ur ql Negative Negative [facility] Glucose, ur ql Negative Negative [facility] Ketones, ur Negative Negative [facility] Bilirubin, ur Negative Negative [facility] Blood, ur Negative Negative [facility] Urobilinogen, ur <2.0 <2.0 mg/dL [facility] Nitrite, ur Negative Negative [facility] Leukocyte esterase, ur 2+(A) Negative [facility] UA reflex comment Reflex to microscopic UA will be performed. [facility] Urine 04/09/2024 12:5 6 PM SOILS TECHNICIAN 04/09/2024 1:05 PM SOILS TECHNICIAN Narrative [facility] - 04/09/2024 1:08 PM SOILS TECHNICIAN If patient unable to urinate, straight cath Chip Garrido MD LAB MICROBIOLOGY - GENERAL ORDERABLES Final Result Performing Organization Address [facility] de Phone Number [address] [place] [address] * (ABNORMAL) Urinalysis, microscopic only (04/09/2024 12:56 PM SOILS TECHNICIAN) WBC, ur 21-50(A) 0 - 5 /HPF RBC, ur 0-2 0 - 2 /HPF [facility] Epithelial cells, squamous, ur 1-5 0 - 5 /HPF [facility] Bacteria, ur 1+(A) [facility] Mucous, ur Present(A) [facility] Culture Reflex Comment Reflex to urine culture will be performed. [facility] Urine 04/09/2024 12:5 6 PM SOILS TECHNICIAN 04/09/2024 1:05 PM SOILS TECHNICIAN Danielle AVELAR LAB URINE ORDERABLES Final Resu lt Performing Organization Address [facility] Co de Phone Number [address] [place] [address] * (ABNORMAL) Urine culture Urine (04/09/2024 12:56 PM SOILS TECHNICIAN) Report Final Report: Greater than or equal to 100,000 colonies/mL of Klebsiella oxytoca (.) Comment:Testing performed by : [facility], [address] [facility], [place]., [address] Organism KLEBSIELLA OXYTOCA [facility] Urine 04/09/2024 12:5 6 PM SOILS TECHNICIAN 04/09/2024 3:04 PM SOILS TECHNICIAN Narrative [facility] - 04/13/2024 6:47 AM SOILS TECHNICIAN Urine culture reflexed based upon urinalysis results. Testing performed by [facility] Microbiology Laboratory ([phone]) Organism Antibiotic Method Susceptibility Klebsiella oxytoca Ampicillin [...] Susceptible Klebsiella oxytoca Cefdinir INTERPRETATION Susceptible Danielle AVLEAR LAB MICROBIOLOGY - GENERAL MARYJO FOY Final Result [facility] [address] [facility] Department [place] [address] * XR Hand Right 3 or More Views (04/09/2024 10:54 AM SOILS TECHNICIAN) Anatomical Region Laterality Modality Upper Extremities, Hand Right Computed Radiography 04/09/2024 11:2 1 AM SOILS TECHNICIAN Narrative 04/09/2024 11:25 AM SOILS TECHNICIAN EXAM DESCRIPTION: XR HAND RIGHT 3 OR [...] signed by Erik RAMEY T: Report ID: [id number] Reading Location: [id number] Procedure Note Erik Evangelista MD - 04/09/2024 EXAM DESCRIPTION: XR HAND RIGHT 3 OR MORE VIEWS REASON FOR STUDY: possible infection Pt presents with swelling, red, warm right hand. States she noticed all bruise and that got bigger and by [...] signed by Erik RAMEY T: Report ID: [id number] Reading Location: [id number] Danielle AVELAR IM XR PROCEDURES Final Result * XR Chest 1 Vw Portable (if patient condition/safety warrant portable) (04/09/2024 10:53 AM SOILS TECHNICIAN) Anatomical Region Laterality Modality Body, Chest N/A Computed Radiogr aphy 04/09/2024 11:1 1 AM SOILS TECHNICIAN Narrative 04/09/2024 11:21 AM SOILS TECHNICIAN EXAM DESCRIPTION: XR CHEST 1 VIEW REASON [...] 11:21 AM - Electronically signed by Erik RAMEY T: Report ID: [id number] Reading Location: [id number] Procedure Note Erik Evangelista MD - 04/09/2024 [...] 11:21 AM - Electronically signed by Erik RAMEY T: Report ID: [id number] Reading Location: [id number] Chip Garrido MD IMG XR PROCEDURES Final Re sult * Sepsis Lactate w/ Reflex (04/09/2024 10:48 AM SOILS TECHNICIAN) Sepsis Lactate 1.5 0.7 - 2.0 mmol/L Blood 04/09/2024 10:4 8 AM SOILS TECHNICIAN 04/09/2024 10:55 AM SOILS TECHNICIAN Chip Garrido MD LAB BLOOD ORDERABLES Final Result Performing Organization Address [facility] de Phone Number ANDRE[facility] [address] [address] * (ABNORMAL) eGFR (04/09/2024 10:48 AM SOILS TECHNICIAN) Pathologist [facility] eGFR 52(L) >=60 mL/min/1. 73 m2 Comment: [...] reviewed 2021. Blood 04/09/2024 10:4 8 AM SOILS TECHNICIAN 04/09/2024 10:55 AM SOILS TECHNICIAN Chip Garrido MD LAB BLOOD ORDERABLES Final Result Performing Organization Address [facility] Co de Phone Number ANDREAS [address] [email or web address] [address] * (ABNORMAL) Differential, auto (04/09/2024 10:48 AM SOILS TECHNICIAN) Pathologist [facility] Neutrophil abs 9.4(H) 1.5 - 6.5 K/cumm Imm gran abs 0.9(H) 0.0 - 0.1 K/cumm [facility] Lymphocyte abs 0.6(L) 0.8 - 3.3 K/cumm [facility] Monocyte abs 1.1(H) 0.2 - 0.8 K/cumm [facility] Eosinophil abs 0.1 0.0 - 0.5 K/cumm [facility] Basophil abs 0.0 0.0 - 0.1 K/cumm [facility] Neutrophil pct 77.3 % [facility] Comment: Interpretive Data Percent cell count reference ranges are not reported, since discordance with absolute values may lead to misinterpretation of CBC data. Current Interpretive Data was last revised on 2017. Imm gran pct 7.1 % [facility] Comment: Interpretive Data Percent cell count reference ranges are not reported, since discordance with absolute values may lead to misinterpretation of CBC data. Current Interpretive Data was last revised on 2017. Lymphocyte pct 5.3 % [facility] Comment: Interpretive Data Percent cell count reference ranges are not reported, since discordance with absolute values may lead to misinterpretation of CBC data. Current Interpretive Data was last revised on 2017. Monocyte pct 8.9 % [facility] Comment: Interpretive Data Percent cell count reference ranges are not reported, since discordance with absolute values may lead to misinterpretation of CBC data. Current Interpretive Data was last revised on 2017. Eosinophil pct 1.1 % [facility] Comment: Interpretive Data Percent cell count reference ranges are not reported, since discordance with absolute values may lead to misinterpretation of CBC data. Current Interpretive Data was last revised on 2017. Basophil pct 0.3 % [facility] Comment: Interpretive Data Percent cell count reference ranges are not reported, since discordance with absolute values may lead to misinterpretation of CBC data. Current Interpretive Data was last revised on 2017. Blood 04/09/2024 10:4 8 AM SOILS TECHNICIAN 04/09/2024 10:55 AM SOILS TECHNICIAN us Chip Garrido MD LAB BLOOD ORDERABLES Final Result [facility] UGARTE [address] [facility] Department [place] [address] * (ABNORMAL) CBC with auto differential (04/09/2024 10:48 AM SOILS TECHNICIAN) [facility] WBC 12.1(H) 3.8 - 9.9 K/cumm Hgb 7.5(L) 11.9 - 15.5 g/dL [facility] Hct 24.2(L) 35.6 - 45.5 % [facility] Plt 249 150 - 400 K/cumm [facility] MPV 10.9 9.1 - 12.3 fL [facility] RBC 2.35(L) 3.90 - 5.20 M/cumm [facility] MCV 103.0(H) 81.3 - 96.4 fL [facility] MCH 31.9 27.1 - 33.3 pg [facility] MCHC 31.0(L) 32.3 - 35.7 g/dL [facility] RDW CV 14.8 11.1 - 14.9 % [facility] RDW SD 54.8(H) 35.7 - 48.1 fL [facility] NRBC abs 0.00 0.00 - 0.01 K/cumm [facility] Blood 04/09/2024 10:4 8 AM SOILS TECHNICIAN 04/09/2024 10:55 AM SOILS TECHNICIAN Chip Garrido MD LAB BLOOD ORDERABLES Edite d Result - Final Performing Organization Address [facility] de Phone Number ANDREAS [address] [place] [address] * (ABNORMAL) Manual Differential (04/09/2024 10:48 AM SOILS TECHNICIAN) [facility] Differential Auto RBC morphology Present(A) [facility] Hypochromasia 3-7/HPF(A) [facility] Anisocytosis Slight(A) [facility] Macrocytes 3-7/HPF(A) [facility] Platelet estimate Automated Count Confirmed [facility] Blood 04/09/2024 10:4 8 AM SOILS TECHNICIAN 04/09/2024 10:55 AM SOILS TECHNICIAN Chip Garrido MD LAB BLOOD ORDERABLES Final Result Performing Organization Address [facility] Co de Phone Number [address] [place] [place] [address] * Uric acid (04/09/2024 10:48 AM SOILS TECHNICIAN) [facility] Uric acid 3.0 2.5 - 7.0 mg/dL Blood 04/09/2024 10:4 8 AM SOILS TECHNICIAN 04/09/2024 10:55 AM SOILS TECHNICIAN Chip Garrido MD LAB BLOOD ORDERABLES Final Result Performing Organization Address [facility] de Phone Number [address] [address] * Magnesium (04/09/2024 10:48 AM SOILS TECHNICIAN) [facility] Magnesium 1.5 1.4 - 2.5 mg/dL Blood 04/09/2024 10:4 8 AM SOILS TECHNICIAN 04/09/2024 10:55 AM SOILS TECHNICIAN Chip Garrido MD LAB BLOOD ORDERABLES Final Result Performing Organization Address [facility] de Phone Number [address] [address] * (ABNORMAL) Comprehensive metabolic panel (04/09/2024 10:48 AM SOILS TECHNICIAN) [facility] Sodium 142 135 - 145 mmol/L Potassium, pl 3.1(L) 3.3 - 4.9 mmol/L [facility] Comment:Hemolyzed; Potassium value may be falsely elevated by as much as 1.0 mmol/L. Suggest redraw and reanalysis. Chloride 107 97 - 110 mmol/L [facility] CO2 26 22 - 32 mmol/L [facility] Anion gap 9 2 - 15 mmol/L [facility] BUN 15 6 - 25 mg/dL [facility] Creatinine 1.06 0.60 - 1.10 mg/dL [facility] Glucose 101 70 - 199 mg/dL [facility] Comment: Interpretive Data Fasting glucose >/= [...] 2022. Calcium 9.2 8.5 - 10.3 mg/dL [facility] Bilirubin, total 0.2 0.1 - 1.2 mg/dL [facility] Protein, pl 6.2(L) 6.5 - 8.5 g/dL [facility] Albumin 3.7 3.5 - 5.0 g/dL [facility] Alk phos 63 40 - 130 Units/L [facility] ALT 14 7 - 45 Units/L [facility] AST 24 10 - 45 Units/L [facility] Comment:Hemolyzed; result ma y be falsely elevated Blood 04/09/2024 10:4 8 AM SOILS TECHNICIAN 04/09/2024 10:55 AM SOILS TECHNICIAN us Chip Garrido MD LAB BLOOD ORDERABLES Final Result [facility] [address] [facility] [place] [address] * US Soft Tissue Neck (03/13/2024 12:10 PM SOILS TECHNICIAN) Anatomical Region Laterality Modality Head and Neck N/A Ultrasound 03/13/2024 12:4 6 PM SOILS TECHNICIAN Addenda Addendum by Barb Ball MD on 03/13/2024 12:53 PM SOILS TECHNICIAN The submandibular glands are hypervascular, and symmetric. Electronically signed by: Barb aBll M.D. Impressions 03/13/2024 12:46 PM SOILS TECHNICIAN 1. No focal sonographic abnormality of the submandibular glands. 2. No cervical lymphadenopathy. Electronically signed by: Barb Ball M.D. Narrative 03/13/2024 12:46 PM SOILS TECHNICIAN EXAMINATION: US SOFT TISSUE NECK HISTORY: Bilateral [...] lymphadenopathy. Electronically signed by: Barb Ball M.D. us Shakeel Monaco MD IMG US PROCEDURES Edited Result - Final * (ABNORMAL) eGFR (02/27/2024 9:00 AM SOILS TECHNICIAN) eGFR 58(L) >=60 mL/min/1. 73 m2 Comment: [...] last reviewed 2021. Blood 02/27/2024 9:00 AM SOILS TECHNICIAN 02/27/2024 4:56 PM SOILS TECHNICIAN Ashu Faustin MD LAB BLOOD ORDERABLES Fin al Result Performing Organization Address [facility] de Phone Number [facility]RE[facility] BURNS [address] [email or web address] [address] * Basic metabolic panel (02/27/2024 9:00 AM SOILS TECHNICIAN) Sodium 142 135 - 145 mmol/L Potassium, pl 3.4 3.3 - 4.9 mmol/L [facility] Chloride 101 97 - 110 mmol/L [facility] CO2 26 22 - 32 mmol/L [facility] Anion gap 15 2 - 15 mmol/L [facility] BUN 22 6 - 25 mg/dL [facility] Creatinine 0.98 0.60 - 1.10 mg/dL [facility] Glucose 85 70 - 199 mg/dL [facility] Comment: Interpretive Data Fasting glucose >/= [...] Calcium 9.4 8.5 - 10.3 mg/dL [facility] Blood 02/27/2024 9:00 AM SOILS TECHNICIAN 02/27/2024 4:38 PM SOILS TECHNICIAN Ashu Faustin MD LAB BLOOD ORDERABLES Fin al Result Performing Organization Address [facility] Co de Phone Number ANDREAS BURNS [address] [facility] [email or web address] [address] * Clinical pathology report (02/23/2024 4:22 PM SOILS TECHNICIAN) Miscellaneous 02/23/2024 4:2 2 PM SOILS TECHNICIAN 02/28/2024 8:33 AM SOILS TECHNICIAN Narrative 03/01/2024 9:47 AM SOILS TECHNICIAN EPIC results best viewed via link to PDF [facility] Department of Pathology [id number] [place] [address] Final Report Note to Patients: This report [...] the details. Patient Name: NEGRITA ROPER Address: [address] [place] [address] Gender: F : 1940 (Age: 83) Service: Location: Hospital #: [id number] Patient Type: SPECIMEN Taken: 02/23/2024 Received: 02/28/2024 [...] determined by the Surgical Pathology Department at [facility] as part of an ongoing quality assurance monitor final program and in compliance with federally mandated [...] characteristics determined by the Surgical Pathology Department [facility]. It has not been cleared or approved by the U. S. Food and Drug Administration. REPORT IMAGES AND SCANNED DOCUMENTS, IF INCLUDED, ONLY VIEWABLE IN PDF VERSION OF REPORTe o Shakeel Monaco MD LAB PATHOLOGY ORDERABLES Final Result * Immunofixation, urine (02/23/2024 4:22 PM SOILS TECHNICIAN) Pathologist [facility] Immunofixation , Ur See Cl Path Rpt Urine 02/23/2024 4:22 PM SOILS TECHNICIAN 02/23/2024 8:17 PM SOILS TECHNICIAN Shakeel Monaco MD LAB URINE ORDERABLES Ksenia l Result ANDREAS BURNS [id number] Department [place] [address] * Immunotyping, serum (02/23/2024 11:34 AM SOILS TECHNICIAN) Pathologist [facility] Immunosubtraction Please see comment Comment: NO PARAPROTEIN DETECTED Reviewed and signed by Catrachito Espitia MD, PhD 02/24/2024 Blood 02/23/2024 11:3 4 AM SOILS TECHNICIAN 02/23/2024 4:57 PM SOILS TECHNICIAN Shakeel Monaoc MD LAB BLOOD ORDERABLES Ksenia l [facility] [place] [address] * (ABNORMAL) CBC with auto differential (02/23/2024 11:34 AM SOILS TECHNICIAN) [facility] White Blood Count 10.5 3.6 - 11.2 [...] - [facility] Blood 02/23/2024 11:3 4 AM SOILS TECHNICIAN 02/23/2024 12:47 PM SOILS TECHNICIAN us Shakeel Monaco MD LAB BLOOD ORDERABLES Ksenia patterson Result [facility] * Protein electrophoresis with reflex, serum (02/23/2024 11:34 AM SOILS TECHNICIAN) Pathologist [facility] Protein, sr 6.3 6.2 - 8.2 g/dL Albumin 3.7 3.2 - 5.0 g/dL [facility] Alpha-1 globulin 0.4 0.2 - 0.4 g/dL [facility] Alpha-2 globulin 0.7 0.5 - 1.0 g/dL [facility] Beta-1 globulin 0.4 0.3 - 0.6 g/dL [facility] Beta-2 globulin 0.3 0.2 - 0.6 g/dL [facility] Gamma globulin 0.8 0.5 - 1.7 g/dL [facility] SPEP interp Please see comment [facility] Comment: No apparent monoclonal peak Reviewed and signed by Catrachito Espitia MD, PhD 02/24/2024 Blood 02/23/2024 11:3 4 AM SOILS TECHNICIAN 02/23/2024 4:54 PM SOILS TECHNICIAN us Shakeel Monaco MD LAB BLOOD ORDERABLES Ksenia l Result [facility] Department [place] [address] * (ABNORMAL) Comprehensive metabolic panel (02/23/2024 11:34 AM SOILS TECHNICIAN) Pathologist [facility] Total Protein 6.8 6.1 - 8.4 g/dL [...] - [facility] Blood 02/23/2024 11:3 4 AM SOILS TECHNICIAN 02/23/2024 12:47 PM SOILS TECHNICIAN Shakeel Monaco MD LAB BLOOD ORDERABLES Ksenia Result [facility] * (ABNORMAL) Urine culture Urine, clean voided (02/22/2024 2:38 PM SOILS TECHNICIAN) Report Final Report: Greater than or equal to 100,000 colonies/mL of Escherichia coli The susceptibility pattern of this Escherichia coli indicates the possible production of an extended spectrum beta lactamase (ESBL). Patients infected with ESBL-producing organisms require contact isolation precautions. For therapeutic options for this organism, please contact infectious diseases. (.) Comment:Testing performed by : [facility], [address] [place] [address] Organism [facility] Urine, clean voided 02/22/2024 2:38 PM SOILS TECHNICIAN 02/22/2024 6:43 PM SOILS TECHNICIAN Narrative DEENER - 02/25/2024 10:16 AM SOILS TECHNICIAN Testing performed by [facility] Microbiology Laboratory ([phone]) Organism Antibiotic Method Susceptibility Escherichia coli Ampicillin [...] - GENERAL ORD ERABLES Final Result ANDREAS [address] Department [place] [address] * (ABNORMAL) POCT urinalysis dipstick (02/22/2024 10:17 AM SOILS TECHNICIAN) Color, Urine, POC Yellow Clarity, ur, POC Cloudy(A) Clear Glucose, ur, POC Negative Negative MG/DL Bilirubin, ur, POC Negative Negative, Small, Moderate, Large Ketones, ur, POC Trace(A) Negative Specific [place], POC 1.030 1.003 - 1.030 Blood, ur, POC Moderate(A) Negative pH, ur, POC 5.5 5.0 - 8.0 Protein, ur, POC 100.(A) Negative Urobilinogen, urine, POC 0.2 0.2 - 1.0 mg/dL Nitrite, ur, POC Positive(A) Negative Leukocytes, ur, POC Small(A) Negative Lot Number 0 Urine 02/22/2024 10:1 7 AM SOILS TECHNICIAN us Brianda Hodgson NP POINT OF CARE TEST ORDERABLES Final Result * XR Chest PA Lateral 2 Views (02/22/2024 9:49 AM SOILS TECHNICIAN) Anatomical Region Laterality Modality Body, Chest N/A Digital Radiogra phy 02/22/2024 10:1 3 AM SOILS TECHNICIAN Narrative 02/22/2024 10:16 AM SOILS TECHNICIAN EXAM DESCRIPTION: XR CHEST PA LATERAL 2 [...] signed by Erik RAMEY T: Report ID: [id number] Reading Location: [id number] Procedure Note Erik Evangelista MD - 02/22/2024 [...] signed by Erik RAMEY T: Report ID: [id number] Reading Location: [id number] Brianda Hodgson NP IMG XR PROCEDURES Final Result * Dexa Axial Skeleton Bone Density 1 or 2 Site (01/06/2023 9:55 AM CDT) Anatomical Region Laterality Modality Body N/A Radiographic Dianelys ging Narrative 01/13/2023 2:28 PM CDT Patient Name: Negrita Roper Date of : 1940 Date of scan: 01/06/2023 Bone mineral density was performed on a HoloTantaline Discovery Densitometer. Based on machine cross-calibration and [...] mineral density scan were prepared by Yamila Winter) WILLIAM who is accredited by the International Society of Clinical Densitometry. The overall patient assessment and scan interpretation were performed by Cinthia Gong MD who is certified by the International Society of Clinical Densitometry. 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
--- OUTSIDE RECORDS SUMMARY | 2024-05-14 19:22 | XMS_ITS | Patient Health Summary ---
Author Organization [facility] Address [address] [address] Care Team Providers Care Safety Deposit Boxes Custodian Name Role Phone Provider, N Ot A User/ Primary Care Provider Radha vailable Note from [facility],non-owned Affiliates and Associated Physician Practices is amultiple site organization consisting of ambulatory clinics and hospital sitesin [place], [place], [place] and [place]. This disclosure is being madepursuant to the Care Everywhere program and may not contain all information available regarding this patient. Last updated 17.[facility] Immunizations * INFLUENZA VACCINE, HIGH-DOSE, QUADR. (FLUZONE HIGH-DOSE QUADRIVALENT; 65Y+), 0.7 ML (HD-IIV4)(Given 12/08/2015) Social History Tobacco Use Types Packs/Day Years Used Date Smoking Tobacco: Never Assessed Sex and Gender Information Value Date Recorded Sex Assigned at Not on file Gender Identity Not on file Sexual Orientation Not on file Care Teams Safety Deposit Boxes Custodian Relationship Specialty Start Date End Date Provider, N Ot A User/ PCP - General 12/08/15
[2024-05-14] MEDS: ACETAMINOPHEN 500 MG TABLET 1000 MG PO (19:24)
[2024-05-14] MEDS: ONDANSETRON INJ 4 MG/2 ML VIAL IV PUSH (19:25)
[2024-05-14] MEDS: SODIUM CHLORIDE 0.9% IV 1,000 ML 999 ML IV CONT ×2 (19:25→22:36)
[2024-05-14 19:27] LABS: Band Neutrophils Percent 9 % (0-6); Eosinophils Absolute Manual 0.16 K/mm3 (0.02-0.50); Eosinophils Percent Manual 2 % (0-4); Lymphocytes Absolute Manual 0.24 K/mm3 (1.1-4.5); Monocytes Absolute Manual 0.24 K/mm3 (0.1-0.90); Monocytes Percent Manual 3 % (3-9); Neutrophils Absolute Manual 7.36 K/mm3 (1.7-7.2); Neutrophils Percent Manual 83 % (46-73); Platelet Estimate Adequate (Adequate); Schistocytes None Seen; Total Cells Counted 100
[2024-05-14 19:34] LABS: Procalcitonin 1.8 ng/mL
[2024-05-14 19:35] LABS: Influenza A QL RT-PCR Negative (Negative); Influenza B QL RT-PCR Negative (Negative); RSV RNA, RT-PCR Negative (Negative); SARS-CoV-2 RNA PCR Negative (Negative)
[2024-05-14 19:36] LABS: NT Pro B Type Natriuretic Pept 1060 pg/mL (19.9-100); Troponin I 0.047 ng/mL (0.000-0.034)
[2024-05-14] MEDS: levoFLOXacin 750 MG/D5W 150 ML 750 MG/150 ML BAG 100 MG IVPB (20:10)
[2024-05-14] MEDS: SODIUM CHLORIDE 0.9% IV 1,000 ML 75 ML IV CONT (21:08)
--- NOTE | 2024-05-14 21:18 | P.HP_ITS ---
H&P: HPI History of Present Illness Date/Time: 05/14/24 21:18 Chief Complaint: 1. Altered mental status 2. Fever Narrative: Negrita Tomas is an 83 yo F with a mhx significant for ILD, RA, hypothyroidism, Peripheral neuropathy, GERD, Dyslipidemia She presents with a day's history of increasing fatigue, malaise, cough and a restriction of her ADLs. With no known modifying factors, her symptoms came to be associated with a confused mentation (per ), a restriction of her ADLs. She denies falls, chest pain, dizziness, skin/joint changes, palpitations, flank pain, She was managed a [facility] for a UTI in 12/2023, during that encounter, she was found to have E. Coli which was resistant to CTX. She does not smoke/chew tobacco, drink alcohol or consume recreational/illicit drugs; she resides with her and does not use an assist devicie. Work-up findings: WBC 8, HGB 9.1, PLT 216 NA 135, K 3.2, BUN 24, CR 1.14, GFR 46 Troponin 0.047, BNP 1060 LA: 1.7 Procalcitonin 1.8 Urinalysis: Positive nitrite, WBC greater than 100, leukocyte esterase 3+, bacteria 4+ Influenza a/B, RSV, COVID-19: Not detected CXR: No acute cardiopulmonary process. Chronic interstitial lung disease. Negrita Tomas will be admitted, evaluated and managed for AMS and UTI Review of Systems Review of Systems: All systems reviewed & are unremarkable except as noted in HPI and below PMFSH Past Medical History Medical History BMI 24.0-24.9, adult History of vaginal delivery x 2 Surgical History Surgical History H/O shoulder replacement History of back surgery History of hysterectomy History of knee replacement Family History Family History Father Family history of elevated blood lipids Family history of coronary artery disease, Onset Age: 81 Family history of malignant neoplasm of bone, Onset Age: 81 Acute myocardial infarction Mother Family history of elevated blood lipids Family history of coronary artery disease, Onset Age: 79 Family history of blood dyscrasia, Onset Age: 79 Family history of osteoarthritis, Onset Age: 79 Heart disease Acute myocardial infarction CHF (congestive heart failure) Sibling Family history of primary malignant neoplasm of liver Family history of renal failure No family history of diabetes mellitus Heart disease Diabetes mellitus Social History Social History Smoking status: Never smoker Second hand tobacco smoke exposure: Yes Alcohol intake: never Substance use: never Substance use type: does not use Do You Feel Safe in your Home?: Yes Lack of Transportation: No Lack of Food: Never True Current Housing: I Have Housing Concerned About Future Housing: No Difficulty Paying Gas/Electric Bills: No Difficulty Paying for Meds: No Currently Unemployed: No Education: Associate Degree Difficulty w/ Childcare or Family Care: No Living arrangements: with family Occupation/Education: retired 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 Gender identity (if verbalized by the patient): Female Sexual Orientation (if Verbalized by the Patient): Straight or Heterosexual Spiritual care concerns: No Meds Home Medications and Allergies Home Medications ?Medication ?Instructions ?Recorded ?Confirmed ?Type multivitamin 1 tablet PO DAILY 06/17/21 04/23/24 History gabapentin 300 mg capsule 300 mg PO Q8H 09/06/22 04/23/24 History cholecalciferol (vitamin D3) 50 50 mcg PO DAILY 09/07/22 04/23/24 History mcg (2,000 unit) capsule ibuprofen 600 mg tablet 600 mg PO Q12H Pain 04/04/23 04/23/24 History omeprazole 20 mg capsule,delayed See Rx Instructions PO ONCE #90 09/19/23 04/23/24 Rx release caps prednisone 5 mg tablet 5 mg PO DAILY 10/06/23 04/23/24 History vitamin B12 1,000 mcg-folic acid 1 tablet sublingual EVERY OTHER DAY 10/06/23 04/23/24 History 400 mcg sublingual tablet levothyroxine 88 mcg tablet 88 mcg PO DAILY #90 tabs 12/08/23 04/23/24 Rx rosuvastatin 5 mg tablet See Rx Instructions .Route 01/17/24 04/23/24 Rx .COMPLEX #90 tabs mycophenolate mofetil 500 mg tablet 1,000 mg PO QPM 04/03/24 04/23/24 History mycophenolate mofetil 500 mg tablet 1,500 mg PO QAM 04/03/24 04/23/24 History Allergies Allergy/AdvReac Type Severity Reaction Status Date / Time cephalexin Allergy Severe RASH Verified 04/20/24 12:08 morphine Allergy Severe HIVES Verified 04/20/24 12:08 nitrofurantoin (From AdvReac Intermediate Weakness Verified 04/20/24 12:08 Macrobid) Vital Signs Vital Signs - 24 hr 05/14/24 18:05 05/14/24 18:17 05/14/24 18:17 Temperature 101.9 F H Pulse Rate 115 H 116 H Respiratory Rate 24 H Blood Pressure 151/62 H Pulse Oximetry 94 Oxygen Delivery Nasal Cannula Oxygen Flow Rate 2 2 Fraction of Inspired Oxygen 97 05/14/24 18:38 05/14/24 18:38 05/14/24 18:48 Temperature Pulse Rate 116 H 118 H Respiratory Rate 24 H 24 H Blood Pressure Pulse Oximetry 97 Oxygen Delivery Nasal Cannula Oxygen Flow Rate 2 Fraction of Inspired Oxygen 28 05/14/24 20:00 05/14/24 20:06 Temperature 101 F H 101 F H Pulse Rate 110 H Respiratory Rate 20 Blood Pressure 108/53 L Pulse Oximetry 91 Oxygen Delivery Oxygen Flow Rate Fraction of Inspired Oxygen Exam Const: General: comfortable HENMT: Ears: TM's normal bilaterally Face/Nose/Sinus: Normal nares present Eyes: General: appearance normal, both eyes and all related structures Sclera: sclerae normal Neck: Neck: supple Thyroid: thyroid normal Resp: Effort & Inspection: normal respiratory effort Cardio: Rate: regular rate Rhythm: regular rhythm Skin: General skin exam: normal color Neuro: General: gait normal Extrem: General: normal to inspection and normal exam except as noted Psych: Mental Status: mental status grossly normal H&P: Results Labs Labs: Short CBC 05/14/24 Range/Units 18:43 WBC 8.0 (4.5-10.0) K/mm3 Hgb 9.1 L (12.0-15.0) g/dL Hct 28.0 L (37.0-47.0) % Plt Count 216 (150-375) k/mm3 BMP 05/14/24 18:43 Sodium 135 L Potassium 3.2 L Chloride 101 Carbon Dioxide 24 BUN 24 H Creatinine 1.14 H Glucose 103 Calcium 8.9 Cardiac Enzymes 05/14/24 Range/Units 18:43 Troponin I 0.047 H* (0.000-0.034) ng/mL Liver Function 05/14/24 Range/Units 18:43 Total Bilirubin 0.8 (0.2-1.3) mg/dL AST 36 (14-36) U/L ALT 20 (6-35) U/L Alkaline Phosphatase 78 (38-126) U/L Albumin 3.3 L (3.5-5.1) g/dL Urine 05/14/24 Range/Units 18:49 Urine Color Yellow (Yellow) Urine Appearance Cloudy H (Clear) Urine pH 5.5 (5.0-9.0) Ur Specific [place] 1.019 (1.001-1.035) Urine Protein 2+ H (Negative) mg/dL Urine Glucose (UA) Negative (Negative) mg/dL Assessment and Plan Assessment and plan (1) Incontinence of urine in female: Code(s): R32 - Unspecified urinary incontinence Status: Acute (2) Hyperlipidemia, unspecified: Qualifiers: Hyperlipidemia type: unspecified Qualified Code(s): E78.5 - Hyperlipidemia, unspecified Code(s): E78.5 - Hyperlipidemia, unspecified Status: Acute (3) Hypothyroidism, unspecified: Qualifiers: Hypothyroidism type: acquired Qualified Code(s): E03.9 - Hypot hyroidism, unspecified Code(s): E03.9 - Hypothyroidism, unspecified Status: Acute (4) Acute UTI: Code(s): N39.0 - Urinary tract infection, site not specified Status: Acute (5) Recurrent UTI: Code(s): N39.0 - Urinary tract infection, site not specified Status: Acute Plan Acute and principal conditions 1. UTI; Fever; SIRS Hx of ESBL @ [facility]; 12/2023 grew E. Coli, resistant to CTX but susceptible to Macrobid 2. AMS, improved. 3. Hypotension. 4. NSTEMI. likely 2/2 demand 5. Elevated BNP 6. Acute renal insufficiency. probably pre-renal Rx: A. Meropenem; awaiting urine and blood culture B. IVFs; monitor for fluid overload; C. Trend troponin, ECG; Cardiac monitoring D. Monitor renal insufficiency; avoid nephrotoxin Chronic and stable conditions 1. OAB. 2. Dyslipidemia. On Rosuvastatin 3. Hypothyroidism. On Levothyroxine 4. Polymyalgia rheumatica 5. RA 6. ILD. 7. Seronegative arthritis. Miscellaneous care 1. Code status. Full 2. Nutrition. Regular 3. VTE prophylaxis. SCDs; [facility] Hospitalist [facility] Advance Care Plan I have confirmed that the patient's Advanced Care Plan is present, code status is documented, or surrogate decision maker is listed in patient medical record.: Yes Medication Reconciliation I have utilized all available resources to obtain, update and review the patients current medications (includes all prescriptions, OTC, herbals, cannabis, and nutritional supplements).: Yes The patient is not eligible for med reconciliation; the patient is in a emergent medical situation where delaying treatment would jeopardize the patients health.: Yes
[2024-05-14] MEDS: MELATONIN 5 MG TABLET PO (22:20)
[2024-05-14] MEDS: HEPARIN SODIUM 5,000 UNITS/ML VIAL 5000 UNITS SUB-Q (22:36)
[2024-05-14] MEDS: MEROPENEM 1 GM/NS 100 ML 1 GM/100 ML BAG IVPB (23:00)
[2024-05-15] VITALS (23 sets, daily range): BP systolic 105–140; BP diastolic 40–92; PULSE 58–93; RESP 16–22; TEMP 36.3–36.8; O2SAT 96–100; BMI 25.3
--- NOTE | 2024-05-15 | ECHO_ITS ---
Patient Info Name: Negrita Tomas Age: 83 years : 1940 Gender: Female Ht: 51 in Wt: 116 lbs BSA: 1.41 m2 HR: 67 bpm BP: 123 / 49 mmHg Technical Quality: Fair Exam Date: 05/15/2024 3:56 PM Exam Location: Echo Lab Patient Status: Inpatient Admit Date: 05/15/2024 Staff Ordering Physician: Jaci Joseph Security Incident Handler: Suki Pulido RDCS Attending Provider: Jaci Joseph Referring Physician: Opal LONG; Exam Type: CA echo dop bubble study w con Study Info Indications - NSTEMI Complete two-dimentional, color flow and Doppler transthoracic echocardiogram is performed with agitated saline and with contrast to opacify the left ventricle and to improve the delineation of the left ventricle endocardial borders. Contrast/Agitated Saline Contrast/Ag. Saline: Agitated Saline Amount: 20.00 ml Existing IV Access: Yes Contrast/Ag. Saline: Definity Amount: 2.00 ml Existing IV Access: Yes Summary 1. Definity contrast administered improved wall motion interpretation. 2. Left ventricular chamber dimension is normal. 3. Left ventricular systolic function is normal, estimated at 65-70%. 4. There is moderate concentric increased left ventricular wall thickness. 5. The left ventricular diastolic function is abnormal. 6. E/e' 12 is mildly elevated. 7. There is mild aortic valve sclerosis. 8. There is mild mitral valve regurgitation. 9. There is mild tricuspid valve regurgitation. 10. No pulmonary hypertension, estimated pulmonary arterial systolic pressure is 36 mmHg. 11. The aortic root size at the sinus of Valsalva is borderline dilated at 4.0 cm. Left Ventricle E/e' 12 is mildly elevated. Definity contrast administered improved wall motion interpretation. Left ventricular chamber dimension is normal. Left ventricular systolic function is normal, estimated at 65-70%. There is moderate concentric increased left ventricular wall thickness. The left ventricular diastolic function is abnormal. Right Ventricle Right ventricular systolic function is normal and with normal TAPSE 2.3 cm. Right ventricular chamber dimension is normal. Left Atria Left atrial chamber dimension is normal. Right Atria Right atrial chamber dimension is normal. Atrial Septum Agitated saline injection opacified right side cardiac chambers without shunt to left side cardiac chambers. Intact interatrial septum visualized by 2D and agitated saline imaging. Aortic Valve The aortic valve is trileaflet. There is mild aortic valve sclerosis. There is no aortic valve stenosis. There is no aortic valve regurgitation. Pulmonic Valve There is no pulmonic regurgitation. Mitral Valve There is no mitral valve stenosis. There is mild mitral valve regurgitation. Tricuspid Valve There is mild tricuspid valve regurgitation. No pulmonary hypertension, estimated pulmonary arterial systolic pressure is 36 mmHg. Pericardium/Pleural There is no pericardial effusion. Inferior Vena Cava Normal inferior vena cava with >50% collapse upon inspiration consistent with normal right atrial pressure, 5 mmHg. Aorta The aortic root size at the sinus of Valsalva is borderline dilated at 4.0 cm. Left Ventricular Outflow Tract Name Value Normal LVOT 2D LVOT Diameter 2.3 cm LVOT Doppler LVOT Peak Velocity 115 cm/s LVOT Peak Gradient 4 mmHg LVOT Mean Gradient 3 mmHg LVOT VTI 26 cm LVOT VTI/AV VTI Ratio 0.6 LVOT Stroke Volume 105 ml LVOT CO 4.7 l/min LVOT CI 3.4 l/min/m2 Pulmonic Valve Name Value Normal RVOT Doppler RVOT Peak Gradient 2 mmHg PV Doppler PV Peak Velocity 68 cm/s PV Peak Gradient 2 mmHg Mitral Valve Name Value Normal MV Doppler MV Peak Gradient 7 mmHg MV Mean Gradient 3 mmHg MV Decel Allen 672 cm/s2 MV PHT 45 ms MV Area (PHT) 4.9 cm2 4.0-5.0 MV Area (Cont Eq VTI) 2.9 cm2 MV Diastolic Function MV E Peak Velocity 103 cm/s MV A Peak Velocity 79 cm/s MV E/A 1.3 MV Decel Time 154 ms MV Annular TDI MV Septal e' Velocity 7.4 cm/s >=8.0 MV E/e' (Septal) 13.9 <=8.0 MV Lateral e' Velocity 8.8 cm/s >=10.0 MV E/e' (Lateral) 11.7 <=8.0 MV e' Average 8.12 MV E/e' (Average) 12.8 Tricuspid Valve Name Value Normal TV Regurgitation Doppler TR Peak Velocity 277 cm/s TR Peak Gradient 31 mmHg Estimated PAP/RSVP RA Pressure 5 mmHg <=5 PA Systolic Pressure 36 mmHg <36 RV Systolic Pressure 36 mmHg <36 TV Annular TDI TV Lateral Joy s' Velocity 23.8 cm/s 9.5-18.7 Aorta Name Value Normal Ascending Aorta Ao Root Diameter (MM) 4.0 cm Ao Root Diam Index (MM) 2.9 cm/m2 Ao Sinotub Junction Diameter 2.7 cm 2.3-2.9 Aortic Valve Name Value Normal AV Doppler AV Peak Velocity 196 cm/s AV Peak Gradient 15 mmHg AV Mean Gradient 8 mmHg AV VTI 43 cm AV Area (Cont Eq VTI) 2.4 cm2 >=3.0 AV Area (Cont Eq Kei) 2.3 cm2 AV V1/V2 Ratio 0.59 AV Regurgitation 2D LVOT Area 4.0 cm2 Ventricles Name Value Normal LV Dimensions 2D/MM IVS Diastolic Thickness (2D) 1.2 cm 0.6-1.0 LVID Diastole (2D) 4.5 cm 3.8-5.2 LVIW Diastolic Thickness (2D) 0.8 cm 0.6-0.9 LVID Systole (2D) 2.8 cm 2.2-3.5 LVOT Diameter 2.3 cm LV Mass (2D Cubed) 151.37 g 67.00-162.00 LV Mass Index (2D Cubed) 108 g/m2 43-95 Relative Wall Thickness (2D) 0.35 LV Fractional Shortening/Ejection Fraction 2D/MM LV Fractional Shortening (2D) 42 % 27-45 LV EF (2D Teicholz) 73 % 54-74 LV Diastolic Volume (4C MOD) 104 ml LV EF (4C MOD) 62 % LV Diastolic Volume (2C MOD) 96 ml LV EF (2C MOD) 59 % LV Diastolic Volume (BP MOD) 99 ml 46-106 LV Diastolic Volume Index (BP MOD) 71 ml/m2 29-61 LV Systolic Volume (BP MOD) 39 ml 14-42 LV Systolic Volume Index (BP MOD) 28 ml/m2 8-24 LV EF (BP MOD) 61 % 54-74 LV Diastolic Length (4C) 7.4 cm LV Systolic Length (4C) 5.9 cm LV Stroke Volume (4C MOD) 64 ml Atria Name Value Normal LA Dimensions LA Dimension (MM) 2.9 cm 2.7-3.8 LA Volume (4C A-L) 40 ml LA Volume (BP A-L) 51 ml RA Dimensions RA Area (4C) 12.3 cm2 <=18.0 Report Signatures
[2024-05-15 00:24] LABS: Troponin I 0.064 ng/mL (0.000-0.034)
[2024-05-15] MEDS: IBUPROFEN 600 MG TABLET PO ×3 (01:02→20:14)
[2024-05-15 03:13] LABS: Hematocrit 21.5 % (37.0-47.0); Mean Corpuscular HGB Conc 32.1 g/dl (32-36); Mean Corpuscular Hemoglobin 32.2 pg (26-34); Mean Corpuscular Volume 100.5 fl (80-100); Platelet Count Result 164 k/mm3 (150-375); Red Blood Count 2.14 M/mm3 (4.2-5.4); Red Cell Distribution Width 13.4 % (11.5-14.5)
[2024-05-15 03:23] LABS: Alanine Aminotransferase 16 U/L (6-35); Albumin Level 2.4 g/dL (3.5-5.1); Alkaline Phosphatase 53 U/L (38-126); Anion Gap 7 mmol/L (4-12); Aspartate Amino Transferase 30 U/L (14-36); Bilirubin,Total 0.6 mg/dL (0.2-1.3); Blood Urea Nitrogen 24 mg/dL (7-17); Calcium 7.4 mg/dL (8.4-10.2); Carbon Dioxide 22 mmol/L (22-30); Chloride 106 mmol/L (98-107); Estimated Glomerular Filt Rate 44; Glucose 96 mg/dL (65-110); Potassium 3.8 mmol/L (3.4-5.0); Sodium 135 mmol/L (137-145)
[2024-05-15 03:40] LABS: Troponin I 0.057 ng/mL (0.000-0.034)
[2024-05-15 03:45] LABS: Hemoglobin 6.9 g/dL (12.0-15.0)
[2024-05-15 03:47] LABS: Band Neutrophils Percent 17 % (0-6); Lymphocytes Absolute Manual 0.56 K/mm3 (1.1-4.5); Monocytes Absolute Manual 0.08 K/mm3 (0.1-0.90); Monocytes Percent Manual 1 % (3-9); Neutrophils Absolute Manual 7.36 K/mm3 (1.7-7.2); Neutrophils Percent Manual 75 % (46-73); Total Cells Counted 100
[2024-05-15 03:48] LABS: Anisocytosis 1+; Ovalocytes 1+; Platelet Estimate Adequate (Adequate); Schistocytes None Seen
[2024-05-15 04:17] LABS: Hematocrit 22.6 % (37.0-47.0); Hemoglobin 7.1 g/dL (12.0-15.0)
--- NOTE | 2024-05-15 05:23 | PC.NURSE ---
This RN spoke with pt daughter. pt daughter updated about POC
[2024-05-15] MEDS: SODIUM CHLORIDE 0.9% IV 250 ML 30 ML IV CONT (06:38)
[2024-05-15] MEDS: TUBING, BLOOD SET 1 EACH XX (06:38)
[2024-05-15] MEDS: HEPARIN SODIUM 5,000 UNITS/ML VIAL 5000 UNITS SUB-Q ×2 (09:29→20:14)
[2024-05-15] MEDS: DEXTROSE 5%/0.9% SOD CHL 1,000 ML 100 ML IV CONT (09:31)
--- NOTE | 2024-05-15 09:54 | P.PNIM_ITS ---
Progress Note: A&P Assessment and Plan (1) Acute UTI: Code(s): N39.0 - Urinary tract infection, site not specified Status: Acute Assessment and Plan: 05/15/24: * Pt placed on Meropenem by Box Blank Machine Operator given hx of ESBL. Discussed with ID Pharmacist and he agrees with continuing in the current setting. * Hx of E.coli w/ESBL * No Leukocytosis, but 17K Bands. * Urine culture and BCx2 pending. * Not meeting Sepsis criteria. (2) Elevated troponin: Code(s): R79.89 - Other specified abnormal findings of blood chemistry Status: Acute Assessment and Plan: 05/15/24: * Elevated troponins on arrival. * Trends as follows: 0.047-->0.064-->0.057 * No comparison troponins to determine baseline, but trops here are flat. * EKG showing ST rate of 106 bpm with LAD and non-specific ST changes. * Asymptomatic. Suspect Demand ischemia. Should pt develop any symptoms, consider consulting Cardiology. * Ordered ECHO. 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 ESBL (4) Incontinence of urine in female: Code(s): R32 - Unspecified urinary incontinence Status: Chronic Assessment and Plan: 05/15/24: * Chronic in nature. (5) Hyperlipidemia, unspecified: Qualifiers: Hyperlipidemia type: unspecified Qualified Code(s): E78.5 - Hyperlipidemia, unspecified Code(s): E78.5 - Hyperlipidemia, unspecified Status: Chronic Assessment and Plan: 05/15/24: * Continue Rosuvastatin 5 mg po Daily. * Heart Healthy Diet (6) Hypothyroidism, unspecified: Qualifiers: Hypothyroidism type: acquired Qualified Code(s): E03.9 - Hypothyroidism, unspecified Code(s): E03.9 - Hypothyroidism, unspecified Status: Chronic Assessment and Plan: 05/15/24: * Continue Levothyroxine at home dose. (7) GERD (gastroesophageal reflux disease): Code(s): K21.9 - Gastro-esophageal reflux disease without esophagitis Status: Chronic Assessment and Plan: 05/15/24: * Continue PPI therapy. (8) Macrocytic anemia: Code(s): D53.9 - Nutritional anemia, unspecified Status: Acute Assessment and Plan: 05/15/24: * Hgb 7.1, Hct 22.6. * Check Iron panel. * No acute s/s of blood loss. * Consider transfusion if Hgb drops below 7.0. Time Spent With Patient Time with patient: 15 - 25 minutes Subjective Date/time seen: 05/15/24 09:54 Interval history: This pt is examined in the ER, prior to inpatient floor placement. She has complaints of joint pain in the bilateral hands from her RA. She takes chronic meds of Gabapentin and NSAIDs which she states does help with her pain when she has it, but has not yet had it today. She has no other acute complaints at this time. She is being admitted for treatment of UTI that was found after being combative and confused at home. She does have a hx of ESBL infection that required Meropenem for treatment. She is being admitted to the hospital in this setting for continued management. Review of Systems Review of Systems: All systems reviewed & are unremarkable except as noted in HPI and below Exam Const: General: uncomfortable Other: Elderly female pt lying supine at this time on the stretcher. HENMT: Mouth: Yes moist mucous membranes Eyes: General: appearance normal, both eyes and all related structures Neck: Neck: supple and no JVD Resp: Effort & Inspection: normal respiratory effort Auscultation: rhonchi Cardio: Rate: regular rate Rhythm: regular rhythm Heart sounds: no gallops, no murmurs and no rubs GI: Inspection: non-distended GI Palp: Yes Soft to palpation and No Tenderness to palpation present (GI) Auscultation: normal bowel sounds Skin: General skin exam: normal color, no rashes or lesions noted and no erythema Rashes: rashes noted Wounds: no wounds Neuro: Speech: normal speech Motor exam (neuro): Abnormal motor strength present (weak) Sensory Exam: normal sensation Extrem: General: normal to inspection and no edema Psych: Mental Status: mental status grossly normal Affect: normal affect Objective Data Vital Signs Vital Signs: Vital Signs - 24 hr 05/14/24 18:05 05/14/24 18:17 05/14/24 18:17 Temperature 101.9 F H Pulse Rate 115 H 116 H Respiratory Rate 24 H Blood Pressure 151/62 H Pulse Oximetry 94 Oxygen Delivery Nasal Cannula Oxygen Flow Rate 2 2 Fraction of Inspired Oxygen 97 05/14/24 18:38 05/14/24 18:38 05/14/24 18:48 Temperature Pulse Rate 116 H 118 H Respiratory Rate 24 H 24 H Blood Pressure Pulse Oximetry 97 Oxygen Delivery Nasal Cannula Oxygen Flow Rate 2 Fraction of Inspired Oxygen 28 05/14/24 19:00 05/14/24 20:00 05/14/24 20:00 Temperature 101 F H Pulse Rate 104 H 97 Respiratory Rate 24 H 24 H Blood Pressure 92/42 L 92/34 L Pulse Oximetry 98 99 Oxygen Delivery Oxygen Flow Rate Fraction of Inspired Oxygen 05/14/24 20:06 05/14/24 21:00 05/14/24 22:00 Temperature 101 F H Pulse Rate 110 H 92 87 Respiratory Rate 20 24 H 22 H Blood Pressure 108/53 L 94/45 L 93/41 L Pulse Oximetry 91 99 93 Oxygen Delivery Oxygen Flow Rate Fraction of Inspired Oxygen 05/14/24 22:38 05/15/24 00:47 05/15/24 02:22 Temperature 98.3 F Pulse Rate 73 66 Respiratory Rate 18 18 Blood Pressure 108/40 L 107/45 L Pulse Oximetry 100 100 Oxygen Delivery Oxygen Flow Rate Fraction of Inspired Oxygen 05/15/24 04:01 05/15/24 04:52 05/15/24 06:00 Temperature 97.5 F L Pulse Rate 64 58 L 65 Respiratory Rate 18 19 20 Blood Pressure 105/45 L 105/45 L 115/51 L Pulse Oximetry 97 100 98 Oxygen Delivery Oxygen Flow Rate Fraction of Inspired Oxygen 05/15/24 06:21 05/15/24 07:21 05/15/24 08:03 Temperature 97.4 F L 97.7 F 97.7 F Pulse Rate 63 62 68 Respiratory Rate 18 18 20 Blood Pressure 120/49 L 125/65 108/81 Pulse Oximetry 100 98 98 Oxygen Delivery Oxygen Flow Rate Fraction of Inspired Oxygen Intake/Output Intake/Output: Intake & Output 05/12/24 05/13/24 05/14/24 05/15/24 23:59 23:59 23:59 23:59 Intake Total 1250 1404 Balance 1250 1404 Meds/Results Medications: Active Medications Generic Name Dose Route Start Last Admin Trade Name Freq PRN Reason Stop Dose Admin Acetaminophen 650 mg 05/14/24 21:15 Acetaminophen 325 Mg Tablet PO Q4H PRN Mild Pain (1-3) or Fever Albuterol/Ipratropium 3 ml 05/14/24 21:51 Ipratropium 0.5 Mg/Albuterol Sulfate 2.5 Mg Ampul.Neb 3 Ml INHALATION Q4HRT PRN shortness of breath/Wheezing Guaifenesin/Dextromethorphan 10 ml 05/14/24 21:51 Guaifenesin/Dextromethorphan 10 Ml Udc PO Q4H PRN Cough Heparin Sodium (Porcine) 5,000 units 05/14/24 21:20 05/15/24 09:29 Heparin Sodium 5,000 Units/Ml Vial SUB-Q 5,000 units Q12HR MIKAYLA Administration Sodium Chloride 1,000 mls @ 75 mls/hr 05/14/24 19:45 05/14/24 21:08 Normal Saline Iv IV CONT 75 mls/hr .[id number] MIKAYLA Administration Dextrose/Sodium Chloride 1,000 mls @ 100 mls/hr 05/14/24 21:15 05/15/24 09:31 Dextrose 5% Sodium Chloride 0.9% IV CONT 100 mls/hr .Q10H MIKAYLA Administration Meropenem 1 gm in 100 mls @ 200 mls/hr 05/14/24 23:00 05/14/24 23:30 IVPB Infused Q12H MIKAYLA Infusion Sodium Chloride 250 mls @ 30 mls/hr 05/15/24 03:51 05/15/24 08:29 Normal Saline Iv IV CONT 05/15/24 12:10 Infused .[id number] STA Infusion Ibuprofen 600 mg 05/15/24 00:51 05/15/24 01:02 Ibuprofen 600 Mg Tablet PO 600 mg Q6H PRN Administration Cramping Melatonin 5 mg 05/14/24 21:15 05/14/24 22:20 Melatonin 5 Mg Tablet PO 5 mg HS PRN Administration Insomnia Prochlorperazine Edisylate 10 mg 05/14/24 21:15 Prochlorperazine Edisylate 10 Mg/2 Ml Vial IV PUSH Q6H PRN Nausea And Vomiting Radiology Results: ITS Impressions Chest X-Ray 05/14/24 19:49 IMPRESSION: No acute cardiopulmonary process. Chronic interstitial lung disease. Labs Labs: Laboratory Results - last 24 hr 05/14/24 05/14/24 05/14/24 18:43 18:49 23:43 WBC 8.0 RBC 2.85 L Hgb 9.1 L Hct 28.0 L MCV 98.2 MCH 31.9 MCHC 32.5 RDW 13.2 Plt Count 216 MPV 10.7 H Immature Gran % (Auto) Not Reportable Neut % (Auto) Not Reportable Lymph % (Auto) Not Reportable [place] % (Auto) Not Reportable Eos % (Auto) Not Reportable Baso % (Auto) Not Reportable Lymph # (Auto) Not Reportable [place] # (Auto) Not Reportable Eos # (Auto) Not Reportable Baso # (Auto) Not Reportable Abs Immat Gran (auto) Not Reportable Absolute Neuts (auto) Not Reportable Absolute Nucleated RBC Not Reportable Total Counted 100 Neutrophils % (Manual) 83 H Band Neutrophils % 9 H Lymphocytes % (Manual) 3.0 L Monocytes % (Manual) 3 Eosinophils % (Manual) 2 Nucleated RBC % Not Reportable Abs Neuts (Manual) 7.36 H Abs Lymphs (Manual) 0.24 L Abs Monocytes (Manual) 0.24 Absolute Eos (Manual) 0.16 Platelet Estimate Adequate Anisocytosis Ovalocytes Schistocytes None seen PT 16.2 H INR 1.2 APTT 31.0 Sodium 135 L Potassium 3.2 L Chloride 101 Carbon Dioxide 24 Anion Gap 10 BUN 24 H Creatinine 1.14 H Estim Creat Clear Calc Not Reportable Estimated GFR 46 L Glucose 103 Lactic Acid 1.7 Calcium 8.9 Magnesium 1.8 Total Bilirubin 0.8 AST 36 ALT 20 Alkaline Phosphatase 78 Troponin I 0.047 H* 0.064 H* D NT-Pro-B Natriuret Pep 1060 H Total Protein 7.0 Albumin 3.3 L Procalcitonin 1.8 Urine Color Yellow Urine Appearance Cloudy H Urine pH 5.5 Ur Specific [place] 1.019 Urine Protein 2+ H Urine Glucose (UA) Negative Urine Ketones Negative Ur Blood (Man) Trace Urine Nitrate Positive H Urine Bilirubin Negative Urine Urobilinogen 0.2 Leukocyte Esterase Rfl 3+ H Urine RBC 0-2 Urine WBC >100 H Ur Squamous Epith Cells None seen Urine Bacteria 4+ H Urine Casts 0-2 Influenza A (RT-PCR) Negative Influenza B (RT-PCR) Negative RSV (RT-PCR) Negative SARS-CoV-2 RNA (RT-PCR) Negative Blood Type Antibody Screen Crossmatch 05/15/24 05/15/24 03:07 04:06 WBC 8.0 RBC 2.14 L Hgb 6.9 L* 7.1 L Hct 21.5 L 22.6 L MCV 100.5 H MCH 32.2 MCHC 32.1 RDW 13.4 Plt Count 164 MPV 10.0 Immature Gran % (Auto) Not Reportable Neut % (Auto) Not Reportable Lymph % (Auto) Not Reportable [place] % (Auto) Not Reportable Eos % (Auto) Not Reportable Baso % (Auto) Not Reportable Lymph # (Auto) Not Reportable [place] # (Auto) Not Reportable Eos # (Auto) Not Reportable Baso # (Auto) Not Reportable Abs Immat Gran (auto) Not Reportable Absolute Neuts (auto) Not Reportable Absolute Nucleated RBC Not Reportable Total Counted 100 Neutrophils % (Manual) 75 H Band Neutrophils % 17 H Lymphocytes % (Manual) 7.0 L Monocytes % (Manual) 1 L Eosinophils % (Manual) Nucleated RBC % Not Reportable Abs Neuts (Manual) 7.36 H Abs Lymphs (Manual) 0.56 L Abs Monocytes (Manual) 0.08 L Absolute Eos (Manual) Platelet Estimate Adequate Anisocytosis 1+ Ovalocytes 1+ Schistocytes None seen PT INR APTT Sodium 135 L Potassium 3.8 Chloride 106 Carbon Dioxide 22 Anion Gap 7 BUN 24 H Creatinine 1.17 H Estim Creat Clear Calc Not Reportable Estimated GFR 44 L Glucose 96 Lactic Acid Calcium 7.4 L Magnesium Total Bilirubin 0.6 AST 30 ALT 16 Alkaline Phosphatase 53 Troponin I 0.057 H* NT-Pro-B Natriuret Pep Total Protein 5.0 L Albumin 2.4 L Procalcitonin Urine Color Urine Appearance Urine pH Ur Specific [place] Urine Protein Urine Glucose (UA) Urine Ketones Ur Blood (Man) Urine Nitrate Urine Bilirubin Urine Urobilinogen Leukocyte Esterase Rfl Urine RBC Urine WBC Ur Squamous Epith Cells Urine Bacteria Urine Casts Influenza A (RT-PCR) Influenza B (RT-PCR) RSV (RT-PCR) SARS-CoV-2 RNA (RT-PCR) Blood Type A Positive Antibody Screen Negative Crossmatch See Detail Quality VTE Prophylaxis VTE prophylaxis: pharmacologic ordered
[2024-05-15] MEDS: LEVOTHYROXINE SODIUM 88 MCG TABLET PO (11:32)
[2024-05-15] MEDS: PANTOPRAZOLE 40 MG TABLET PO (11:32)
[2024-05-15] MEDS: MULTIVITAMINS THERAPEUTIC TAB (*BKC) 1 TABLET PO (11:32)
[2024-05-15] MEDS: ROSUVASTATIN 5 MG TABLET PO (11:33)
[2024-05-15] MEDS: PIPERACILLN/TAZ 3.375GM/NS50ML 3.375 GM/50 ML BAG IVPB (11:33)
[2024-05-15] MEDS: CHOLECALCIFEROL 1,000 UNITS TABLET 2000 UNITS PO (11:33)
[2024-05-15] MEDS: CYANOCOBALAMIN 1,000 MCG TABLET 1000 MCG PO (11:34)
[2024-05-15] MEDS: GABAPENTIN 300 MG CAPSULE PO ×3 (11:34→21:34)
[2024-05-15] MEDS: FOLIC ACID 0.4 MG TABLET PO (11:34)
--- NOTE | 2024-05-15 14:31 | ADMGEN ---
This patient, Negrita Tomas, was admitted to IMU Room 206-02 on 05/15/24 at 1216. Patient/family oriented to hospital policies and general routines including ID bracelet, bed and alarms, visiting hours, pain management, procedures, bathroom and other care routines, personal items, smoking policy, room service/diet, and visiting hours. Information on how to activate the Rapid Response Team has been discussed. Patient/Family are encouraged to report perceived risks to care and to ask questions if they do not understand what they are told or what they should do.
[2024-05-15 15:06] LABS: Iron 17 ug/dL (37-170)
[2024-05-15 15:16] LABS: Percent Iron Saturation 9 % (20-50)
[2024-05-15] MEDS: MEROPENEM 500 MG/NS 100 ML 500 MG/100 ML BAG 200 MG IVPB ×2 (15:46→23:10)
[2024-05-15] MEDS: PERFLUTREN LIPID MICROSPHERES 1.5 ML VIAL DILUTED TO 10 ML TOTAL VOLUME IV PUSH (15:50)
--- NOTE | 2024-05-15 17:21 | IVDEFINITY ---
Prior to administration of IV Definity the patient was educated on the risks and benefits of the imaging enhancing agent including potential adverse side effects. The patient verbalized understanding. Allergies were verified. No exclusion criteria were identified and at least one of the following inclusion criteria were met: 1) physician request, 2) patient technically difficult to image (per the [place] [employer] of Echocardiography guidelines of two or more segments not discernable within the apical view), or 3) questionable left ventricular function. ?
[2024-05-15] MEDS: guaiFENesin/DEXTROMETHORPHAN 10 ML UDC PO (20:20)
[2024-05-16] VITALS (16 sets, daily range): BP systolic 131–182; BP diastolic 51–73; PULSE 72–106; RESP 16–20; TEMP 36.4–36.7; O2SAT 92–98; BMI 25.0
[2024-05-16 05:47] LABS: Basophils Percent Auto 0.2 % (0.2-1.2); Eosinophils Absolute Auto 0.1 K/mm3 (0-0.3); Eosinophils Percent Auto 0.7 % (0-4.4); Hematocrit 31.8 % (37.0-47.0); Hemoglobin 10.1 g/dL (12.0-15.0); Immature Granulocyte Absolute 0.07 K/mm3 (0.00-0.031); Immature Granulocyte Percent A 0.7 % (0-0.5); Lymphocytes Absolute Auto 0.67 K/mm3 (0.9-3.2); Lymphocytes Percent Auto 6.9 % (18.3-44.2); Mean Corpuscular HGB Conc 31.8 g/dl (32-36); Mean Corpuscular Hemoglobin 30.6 pg (26-34); Mean Corpuscular Volume 96.4 fl (80-100); Mean Platelet Volume 10.9 fl (7.4-10.4); Monocytes Absolute Auto 0.5 K/mm3 (0.1-0.6); Monocytes Percent Auto 5.4 % (2.6-8.5); Neutrophils Absolute Auto 8.4 K/mm3 (1.3-6.7); Neutrophils Percent Auto 86.1 % (45.5-73.1); Platelet Count Result 196 k/mm3 (150-375); Red Cell Distribution Width 15.5 % (11.5-14.5); White Blood Count 9.7 K/mm3 (4.5-10.0)
[2024-05-16] MEDS: LEVOTHYROXINE SODIUM 88 MCG TABLET PO (05:54)
[2024-05-16] MEDS: BENZONATATE 100 MG CAPSULE 200 MG PO ×2 (05:56→16:19)
[2024-05-16 06:01] LABS: Alanine Aminotransferase 17 U/L (6-35); Albumin Level 2.5 g/dL (3.5-5.1); Alkaline Phosphatase 65 U/L (38-126); Anion Gap 7 mmol/L (4-12); Aspartate Amino Transferase 32 U/L (14-36); Bilirubin,Total 0.6 mg/dL (0.2-1.3); Blood Urea Nitrogen 20 mg/dL (7-17); Calcium 8.1 mg/dL (8.4-10.2); Carbon Dioxide 23 mmol/L (22-30); Chloride 107 mmol/L (98-107); Estimated Glomerular Filt Rate 53; Glucose 77 mg/dL (65-110); Potassium 3.5 mmol/L (3.4-5.0); Sodium 137 mmol/L (137-145)
[2024-05-16 08:56] LABS: Magnesium 1.8 mg/dL (1.6-2.3)
[2024-05-16] MEDS: azaTHIOprine 50 MG TABLET PO (09:24)
[2024-05-16] MEDS: CHOLECALCIFEROL 1,000 UNITS TABLET 2000 UNITS PO (09:25)
[2024-05-16] MEDS: GABAPENTIN 300 MG CAPSULE PO ×2 (09:25→16:21)
[2024-05-16] MEDS: HEPARIN SODIUM 5,000 UNITS/ML VIAL 5000 UNITS SUB-Q ×2 (09:25→20:56)
[2024-05-16] MEDS: IBUPROFEN 600 MG TABLET PO ×2 (09:25→20:56)
[2024-05-16] MEDS: MEROPENEM 500 MG/NS 100 ML 500 MG/100 ML BAG 200 MG IVPB ×2 (09:25→20:58)
[2024-05-16] MEDS: PANTOPRAZOLE 40 MG TABLET PO (09:26)
[2024-05-16] MEDS: ROSUVASTATIN 5 MG TABLET PO (09:26)
[2024-05-16] MEDS: MULTIVITAMINS THERAPEUTIC TAB (*BKC) 1 TABLET PO (09:26)
--- NOTE | 2024-05-16 10:39 | P.PNIM_ITS ---
Progress Note: A&P Assessment and Plan (1) Acute UTI: Code(s): N39.0 - Urinary tract infection, site not specified Status: Acute Assessment and Plan: 05/15/24: * Pt placed on Meropenem by Baseball Pitcher given hx of ESBL. Discussed with ID Pharmacist and he agrees with continuing in the current setting. * Hx of E.coli w/ESBL * No Leukocytosis, but 17K Bands. * Urine culture and BCx2 pending. * Not meeting Sepsis criteria. 05/16/24: * Urine culture grew E coli with ESBL * Continue Meropenem 500 mg IVPB q 12. (2) Elevated troponin: Code(s): R79.89 - Other specified abnormal findings of blood chemistry Status: Acute Assessment and Plan: 05/15/24: * Elevated troponins on arrival. * Trends as follows: 0.047-->0.064-->0.057 * No comparison troponins to determine baseline, but trops here are flat. * EKG showing ST rate of 106 bpm with LAD and non-specific ST changes. * Asymptomatic. Suspect Demand ischemia. Should pt develop any symptoms, consider consulting Cardiology. * Ordered ECHO. 05/16/24: * No chest pain * Echocardiogram 05/15/24 showed: Summary 1. Definity contrast administered improved wall motion interpretation. 2. Left ventricular chamber dimension is normal. 3. Left ventricular systolic function is normal, estimated at 65-70%. 4. There is moderate concentric increased left ventricular wall thickness. 5. The left ventricular diastolic function is abnormal. 6. E/e' 12 is mildly elevated. 7. There is mild aortic valve sclerosis. 8. There is mild mitral valve regurgitation. 9. There is mild tricuspid valve regurgitation. 10. No pulmonary hypertension, estimated pulmonary arterial systolic pressure is 36 mmHg. 11. The aortic root size at the sinus of Valsalva is borderline dilated at 4.0 cm. 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 ESBL 05/16/24: 05/16/24: * Urine culture grew E coli with ESBL * Continue Meropenem 500 mg IVPB q 12. (4) Incontinence of urine in female: Code(s): R32 - Unspecified urinary incontinence Status: Chronic Assessment and Plan: 05/15/24: * Chronic in nature. (5) Hyperlipidemia, unspecified: Qualifiers: Hyperlipidemia type: unspecified Qualified Code(s): E78.5 - Hyperlipidemia, unspecified Code(s): E78.5 - Hyperlipidemia, unspecified Status: Chronic Assessment and Plan: 05/15/24: * Continue Rosuvastatin 5 mg po Daily. * Heart Healthy Diet (6) Hypothyroidism, unspecified: Qualifiers: Hypothyroidism type: acquired Qualified Code(s): E03.9 - Hypothyroidism, unspecified Code(s): E03.9 - Hypothyroidism, unspecified Status: Chronic Assessment and Plan: 05/15/24: * Continue Levothyroxine at home dose. (7) GERD (gastroesophageal reflux disease): Code(s): K21.9 - Gastro-esophageal reflux disease without esophagitis Status: Chronic Assessment and Plan: 05/15/24: * Continue PPI therapy. (8) Macrocytic anemia: Code(s): D53.9 - Nutritional anemia, unspecified Status: Acute Assessment and Plan: 05/15/24: * Hgb 7.1, Hct 22.6. * Check Iron panel. * No acute s/s of blood loss. * Consider transfusion if Hgb drops below 7.0. 05/16/24: * Hgb 10.1, Hct 31.8. * Iron 17, TIBC 186, & % saturation 9. * Add Iron Polysaccharide 150 mg PO daily. * Monitor labs. Subjective Date/time seen: 05/16/24 10:39 Interval history: Patient sitting up in chair with family at bedside. Patient denies chest pain, palpitations, headache, dizziness, nausea, or vomiting. Reports that mouth is dry and she needs her Cevimeline. Review of Systems Review of Systems: All systems reviewed & are unremarkable except as noted in HPI and below Exam Const: General: comfortable and no acute distress Resp: Effort & Inspection: normal respiratory effort Auscultation: rhonchi Cardio: Rate: regular rate Rhythm: regular rhythm Other: Telemetry SR 84 GI: GI Palp: Yes Soft to palpation Auscultation: normal bowel sounds Neuro: Speech: normal speech Psych: Mental Status: mental status grossly normal Affect: normal affect Objective Data Vital Signs Vital Signs: Vital Signs - 24 hr 05/15/24 11:01 05/15/24 11:40 05/15/24 12:16 Temperature Pulse Rate 65 Respiratory Rate 17 Blood Pressure 125/54 L Pulse Oximetry 100 98 99 Oxygen Delivery Nasal Cannula Nasal Cannula Oxygen Flow Rate 2 2 05/15/24 12:26 05/15/24 12:56 05/15/24 14:00 Temperature 97.3 F L Pulse Rate 70 64 67 Respiratory Rate 18 Blood Pressure 129/60 Pulse Oximetry 99 Oxygen Delivery Oxygen Flow Rate 05/15/24 15:28 05/15/24 16:00 05/15/24 16:00 Temperature 97.4 F L Pulse Rate 72 74 Respiratory Rate 18 Blood Pressure 133/45 L Pulse Oximetry 98 98 Oxygen Delivery Nasal Cannula Oxygen Flow Rate 2 05/15/24 18:00 05/15/24 19:50 05/15/24 20:00 Temperature 97.4 F L Pulse Rate 85 80 Respiratory Rate 16 Blood Pressure 131/53 L Pulse Oximetry 97 97 Oxygen Delivery Nasal Cannula Oxygen Flow Rate 2 05/15/24 20:00 05/15/24 22:00 05/15/24 23:43 Temperature 98.3 F Pulse Rate 92 84 93 Respiratory Rate 16 Blood Pressure 140/92 H Pulse Oximetry 96 Oxygen Delivery Oxygen Flow Rate 05/16/24 00:00 05/16/24 00:00 05/16/24 02:00 Temperature Pulse Rate 85 85 Respiratory Rate Blood Pressure Pulse Oximetry 98 Oxygen Delivery Nasal Cannula Oxygen Flow Rate 2 05/16/24 04:00 05/16/24 04:00 05/16/24 04:00 Temperature 97.8 F Pulse Rate 77 72 Respiratory Rate 16 Blood Pressure 177/61 H Pulse Oximetry 97 96 Oxygen Delivery Nasal Cannula Oxygen Flow Rate 2 05/16/24 06:00 05/16/24 07:57 Temperature 97.7 F Pulse Rate 85 87 Respiratory Rate 16 Blood Pressure 182/65 H Pulse Oximetry 92 Oxygen Delivery Oxygen Flow Rate Intake/Output Intake/Output: Intake & Output 05/13/24 05/14/24 05/15/24 05/16/24 23:59 23:59 23:59 23:59 Intake Total 1250 3094 100 Output Total 0 800 Balance 1250 3094 -700 Meds/Results Medications: Active Medications Generic Name Dose Route Start Last Admin Trade Name Freq PRN Reason Stop Dose Admin Acetaminophen 650 mg 05/14/24 21:15 Acetaminophen 325 Mg Tablet PO Q4H PRN Mild Pain (1-3) or Fever Albuterol/Ipratropium 3 ml 05/14/24 21:51 Ipratropium 0.5 Mg/Albuterol Sulfate 2.5 Mg Ampul.Neb 3 Ml INHALATION Q4HRT PRN shortness of breath/Wheezing Azathioprine 50 mg 05/16/24 09:00 05/16/24 09:24 Azathioprine 50 Mg Tablet PO 50 mg DAILY MIKAYLA Administration Benzonatate 200 mg 05/16/24 09:00 05/16/24 05:56 Benzonatate 100 Mg Capsule PO 200 mg TID MIKAYLA Administration Cyanocobalamin 1,000 mcg 05/15/24 10:45 05/15/24 11:34 Cyanocobalamin 1,000 Mcg Tablet PO 1,000 mcg Q48HR MIKAYLA Administration Folic Acid 0.4 mg 05/15/24 10:45 05/15/24 11:34 Folic Acid 0.4 Mg Tablet PO 0.4 mg Q48HR MIKAYLA Administration Gabapentin 300 mg 05/16/24 09:00 05/16/24 09:25 Gabapentin 300 Mg Capsule PO 300 mg BID MIKAYLA Administration Guaifenesin/Dextromethorphan 10 ml 05/14/24 21:51 05/15/24 20:20 Guaifenesin/Dextromethorphan 10 Ml Udc PO 10 ml Q4H PRN Administration Cough Heparin Sodium (Porcine) 5,000 units 05/14/24 21:20 05/16/24 09:25 Heparin Sodium 5,000 Units/Ml Vial SUB-Q 5,000 units Q12HR MIKAYLA Administration Meropenem 500 mg in 100 mls @ 200 mls/hr 05/15/24 14:15 05/16/24 09:25 IVPB 200 mls/hr Q12HR MIKAYLA Administration Ibuprofen 600 mg 05/15/24 10:45 05/16/24 09:25 Ibuprofen 600 Mg Tablet PO 600 mg Q12HR MIKAYLA Administration Levothyroxine Sodium 88 mcg 05/15/24 10:35 05/16/24 05:54 Levothyroxine Sodium 88 Mcg Tablet PO 88 mcg DAILY@0630 MIKAYLA Administration Melatonin 5 mg 05/14/24 21:15 05/14/24 22:20 Melatonin 5 Mg Tablet PO 5 mg HS PRN Administration Insomnia Multivitamins Therapeutic 1 tablet 05/15/24 10:40 05/16/24 09:26 Multivitamins Therapeutic Tab (*Bkc) PO 1 tablet DAILY MIKAYLA Administration Pantoprazole Sodium 40 mg 05/15/24 10:35 05/16/24 09:26 Pantoprazole 40 Mg Tablet PO 40 mg QAM MIKAYLA Administration Prochlorperazine Edisylate 10 mg 05/14/24 21:15 Prochlorperazine Edisylate 10 Mg/2 Ml Vial IV PUSH Q6H PRN Nausea And Vomiting Rosuvastatin Calcium 5 mg 05/15/24 10:40 05/16/24 09:26 Rosuvastatin 5 Mg Tablet PO 5 mg DAILY MIKAYLA Administration Vitamin D 2,000 units 05/15/24 10:45 05/16/24 09:25 Cholecalciferol 1,000 Units Tablet PO 2,000 units DAILY MIKAYLA Administration Radiology Results: ITS Impressions Chest X-Ray 05/14/24 19:49 IMPRESSION: No acute cardiopulmonary process. Chronic interstitial lung disease. Labs Labs: Laboratory Results - last 24 hr 05/15/24 05/16/24 05/16/24 03:06 04:41 04:54 WBC 9.7 RBC 3.30 L Hgb 10.1 L D Hct 31.8 L MCV 96.4 MCH 30.6 MCHC 31.8 L RDW 15.5 H Plt Count 196 MPV 10.9 H Immature Gran % (Auto) 0.7 H Neut % (Auto) 86.1 H Lymph % (Auto) 6.9 L [place] % (Auto) 5.4 Eos % (Auto) 0.7 Baso % (Auto) 0.2 Lymph # (Auto) 0.67 L [place] # (Auto) 0.5 Eos # (Auto) 0.1 Baso # (Auto) 0.0 Abs Immat Gran (auto) 0.07 H Absolute Neuts (auto) 8.4 H Absolute Nucleated RBC 0.000 Nucleated RBC % 0.0 Sodium 137 Potassium 3.5 Chloride 107 Carbon Dioxide 23 Anion Gap 7 BUN 20 H Creatinine 1.00 Estim Creat Clear Calc Not Reportable Estimated GFR 53 L Glucose 77 Calcium 8.1 L Magnesium 1.8 Iron 17 L TIBC 186 L % Saturation 9 L Total Bilirubin 0.6 AST 32 ALT 17 Alkaline Phosphatase 65 Total Protein 5.0 L Albumin 2.5 L Quality VTE Prophylaxis VTE prophylaxis: mechanical ordered and pharmacologic ordered
[2024-05-16] MEDS: HYDROXYCHLOROQUINE SULFATE 200 MG TABLET PO (12:32)
[2024-05-16] MEDS: guaiFENesin 12 HR 600 MG TABCR PO ×2 (12:32→20:56)
--- NOTE | 2024-05-16 13:05 | PHAR ---
The patient's home med of Cevimeline 30mg has been verified.
[2024-05-16] MEDS: [UNRECOGNIZED DRUG - OTHER] PO (16:21)
[2024-05-16] MEDS: CEVIMELINE 30 MG PO (16:21)
[2024-05-16] MEDS: ACETAMINOPHEN 325 MG TABLET 650 MG PO (16:22)
[2024-05-16] MEDS: HYDROXYCHLOROQUINE SULFATE 100 MG TABLET PO (21:23)
[2024-05-17] VITALS (25 sets, daily range): BP systolic 127–156; BP diastolic 44–92; PULSE 15–119; RESP 20–31; TEMP 36.2–36.9; O2SAT 88–98
[2024-05-17 05:47] LABS: Hematocrit 32.3 % (37.0-47.0); Hemoglobin 10.4 g/dL (12.0-15.0); Mean Corpuscular HGB Conc 32.2 g/dl (32-36); Mean Corpuscular Hemoglobin 30.9 pg (26-34); Mean Corpuscular Volume 95.8 fl (80-100); Mean Platelet Volume 11.1 fl (7.4-10.4); Platelet Count Result 188 k/mm3 (150-375); Red Blood Count 3.37 M/mm3 (4.2-5.4); Red Cell Distribution Width 15.4 % (11.5-14.5); White Blood Count 11.2 K/mm3 (4.5-10.0)
[2024-05-17 06:10] LABS: Alanine Aminotransferase 17 U/L (6-35); Albumin Level 2.4 g/dL (3.5-5.1); Alkaline Phosphatase 84 U/L (38-126); Anion Gap 9 mmol/L (4-12); Aspartate Amino Transferase 35 U/L (14-36); Bilirubin,Total 0.7 mg/dL (0.2-1.3); Blood Urea Nitrogen 18 mg/dL (7-17); Calcium 8.6 mg/dL (8.4-10.2); Carbon Dioxide 23 mmol/L (22-30); Chloride 106 mmol/L (98-107); Estimated Glomerular Filt Rate 57; Glucose 70 mg/dL (65-110); Magnesium 1.8 mg/dL (1.6-2.3); Potassium 3.2 mmol/L (3.4-5.0); Sodium 138 mmol/L (137-145)
[2024-05-17] MEDS: LEVOTHYROXINE SODIUM 88 MCG TABLET PO (06:11)
[2024-05-17 06:39] LABS: Band Neutrophils Percent 34 % (0-6); Lymphocytes Absolute Manual 0.11 K/mm3 (1.1-4.5); Lymphocytes Percent Manual 1 % (18-44); Neutrophils Absolute Manual 11.08 K/mm3 (1.7-7.2); Neutrophils Percent Manual 65 % (46-73); Platelet Estimate Adequate (Adequate); Schistocytes None Seen; Total Cells Counted 100
--- NOTE | 2024-05-17 07:15 | WPDCDIQUERY2 ---
CDI Query Clarification Request BMI: 26.5 Nutritional Diagnostic Statement: Please refer to the comprehensive nutrition assessment for further information. If you agree with diagnosis of Moderate Protein Calorie Malnutrition as related to inadequate protein energy intake as evidenced by weight loss of 17% (25 ibs) 6 months; < 75% EER in the past 1-2 months; moderate subcutaneous fat loss (orbital fat pads) and muscle wasting (temporalis). Please specify severity if known: Mild Moderate Severe Other/Unknown <Pat Cabral RN - Last Filed: 05/17/24 07:16> Provider Comments Agreed and added <Rosy Cordova APRN - Last Filed: 05/17/24 09:45>
[2024-05-17] MEDS: IPRATROPIUM 0.5 MG/ALBUTEROL SULFATE 2.5 MG AMPUL.NEB 3 ML INHALATION (08:50)
[2024-05-17] MEDS: CYANOCOBALAMIN 1,000 MCG TABLET 1000 MCG PO (09:15)
[2024-05-17] MEDS: CHOLECALCIFEROL 1,000 UNITS TABLET 2000 UNITS PO (09:16)
[2024-05-17] MEDS: ROSUVASTATIN 5 MG TABLET PO (09:16)
[2024-05-17] MEDS: PANTOPRAZOLE 40 MG TABLET PO (09:16)
[2024-05-17] MEDS: POLYSACCHARIDE IRON COMPLEX 150 MG CAPSULE PO (09:16)
[2024-05-17] MEDS: azaTHIOprine 50 MG TABLET PO (09:17)
[2024-05-17] MEDS: FOLIC ACID 0.4 MG TABLET PO (09:17)
[2024-05-17] MEDS: GABAPENTIN 300 MG CAPSULE PO ×2 (09:17→17:55)
[2024-05-17] MEDS: HYDROXYCHLOROQUINE SULFATE 200 MG TABLET PO (09:17)
[2024-05-17] MEDS: IBUPROFEN 600 MG TABLET PO ×2 (09:18→21:24)
[2024-05-17] MEDS: MULTIVITAMINS THERAPEUTIC TAB (*BKC) 1 TABLET PO (09:18)
[2024-05-17] MEDS: guaiFENesin 12 HR 600 MG TABCR PO (09:18)
[2024-05-17] MEDS: HEPARIN SODIUM 5,000 UNITS/ML VIAL 5000 UNITS SUB-Q ×2 (09:19→23:40)
[2024-05-17] MEDS: MEROPENEM 500 MG/NS 100 ML 500 MG/100 ML BAG 200 MG IVPB (09:29)
[2024-05-17] MEDS: POTASSIUM CHLORIDE 20 MEQ ER TABLET 40 MEQ PO ×3 (09:29→17:55)
[2024-05-17] MEDS: [UNRECOGNIZED DRUG - OTHER] PO ×3 (09:30→17:56)
[2024-05-17] MEDS: CEVIMELINE 30 MG PO ×3 (09:30→17:56)
--- NOTE | 2024-05-17 09:32 | PM.IMPN ---
Progress Note: A&P Assessment and Plan (1) Acute UTI: Code(s): N39.0 - Urinary tract infection, site not specified Status: Acute Assessment and Plan: 05/15/24: Pt placed on Meropenem by Picture Frames Inspector given hx of ESBL. Discussed with ID Pharmacist and he agrees with continuing in the current setting. Hx of E.coli w/ESBL No Leukocytosis, but 17K Bands. Urine culture and BCx2 pending. Not meeting Sepsis criteria. 05/16/24: Urine culture grew E coli with ESBL Continue Meropenem 500 mg IVPB q 12. 05/17/24: Urine culture grew E coli with ESBL Continue Meropenem 500 mg IVPB q 12. (2) Pneumonia: Code(s): J18.9 - Pneumonia, unspecified organism Status: Acute Assessment and Plan: 05/17/24: Chest X-ray today showed: IMPRESSION: 1. New scattered patchy airspace opacities throughout both lungs which could represent pneumonia, atelectasis and/or pulmonary edema superimposed over more chronic interstitial lung disease. Increased oxygen requirement of 4 liters nasal cannula with Sa02 93%. Added Doxycycline 100 mg IVPB q 12. Continue Meropenem 500 mg IVPB q 12. Duoneb q 4 PRN Increased Guaifenesin 1,200 mg PO q12. Incentive spirometer. (3) Pulmonary edema: Code(s): J81.1 - Chronic pulmonary edema Status: Acute Assessment and Plan: Chest X-ray today showed: IMPRESSION: 1. New scattered patchy airspace opacities throughout both lungs which could represent pneumonia, atelectasis and/or pulmonary edema superimposed over more chronic interstitial lung disease. Increased oxygen requirement of 4 liters nasal cannula with Sa02 93%. BNP 9530. Lasix 40 mq ivp x1. (4) Elevated troponin: Code(s): R79.89 - Other specified abnormal findings of blood chemistry Status: Acute Assessment and Plan: 05/15/24: Elevated troponins on arrival. Trends as follows: 0.047-->0.064-->0.057 No comparison troponins to determine baseline, but trops here are flat. EKG showing ST rate of 106 bpm with LAD and non-specific ST changes. Asymptomatic. Suspect Demand ischemia. Should pt develop any symptoms, consider consulting Cardiology. Ordered ECHO. 05/16/24: No chest pain Echocardiogram 05/15/24 showed: Summary 1. Definity contrast administered improved wall motion interpretation. 2. Left ventricular chamber dimension is normal. 3. Left ventricular systolic function is normal, estimated at 65-70%. 4. There is moderate concentric increased left ventricular wall thickness. 5. The left ventricular diastolic function is abnormal. 6. E/e' 12 is mildly elevated. 7. There is mild aortic valve sclerosis. 8. There is mild mitral valve regurgitation. 9. There is mild tricuspid valve regurgitation. 10. No pulmonary hypertension, estimated pulmonary arterial systolic pressure is 36 mmHg. 11. The aortic root size at the sinus of Valsalva is borderline dilated at 4.0 cm. (5) Recurrent UTI: Code(s): N39.0 - Urinary tract infection, site not specified Status: Chronic Assessment and Plan: 05/15/24: Hx of E.coli with multiple resistant meds. ESBL 05/16/24: 05/16/24: Urine culture grew E coli with ESBL Continue Meropenem 500 mg IVPB q 12. 05/17/24: Urine culture grew E coli with ESBL Continue Meropenem 500 mg IVPB q 12. (6) Macrocytic anemia: Code(s): D53.9 - Nutritional anemia, unspecified Status: Acute Assessment and Plan: 05/15/24: Hgb 7.1, Hct 22.6. Check Iron panel. No acute s/s of blood loss. Consider transfusion if Hgb drops below 7.0. 05/16/24: Hgb 10.1, Hct 31.8. Iron 17, TIBC 186, & % saturation 9. Add Iron Polysaccharide 150 mg PO daily. Monitor labs. 05/17/24: Hgb 10.4, Hct 32.3. Iron 17, TIBC 186, & % saturation 9. Iron Polysaccharide 150 mg PO daily. Monitor labs. (7) Moderate protein-calorie malnutrition: Code(s): E44.0 - Moderate protein-calorie malnutrition Status: Acute Assessment and Plan: Protein level 5. Ensure clear nutritional ice cream BID. Encourage oral intake. (8) Hypothyroidism, unspecified: Qualifiers: Hypothyroidism type: acquired Qualified Code(s): E03.9 - Hypothyroidism, unspecified Code(s): E03.9 - Hypothyroidism, unspecified Status: Chronic Assessment and Plan: 05/15/24: Continue Levothyroxine at home dose. (9) GERD (gastroesophageal reflux disease): Code(s): K21.9 - Gastro-esophageal reflux disease without esophagitis Status: Chronic Assessment and Plan: 05/15/24: Continue PPI therapy. (10) Incontinence of urine in female: Code(s): R32 - Unspecified urinary incontinence Status: Chronic Assessment and Plan: 05/15/24: Chronic in nature. (11) Hyperlipidemia, unspecified: Qualifiers: Hyperlipidemia type: unspecified Qualified Code(s): E78.5 - Hyperlipidemia, unspecified Code(s): E78.5 - Hyperlipidemia, unspecified Status: Chronic Assessment and Plan: 05/15/24: Continue Rosuvastatin 5 mg po Daily. Heart Healthy Diet Subjective Date/time seen: 05/17/24 09:32 Interval history: Patient sitting up in chair with family at bedside. Patient denies chest pain, palpitations, headache, dizziness, nausea, or vomiting. Patient reports increased shortness of breath today and swelling in bilateral hands. Review of Systems Review of Systems: All systems reviewed & are unremarkable except as noted in HPI and below Exam Const: General: no acute distress Resp: Effort & Inspection: normal respiratory effort Auscultation: crackles (scattered) and rhonchi Cardio: Rate: regular rate Rhythm: regular rhythm GI: GI Palp: Yes Soft to palpation Auscultation: normal bowel sounds Neuro: Speech: normal speech Extrem: General: pedal edema bilaterally (trace) Other: 1+ Bilateral hand edema. Psych: Mental Status: mental status grossly normal Affect: normal affect Objective Data Vital Signs Vital Signs: Vital Signs - 24 hr 05/16/24 10:00 05/16/24 12:00 05/16/24 12:00 Temperature 98.1 F Pulse Rate 85 84 Respiratory Rate 18 Blood Pressure 131/60 Pulse Oximetry 98 98 Oxygen Delivery Nasal Cannula Oxygen Flow Rate 2 05/16/24 12:00 05/16/24 12:50 05/16/24 14:00 Temperature Pulse Rate 90 75 Respiratory Rate Blood Pressure Pulse Oximetry Oxygen Delivery Nasal Cannula Oxygen Flow Rate 2 05/16/24 15:30 05/16/24 15:49 05/16/24 16:00 Temperature 97.8 F Pulse Rate 90 Respiratory Rate 20 Blood Pressure 159/73 H Pulse Oximetry 92 92 Oxygen Delivery Nasal Cannula Nasal Cannula Oxygen Flow Rate 2 2 05/16/24 16:00 05/16/24 18:00 05/16/24 19:58 Temperature 97.8 F Pulse Rate 106 H 92 93 Respiratory Rate 20 Blood Pressure 138/63 Pulse Oximetry 95 Oxygen Delivery Oxygen Flow Rate 05/16/24 20:00 05/16/24 20:00 05/16/24 22:00 Temperature Pulse Rate 90 86 Respiratory Rate Blood Pressure Pulse Oximetry 96 Oxygen Delivery Nasal Cannula Oxygen Flow Rate 2 05/16/24 23:30 05/17/24 00:00 05/17/24 00:00 Temperature 97.6 F Pulse Rate 84 83 Respiratory Rate 20 Blood Pressure 134/51 L Pulse Oximetry 95 95 Oxygen Delivery Nasal Cannula Oxygen Flow Rate 2 05/17/24 02:00 05/17/24 03:36 05/17/24 03:45 Temperature 97.6 F Pulse Rate 85 91 Respiratory Rate 20 Blood Pressure 150/46 H Pulse Oximetry 95 95 Oxygen Delivery Nasal Cannula Oxygen Flow Rate 2 05/17/24 04:00 05/17/24 06:00 05/17/24 06:35 Temperature Pulse Rate 84 98 Respiratory Rate Blood Pressure Pulse Oximetry 93 Oxygen Delivery Nasal Cannula Oxygen Flow Rate 3 05/17/24 07:19 05/17/24 08:44 05/17/24 08:50 Temperature 98.4 F Pulse Rate 96 109 H Respiratory Rate 29 H 20 Blood Pressure 156/57 H Pulse Oximetry 98 93 Oxygen Delivery Nasal Cannula Oxygen Flow Rate 4 05/17/24 09:03 Temperature Pulse Rate 118 H Respiratory Rate 20 Blood Pressure Pulse Oximetry Oxygen Delivery Oxygen Flow Rate Intake/Output Intake/Output: Intake & Output 05/14/24 05/15/24 05/16/24 05/17/24 23:59 23:59 23:59 23:59 Intake Total 1250 3094 660 Output Total 0 1100 350 Balance 1250 3094 -440 -350 Meds/Results Medications: Active Medications Generic Name Dose Route Start Last Admin Trade Name Freq PRN Reason Stop Dose Admin Acetaminophen 650 mg 05/14/24 21:15 05/16/24 16:22 Acetaminophen 325 Mg Tablet PO 650 mg Q4H PRN Administration Mild Pain (1-3) or Fever Albuterol/Ipratropium 3 ml 05/14/24 21:51 05/17/24 08:50 Ipratropium 0.5 Mg/Albuterol Sulfate 2.5 Mg Ampul.Neb 3 Ml INHALATION 3 ml Q4HRT PRN Administration shortness of breath/Wheezing Azathioprine 50 mg 05/16/24 09:00 05/17/24 09:17 Azathioprine 50 Mg Tablet PO 50 mg DAILY MIKAYLA Administration Benzonatate 200 mg 05/16/24 10:52 05/16/24 16:19 Benzonatate 100 Mg Capsule PO 200 mg TID PRN Administration Cough Cyanocobalamin 1,000 mcg 05/15/24 10:45 05/17/24 09:15 Cyanocobalamin 1,000 Mcg Tablet PO 1,000 mcg Q48HR MIKAYLA Administration Docusate Sodium 100 mg 05/16/24 15:00 Docusate Sodium 100 Mg Capsule PO Q12H PRN Constipation Folic Acid 0.4 mg 05/15/24 10:45 05/17/24 09:17 Folic Acid 0.4 Mg Tablet PO 0.4 mg Q48HR MIKAYLA Administration Gabapentin 300 mg 05/16/24 09:00 05/17/24 09:17 Gabapentin 300 Mg Capsule PO 300 mg BID MIKAYLA Administration Guaifenesin 600 mg 05/16/24 11:00 05/17/24 09:18 Guaifenesin 12 Hr 600 Mg Tabcr PO 05/23/24 10:59 600 mg Q12HR MIKAYLA Administration Guaifenesin/Dextromethorphan 10 ml 05/14/24 21:51 05/15/24 20:20 Guaifenesin/Dextromethorphan 10 Ml Udc PO 10 ml Q4H PRN Administration Cough Heparin Sodium (Porcine) 5,000 units 05/14/24 21:20 05/17/24 09:19 Heparin Sodium 5,000 Units/Ml Vial SUB-Q 5,000 units Q12HR MIKAYLA Administration Hydroxychloroquine Sulfate 200 mg 05/16/24 11:00 05/17/24 09:17 Hydroxychloroquine Sulfate 200 Mg Tablet PO 200 mg QAM IMKAYLA Administration Hydroxychloroquine Sulfate 100 mg 05/16/24 21:00 05/16/24 21:23 Hydroxychloroquine Sulfate 100 Mg Tablet PO 100 mg HS MIKAYLA Administration Meropenem 500 mg in 100 mls @ 200 mls/hr 05/15/24 14:15 05/17/24 09:29 IVPB 05/21/24 09:29 200 mls/hr Q12HR MIKAYLA Administration Ibuprofen 600 mg 05/15/24 10:45 05/17/24 09:18 Ibuprofen 600 Mg Tablet PO 600 mg Q12HR MIKAYLA Administration Levothyroxine Sodium 88 mcg 05/15/24 10:35 05/17/24 06:11 Levothyroxine Sodium 88 Mcg Tablet PO 88 mcg DAILY@0630 MIKAYAL Administration Melatonin 5 mg 05/14/24 21:15 05/14/24 22:20 Melatonin 5 Mg Tablet PO 5 mg HS PRN Administration Insomnia Multivitamins Therapeutic 1 tablet 05/15/24 10:40 05/17/24 09:18 Multivitamins Therapeutic Tab (*Bkc) PO 1 tablet DAILY MIKAYLA Administration Non-Formulary Medication 0 mg 05/16/24 13:00 05/17/24 09:30 Cevimeline PO 06/15/24 12:59 30 mg TID MIKAYLA Administration Pantoprazole Sodium 40 mg 05/15/24 10:35 05/17/24 09:16 Pantoprazole 40 Mg Tablet PO 40 mg QAM MIKAYLA Administration Polyethylene Glycol 17 gm 05/16/24 15:00 Polyethylene Glycol 3350 17 Gm Powd.Pack PO QAM PRN Constipation Polysaccharide Iron Complex 150 mg 05/17/24 08:00 05/17/24 09:16 Polysaccharide Iron Complex 150 Mg Capsule PO 150 mg DAILY@0800 [facility] Administration Prochlorperazine Edisylate 10 mg 05/14/24 21:15 Prochlorperazine Edisylate 10 Mg/2 Ml Vial IV PUSH Q6H PRN Nausea And Vomiting Rosuvastatin Calcium 5 mg 05/15/24 10:40 05/17/24 09:16 Rosuvastatin 5 Mg Tablet PO 5 mg DAILY MIKAYLA Administration Vitamin D 2,000 units 05/15/24 10:45 05/17/24 09:16 Cholecalciferol 1,000 Units Tablet PO 2,000 units DAILY MIKAYLA Administration Radiology Results: ITS Impressions Chest X-Ray 05/14/24 19:49 IMPRESSION: No acute cardiopulmonary process. Chronic interstitial lung disease. Labs Labs: Laboratory Results - last 24 hr 05/17/24 04:44 WBC 11.2 H RBC 3.37 L Hgb 10.4 L Hct 32.3 L MCV 95.8 MCH 30.9 MCHC 32.2 RDW 15.4 H Plt Count 188 MPV 11.1 H Immature Gran % (Auto) Not Reportable Neut % (Auto) Not Reportable Lymph % (Auto) Not Reportable [place] % (Auto) Not Reportable Eos % (Auto) Not Reportable Baso % (Auto) Not Reportable Lymph # (Auto) Not Reportable [place] # (Auto) Not Reportable Eos # (Auto) Not Reportable Baso # (Auto) Not Reportable Abs Immat Gran (auto) Not Reportable Absolute Neuts (auto) Not Reportable Absolute Nucleated RBC Not Reportable Total Counted 100 Neutrophils % (Manual) 65 Band Neutrophils % 34 H Lymphocytes % (Manual) 1 L Nucleated RBC % Not Reportable Abs Neuts (Manual) 11.08 H Abs Lymphs (Manual) 0.11 L Platelet Estimate Adequate Schistocytes None seen Sodium 138 Potassium 3.2 L Chloride 106 Carbon Dioxide 23 Anion Gap 9 BUN 18 H Creatinine 0.94 Estim Creat Clear Calc Not Reportable Estimated GFR 57 L Glucose 70 Calcium 8.6 Magnesium 1.8 Total Bilirubin 0.7 AST 35 ALT 17 Alkaline Phosphatase 84 Total Protein 5.0 L Albumin 2.4 L Quality VTE Prophylaxis VTE prophylaxis: mechanical ordered and pharmacologic ordered
[2024-05-17 10:10] LABS: NT Pro B Type Natriuretic Pept 9530 pg/mL (19.9-100)
[2024-05-17] MEDS: DOXYCYCLINE 100 MG/NS 100 ML 100 MG/100 ML BAG IVPB ×2 (12:11→22:13)
[2024-05-17] MEDS: FUROSEMIDE INJ 40 MG/4 ML VIAL IV PUSH ×2 (12:11→17:54)
--- NOTE | 2024-05-17 14:43 | PCOTNOTE ---
Per RN, Patient had been placed on a O2 mask due to her O2 sats dropping while in bed sleeping. Patient's daughter present at this time, states her mother had just fell asleep and having low O2 numbers. Patient awoke and decined having therapy services this afternoon, requested to try back tomorrow.
--- NOTE | 2024-05-17 17:14 | PC.NURSE ---
Notified Rosy BAER of placing mask over NC when PT is sleeping or during activity to help with desaturation. Placed EKG order to confirm rhythm
[2024-05-17 17:31] LABS: Anion Gap 9 mmol/L (4-12); Blood Urea Nitrogen 21 mg/dL (7-17); Calcium 8.8 mg/dL (8.4-10.2); Carbon Dioxide 22 mmol/L (22-30); Chloride 105 mmol/L (98-107); Estimated Glomerular Filt Rate 54; Glucose 90 mg/dL (65-110); Potassium 3.8 mmol/L (3.4-5.0); Sodium 136 mmol/L (137-145)
[2024-05-17 18:08] LABS: D Dimer 11.61 ug/mL (<0.48)
--- NOTE | 2024-05-17 21:07 | PM.CCN ---
Critical Care Event Note Summary Code activated: No Narrative: 83-year-old female here with cough, fever, nausea and shortness of breath. Found to have a UTI, hypotension, elevated BNP, and an elevated troponin. Today, 05/17, the patient had a significant increase in O2 requirement. No baseline supplemental O2 requirement. Patient has been requiring 2L nasal cannula since arrival on the . She was titrated 4 L nasal cannula this morning around 8:00 a.m. Patient was adjusted to a Venturi mask this afternoon, continued to desat while asleep due to mouth breathing. BNP found to be elevated, 9530 (previously 1060 on 05/14). Echo completed and showed normal systolic function, estimated EF 65-70%, abnormal diastolic dysfunction, no pulmonary hypertension. See report for full details. She was given Lasix 40 mg IV x 2 without improvement. Chest CTA, CXR, and U/S of bilateral lower extremities completed. See results below. Bedside RN called at 21:00 with concerns in her respiratory status. On exam, the patient is significantly tachypneic. Crackles in the bilateral middle and lower lobes. Patient appears fatigued/ill-appearing. No peripheral edema. Alert and orientated. - check ABG - check MRSA - BiPAP initiated, plan for reassessment in 1 hour Patient made aware that intubation may be necessary, currently unsure if she is okay with this intervention. Impressions Chest X-Ray 05/17/24 09:59 IMPRESSION: 1. New scattered patchy airspace opacities throughout both lungs which could represent pneumonia, atelectasis and/or pulmonary edema superimposed over more chronic interstitial lung disease. Venous Doppler Study 05/17/24 20:52 IMPRESSION: Negative bilateral lower extremity venous US. No deep vein thrombosis. Chest CTA 05/17/24 21:17 IMPRESSION: 1. No definite pulmonary embolism is seen. 2. Bilateral pneumonia in the upper and lower lobes. 3. Bilateral pleural effusion. This case had a high probability of a clinically significant, sudden, or life threatening deterioration of this patient's condition which required my full and direct attention, intervention and personal management. Critical care time: less than 30 mins
[2024-05-17 21:19] LABS: Alveolar/Arterial O2 Gradient 575.2 mmHg; Base Excess ABG -5.4 mEq/l (+/-2.0); Fractional Inspired Oxygen 95 %; HCO3 ABG 20.6 mEq/l (22.0-26.0); Oxygen Content ABG 14.1 %vol (16.0-22.0); Oxygen Saturation ABG 88.5 % (95.0-100.0); Oxyhemoglobin 87.9 % THb (90.0-100.0); PCO2 ABG 42.1 mmHg (35.0-45.0); PO2 ABG 59.5 mmHg (80.0-100.0); PO2 FiO2 Ratio Arterial Blood 0.63 %; Total Hemoglobin 11.4 g/dL (12.0-18.0); pH ABG 7.308 (7.350-7.450)
[2024-05-17 21:20] LABS: Device NON-REBREATHER MASK; Site Drawn RIGHT BRACHIAL
[2024-05-17] MEDS: guaiFENesin 12 HR 600 MG TABCR 1200 MG PO (21:23)
[2024-05-17] MEDS: HYDROXYCHLOROQUINE SULFATE 100 MG TABLET PO (21:24)
[2024-05-17] MEDS: MEROPENEM 1 GM/NS 100 ML 1 GM/100 ML BAG IVPB (21:25)
--- NOTE | 2024-05-17 22:50 | PC.NURSE ---
Pt has had increased oxygen demands throughout the day. Pt taken to CT on 15 L NRB. RR 30s-40s. O2 85-92%. Notified Masha Schmidt NP. Masha to bedside to evaluate pt. STAT ABG and bipap ordered. Masha discussed with pt that she may require intubation. Pt having a difficult time stating whether or not she wants to be intubated or not. Staff discussed with pt's , Kevin, and daughter, Kassy. Family wishes for pt to remain a full code and to be intubated if needed. Charge nurse made aware.
[2024-05-17 23:21] LABS: MRSA (PCR) NOT DETECTED (NOT DETECTE)
[2024-05-17] MEDS: RAPID SEQUENCE INTUBATION KIT 1 EACH (23:40)
--- NOTE | 2024-05-17 23:46 | WPDPROCEDUR ---
Procedures Intubation Intubation Date: 05/17/24 Intubation Time: 23:42 Consent: Verbally obtained with patient's and daughter at the bedside. A pre-procedural Time-Out was completed immediately before starting the procedure and confirmed: Patient Identification, Site, Procedure, Patient Position and the Availability of Requisite Equipment: Yes Sedative: etomidate Mg given: 20 Paralytic: succinylcholine Mg given: 60 Laryngoscope: fiber optic video scope Assist device used: fiber optic device ET tube size: 7.5 Tube secured depth (cm): 24 Tube secured location: lips Tube placement confirmation: visualized tube passing through cords, equal breath sounds bilaterally, no breath sounds over epigastrium and confirmation by capnometry Patient tolerated procedure: well Intubation complications: none
[2024-05-17] MEDS: PROPOFOL IV EMULSION 100 ML 1.79 MG IV CONT (23:50)
[2024-05-17] MEDS: FENTANYL 2,500MCG/NS250ML(*CRX 2,500 MCG/250 ML BAG IV CONT (23:55)
[2024-05-18] VITALS (42 sets, daily range): BP systolic 78–117; BP diastolic 42–69; PULSE 79–105; RESP 21–27; TEMP 36.2–37.4; O2SAT 90–100
--- NOTE | 2024-05-18 00:16 | PC.NURSE ---
This patient, Negrita Tomas, was transferred to [ICU room 10 ] on 05/17/24 at 2320. Personal belongings sent with patient. Report given to [OBDULIO Maher ]. Appropriate documentation sent with patient. Family in ICU waiting room. Updated to pt condition.
[2024-05-18 00:21] LABS: Triglycerides 103 mg/dL (<150)
[2024-05-18] MEDS: VANCOMYCIN 1,500 MG/NS 500 ML 1,500 MG/500 ML BAG 250 MG IVPB (01:06)
[2024-05-18] MEDS: IPRATROPIUM 0.5 MG/ALBUTEROL SULFATE 2.5 MG AMPUL.NEB 3 ML INHALATION ×4 (01:15→20:16)
[2024-05-18 02:14] LABS: Alveolar/Arterial O2 Gradient 512.5 mmHg; Base Excess ABG -4.1 mEq/l (+/-2.0); Carboxyhemoglobin 0.2 % THb (0-2.0); Fractional Inspired Oxygen 100 %; HCO3 ABG 23.7 mEq/l (22.0-26.0); Oxygen Content ABG 15.5 %vol (16.0-22.0); Oxygen Saturation ABG 98.4 % (95.0-100.0); Oxyhemoglobin 98.1 % THb (90.0-100.0); PCO2 ABG 56.1 mmHg (35.0-45.0); PO2 ABG 144.4 mmHg (80.0-100.0); PO2 FiO2 Ratio Arterial Blood 1.44 %; Reduced Hemoglobin 1.7 %THb (0-5.0)
[2024-05-18 02:15] LABS: pH ABG 7.243 (7.350-7.450)
[2024-05-18 02:16] LABS: Arterial Blood Gas Vent Mode CMV; Arterial Blood Gas Ventilator rate 24 /MIN; Device VENTILATOR; Modified Allen's Test Pass; Site Drawn LEFT RADIAL
[2024-05-18 02:17] LABS: Arterial Blood Gas PEEP 5 cmH2O; Arterial Blood Gas Tidal Volume 300 ml
[2024-05-18 03:46] LABS: Hematocrit 31.3 % (37.0-47.0); Hemoglobin 10.1 g/dL (12.0-15.0); Mean Corpuscular HGB Conc 32.3 g/dl (32-36); Mean Corpuscular Hemoglobin 31.1 pg (26-34); Mean Corpuscular Volume 96.3 fl (80-100); Mean Platelet Volume 10.5 fl (7.4-10.4); Platelet Count Result 172 k/mm3 (150-375); Red Blood Count 3.25 M/mm3 (4.2-5.4); Red Cell Distribution Width 15.9 % (11.5-14.5); White Blood Count 12.2 K/mm3 (4.5-10.0)
[2024-05-18 04:03] LABS: Alanine Aminotransferase 17 U/L (6-35); Albumin Level 2.4 g/dL (3.5-5.1); Alkaline Phosphatase 82 U/L (38-126); Anion Gap 9 mmol/L (4-12); Aspartate Amino Transferase 39 U/L (14-36); Bilirubin,Total 0.9 mg/dL (0.2-1.3); Blood Urea Nitrogen 23 mg/dL (7-17); Calcium 8.5 mg/dL (8.4-10.2); Carbon Dioxide 23 mmol/L (22-30); Chloride 106 mmol/L (98-107); Estimated Glomerular Filt Rate 47; Glucose 81 mg/dL (65-110); Magnesium 1.6 mg/dL (1.6-2.3); Sodium 138 mmol/L (137-145)
[2024-05-18 04:08] LABS: Band Neutrophils Percent 8 % (0-6); Lymphocytes Absolute Manual 0.12 K/mm3 (1.1-4.5); Lymphocytes Percent Manual 1 % (18-44); Monocytes Absolute Manual 0.12 K/mm3 (0.1-0.90); Monocytes Percent Manual 1 % (3-9); Neutrophils Absolute Manual 11.95 K/mm3 (1.7-7.2); Neutrophils Percent Manual 90 % (46-73); Platelet Estimate Adequate (Adequate); Total Cells Counted 100
[2024-05-18 04:09] LABS: Schistocytes None Seen
[2024-05-18 04:56] LABS: NT Pro B Type Natriuretic Pept 11200 pg/mL (19.9-100)
[2024-05-18 05:28] LABS: Alveolar/Arterial O2 Gradient 445.5 mmHg; Base Excess ABG -2.1 mEq/l (+/-2.0); Carboxyhemoglobin 0.3 % THb (0-2.0); Fractional Inspired Oxygen 100 %; HCO3 ABG 24.3 mEq/l (22.0-26.0); Methemoglobin ABG 0.1 %THb (0-1.5); Oxygen Content ABG 15.6 %vol (16.0-22.0); Oxygen Saturation ABG 99.4 % (95.0-100.0); Oxyhemoglobin 98.7 % THb (90.0-100.0); PCO2 ABG 48.8 mmHg (35.0-45.0); PO2 ABG 218.7 mmHg (80.0-100.0); PO2 FiO2 Ratio Arterial Blood 2.19 %; Reduced Hemoglobin 0.9 %THb (0-5.0); Total Hemoglobin 10.9 g/dL (12.0-18.0); pH ABG 7.315 (7.350-7.450)
[2024-05-18 05:30] LABS: Device VENTILATOR; Modified Allen's Test Pass; Site Drawn RIGHT RADIAL
[2024-05-18 05:31] LABS: Arterial Blood Gas PEEP 5 cmH2O; Arterial Blood Gas Tidal Volume 350 ml; Arterial Blood Gas Vent Mode CMV; Arterial Blood Gas Ventilator rate 24 /MIN
[2024-05-18] MEDS: LIDOCAINE 1% PF INJ 5 ML VIAL INFILTRATE (07:45)
[2024-05-18] MEDS: ALBUMIN HUMAN 25% 25 GM/100 ML 100 ML IVPB ×3 (08:45→17:10)
[2024-05-18] MEDS: PANTOPRAZOLE SODIUM IV 40 MG VIAL IV PUSH (08:48)
[2024-05-18] MEDS: MEROPENEM 1 GM/NS 100 ML 1 GM/100 ML BAG IVPB ×2 (08:48→20:16)
[2024-05-18] MEDS: ENOXAPARIN 40 MG/0.4 ML SYRINGE SUB-Q (08:48)
[2024-05-18] MEDS: MINERAL OIL/WHITE PETROLATUM OINTMENT 1 APPLIC EACH EYE ×2 (09:01→20:16)
[2024-05-18 09:13] LABS: Influenza A QL RT-PCR Negative (Negative); Influenza B QL RT-PCR Negative (Negative); RSV RNA, RT-PCR Negative (Negative); SARS-CoV-2 RNA PCR Negative (Negative)
--- NOTE | 2024-05-18 09:26 | PCNFU ---
Nutrition Follow-Up Complete: Moderate Protein Calorie Malnutrition as related to inadequate protein energy intake as evidenced by weight loss of 17% (25 ibs) 6 months; < 75% EER in the past 1-2 months; moderate subcutaneous fat loss (orbital fat pads) and muscle wasting (temporalis). Goal: Meet estimated nutritional needs. Pt current nutrition is NPO. Nutrition recommendation: Vital AF 1.2 at 20 ml/hr, goal rate 55 ml/hr. Last recorded weight is 58 kg, up from 56.3 kg on admit. Bowel Motility: Last reported BM 05/14 Labs Reviewed:Cr 1.12, GFR 47, BUN 23, ALb 2.4 Meds Noted:Propofol 5 mcgs=47 kcals, Fentanyl, VIT D, Folic Acid, Protonix. Skin: WNL Additional Notes: Rapid response called, patient transferred to ICU and intubated 05/17. Spoke with Software Clerk today, plans to start tube feedings. Tube feedings recommendations: Vital AF 1.2 at 20ml/hr advance by 10 ml q 4 hours to goal rate of 55 ml/hr. Flush 30 ml q 4 hours. Total Nutrition: 1452 kcal/90 gm protein/[address] will monitor in ICU rounds and weight, labs, skin, diet orders, meds every Tuesday and Tuesday.
[2024-05-18] MEDS: DOXYCYCLINE 100 MG/NS 100 ML 100 MG/100 ML BAG IVPB ×2 (09:45→21:21)
[2024-05-18] MEDS: GABAPENTIN 300 MG CAPSULE PO ×2 (09:46→17:10)
[2024-05-18] MEDS: ROSUVASTATIN 5 MG TABLET PO (09:46)
--- NOTE | 2024-05-18 11:06 | PCOTNOTE ---
The patient treatment was not able to be completed patient transfer to ICU 10 and is intubated. Will plan to continue treatment per plan of care.
--- NOTE | 2024-05-18 11:49 | WPDCNINT ---
Assessment and Plan Assessment and plan (1) Acute respiratory failure: Code(s): J96.00 - Acute respiratory failure, unspecified whether with hypoxia or hypercapnia Status: Acute Assessment and Plan: Patient initially presented on 05/14/2024 with fevers cough, generalized weakness 05/17: Respiratory deterioration, with increasing oxygen requirement, tachypnea, unable to tolerate BiPAP. Chest x-ray and CTA chest revealed bilateral infiltrates, ARDS physiology 05/17: Patient was intubated -remains on CMV mode of ventilation, peep of 5, 100% FiO2. -ABGs and chest x-ray this morning were reviewed, ventilator adjusted, peep was increased to 8 and respiratory rate to 26 -COVID, influenza and a RSV were negative on 05/14 05/17: Repeat COVID influenza and RSV again were negative -antibiotics as above -continue bronchodilator 05/17: CTA chest IMPRESSION: 1. No definite pulmonary embolism is seen. 2. Bilateral pneumonia in the upper and lower lobes. 3. Bilateral pleural effusion. 05/17: Bilateral lower extremity venous Doppler: Negative for DVT (2) Sepsis: Code(s): A41.9 - Sepsis, unspecified organism Status: Acute Assessment and Plan: Patient presented with altered mental status, low blood pressures, UTI with ESBL E coli, leukocytosis -currently on vancomycin meropenem and doxycycline -PICC line placed on 05/17 -not requiring any pressors at this time, borderline blood pressures -05/14/2024: Urine culture grew ESBL E coli -05/14/2024: Blood cultures with no growth -[id number]: Sputum cultures Borderline blood pressures, may need to add pressors -continue monitor urine output (3) Pneumonia: Code(s): J18.9 - Pneumonia, unspecified organism Status: Acute Assessment and Plan: Treatment is above (4) Acute UTI: Code(s): N39.0 - Urinary tract infection, site not specified Status: Acute Assessment and Plan: Treatment as above (5) Elevated troponin: Code(s): R79.89 - Other specified abnormal findings of blood chemistry Status: Acute Assessment and Plan: Elevated troponins, but flat. EKG is not in show any ST elevation. Could be related to type 2 myocardial infarction secondary respiratory failure -will continue to monitor (6) Hyperlipidemia, unspecified: Qualifiers: Hyperlipidemia type: unspecified Qualified Code(s): E78.5 - Hyperlipidemia, unspecified Code(s): E78.5 - Hyperlipidemia, unspecified Status: Chronic Assessment and Plan: Continue statin (7) GERD (gastroesophageal reflux disease): Code(s): K21.9 - Gastro-esophageal reflux disease without esophagitis Status: Chronic Assessment and Plan: Protonix IV q.12 hours Plan DVT prophylaxis: Enoxaparin Stress ulcer prophylaxis: Protonix Nutrition: Will start tube feeds Code Status: Full code Critical Care Time Spent: 52 minutes Discussed with patient's daughter and other family members during rounds and updated them with patient's condition and plan of care. I explained to them regarding her pneumonia, respiratory failure, sepsis. Answered all the question Due to a high probability of clinically significant, life threatening deterioration, the patient required my highest level of preparedness to intervene emergently and I personally spent this critical care time directly and personally managing the patient. This critical care time included obtaining a history; examining the patient; pulse oximetry; ordering and review of studies; arranging urgent treatment with development of a management plan; evaluation of patient's response to treatment; frequent reassessment; and discussions with other providers. It was exclusive of separately billable procedures and treating other patients and teaching time. Please see Assessment and Plan section and the rest of the note for further information on patient assessment and treatment This dictation may have been done utilizing a voice recognition system. Attempts have been made to correct errors. However, there may be uncorrected grammatical, spelling, and recognitions errors present. [employer] Consult Note Consult date: 05/18/24 Reason for consult: Acute respiratory respiratory failure requiring intubation on 05/17/2024, pneumonia HPI: Negrita Tomas is a 83 year old female with past medical history of GERD, chronic interstitial lung disease, hyperlipidemia, hypothyroidism, anemia, history of ESBL E coli UTI, presented to the ED on 05/14/2024 with complains fever, cough, weakness, increasing fatigue, malaise and restriction of her ADLs. She also had confusion and altered mental status along with fevers. In the ER she is found to have a WBC count of 8, hemoglobin of 9.1, platelets 2 1 6, sodium 135, potassium 3.2, BUN 24 and creatinine of 1.14. Troponins was 0.047, BNP 1060. Lactic acid was 1.7 procalcitonin was 1.8, urinalysis was positive for nitrates, WBC > 100, leukocyte esterase was positive allow with 4+ bacteria. Influenza, RSV, COVID-19 negative. Chest x-ray showed no acute cardiopulmonary process, chronic interstitial lung disease. During the course of the stay in the hospital patient did grow ESBL E coli, patient on meropenem. On 05/17/2024 patient started to require more oxygen, initially went up to 4 L nasal cannula and then up to BiPAP mask. Patient was not tolerating the BiPAP was increasingly restless and attempting to get out of the bed. Patient was then moved to ICU and was intubated. CTA chest did not show any definite pulmonary embolism, bilateral pneumonia in the upper and lower lobes, bilateral pleural effusion. Venous Dopplers were negative for bilateral lower extremity DVT. Chest x-ray showed bilateral pneumonia, underlying pulmonary edema cannot be excluded. Patient was intubated on 05/17/2024. Sedated with propofol infusion. Patient seen and examined the ICU this morning, remains intubated on CMV mode of ventilation, peep of 5, 100% FiO2 peep. She did receive Lasix overnight and had good urine [place] [address]. Slight increase in the creatinine. Patient is afebrile, hemodynamically stable not requiring any pressors. Troponins elevated but have been flat. I had the bedside RN draw COVID, RSV and influenza again this morning which were negative. Patient does not open her eyes or follow simple commands Review of Systems Review of Systems: ROS unobtainable: Yes unobtainable due to endotracheal tube, unobtainable due to medical condition and unobtainable due to mental status PMFSH Past Medical History Medical History (Updated 05/18/24 @ 12:28 by Ian Khan MD) GERD (gastroesophageal reflux disease) BMI 24.0-24.9, adult History of vaginal delivery x 2 Surgical History Surgical History H/O shoulder replacement History of back surgery History of hysterectomy History of knee replacement Family History Family History Father Family history of elevated blood lipids Family history of coronary artery disease, Onset Age: 81 Family history of malignant neoplasm of bone, Onset Age: 81 Acute myocardial infarction Mother Family history of elevated blood lipids Family history of coronary artery disease, Onset Age: 79 Family history of blood dyscrasia, Onset Age: 79 Family history of osteoarthritis, Onset Age: 79 Heart disease Acute myocardial infarction CHF (congestive heart failure) Sibling Family history of primary malignant neoplasm of liver Family history of renal failure No family history of diabetes mellitus Heart disease Diabetes mellitus Social History Social History Smoking status: Never smoker Second hand tobacco smoke exposure: Yes Alcohol intake: never Substance use: never Substance use type: does not use Do You Feel Safe in your Home?: Yes Lack of Transportation: No Lack of Food: Never True Current Housing: I Have Housing Concerned About Future Housing: No Difficulty Paying Gas/Electric Bills: No Difficulty Paying for Meds: No Currently Unemployed: No Education: Bachelor's Degree Difficulty w/ Childcare or Family Care: No Living arrangements: with family Occupation/Education: retired 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 Gender identity (if verbalized by the patient): Female Sexual Orientation (if Verbalized by the Patient): Straight or Heterosexual Spiritual care concerns: No Meds Home Medications and Allergies Home Medications ?Medication ?Instructions ?Recorded ?Confirmed ?Type multivitamin 1 tablet PO DAILY 06/17/21 05/15/24 History gabapentin 300 mg capsule 300 mg PO BID 09/06/22 05/15/24 History cholecalciferol (vitamin D3) 50 50 mcg PO DAILY 09/07/22 05/15/24 History mcg (2,000 unit) capsule ibuprofen 600 mg tablet 600 mg PO Q12H Pain 04/04/23 05/15/24 History omeprazole 20 mg capsule,delayed See Rx Instructions PO ONCE #90 09/19/23 05/15/24 Rx release caps prednisone 5 mg tablet 5 mg PO DAILY 10/06/23 05/15/24 History vitamin B12 1,000 mcg-folic acid 1 tablet sublingual EVERY OTHER DAY 10/06/23 05/15/24 History 400 mcg sublingual tablet levothyroxine 88 mcg tablet 88 mcg PO DAILY #90 tabs 12/08/23 05/15/24 Rx rosuvastatin 5 mg tablet See Rx Instructions .Route 01/17/24 05/15/24 Rx .COMPLEX #90 tabs azathioprine 50 mg tablet (Imuran) 50 mg PO DAILY 05/15/24 05/15/24 History cevimeline 30 mg capsule 30 mg PO TID 05/15/24 05/15/24 History hydroxychloroquine 200 mg tablet 200 mg PO HS 05/15/24 05/15/24 History Allergies Allergy/AdvReac Type Severity Reaction Status Date / Time cephalexin Allergy Severe RASH Verified 04/20/24 12:08 morphine Allergy Severe HIVES Verified 04/20/24 12:08 nitrofurantoin (From AdvReac Intermediate Weakness Verified 04/20/24 12:08 Macrobid) Vital Signs Vital Signs - 24 hr 05/17/24 12:00 05/17/24 12:00 05/17/24 12:00 Temperature 97.7 F Pulse Rate 103 H 106 H Respiratory Rate 24 H Blood Pressure 127/44 L Pulse Oximetry 93 93 Oxygen Delivery Nasal Cannula Oxygen Flow Rate 4 Fraction of Inspired Oxygen 05/17/24 14:00 05/17/24 15:00 05/17/24 15:58 Temperature 97.4 F L Pulse Rate 99 99 Respiratory Rate 31 H Blood Pressure 142/54 H Pulse Oximetry 94 93 Oxygen Delivery Venturi Mask Oxygen Flow Rate 9 Fraction of Inspired Oxygen 35 05/17/24 16:00 05/17/24 16:00 05/17/24 18:00 Temperature Pulse Rate 102 H 111 H Respiratory Rate Blood Pressure Pulse Oximetry 91 Oxygen Delivery Nasal Cannula Oxygen Flow Rate 4 Fraction of Inspired Oxygen 05/17/24 20:00 05/17/24 20:00 05/17/24 20:00 Temperature 97.1 F L Pulse Rate 108 H 108 H Respiratory Rate 28 H Blood Pressure 146/92 H Pulse Oximetry 90 88 L Oxygen Delivery Non-Rebreather Mask Oxygen Flow Rate 15 Fraction of Inspired Oxygen 05/17/24 21:40 05/17/24 22:00 05/17/24 23:42 Temperature Pulse Rate 111 H 107 H 99 Respiratory Rate 26 H Blood Pressure Pulse Oximetry 95 97 Oxygen Delivery BiPAP Mechanical Ventilation Oxygen Flow Rate Fraction of Inspired Oxygen 100 05/17/24 23:50 05/17/24 23:55 05/17/24 23:55 Temperature Pulse Rate 103 H 103 H 15 L Respiratory Rate 24 H 24 H 28 H Blood Pressure Pulse Oximetry Oxygen Delivery Oxygen Flow Rate Fraction of Inspired Oxygen 05/18/24 00:00 05/18/24 00:00 05/18/24 00:00 Temperature 99.1 F Pulse Rate 86 100 Respiratory Rate 24 H 24 H Blood Pressure 106/55 L Pulse Oximetry 97 Oxygen Delivery Oxygen Flow Rate Fraction of Inspired Oxygen 100 05/18/24 00:00 05/18/24 00:15 05/18/24 00:30 Temperature 99.1 F Pulse Rate 102 H 88 82 Respiratory Rate 24 H 24 H Blood Pressure 107/69 Pulse Oximetry 96 Oxygen Delivery Oxygen Flow Rate Fraction of Inspired Oxygen 05/18/24 00:30 05/18/24 01:00 05/18/24 02:00 Temperature 99.1 F 98.1 F Pulse Rate 82 89 93 Respiratory Rate 24 H 24 H 24 H Blood Pressure 78/44 L 111/46 L Pulse Oximetry 96 100 Oxygen Delivery Oxygen Flow Rate Fraction of Inspired Oxygen 05/18/24 02:00 05/18/24 02:00 05/18/24 02:24 Temperature Pulse Rate 86 90 88 Respiratory Rate 24 H Blood Pressure Pulse Oximetry 98 Oxygen Delivery Mechanical Ventilation Oxygen Flow Rate Fraction of Inspired Oxygen 05/18/24 03:00 05/18/24 03:00 05/18/24 04:00 Temperature 98.6 F 97.5 F L Pulse Rate 86 80 Respiratory Rate 24 H 26 H Blood Pressure 103/64 98/50 L Pulse Oximetry 98 99 Oxygen Delivery Oxygen Flow Rate Fraction of Inspired Oxygen 100 05/18/24 04:00 05/18/24 04:00 05/18/24 04:00 Temperature Pulse Rate 82 82 Respiratory Rate 26 H Blood Pressure Pulse Oximetry 98 Oxygen Delivery Mechanical Ventilation Oxygen Flow Rate Fraction of Inspired Oxygen 100 100 05/18/24 04:00 05/18/24 04:00 05/18/24 04:00 Temperature 97.4 F L Pulse Rate 82 82 82 Respiratory Rate 24 H 24 H 24 H Blood Pressure 98/50 L Pulse Oximetry 98 Oxygen Delivery Oxygen Flow Rate Fraction of Inspired Oxygen 05/18/24 04:30 05/18/24 04:52 05/18/24 05:00 Temperature 97.3 F L 97.2 F L Pulse Rate 82 82 80 Respiratory Rate 24 H 24 H 24 H Blood Pressure 102/55 L 103/47 L Pulse Oximetry 98 98 98 Oxygen Delivery Mechanical Ventilation Oxygen Flow Rate Fraction of Inspired Oxygen 100 05/18/24 05:35 05/18/24 06:00 05/18/24 06:00 Temperature 97.2 F L Pulse Rate 81 80 80 Respiratory Rate 24 H Blood Pressure 102/48 L Pulse Oximetry 98 99 Oxygen Delivery Mechanical Ventilation Oxygen Flow Rate Fraction of Inspired Oxygen 70 05/18/24 06:00 05/18/24 06:00 05/18/24 07:00 Temperature Pulse Rate 79 79 80 Respiratory Rate 24 H 24 H Blood Pressure Pulse Oximetry 95 Oxygen Delivery Mechanical Ventilation Oxygen Flow Rate Fraction of Inspired Oxygen 70 05/18/24 07:00 05/18/24 07:10 05/18/24 07:49 Temperature Pulse Rate 80 85 86 Respiratory Rate 26 H 24 H 27 H Blood Pressure Pulse Oximetry Oxygen Delivery Oxygen Flow Rate Fraction of Inspired Oxygen 05/18/24 07:54 05/18/24 08:00 05/18/24 08:00 Temperature 97.4 F L Pulse Rate 86 Respiratory Rate 21 H Blood Pressure 103/46 L Pulse Oximetry 94 95 Oxygen Delivery Mechanical Ventilation Oxygen Flow Rate Fraction of Inspired Oxygen 70 70 05/18/24 08:00 05/18/24 08:03 05/18/24 09:00 Temperature Pulse Rate 85 85 87 Respiratory Rate 24 H 27 H Blood Pressure 112/47 L Pulse Oximetry 93 Oxygen Delivery Oxygen Flow Rate Fraction of Inspired Oxygen 05/18/24 09:27 05/18/24 10:00 05/18/24 10:00 Temperature 97.9 F Pulse Rate 89 87 85 Respiratory Rate 23 H 26 H Blood Pressure 110/44 L Pulse Oximetry 94 Oxygen Delivery Oxygen Flow Rate Fraction of Inspired Oxygen 05/18/24 10:00 05/18/24 10:17 05/18/24 10:30 Temperature Pulse Rate 85 88 85 Respiratory Rate 23 H 25 H Blood Pressure Pulse Oximetry 95 Oxygen Delivery Mechanical Ventilation Oxygen Flow Rate Fraction of Inspired Oxygen 70 05/18/24 11:00 Temperature Pulse Rate 85 Respiratory Rate 23 H Blood Pressure 99/45 L Pulse Oximetry 95 Oxygen Delivery Oxygen Flow Rate Fraction of Inspired Oxygen Exam Narrative: General: Intubated and sedated, in no acute distress HEENT:? Pupils equal and reactive, sclera is clear, ETT in place Neck:? Supple Respiratory:? Coarse breath sounds bilateral,, right greater than left. Adequate air entry, no wheezing Cardiac:? S1-S2 is normal, regular rate and rhythm Abdomen:? Soft, nontender, nondistended, hypoactive bowel sounds Extremities:? Pitting edema bilaterally, palpable pedal pulse Neuro:? Patient does not open her eyes or follow simple commands. She does withdraw to pain in all extremities Skin:? No skin issues noted Psych:? Unable to assess at this time Results Labs 05/18/24 03:39 05/18/24 03:39 Labs: Short CBC 05/18/24 Range/Units 03:39 WBC 12.2 H (4.5-10.0) K/mm3 Hgb 10.1 L (12.0-15.0) g/dL Hct 31.3 L (37.0-47.0) % Plt Count 172 (150-375) k/mm3 BMP 05/17/24 05/18/24 17:11 03:39 Sodium 136 L 138 Potassium 3.8 4.0 Chloride 105 106 Carbon Dioxide 22 23 BUN 21 H 23 H Creatinine 0.98 1.12 H Glucose 90 81 Calcium 8.8 8.5 Liver Function 05/18/24 Range/Units 03:39 Total Bilirubin 0.9 (0.2-1.3) mg/dL AST 39 H (14-36) U/L ALT 17 (6-35) U/L Alkaline Phosphatase 82 (38-126) U/L Albumin 2.4 L (3.5-5.1) g/dL Quality VTE Prophylaxis VTE prophylaxis: pharmacologic ordered Hospitalist MIPS Advance Care Plan I have confirmed that the patient's Advanced Care Plan is present, code status is documented, or surrogate decision maker is listed in patient medical record.: Yes Medication Reconciliation I have utilized all available resources to obtain, update and review the patients current medications (includes all prescriptions, OTC, herbals, cannabis, and nutritional supplements).: Yes
[2024-05-18] MEDS: CENTRAL LINE FLUSH 10 ML IV PUSH ×2 (14:55→21:21)
--- NOTE | 2024-05-18 15:43 | PCPTNOTE ---
Due to patient medical decline and intubation, pt discharged from therapy services at this time. Please reorder when pt appropriate and will resume therapy services.
--- NOTE | 2024-05-18 17:02 | PM.IMPN ---
Progress Note: A&P Assessment and Plan (1) Acute respiratory failure: Code(s): J96.00 - Acute respiratory failure, unspecified whether with hypoxia or hypercapnia Status: Acute Assessment and Plan: Patient initially presented on 05/14/2024 with fevers cough, generalized weakness 05/17: Respiratory deterioration, with increasing oxygen requirement, tachypnea, unable to tolerate BiPAP. Chest x-ray and CTA chest revealed bilateral infiltrates, ARDS physiology 05/17: Patient was intubated -remains on CMV mode of ventilation, peep of 5, 100% FiO2. -ABGs and chest x-ray this morning were reviewed, ventilator adjusted, peep was increased to 8 and respiratory rate to 26 -COVID, influenza and a RSV were negative on 05/14 05/17: Repeat COVID influenza and RSV again were negative -antibiotics as above -continue bronchodilator 05/17: CTA chest IMPRESSION: 1. No definite pulmonary embolism is seen. 2. Bilateral pneumonia in the upper and lower lobes. 3. Bilateral pleural effusion. 05/17: Bilateral lower extremity venous Doppler: Negative for DVT (2) Sepsis: Code(s): A41.9 - Sepsis, unspecified organism Status: Acute Assessment and Plan: Patient presented with altered mental status, low blood pressures, UTI with ESBL E coli, leukocytosis -currently on vancomycin meropenem and doxycycline -PICC line placed on 05/17 -not requiring any pressors at this time, borderline blood pressures -05/14/2024: Urine culture grew ESBL E coli -05/14/2024: Blood cultures with no growth -[id number]: Sputum cultures Borderline blood pressures, may need to add pressors -continue monitor urine output (3) Pneumonia: Code(s): J18.9 - Pneumonia, unspecified organism Status: Acute Assessment and Plan: Treatment is above (4) Acute UTI: Code(s): N39.0 - Urinary tract infection, site not specified Status: Acute Assessment and Plan: Treatment as above (5) Elevated troponin: Code(s): R79.89 - Other specified abnormal findings of blood chemistry Status: Acute Assessment and Plan: Elevated troponins, but flat. EKG is not in show any ST elevation. Could be related to type 2 myocardial infarction secondary respiratory failure -will continue to monitor (6) Hyperlipidemia, unspecified: Qualifiers: Hyperlipidemia type: unspecified Qualified Code(s): E78.5 - Hyperlipidemia, unspecified Code(s): E78.5 - Hyperlipidemia, unspecified Status: Chronic Assessment and Plan: Continue statin (7) GERD (gastroesophageal reflux disease): Code(s): K21.9 - Gastro-esophageal reflux disease without esophagitis Status: Chronic Assessment and Plan: Protonix IV q.12 hours Plan Initially admitted to medical floor with complains of generalized weakness fever and cough however symptoms worsen see was hypoxic evaluated and patient was intubated currently patient in ICU, repeat COVID, influenza and RSV are negative, chest x-ray shows stable diffuse lung disease, consistent with pulmonary edema versus pneumonia versus acute respiratory distress syndrome (ARDS) superimposed on chronic lung disease patient is being treated with meropenem and vancomycin will continue to monitor. Subjective Date/time seen: 05/18/24 17:02 Interval history: Initially admitted to medical floor with complains of generalized weakness fever and cough however symptoms worsen see was hypoxic evaluated and patient was intubated currently patient in ICU, repeat COVID, influenza and RSV are negative, chest x-ray shows stable diffuse lung disease, consistent with pulmonary edema versus pneumonia versus acute respiratory distress syndrome (ARDS) superimposed on chronic lung disease patient is being treated with meropenem and vancomycin will continue to monitor. Exam Narrative: Patient is comfortable, NAD HEENT: ET tube in place LUNGS: Bilateral poor air entry HEART: RR S1S2 ABD: BS+, Soft and nontender Lower extremities: no edema SKIN: nonjaundiced Neuro: grossly intact. Objective Data Vital Signs Vital Signs: Vital Signs - 24 hr 05/17/24 18:00 05/17/24 20:00 05/17/24 20:00 Temperature 36.2 C L Pulse Rate 111 H 108 H Respiratory Rate 28 H Blood Pressure 146/92 H Pulse Oximetry 90 88 L Oxygen Delivery Non-Rebreather Mask Oxygen Flow Rate 15 Fraction of Inspired Oxygen 05/17/24 20:00 05/17/24 21:40 05/17/24 22:00 Temperature Pulse Rate 108 H 111 H 107 H Respiratory Rate 26 H Blood Pressure Pulse Oximetry 95 Oxygen Delivery BiPAP Oxygen Flow Rate Fraction of Inspired Oxygen 05/17/24 23:42 05/17/24 23:50 05/17/24 23:55 Temperature Pulse Rate 99 103 H 103 H Respiratory Rate 24 H 24 H Blood Pressure Pulse Oximetry 97 Oxygen Delivery Mechanical Ventilation Oxygen Flow Rate Fraction of Inspired Oxygen 100 05/17/24 23:55 05/18/24 00:00 05/18/24 00:00 Temperature 37.3 C Pulse Rate 15 L 86 100 Respiratory Rate 28 H 24 H 24 H Blood Pressure 106/55 L Pulse Oximetry 97 Oxygen Delivery Oxygen Flow Rate Fraction of Inspired Oxygen 05/18/24 00:00 05/18/24 00:00 05/18/24 00:15 Temperature 37.3 C Pulse Rate 102 H 88 Respiratory Rate 24 H Blood Pressure 107/69 Pulse Oximetry 96 Oxygen Delivery Oxygen Flow Rate Fraction of Inspired Oxygen 100 05/18/24 00:30 05/18/24 00:30 05/18/24 01:00 Temperature 37.3 C 36.7 C Pulse Rate 82 82 89 Respiratory Rate 24 H 24 H 24 H Blood Pressure 78/44 L 111/46 L Pulse Oximetry 96 100 Oxygen Delivery Oxygen Flow Rate Fraction of Inspired Oxygen 05/18/24 02:00 05/18/24 02:00 05/18/24 02:00 Temperature Pulse Rate 93 86 90 Respiratory Rate 24 H 24 H Blood Pressure Pulse Oximetry Oxygen Delivery Oxygen Flow Rate Fraction of Inspired Oxygen 05/18/24 02:24 05/18/24 03:00 05/18/24 03:00 Temperature 37.0 C Pulse Rate 88 86 Respiratory Rate 24 H Blood Pressure 103/64 Pulse Oximetry 98 98 Oxygen Delivery Mechanical Ventilation Oxygen Flow Rate Fraction of Inspired Oxygen 100 05/18/24 04:00 05/18/24 04:00 05/18/24 04:00 Temperature 36.4 C L Pulse Rate 80 82 82 Respiratory Rate 26 H 26 H Blood Pressure 98/50 L Pulse Oximetry 99 98 Oxygen Delivery Mechanical Ventilation Oxygen Flow Rate Fraction of Inspired Oxygen 100 05/18/24 04:00 05/18/24 04:00 05/18/24 04:00 Temperature 36.3 C L Pulse Rate 82 82 Respiratory Rate 24 H 24 H Blood Pressure 98/50 L Pulse Oximetry 98 Oxygen Delivery Oxygen Flow Rate Fraction of Inspired Oxygen 100 05/18/24 04:00 05/18/24 04:30 05/18/24 04:52 Temperature 36.3 C L Pulse Rate 82 82 82 Respiratory Rate 24 H 24 H 24 H Blood Pressure 102/55 L Pulse Oximetry 98 98 Oxygen Delivery Mechanical Ventilation Oxygen Flow Rate Fraction of Inspired Oxygen 100 05/18/24 05:00 05/18/24 05:35 05/18/24 06:00 Temperature 36.2 C L Pulse Rate 80 81 80 Respiratory Rate 24 H Blood Pressure 103/47 L Pulse Oximetry 98 98 Oxygen Delivery Mechanical Ventilation Oxygen Flow Rate Fraction of Inspired Oxygen 70 05/18/24 06:00 05/18/24 06:00 05/18/24 06:00 Temperature 36.2 C L Pulse Rate 80 79 79 Respiratory Rate 24 H 24 H 24 H Blood Pressure 102/48 L Pulse Oximetry 99 Oxygen Delivery Oxygen Flow Rate Fraction of Inspired Oxygen 05/18/24 07:00 05/18/24 07:00 05/18/24 07:10 Temperature Pulse Rate 80 80 85 Respiratory Rate 26 H 24 H Blood Pressure Pulse Oximetry 95 Oxygen Delivery Mechanical Ventilation Oxygen Flow Rate Fraction of Inspired Oxygen 70 05/18/24 07:49 05/18/24 07:54 05/18/24 08:00 Temperature Pulse Rate 86 Respiratory Rate 27 H Blood Pressure Pulse Oximetry 94 Oxygen Delivery Mechanical Ventilation Oxygen Flow Rate Fraction of Inspired Oxygen 70 70 05/18/24 08:00 05/18/24 08:00 05/18/24 08:03 Temperature 36.3 C L Pulse Rate 86 85 85 Respiratory Rate 21 H 24 H Blood Pressure 103/46 L Pulse Oximetry 95 Oxygen Delivery Oxygen Flow Rate Fraction of Inspired Oxygen 05/18/24 09:00 05/18/24 09:27 05/18/24 10:00 Temperature 36.6 C Pulse Rate 87 89 87 Respiratory Rate 27 H 23 H 26 H Blood Pressure 112/47 L 110/44 L Pulse Oximetry 93 94 Oxygen Delivery Oxygen Flow Rate Fraction of Inspired Oxygen 05/18/24 10:00 05/18/24 10:00 05/18/24 10:17 Temperature Pulse Rate 85 85 88 Respiratory Rate 23 H 25 H Blood Pressure Pulse Oximetry Oxygen Delivery Oxygen Flow Rate Fraction of Inspired Oxygen 05/18/24 10:30 05/18/24 11:00 05/18/24 12:00 Temperature Pulse Rate 85 85 Respiratory Rate 23 H Blood Pressure 99/45 L Pulse Oximetry 95 95 93 Oxygen Delivery Mechanical Ventilation Mechanical Ventilation Oxygen Flow Rate Fraction of Inspired Oxygen 70 70 05/18/24 12:00 05/18/24 12:00 05/18/24 12:00 Temperature Pulse Rate 85 88 Respiratory Rate 26 H Blood Pressure Pulse Oximetry Oxygen Delivery Oxygen Flow Rate Fraction of Inspired Oxygen 70 05/18/24 12:00 05/18/24 13:00 05/18/24 13:00 Temperature Pulse Rate 86 85 85 Respiratory Rate 21 H 24 H Blood Pressure Pulse Oximetry 94 Oxygen Delivery Mechanical Ventilation Oxygen Flow Rate Fraction of Inspired Oxygen 70 05/18/24 13:10 05/18/24 13:58 05/18/24 14:00 Temperature Pulse Rate 87 91 90 Respiratory Rate 24 H 26 H 24 H Blood Pressure 113/50 L Pulse Oximetry 95 Oxygen Delivery Oxygen Flow Rate Fraction of Inspired Oxygen 05/18/24 14:00 05/18/24 14:05 05/18/24 14:41 Temperature Pulse Rate 97 93 102 H Respiratory Rate 24 H 24 H Blood Pressure Pulse Oximetry Oxygen Delivery Oxygen Flow Rate Fraction of Inspired Oxygen 05/18/24 14:55 05/18/24 16:10 Temperature 37.1 C Pulse Rate 98 97 Respiratory Rate 23 H Blood Pressure 117/45 L Pulse Oximetry 96 94 Oxygen Delivery Mechanical Ventilation Oxygen Flow Rate Fraction of Inspired Oxygen 70 Intake/Output Intake/Output: Intake & Output 05/15/24 05/16/24 05/17/24 05/18/24 23:59 23:59 23:59 23:59 Intake Total 3094 660 900.1 504.4 Output Total 0 1100 1400 1050 Balance 3094 -440 -499.9 -545.6 Meds/Results Medications: Active Medications Generic Name Dose Route Start Last Admin Trade Name Freq PRN Reason Stop Dose Admin Acetaminophen 650 mg 05/14/24 21:15 05/16/24 16:22 Acetaminophen 325 Mg Tablet PO 650 mg Q4H PRN Administration Mild Pain (1-3) or Fever Albuterol/Ipratropium 3 ml 05/18/24 02:00 05/18/24 13:00 Ipratropium 0.5 Mg/Albuterol Sulfate 2.5 Mg Ampul.Neb 3 Ml INHALATION 3 ml Q6HRT MIKAYLA Administration Azathioprine 50 mg 05/16/24 09:00 05/17/24 09:17 Azathioprine 50 Mg Tablet PO 50 mg DAILY MIKAYLA Administration Benzonatate 200 mg 05/16/24 10:52 05/16/24 16:19 Benzonatate 100 Mg Capsule PO 200 mg TID PRN Administration Cough Cyanocobalamin 1,000 mcg 05/15/24 10:45 05/17/24 09:15 Cyanocobalamin 1,000 Mcg Tablet PO 1,000 mcg Q48HR MIKAYLA Administration Docusate Sodium 100 mg 05/16/24 15:00 Docusate Sodium 100 Mg Capsule PO Q12H PRN Constipation Enoxaparin Sodium 40 mg 05/18/24 09:00 05/18/24 08:48 Enoxaparin 40 Mg/0.4 Ml Syringe SUB-Q 40 mg DAILY MIKAYLA Administration Gabapentin 300 mg 05/16/24 09:00 05/18/24 09:46 Gabapentin 300 Mg Capsule PO 300 mg BID MIKAYLA Administration Hydroxychloroquine Sulfate 200 mg 05/16/24 11:00 05/17/24 09:17 Hydroxychloroquine Sulfate 200 Mg Tablet PO 200 mg QAM MIKAYLA Administration Hydroxychloroquine Sulfate 100 mg 05/16/24 21:00 05/17/24 21:24 Hydroxychloroquine Sulfate 100 Mg Tablet PO 100 mg HS MIKAYLA Administration Meropenem 1 gm in 100 mls @ 200 mls/hr 05/17/24 21:00 05/18/24 09:27 IVPB 05/21/24 09:29 Infused Q12HR MIKAYLA Infusion Doxycycline Hyclate 100 mg in 100 mls @ 100 mls/hr 05/17/24 10:00 05/18/24 13:59 Vibramycin 100 Mg/Ns 100 Ml IVPB Infused Q12H MIKAYLA Infusion Fentanyl Citrate 2,500 mcg in 250 mls @ 5 mls/hr 05/17/24 23:55 05/18/24 14:05 Fentanyl 2,500 Mcg/Ns 250 Ml IV CONT 50 mcg/hr .Q50H MIKAYLA 5 mls/hr Titration Protocol 50 MCG/HR Propofol 100 mls @ 3.57 mls/hr 05/17/24 23:55 05/18/24 14:41 Diprivan IV CONT 10 mcg/kg/min .Q28H1M MIKAYLA 3.57 mls/hr Titration Protocol 10 MCG/KG/MIN Vancomycin HCl 1,250 mg in 250 mls @ 166.667 mls/hr 05/19/24 13:00 Vancomycin 1,250 Mg/Ns 250 Ml IVPB Q36H MIKAYLA Albumin Human 100 mls @ 60 mls/hr 05/18/24 08:02 05/18/24 14:33 Albutein IVPB 05/19/24 01:39 Infused Q6HR MIKAYLA Infusion Ibuprofen 600 mg 05/15/24 10:45 05/17/24 21:24 Ibuprofen 600 Mg Tablet PO 600 mg Q12HR MIKAYLA Administration Levothyroxine Sodium 44 mcg 05/19/24 06:30 Levothyroxine Sodium Inj 100 Mcg/5 Ml Vial IV PUSH DAILY@0630 MIKAYLA Melatonin 5 mg 05/14/24 21:15 05/14/24 22:20 Melatonin 5 Mg Tablet PO 5 mg HS PRN Administration Insomnia Multi-Ingred Cream/Lotion/Oil/Oint 1 applic 05/18/24 09:00 05/18/24 09:01 Mineral Oil/White Petrolatum Ointment EACH EYE 1 applic Q12HR MIKAYLA Administration Multivitamins Therapeutic 1 tablet 05/15/24 10:40 05/17/24 09:18 Multivitamins Therapeutic Tab (*Bkc) PO 1 tablet DAILY MIKAYLA Administration Non-Formulary Medication 0 mg 05/16/24 13:00 05/17/24 17:56 Cevimeline PO 06/15/24 12:59 30 mg TID MIKAYLA Administration Pantoprazole Sodium 40 mg 05/18/24 09:00 05/18/24 08:48 Pantoprazole Sodium Iv 40 Mg Vial IV PUSH 40 mg DAILY MIKAYLA Administration Polyethylene Glycol 17 gm 05/16/24 15:00 Polyethylene Glycol 3350 17 Gm Powd.Pack PO QAM PRN Constipation Polysaccharide Iron Complex 150 mg 05/17/24 08:00 05/18/24 09:40 Polysaccharide Iron Complex 150 Mg Capsule PO Not Given DAILY@0800 [facility] Prochlorperazine Edisylate 10 mg 05/14/24 21:15 Prochlorperazine Edisylate 10 Mg/2 Ml Vial IV PUSH Q6H PRN Nausea And Vomiting Rosuvastatin Calcium 5 mg 05/15/24 10:40 05/18/24 09:46 Rosuvastatin 5 Mg Tablet PO 5 mg DAILY MIKAYLA Administration Sodium Chloride 10 ml 05/18/24 14:00 05/18/24 14:55 Central Line Flush IV PUSH 10 ml Q8HR MIKAYLA Administration Sodium Chloride 10 ml 05/18/24 08:21 Central Line Flush IV PUSH PRN PRN with TPN bag changes Sodium Chloride 20 ml 05/18/24 08:21 Central Line Flush IV PUSH PRN PRN after blood draws Vitamin D 2,000 units 05/15/24 10:45 05/17/24 09:16 Cholecalciferol 1,000 Units Tablet PO 2,000 units DAILY MIKAYLA Administration Radiology Results: ITS Impressions Venous Doppler Study 05/17/24 20:52 IMPRESSION: Negative bilateral lower extremity venous US. No deep vein thrombosis. Chest CTA 05/17/24 21:17 IMPRESSION: 1. No definite pulmonary embolism is seen. 2. Bilateral pneumonia in the upper and lower lobes. 3. Bilateral pleural effusion. Chest X-Ray 05/18/24 08:42 IMPRESSION: 1. PICC tip at the superior cavoatrial junction. 2. Stable diffuse lung disease, consistent with pulmonary edema versus pneumonia versus acute respiratory distress syndrome (ARDS) superimposed on chronic lung disease. Labs Labs: Laboratory Results - last 24 hr 05/17/24 05/17/24 05/17/24 17:11 17:16 21:07 WBC RBC Hgb Hct MCV MCH MCHC RDW Plt Count MPV Immature Gran % (Auto) Neut % (Auto) Lymph % (Auto) [place] % (Auto) Eos % (Auto) Baso % (Auto) Lymph # (Auto) [place] # (Auto) Eos # (Auto) Baso # (Auto) Abs Immat Gran (auto) Absolute Neuts (auto) Absolute Nucleated RBC Total Counted Neutrophils % (Manual) Band Neutrophils % Lymphocytes % (Manual) Monocytes % (Manual) Nucleated RBC % Abs Neuts (Manual) Abs Lymphs (Manual) Abs Monocytes (Manual) Platelet Estimate Schistocytes D-Dimer 11.61 H Puncture Site Right brachial ABG pH 7.308 L ABG pCO2 42.1 ABG pO2 59.5 L ABG PO2/FiO2 Ratio 0.63 ABG HCO3 20.6 L ABG O2 Saturation 88.5 L ABG O2 Content 14.1 L ABG Base Excess -5.4 A-a Gradient 575.2 Oxyhemoglobin 87.9 L Carboxyhemoglobin Methemoglobin Reduced Hemoglobin Total Hemoglobin 11.4 L O2 Delivery Device Non-rebreather mask O2 Liters/Min 15.0 Minute Volume Vent Rate Vent Mode FiO2 95 Tidal Volume PEEP Peak Inspir Pressure Pressure Support Sodium 136 L Potassium 3.8 Chloride 105 Carbon Dioxide 22 Anion Gap 9 BUN 21 H Creatinine 0.98 Estim Creat Clear Calc Not Reportable Estimated GFR 54 L Glucose 90 Calcium 8.8 Magnesium Total Bilirubin AST ALT Alkaline Phosphatase NT-Pro-B Natriuret Pep Total Protein Albumin Triglycerides 103 Nasal MRSA (PCR) Influenza A (RT-PCR) Influenza B (RT-PCR) RSV (RT-PCR) SARS-CoV-2 RNA (RT-PCR) 05/17/24 05/18/24 05/18/24 21:43 03:31 03:39 WBC 12.2 H RBC 3.25 L Hgb 10.1 L Hct 31.3 L MCV 96.3 MCH 31.1 MCHC 32.3 RDW 15.9 H Plt Count 172 MPV 10.5 H Immature Gran % (Auto) Not Reportable Neut % (Auto) Not Reportable Lymph % (Auto) Not Reportable [place] % (Auto) Not Reportable Eos % (Auto) Not Reportable Baso % (Auto) Not Reportable Lymph # (Auto) Not Reportable [place] # (Auto) Not Reportable Eos # (Auto) Not Reportable Baso # (Auto) Not Reportable Abs Immat Gran (auto) Not Reportable Absolute Neuts (auto) Not Reportable Absolute Nucleated RBC Not Reportable Total Counted 100 Neutrophils % (Manual) 90 H Band Neutrophils % 8 H Lymphocytes % (Manual) 1 L Monocytes % (Manual) 1 L Nucleated RBC % Not Reportable Abs Neuts (Manual) 11.95 H Abs Lymphs (Manual) 0.12 L Abs Monocytes (Manual) 0.12 Platelet Estimate Adequate Schistocytes None seen D-Dimer Puncture Site ABG pH ABG pCO2 ABG pO2 ABG PO2/FiO2 Ratio ABG HCO3 ABG O2 Saturation ABG O2 Content ABG Base Excess A-a Gradient Oxyhemoglobin Carboxyhemoglobin Methemoglobin Reduced Hemoglobin Total Hemoglobin O2 Delivery Device O2 Liters/Min Minute Volume Vent Rate Vent Mode FiO2 Tidal Volume PEEP Peak Inspir Pressure Pressure Support Sodium 138 Potassium 4.0 Chloride 106 Carbon Dioxide 23 Anion Gap 9 BUN 23 H Creatinine 1.12 H Estim Creat Clear Calc Not Reportable Estimated GFR 47 L Glucose 81 Calcium 8.5 Magnesium 1.6 Total Bilirubin 0.9 AST 39 H ALT 17 Alkaline Phosphatase 82 NT-Pro-B Natriuret Pep 89654 H Total Protein 5.0 L Albumin 2.4 L Triglycerides Nasal MRSA (PCR) Not detected Influenza A (RT-PCR) Influenza B (RT-PCR) RSV (RT-PCR) SARS-CoV-2 RNA (RT-PCR) 05/18/24 05/18/24 05/18/24 05:16 08:28 23:48 WBC RBC Hgb Hct MCV MCH MCHC RDW Plt Count MPV Immature Gran % (Auto) Neut % (Auto) Lymph % (Auto) [place] % (Auto) Eos % (Auto) Baso % (Auto) Lymph # (Auto) [place] # (Auto) Eos # (Auto) Baso # (Auto) Abs Immat Gran (auto) Absolute Neuts (auto) Absolute Nucleated RBC Total Counted Neutrophils % (Manual) Band Neutrophils % Lymphocytes % (Manual) Monocytes % (Manual) Nucleated RBC % Abs Neuts (Manual) Abs Lymphs (Manual) Abs Monocytes (Manual) Platelet Estimate Schistocytes D-Dimer Puncture Site Right radial Left radial ABG pH 7.315 L 7.243 L* ABG pCO2 48.8 H 56.1 H ABG pO2 218.7 H 144.4 H ABG PO2/FiO2 Ratio 2.19 1.44 ABG HCO3 24.3 23.7 ABG O2 Saturation 99.4 98.4 ABG O2 Content 15.6 L 15.5 L ABG Base Excess -2.1 -4.1 A-a Gradient 445.5 512.5 Oxyhemoglobin 98.7 98.1 Carboxyhemoglobin 0.3 0.2 Methemoglobin 0.1 0.0 Reduced Hemoglobin 0.9 1.7 Total Hemoglobin 10.9 L 11.0 L O2 Delivery Device Ventilator Ventilator O2 Liters/Min Not Reportable Not Reportable Minute Volume Not Reportable Not Reportable Vent Rate 24 24 Vent Mode Cmv Cmv FiO2 100 100 Tidal Volume 350 300 PEEP 5 5 Peak Inspir Pressure Not Reportable Not Reportable Pressure Support Not Reportable Not Reportable Sodium Potassium Chloride Carbon Dioxide Anion Gap BUN Creatinine Estim Creat Clear Calc Estimated GFR Glucose Calcium Magnesium Total Bilirubin AST ALT Alkaline Phosphatase NT-Pro-B Natriuret Pep Total Protein Albumin Triglycerides Nasal MRSA (PCR) Influenza A (RT-PCR) Negative Influenza B (RT-PCR) Negative RSV (RT-PCR) Negative SARS-CoV-2 RNA (RT-PCR) Negative
[2024-05-19] VITALS (54 sets, daily range): BP systolic 65–120; BP diastolic 40–63; PULSE 50–152; RESP 24–30; TEMP 36.4–37.8; O2SAT 91–98
[2024-05-19] MEDS: ALBUMIN HUMAN 25% 25 GM/100 ML 100 ML IVPB (00:21)
[2024-05-19] MEDS: IPRATROPIUM 0.5 MG/ALBUTEROL SULFATE 2.5 MG AMPUL.NEB 3 ML INHALATION ×2 (01:08→08:34)
[2024-05-19] MEDS: PROPOFOL IV EMULSION 100 ML 3.57 MG IV CONT (04:16)
[2024-05-19] MEDS: CENTRAL LINE FLUSH 10 ML IV PUSH ×3 (05:22→21:29)
[2024-05-19] MEDS: LEVOTHYROXINE SODIUM INJ 100 MCG/5 ML VIAL 44 MCG IV PUSH (05:24)
[2024-05-19 05:26] LABS: Hematocrit 26.1 % (37.0-47.0); Hemoglobin 8.4 g/dL (12.0-15.0); Mean Corpuscular HGB Conc 32.2 g/dl (32-36); Mean Corpuscular Hemoglobin 31.7 pg (26-34); Mean Corpuscular Volume 98.5 fl (80-100); Mean Platelet Volume 10.8 fl (7.4-10.4); Platelet Count Result 134 k/mm3 (150-375); Red Blood Count 2.65 M/mm3 (4.2-5.4); Red Cell Distribution Width 16.4 % (11.5-14.5); White Blood Count 10.9 K/mm3 (4.5-10.0)
[2024-05-19 05:38] LABS: Alanine Aminotransferase 12 U/L (6-35); Albumin Level 3.3 g/dL (3.5-5.1); Alkaline Phosphatase 83 U/L (38-126); Anion Gap 10 mmol/L (4-12); Aspartate Amino Transferase 36 U/L (14-36); Bilirubin,Total 0.8 mg/dL (0.2-1.3); Blood Urea Nitrogen 29 mg/dL (7-17); Calcium 8.7 mg/dL (8.4-10.2); Carbon Dioxide 25 mmol/L (22-30); Chloride 108 mmol/L (98-107); Estimated Glomerular Filt Rate 32; Glucose 83 mg/dL (65-110); Magnesium 1.8 mg/dL (1.6-2.3); Phosphorus 5.2 mg/dL (2.5-4.5); Potassium 3.6 mmol/L (3.4-5.0); Sodium 143 mmol/L (137-145)
[2024-05-19 05:51] LABS: Band Neutrophils Percent 4 % (0-6); Eosinophils Absolute Manual 0.32 K/mm3 (0.02-0.50); Eosinophils Percent Manual 3 % (0-4); Lymphocytes Absolute Manual 0.87 K/mm3 (1.1-4.5); Monocytes Absolute Manual 0.21 K/mm3 (0.1-0.90); Monocytes Percent Manual 2 % (3-9); Neutrophils Absolute Manual 9.48 K/mm3 (1.7-7.2); Neutrophils Percent Manual 83 % (46-73); Platelet Estimate Adequate (Adequate); Schistocytes None Seen; Total Cells Counted 100
[2024-05-19] MEDS: DOXYCYCLINE 100 MG/NS 100 ML 100 MG/100 ML BAG IVPB ×2 (09:06→21:26)
[2024-05-19] MEDS: PANTOPRAZOLE SODIUM IV 40 MG VIAL IV PUSH ×2 (09:06→20:50)
[2024-05-19] MEDS: ENOXAPARIN 30 MG/0.3 ML SYRINGE SUB-Q (09:06)
[2024-05-19] MEDS: GABAPENTIN 300 MG CAPSULE PO ×2 (09:06→16:59)
[2024-05-19] MEDS: MINERAL OIL/WHITE PETROLATUM OINTMENT 1 APPLIC EACH EYE ×2 (09:07→20:50)
[2024-05-19] MEDS: ROSUVASTATIN 5 MG TABLET PO (09:07)
[2024-05-19] MEDS: MEROPENEM 1 GM/NS 100 ML 1 GM/100 ML BAG IVPB (09:29)
[2024-05-19 09:40] LABS: Creatine Kinase < 20 U/L (30-135)
--- NOTE | 2024-05-19 10:09 | PM.CNNEP ---
Assessment and Plan Assessment and plan (1) BARRIE (acute kidney injury): Code(s): N17.9 - Acute kidney failure, unspecified Status: Acute Assessment and Plan: the patient has normal kidney function at baseline. on admission her creatinine was normal and she had a mild rise in the creatinine for couple of days but this improved by the . At this point further respiratory deterioration and so had a CT angiogram requiring contrast. So it is possible that she has contrast related acute kidney injury. She also has multiple other issues as well including urosepsis, possible 3rd spacing. she was on ibuprofen before admission but this was held when the creatinine began to rise. I do not think this is interstitial nephritis because the creatinine is rising too quickly. The patient did have an echocardiogram showing good LV function and no pulmonary hypertension or significant valvular issues. She is not on any medications that would affect the kidneys. At this point will check urine electrolytes. Renal ultrasound has already been done showing normal size kidney but some echogenicity. Will also check a CPK. The patient is on 85% oxygen. Her urine output is not very good. I think would be okay to give her a dose of Bumex 2mg IV x1 to see if we can effect better urine output. Discussed with Dr. Leah concepcion (2) Acute respiratory failure: Code(s): J96.00 - Acute respiratory failure, unspecified whether with hypoxia or hypercapnia Status: Acute Assessment and Plan: the patient is on a ventilator, antibiotics, pulmonary toilet, and substantial support. (3) GERD (gastroesophageal reflux disease): Code(s): K21.9 - Gastro-esophageal reflux disease without esophagitis Status: Chronic Assessment and Plan: The patient is on pantoprazole (4) Elevated troponin: Code(s): R79.89 - Other specified abnormal findings of blood chemistry Status: Acute Assessment and Plan: the troponin is slightly elevated and is fairly flat. (5) Acute UTI: Code(s): N39.0 - Urinary tract infection, site not specified Status: Acute Assessment and Plan: The culture grew E coli The patient is on antibiotics which cover the organism. (6) Interstitial lung disease: Code(s): J84.9 - Interstitial pulmonary disease, unspecified Status: Acute Assessment and Plan: The patient has substantial underlying pulmonary disease. History of Present Illness Reason for Consult Consult date: 05/19/24 Chief Complaint Chief complaint: UTI, Troponin leak, Sepsis History of Present Illness Narrative: Negrita is a very pleasant 83-year-old lady who has multiple medical problems including interstitial lung disease On home oxygen, rheumatoid arthritis, hyperlipidemia, GERD, peripheral neuropathy, hypothyroidism, status post Dewey maueren placement in the back, status post right shoulder reverse replacement, who came to the hospital because of fever and altered mental status. I obtained the history from the chart. Apparently she had increasing fatigue along with a cough and also developed some confusion. Her brought her to the emergency room. here she was evaluated and felt to have UTI sepsis and elevated troponin. She was treated in a regular room for few days but then she developed deterioration of her pulmonary status. I venous Doppler was done which was negative and a chest CTA was done which showed no pulmonary embolism. She was transferred to the ICU and eventually intubated. Her creatinine was normal on admission and magi again yesterday and today so renal consultation was requested. The patient can not give a history due to intubation and sedatives. [facility] Past Medical History Medical History GERD (gastroesophageal reflux disease) BMI 24.0-24.9, adult History of vaginal delivery x 2 Surgical History Surgical History H/O shoulder replacement History of back surgery History of hysterectomy History of knee replacement Family History Family History Father Family history of elevated blood lipids Family history of coronary artery disease, Onset Age: 81 Family history of malignant neoplasm of bone, Onset Age: 81 Acute myocardial infarction Mother Family history of elevated blood lipids Family history of coronary artery disease, Onset Age: 79 Family history of blood dyscrasia, Onset Age: 79 Family history of osteoarthritis, Onset Age: 79 Heart disease Acute myocardial infarction CHF (congestive heart failure) Sibling Family history of primary malignant neoplasm of liver Family history of renal failure No family history of diabetes mellitus Heart disease Diabetes mellitus Social History Social History Smoking status: Never smoker Second hand tobacco smoke exposure: Yes Alcohol intake: never Substance use: never Substance use type: does not use Do You Feel Safe in your Home?: Yes Lack of Transportation: No Lack of Food: Never True Current Housing: I Have Housing Concerned About Future Housing: No Difficulty Paying Gas/Electric Bills: No Difficulty Paying for Meds: No Currently Unemployed: No Education: Bachelor's Degree Difficulty w/ Childcare or Family Care: No Living arrangements: with family Occupation/Education: retired 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 Gender identity (if verbalized by the patient): Female Sexual Orientation (if Verbalized by the Patient): Straight or Heterosexual Spiritual care concerns: No Meds Home Medications and Allergies Home Medications ?Medication ?Instructions ?Recorded ?Confirmed ?Type multivitamin 1 tablet PO DAILY 06/17/21 05/15/24 History gabapentin 300 mg capsule 300 mg PO BID 09/06/22 05/15/24 History cholecalciferol (vitamin D3) 50 50 mcg PO DAILY 09/07/22 05/15/24 History mcg (2,000 unit) capsule ibuprofen 600 mg tablet 600 mg PO Q12H Pain 04/04/23 05/15/24 History omeprazole 20 mg capsule,delayed See Rx Instructions PO ONCE #90 09/19/23 05/15/24 Rx release caps prednisone 5 mg tablet 5 mg PO DAILY 10/06/23 05/15/24 History vitamin B12 1,000 mcg-folic acid 1 tablet sublingual EVERY OTHER DAY 10/06/23 05/15/24 History 400 mcg sublingual tablet levothyroxine 88 mcg tablet 88 mcg PO DAILY #90 tabs 12/08/23 05/15/24 Rx rosuvastatin 5 mg tablet See Rx Instructions .Route 01/17/24 05/15/24 Rx .COMPLEX #90 tabs azathioprine 50 mg tablet (Imuran) 50 mg PO DAILY 05/15/24 05/15/24 History cevimeline 30 mg capsule 30 mg PO TID 05/15/24 05/15/24 History hydroxychloroquine 200 mg tablet 200 mg PO HS 05/15/24 05/15/24 History Allergies Allergy/AdvReac Type Severity Reaction Status Date / Time cephalexin Allergy Severe RASH Verified 04/20/24 12:08 morphine Allergy Severe HIVES Verified 04/20/24 12:08 nitrofurantoin (From AdvReac Intermediate Weakness Verified 04/20/24 12:08 Macrobid) Vital Signs Vital Signs - 24 hr 05/18/24 10:17 05/18/24 10:30 05/18/24 11:00 Temperature Pulse Rate 88 85 85 Respiratory Rate 25 H 23 H Blood Pressure 99/45 L Pulse Oximetry 95 95 Oxygen Delivery Mechanical Ventilation Fraction of Inspired Oxygen 70 05/18/24 12:00 05/18/24 12:00 05/18/24 12:00 Temperature Pulse Rate 85 Respiratory Rate Blood Pressure Pulse Oximetry 93 Oxygen Delivery Mechanical Ventilation Fraction of Inspired Oxygen 70 70 05/18/24 12:00 05/18/24 12:00 05/18/24 13:00 Temperature Pulse Rate 88 86 85 Respiratory Rate 26 H 21 H Blood Pressure Pulse Oximetry 94 Oxygen Delivery Mechanical Ventilation Fraction of Inspired Oxygen 70 05/18/24 13:00 05/18/24 13:10 05/18/24 13:58 Temperature Pulse Rate 85 87 91 Respiratory Rate 24 H 24 H 26 H Blood Pressure 113/50 L Pulse Oximetry 95 Oxygen Delivery Fraction of Inspired Oxygen 05/18/24 14:00 05/18/24 14:00 05/18/24 14:05 Temperature Pulse Rate 90 97 93 Respiratory Rate 24 H 24 H Blood Pressure Pulse Oximetry Oxygen Delivery Fraction of Inspired Oxygen 05/18/24 14:41 05/18/24 14:55 05/18/24 16:00 Temperature 98.8 F Pulse Rate 102 H 98 Respiratory Rate 24 H 23 H Blood Pressure 117/45 L Pulse Oximetry 96 93 Oxygen Delivery Mechanical Ventilation Fraction of Inspired Oxygen 70 05/18/24 16:00 05/18/24 16:00 05/18/24 16:00 Temperature 99.0 F Pulse Rate 99 97 Respiratory Rate 24 H Blood Pressure 115/42 L Pulse Oximetry 94 Oxygen Delivery Fraction of Inspired Oxygen 70 05/18/24 16:00 05/18/24 16:00 05/18/24 16:10 Temperature Pulse Rate 97 97 97 Respiratory Rate 24 H 24 H Blood Pressure Pulse Oximetry 94 Oxygen Delivery Mechanical Ventilation Fraction of Inspired Oxygen 70 05/18/24 18:00 05/18/24 18:00 05/18/24 18:00 Temperature 99.2 F Pulse Rate 97 97 98 Respiratory Rate 25 H 24 H Blood Pressure 111/49 L Pulse Oximetry 92 Oxygen Delivery Fraction of Inspired Oxygen 05/18/24 18:00 05/18/24 19:43 05/18/24 20:00 Temperature Pulse Rate 97 88 102 H Respiratory Rate 24 H 24 H Blood Pressure Pulse Oximetry 95 Oxygen Delivery Mechanical Ventilation Fraction of Inspired Oxygen 70 05/18/24 20:00 05/18/24 20:00 05/18/24 20:00 Temperature Pulse Rate 102 H 105 H Respiratory Rate 24 H Blood Pressure Pulse Oximetry 92 Oxygen Delivery Mechanical Ventilation Fraction of Inspired Oxygen 70 05/18/24 20:00 05/18/24 20:00 05/18/24 20:16 Temperature 99.4 F Pulse Rate 105 H 104 H Respiratory Rate 24 H 24 H Blood Pressure 110/44 L Pulse Oximetry 92 Oxygen Delivery Fraction of Inspired Oxygen 70 05/18/24 20:23 05/18/24 22:00 05/18/24 22:00 Temperature Pulse Rate 98 102 H 102 H Respiratory Rate 26 H 26 H 26 H Blood Pressure Pulse Oximetry Oxygen Delivery Fraction of Inspired Oxygen 05/18/24 22:00 05/18/24 22:00 05/18/24 22:35 Temperature 98.9 F Pulse Rate 101 H 101 H 97 Respiratory Rate 24 H Blood Pressure 108/50 L Pulse Oximetry 90 95 Oxygen Delivery Mechanical Ventilation Fraction of Inspired Oxygen 80 05/19/24 00:00 05/19/24 00:00 05/19/24 00:00 Temperature Pulse Rate 104 H 104 H Respiratory Rate 24 H 24 H Blood Pressure Pulse Oximetry 93 Oxygen Delivery Mechanical Ventilation Fraction of Inspired Oxygen 80 05/19/24 00:00 05/19/24 00:00 05/19/24 00:00 Temperature 98.8 F Pulse Rate 104 H 104 H Respiratory Rate 24 H Blood Pressure 101/52 L Pulse Oximetry 93 Oxygen Delivery Fraction of Inspired Oxygen 80 05/19/24 01:05 05/19/24 01:05 05/19/24 01:11 Temperature Pulse Rate 99 99 101 H Respiratory Rate 26 H 26 H Blood Pressure Pulse Oximetry 94 Oxygen Delivery Mechanical Ventilation Fraction of Inspired Oxygen 80 05/19/24 02:00 05/19/24 02:00 05/19/24 02:00 Temperature 98.7 F Pulse Rate 104 H 104 H 104 H Respiratory Rate 25 H 25 H Blood Pressure 112/51 L Pulse Oximetry 91 Oxygen Delivery Fraction of Inspired Oxygen 05/19/24 02:00 05/19/24 04:00 05/19/24 04:00 Temperature Pulse Rate 104 H Respiratory Rate 25 H Blood Pressure Pulse Oximetry 93 Oxygen Delivery Mechanical Ventilation Fraction of Inspired Oxygen 80 80 05/19/24 04:00 05/19/24 04:00 05/19/24 04:15 Temperature 99.0 F Pulse Rate 103 H 103 H 104 H Respiratory Rate 27 H 24 H Blood Pressure 118/49 L Pulse Oximetry 93 Oxygen Delivery Fraction of Inspired Oxygen 05/19/24 04:16 05/19/24 04:16 05/19/24 04:47 Temperature Pulse Rate 105 H 105 H 107 H Respiratory Rate 24 H 24 H 28 H Blood Pressure Pulse Oximetry Oxygen Delivery Fraction of Inspired Oxygen 05/19/24 04:47 05/19/24 04:53 05/19/24 06:00 Temperature Pulse Rate 107 H 109 H 108 H Respiratory Rate 28 H Blood Pressure Pulse Oximetry 91 Oxygen Delivery Mechanical Ventilation Fraction of Inspired Oxygen 80 05/19/24 06:00 05/19/24 06:30 05/19/24 06:31 Temperature 99.4 F Pulse Rate 108 H 104 H 108 H Respiratory Rate 24 H 24 H 24 H Blood Pressure 113/43 L Pulse Oximetry 92 Oxygen Delivery Fraction of Inspired Oxygen 05/19/24 08:00 05/19/24 08:00 05/19/24 08:00 Temperature 100.1 F H Pulse Rate 115 H 115 H Respiratory Rate 28 H 28 H Blood Pressure 112/43 L Pulse Oximetry 98 Oxygen Delivery Fraction of Inspired Oxygen 85 05/19/24 08:00 05/19/24 08:35 05/19/24 08:37 Temperature Pulse Rate 115 H 112 H 113 H Respiratory Rate 28 H 25 H Blood Pressure Pulse Oximetry 97 Oxygen Delivery Mechanical Ventilation Fraction of Inspired Oxygen 85 05/19/24 08:51 05/19/24 09:34 05/19/24 09:34 Temperature Pulse Rate 115 H Respiratory Rate 26 H Blood Pressure Pulse Oximetry 97 Oxygen Delivery Fraction of Inspired Oxygen 70 Exam Narrative: Exam Narrative: Well developed well-nourished in no acute distress Skin is warm and dry without rash Head normocephalic atraumatic Eyes normal sclerae and conjunctivae Mouth normal lips teeth and gums Neck no nodes no thyromegaly no carotid bruits Axillae no nodes Back no CVA tenderness Lungs symmetric and clear to auscultation and percussion Heart regular rate and rhythm without rub or gallop Abdomen bowel sounds positive soft nontender, no HSM, masses, or bruits. Extremities no cyanosis, clubbing, or edema Pulses 2+ equal in radial arteries Psychological not anxious or depressed Neuro alert and oriented x3 motor 5/5 cranial nerves 2-12 intact reflexes 2+ and equal in the biceps and patellar tendons cerebellar normal rapid alternating movements Results Lab Results 05/19/24 05:22 05/19/24 05:22 Lab results: Most recent lab results ABG pH 7.243 (7.350-7.450) L* 05/18/24 23:48 ABG pCO2 56.1 mmHg (35.0-45.0) H 05/18/24 23:48 ABG pO2 144.4 mmHg (80.0-100.0) H 05/18/24 23:48 ABG HCO3 23.7 mEq/l (22.0-26.0) 05/18/24 23:48 ABG O2 Saturation 98.4 % (95.0-100.0) 05/18/24 23:48 Calcium 8.7 mg/dL (8.4-10.2) 05/19/24 05:22 Phosphorus 5.2 mg/dL (2.5-4.5) H 05/19/24 05:22 Magnesium 1.8 mg/dL (1.6-2.3) 05/19/24 05:22
[2024-05-19 11:36] LABS: Creatine Kinase < 20 U/L (30-135)
[2024-05-19 11:57] LABS: Potassium Urine Random 45.7 meq/L; Sodium Urine Random 15 meq/L
[2024-05-19] MEDS: BUMETANIDE INJ 1 MG/4 ML VIAL 2 MG IV PUSH (12:20)
--- NOTE | 2024-05-19 12:47 | WPDINTPN ---
Progress Note: A&P Assessment and Plan (1) Sepsis: Code(s): A41.9 - Sepsis, unspecified organism Status: Acute Assessment and Plan: Patient presented with altered mental status, low blood pressures, UTI with ESBL E coli, leukocytosis -currently on vancomycin meropenem and doxycycline -PICC line placed on 05/17 -not requiring any pressors at this time, borderline blood pressures -05/14/2024: Urine culture grew ESBL E coli -05/14/2024: Blood cultures with no growth -05/18/2024: Sputum cultures obtained in pain Borderline blood pressures, may need to add pressors -continue monitor urine output (2) Acute respiratory failure: Code(s): J96.00 - Acute respiratory failure, unspecified whether with hypoxia or hypercapnia Status: Acute Assessment and Plan: Patient initially presented on 05/14/2024 with fevers cough, generalized weakness 05/17: Respiratory deterioration, with increasing oxygen requirement, tachypnea, unable to tolerate BiPAP. Chest x-ray and CTA chest revealed bilateral infiltrates, ARDS physiology 05/17: Patient was intubated -remains on CMV mode of ventilation, . -ABGs and chest x-ray this morning were reviewed, ventilator adjusted, currently on peep of 8 and 85% FiO2 -05/14 COVID, influenza and a RSV were negative on 05/14 05/17: Repeat COVID influenza and RSV again were negative -antibiotics as above -continue bronchodilator Sedated with propofol, maintain RASS of 0 to-2, daily SBT and SAT 05/17: CTA chest IMPRESSION: 1. No definite pulmonary embolism is seen. 2. Bilateral pneumonia in the upper and lower lobes. 3. Bilateral pleural effusion. 05/17: Bilateral lower extremity venous Doppler: Negative for DVT (3) Pneumonia: Code(s): J18.9 - Pneumonia, unspecified organism Status: Acute Assessment and Plan: Treatment is above (4) BARRIE (acute kidney injury): Code(s): N17.9 - Acute kidney failure, unspecified Status: Acute Assessment and Plan: Acute kidney injury, multifactorial could be related to hypoxia, hypotension, contrast induced nephropathy, UTI/urosepsis, NSAIDs/ibuprofen before admission -will check urine lytes, CK level, urine eosinophil -05/19: Renal ultrasound: Bilateral diffuse mild renal cortical atrophy with mild increased parenchymal echogenicity consistent with medical renal disease and age-appropriate atrophy. -nephrology has been consulted -recommended Bumex after obtaining urine lytes (5) Acute UTI: Code(s): N39.0 - Urinary tract infection, site not specified Status: Acute Assessment and Plan: Treatment as above (6) Elevated troponin: Code(s): R79.89 - Other specified abnormal findings of blood chemistry Status: Acute Assessment and Plan: Elevated troponins, but flat. EKG is not in show any ST elevation. Could be related to type 2 myocardial infarction secondary respiratory failure -will continue to monitor (7) Hyperlipidemia, unspecified: Qualifiers: Hyperlipidemia type: unspecified Qualified Code(s): E78.5 - Hyperlipidemia, unspecified Code(s): E78.5 - Hyperlipidemia, unspecified Status: Chronic Assessment and Plan: Continue statin (8) GERD (gastroesophageal reflux disease): Code(s): K21.9 - Gastro-esophageal reflux disease without esophagitis Status: Chronic Assessment and Plan: Protonix IV q.12 hours (9) Hypothyroidism, unspecified: Qualifiers: Hypothyroidism type: acquired Qualified Code(s): E03.9 - Hypothyroidism, unspecified Code(s): E03.9 - Hypothyroidism, unspecified Status: Chronic Assessment and Plan: Continue levothyroxine Plan DVT prophylaxis: Enoxaparin Stress ulcer prophylaxis: Protonix Nutrition: Tolerating tube feed Code Status: Do not resuscitate after discussing with family on 05/18, the family decided to make her a do not resuscitate Critical Care Time Spent: 33 minutes Discussed with patient's daughter and other family members during rounds and updated them with patient's condition and plan of care. I answered all the questions Due to a high probability of clinically significant, life threatening deterioration, the patient required my highest level of preparedness to intervene emergently and I personally spent this critical care time directly and personally managing the patient. This critical care time included obtaining a history; examining the patient; pulse oximetry; ordering and review of studies; arranging urgent treatment with development of a management plan; evaluation of patient's response to treatment; frequent reassessment; and discussions with other providers. It was exclusive of separately billable procedures and treating other patients and teaching time. Please see Assessment and Plan section and the rest of the note for further information on patient assessment and treatment This dictation may have been done utilizing a voice recognition system. Attempts have been made to correct errors. However, there may be uncorrected grammatical, spelling, and recognitions errors present. Subjective Date/time seen: 05/19/24 12:47 Interval history: Reason for consult: Acute respiratory respiratory failure requiring intubation on 05/17/2024, pneumonia, acute kidney injury 05/19/2024: Patient seen and examined the ICU, remains intubated on CMV mode of ventilation, peep of 5, 100% FiO2. Sedated with propofol infusion. Not open eyes or follow simple commands. Worsening creatinine, adequate urine output. Hemodynamically stable, afebrile. Patient does not open her eyes or follow simple commands Review of Systems Review of Systems: ROS unobtainable: Yes unobtainable due to endotracheal tube, unobtainable due to medical condition and unobtainable due to mental status Exam Narrative: General: Intubated and sedated, in no acute distress HEENT:? Pupils equal and reactive, sclera is clear, ETT in place Neck:? Supple Respiratory:? Coarse breath sounds bilateral,, right greater than left. Adequate air entry, no wheezing Cardiac:? S1-S2 is normal, regular rate and rhythm Abdomen:? Soft, nontender, nondistended, hypoactive bowel sounds Extremities:? Pitting edema bilaterally, palpable pedal pulse Neuro:? Intubated and sedated, Patient does not open her eyes or follow simple commands. She does withdraw to pain in all extremities Skin:? No skin issues noted Psych:? Unable to assess at this time Objective Data Vital Signs Vital Signs: Vital Signs - 24 hr 05/18/24 13:00 05/18/24 13:00 05/18/24 13:10 Temperature Pulse Rate 85 85 87 Respiratory Rate 24 H 24 H Blood Pressure Pulse Oximetry 94 Oxygen Delivery Mechanical Ventilation Fraction of Inspired Oxygen 70 05/18/24 13:58 05/18/24 14:00 05/18/24 14:00 Temperature Pulse Rate 91 90 97 Respiratory Rate 26 H 24 H Blood Pressure 113/50 L Pulse Oximetry 95 Oxygen Delivery Fraction of Inspired Oxygen 05/18/24 14:05 05/18/24 14:41 05/18/24 14:55 Temperature 98.8 F Pulse Rate 93 102 H 98 Respiratory Rate 24 H 24 H 23 H Blood Pressure 117/45 L Pulse Oximetry 96 Oxygen Delivery Fraction of Inspired Oxygen 05/18/24 16:00 05/18/24 16:00 05/18/24 16:00 Temperature Pulse Rate 99 Respiratory Rate Blood Pressure Pulse Oximetry 93 Oxygen Delivery Mechanical Ventilation Fraction of Inspired Oxygen 70 70 05/18/24 16:00 05/18/24 16:00 05/18/24 16:00 Temperature 99.0 F Pulse Rate 97 97 97 Respiratory Rate 24 H 24 H 24 H Blood Pressure 115/42 L Pulse Oximetry 94 Oxygen Delivery Fraction of Inspired Oxygen 05/18/24 16:10 05/18/24 18:00 05/18/24 18:00 Temperature 99.2 F Pulse Rate 97 97 97 Respiratory Rate 25 H Blood Pressure 111/49 L Pulse Oximetry 94 92 Oxygen Delivery Mechanical Ventilation Fraction of Inspired Oxygen 70 05/18/24 18:00 05/18/24 18:00 05/18/24 19:43 Temperature Pulse Rate 98 97 88 Respiratory Rate 24 H 24 H Blood Pressure Pulse Oximetry 95 Oxygen Delivery Mechanical Ventilation Fraction of Inspired Oxygen 70 05/18/24 20:00 05/18/24 20:00 05/18/24 20:00 Temperature Pulse Rate 102 H 102 H Respiratory Rate 24 H 24 H Blood Pressure Pulse Oximetry 92 Oxygen Delivery Mechanical Ventilation Fraction of Inspired Oxygen 70 05/18/24 20:00 05/18/24 20:00 05/18/24 20:00 Temperature 99.4 F Pulse Rate 105 H 105 H Respiratory Rate 24 H Blood Pressure 110/44 L Pulse Oximetry 92 Oxygen Delivery Fraction of Inspired Oxygen 70 05/18/24 20:16 05/18/24 20:23 05/18/24 22:00 Temperature Pulse Rate 104 H 98 102 H Respiratory Rate 24 H 26 H 26 H Blood Pressure Pulse Oximetry Oxygen Delivery Fraction of Inspired Oxygen 05/18/24 22:00 05/18/24 22:00 05/18/24 22:00 Temperature 98.9 F Pulse Rate 102 H 101 H 101 H Respiratory Rate 26 H 24 H Blood Pressure 108/50 L Pulse Oximetry 90 Oxygen Delivery Fraction of Inspired Oxygen 05/18/24 22:35 05/19/24 00:00 05/19/24 00:00 Temperature Pulse Rate 97 104 H 104 H Respiratory Rate 24 H 24 H Blood Pressure Pulse Oximetry 95 Oxygen Delivery Mechanical Ventilation Fraction of Inspired Oxygen 80 05/19/24 00:00 05/19/24 00:00 05/19/24 00:00 Temperature 98.8 F Pulse Rate 104 H 104 H Respiratory Rate 24 H Blood Pressure 101/52 L Pulse Oximetry 93 93 Oxygen Delivery Mechanical Ventilation Fraction of Inspired Oxygen 80 05/19/24 00:00 05/19/24 01:05 05/19/24 01:05 Temperature Pulse Rate 99 99 Respiratory Rate 26 H Blood Pressure Pulse Oximetry 94 Oxygen Delivery Mechanical Ventilation Fraction of Inspired Oxygen 80 80 05/19/24 01:11 05/19/24 02:00 05/19/24 02:00 Temperature 98.7 F Pulse Rate 101 H 104 H 104 H Respiratory Rate 26 H 25 H Blood Pressure 112/51 L Pulse Oximetry 91 Oxygen Delivery Fraction of Inspired Oxygen 05/19/24 02:00 05/19/24 02:00 05/19/24 04:00 Temperature Pulse Rate 104 H 104 H Respiratory Rate 25 H 25 H Blood Pressure Pulse Oximetry 93 Oxygen Delivery Mechanical Ventilation Fraction of Inspired Oxygen 80 05/19/24 04:00 05/19/24 04:00 05/19/24 04:00 Temperature 99.0 F Pulse Rate 103 H 103 H Respiratory Rate 27 H Blood Pressure 118/49 L Pulse Oximetry 93 Oxygen Delivery Fraction of Inspired Oxygen 80 05/19/24 04:15 05/19/24 04:16 05/19/24 04:16 Temperature Pulse Rate 104 H 105 H 105 H Respiratory Rate 24 H 24 H 24 H Blood Pressure Pulse Oximetry Oxygen Delivery Fraction of Inspired Oxygen 05/19/24 04:47 05/19/24 04:47 05/19/24 04:53 Temperature Pulse Rate 107 H 107 H 109 H Respiratory Rate 28 H 28 H Blood Pressure Pulse Oximetry 91 Oxygen Delivery Mechanical Ventilation Fraction of Inspired Oxygen 80 05/19/24 06:00 05/19/24 06:00 05/19/24 06:30 Temperature 99.4 F Pulse Rate 108 H 108 H 104 H Respiratory Rate 24 H 24 H Blood Pressure 113/43 L Pulse Oximetry 92 Oxygen Delivery Fraction of Inspired Oxygen 05/19/24 06:31 05/19/24 08:00 05/19/24 08:00 Temperature 100.1 F H Pulse Rate 108 H 115 H Respiratory Rate 24 H 28 H Blood Pressure 112/43 L Pulse Oximetry 98 Oxygen Delivery Fraction of Inspired Oxygen 85 05/19/24 08:00 05/19/24 08:00 05/19/24 08:00 Temperature Pulse Rate 115 H 115 H Respiratory Rate 28 H 28 H Blood Pressure Pulse Oximetry 93 Oxygen Delivery Mechanical Ventilation Fraction of Inspired Oxygen 85 05/19/24 08:35 05/19/24 08:37 05/19/24 08:51 Temperature Pulse Rate 112 H 113 H 115 H Respiratory Rate 25 H 26 H Blood Pressure Pulse Oximetry 97 Oxygen Delivery Mechanical Ventilation Fraction of Inspired Oxygen 85 05/19/24 09:34 05/19/24 09:34 05/19/24 10:00 Temperature Pulse Rate 117 H Respiratory Rate 27 H Blood Pressure Pulse Oximetry 97 Oxygen Delivery Fraction of Inspired Oxygen 70 05/19/24 10:00 05/19/24 10:00 05/19/24 11:10 Temperature 100 F H Pulse Rate 117 H 117 H 115 H Respiratory Rate 27 H 26 H Blood Pressure 115/49 L Pulse Oximetry 95 96 Oxygen Delivery Mechanical Ventilation Fraction of Inspired Oxygen 70 05/19/24 12:00 05/19/24 12:00 05/19/24 12:00 Temperature 99.1 F Pulse Rate 114 H 111 H Respiratory Rate 26 H 26 H Blood Pressure 96/63 L Pulse Oximetry 96 Oxygen Delivery Fraction of Inspired Oxygen 70 05/19/24 12:00 Temperature Pulse Rate Respiratory Rate Blood Pressure Pulse Oximetry 96 Oxygen Delivery Mechanical Ventilation Fraction of Inspired Oxygen 70 Intake/Output Intake/Output: Intake & Output 05/16/24 05/17/24 05/18/24 05/19/24 23:59 23:59 23:59 23:59 Intake Total 660 900.1 1014.0 901.7 Output Total 1100 1400 1675 325 Balance -440 -499.9 -661.0 576.7 Meds/Results Medications: Active Medications Generic Name Dose Route Start Last Admin Trade Name Freq PRN Reason Stop Dose Admin Acetaminophen 650 mg 05/14/24 21:15 05/16/24 16:22 Acetaminophen 325 Mg Tablet PO 650 mg Q4H PRN Administration Mild Pain (1-3) or Fever Albuterol/Ipratropium 3 ml 05/18/24 02:00 05/19/24 08:34 Ipratropium 0.5 Mg/Albuterol Sulfate 2.5 Mg Ampul.Neb 3 Ml INHALATION 3 ml Q6HRT MIKAYLA Administration Azathioprine 50 mg 05/16/24 09:00 05/17/24 09:17 Azathioprine 50 Mg Tablet PO 50 mg DAILY MIKAYLA Administration Benzonatate 200 mg 05/16/24 10:52 05/16/24 16:19 Benzonatate 100 Mg Capsule PO 200 mg TID PRN Administration Cough Cyanocobalamin 1,000 mcg 05/15/24 10:45 05/17/24 09:15 Cyanocobalamin 1,000 Mcg Tablet PO 1,000 mcg Q48HR MIKAYLA Administration Docusate Sodium 100 mg 05/16/24 15:00 Docusate Sodium 100 Mg Capsule PO Q12H PRN Constipation Enoxaparin Sodium 30 mg 05/19/24 09:00 05/19/24 09:06 Enoxaparin 30 Mg/0.3 Ml Syringe SUB-Q 30 mg DAILY MIKAYLA Administration Gabapentin 300 mg 05/16/24 09:00 05/19/24 09:06 Gabapentin 300 Mg Capsule PO 300 mg BID MIKAYLA Administration Hydroxychloroquine Sulfate 200 mg 05/16/24 11:00 05/17/24 09:17 Hydroxychloroquine Sulfate 200 Mg Tablet PO 200 mg QAM MIKAYLA Administration Hydroxychloroquine Sulfate 100 mg 05/16/24 21:00 05/17/24 21:24 Hydroxychloroquine Sulfate 100 Mg Tablet PO 100 mg HS MIKAYLA Administration Meropenem 1 gm in 100 mls @ 200 mls/hr 05/17/24 21:00 05/19/24 09:59 IVPB 05/21/24 09:29 Infused Q12HR MIKAYLA Infusion Doxycycline Hyclate 100 mg in 100 mls @ 100 mls/hr 05/17/24 10:00 05/19/24 10:06 Vibramycin 100 Mg/Ns 100 Ml IVPB Infused Q12H MIKAYLA Infusion Fentanyl Citrate 2,500 mcg in 250 mls @ 7.5 mls/hr 05/17/24 23:55 05/19/24 10:00 Fentanyl 2,500 Mcg/Ns 250 Ml IV CONT 75 mcg/hr .[id number] MIKAYLA 7.5 mls/hr Titration Protocol 75 MCG/HR Propofol 100 mls @ 5.355 mls/hr 05/17/24 23:55 05/19/24 12:00 Diprivan IV CONT 15 mcg/kg/min .[id number] MIKAYLA 5.36 mls/hr Titration Protocol 15 MCG/KG/MIN Vancomycin HCl 1,250 mg in 250 mls @ 166.667 mls/hr 05/19/24 13:00 Vancomycin 1,250 Mg/Ns 250 Ml IVPB Q36H [facility] Ibuprofen 600 mg 05/15/24 10:45 05/17/24 21:24 Ibuprofen 600 Mg Tablet PO 600 mg Q12HR MIKAYLA Administration Levothyroxine Sodium 44 mcg 05/19/24 06:30 05/19/24 05:24 Levothyroxine Sodium Inj 100 Mcg/5 Ml Vial IV PUSH 44 mcg DAILY@0630 MIKAYLA Administration Melatonin 5 mg 05/14/24 21:15 05/14/24 22:20 Melatonin 5 Mg Tablet PO 5 mg HS PRN Administration Insomnia Multi-Ingred Cream/Lotion/Oil/Oint 1 applic 05/18/24 09:00 05/19/24 09:07 Mineral Oil/White Petrolatum Ointment EACH EYE 1 applic Q12HR MIKAYLA Administration Multivitamins Therapeutic 1 tablet 05/15/24 10:40 05/17/24 09:18 Multivitamins Therapeutic Tab (*Bkc) PO 1 tablet DAILY [facility] Administration Non-Formulary Medication 0 mg 05/16/24 13:00 05/17/24 17:56 Cevimeline PO 06/15/24 12:59 30 mg TID MIKAYLA Administration Pantoprazole Sodium 40 mg 05/19/24 21:00 Pantoprazole Sodium Iv 40 Mg Vial IV PUSH Q12HR [facility] Polyethylene Glycol 17 gm 05/16/24 15:00 Polyethylene Glycol 3350 17 Gm Powd.Pack PO QAM PRN Constipation Polysaccharide Iron Complex 150 mg 05/17/24 08:00 05/18/24 09:40 Polysaccharide Iron Complex 150 Mg Capsule PO Not Given DAILY@0800 [facility] Prochlorperazine Edisylate 10 mg 05/14/24 21:15 Prochlorperazine Edisylate 10 Mg/2 Ml Vial IV PUSH Q6H PRN Nausea And Vomiting Rosuvastatin Calcium 5 mg 05/15/24 10:40 05/19/24 09:07 Rosuvastatin 5 Mg Tablet PO 5 mg DAILY MIKAYLA Administration Sodium Chloride 10 ml 05/18/24 14:00 05/19/24 05:22 Central Line Flush IV PUSH 10 ml Q8HR MIKAYLA Administration Sodium Chloride 10 ml 05/18/24 08:21 Central Line Flush IV PUSH PRN PRN with TPN bag changes Sodium Chloride 20 ml 05/18/24 08:21 Central Line Flush IV PUSH PRN PRN after blood draws Vitamin D 2,000 units 05/15/24 10:45 05/17/24 09:16 Cholecalciferol 1,000 Units Tablet PO 2,000 units DAILY MIKAYLA Administration Radiology Results: ITS Impressions Venous Doppler Study 05/17/24 20:52 IMPRESSION: Negative bilateral lower extremity venous US. No deep vein thrombosis. Chest CTA 05/17/24 21:17 IMPRESSION: 1. No definite pulmonary embolism is seen. 2. Bilateral pneumonia in the upper and lower lobes. 3. Bilateral pleural effusion. Chest X-Ray 05/19/24 06:58 IMPRESSION: 1. Lines and tubes in expected position. 2. No change in diffuse lateral lung disease consistent with pulmonary edema, pneumonia, ARDS or some combination thereof. Renal Ultrasound 05/19/24 09:28 IMPRESSION: 1. Bilateral diffuse mild renal cortical atrophy with mild increased parenchymal echogenicity consistent with medical renal disease and age-appropriate atrophy. Labs Labs: Laboratory Results - last 24 hr 05/19/24 05/19/24 05/19/24 05:22 11:05 11:15 WBC 10.9 H RBC 2.65 L Hgb 8.4 L Hct 26.1 L MCV 98.5 MCH 31.7 MCHC 32.2 RDW 16.4 H Plt Count 134 L MPV 10.8 H Immature Gran % (Auto) Not Reportable Neut % (Auto) Not Reportable Lymph % (Auto) Not Reportable [place] % (Auto) Not Reportable Eos % (Auto) Not Reportable Baso % (Auto) Not Reportable Lymph # (Auto) Not Reportable [place] # (Auto) Not Reportable Eos # (Auto) Not Reportable Baso # (Auto) Not Reportable Abs Immat Gran (auto) Not Reportable Absolute Neuts (auto) Not Reportable Absolute Nucleated RBC Not Reportable Total Counted 100 Neutrophils % (Manual) 83 H Band Neutrophils % 4 Lymphocytes % (Manual) 8.0 L Monocytes % (Manual) 2 L Eosinophils % (Manual) 3 Nucleated RBC % Not Reportable Abs Neuts (Manual) 9.48 H Abs Lymphs (Manual) 0.87 L Abs Monocytes (Manual) 0.21 Absolute Eos (Manual) 0.32 Platelet Estimate Adequate Schistocytes None seen Sodium 143 Potassium 3.6 Chloride 108 H Carbon Dioxide 25 Anion Gap 10 BUN 29 H Creatinine 1.54 H Estim Creat Clear Calc Not Reportable Estimated GFR 32 L Glucose 83 Calcium 8.7 Phosphorus 5.2 H Magnesium 1.8 Total Bilirubin 0.8 AST 36 ALT 12 Alkaline Phosphatase 83 Total Creatine Kinase < 20 L < 20 L Total Protein 6.0 L Albumin 3.3 L Ur Random Sodium 15 Ur Random Potassium 45.7 Urine Creatinine 95.0 Quality VTE Prophylaxis VTE prophylaxis: pharmacologic ordered
[2024-05-19] MEDS: NOREPINEPHRINE 8 MG/D5W 250 ML 8 MG/250 ML BAG 9.38 MG IV CONT (13:09)
--- NOTE | 2024-05-19 13:10 | PC.NURSE ---
At 1300 patient appeared tachycardic on monitor with a heart rate of 151, appeared sinus. This was a change from patients baseline heart rhythm. EKG obtained and T[employer] Desk Worker Dr. Khan notified who is now present at bedside. Instructed per verbal orders to increase propofol gtt to 25 mcg/kg. Patient now hypotensive and orders placed to start Levophed gtt at 5 mcg to titrate to maintain MAP. Levophed gtt. initiated. Patient converted spontaneously to sinus tach with heart rate at 114 BPM at 1305. RN to continue to monitor.
[2024-05-19 13:34] LABS: Eosinophil Urine None Seen % (None Seen); Urine Eos QC 2nd Tech Confirmed
[2024-05-19] MEDS: DEXTROSE 50% 25 GM/50 ML SYRINGE IV PUSH ×2 (14:11→18:43)
[2024-05-19 14:26] LABS: Glucose Point of Care 53 mg/dl (65-105)
[2024-05-19 14:56] LABS: Glucose Point of Care 137 mg/dl (65-105)
[2024-05-19] MEDS: VANCOMYCIN 1,250 MG/NS 250 ML 1,250 MG/250 ML BAG 166.67 MG IVPB (14:56)
--- NOTE | 2024-05-19 14:59 | PM.IMPN ---
Progress Note: A&P Assessment and Plan (1) Acute respiratory failure: Code(s): J96.00 - Acute respiratory failure, unspecified whether with hypoxia or hypercapnia Status: Acute Assessment and Plan: Patient initially presented on 05/14/2024 with fevers cough, generalized weakness 05/17: Respiratory deterioration, with increasing oxygen requirement, tachypnea, unable to tolerate BiPAP. Chest x-ray and CTA chest revealed bilateral infiltrates, ARDS physiology 05/17: Patient was intubated -remains on CMV mode of ventilation, peep of 5, 100% FiO2. -ABGs and chest x-ray this morning were reviewed, ventilator adjusted, peep was increased to 8 and respiratory rate to 26 -COVID, influenza and a RSV were negative on 05/14 05/17: Repeat COVID influenza and RSV again were negative -antibiotics as above -continue bronchodilator 05/17: CTA chest IMPRESSION: 1. No definite pulmonary embolism is seen. 2. Bilateral pneumonia in the upper and lower lobes. 3. Bilateral pleural effusion. 05/17: Bilateral lower extremity venous Doppler: Negative for DVT (2) Sepsis: Code(s): A41.9 - Sepsis, unspecified organism Status: Acute Assessment and Plan: Patient presented with altered mental status, low blood pressures, UTI with ESBL E coli, leukocytosis -currently on vancomycin meropenem and doxycycline -PICC line placed on 05/17 -not requiring any pressors at this time, borderline blood pressures -05/14/2024: Urine culture grew ESBL E coli -05/14/2024: Blood cultures with no growth -[id number]: Sputum cultures Borderline blood pressures, may need to add pressors -continue monitor urine output (3) Pneumonia: Code(s): J18.9 - Pneumonia, unspecified organism Status: Acute Assessment and Plan: Treatment is above (4) Acute UTI: Code(s): N39.0 - Urinary tract infection, site not specified Status: Acute Assessment and Plan: Treatment as above (5) Elevated troponin: Code(s): R79.89 - Other specified abnormal findings of blood chemistry Status: Acute Assessment and Plan: Elevated troponins, but flat. EKG is not in show any ST elevation. Could be related to type 2 myocardial infarction secondary respiratory failure -will continue to monitor (6) Hyperlipidemia, unspecified: Qualifiers: Hyperlipidemia type: unspecified Qualified Code(s): E78.5 - Hyperlipidemia, unspecified Code(s): E78.5 - Hyperlipidemia, unspecified Status: Chronic Assessment and Plan: Continue statin (7) GERD (gastroesophageal reflux disease): Code(s): K21.9 - Gastro-esophageal reflux disease without esophagitis Status: Chronic Assessment and Plan: Protonix IV q.12 hours Plan Initially admitted to medical floor with complains of generalized weakness fever and cough however symptoms worsen see was hypoxic evaluated and patient was intubated currently patient in ICU, repeat COVID, influenza and RSV are negative, chest x-ray shows stable diffuse lung disease, consistent with pulmonary edema versus pneumonia versus acute respiratory distress syndrome (ARDS) superimposed on chronic lung disease patient is being treated with meropenem and vancomycin, patient Scr is rising, possibly hypoperfusion, patient is seen by right of way cutter, further recommendation to follow, will continue to monitor. Subjective Date/time seen: 05/19/24 14:59 Interval history: Initially admitted to medical floor with complains of generalized weakness fever and cough however symptoms worsen see was hypoxic evaluated and patient was intubated currently patient in ICU, repeat COVID, influenza and RSV are negative, chest x-ray shows stable diffuse lung disease, consistent with pulmonary edema versus pneumonia versus acute respiratory distress syndrome (ARDS) superimposed on chronic lung disease patient is being treated with meropenem and vancomycin, patient Scr is rising, possibly hypoperfusion, patient is seen by right of way cutter, further recommendation to follow, will continue to monitor. Review of Systems Review of Systems: ROS unobtainable: Yes unobtainable due to endotracheal tube Exam Narrative: Patient is comfortable, NAD HEENT: ET tube in place LUNGS: Bilateral poor air entry HEART: RR S1S2 ABD: BS+, Soft and nontender Lower extremities: no edema SKIN: nonjaundiced Neuro: grossly intact. Objective Data Vital Signs Vital Signs: Vital Signs - 24 hr 05/18/24 16:00 05/18/24 16:00 05/18/24 16:00 Temperature Pulse Rate 99 Respiratory Rate Blood Pressure Pulse Oximetry 93 Oxygen Delivery Mechanical Ventilation Fraction of Inspired Oxygen 70 70 05/18/24 16:00 05/18/24 16:00 05/18/24 16:00 Temperature 37.2 C Pulse Rate 97 97 97 Respiratory Rate 24 H 24 H 24 H Blood Pressure 115/42 L Pulse Oximetry 94 Oxygen Delivery Fraction of Inspired Oxygen 05/18/24 16:10 05/18/24 18:00 05/18/24 18:00 Temperature 37.3 C Pulse Rate 97 97 97 Respiratory Rate 25 H Blood Pressure 111/49 L Pulse Oximetry 94 92 Oxygen Delivery Mechanical Ventilation Fraction of Inspired Oxygen 70 05/18/24 18:00 05/18/24 18:00 05/18/24 19:43 Temperature Pulse Rate 98 97 88 Respiratory Rate 24 H 24 H Blood Pressure Pulse Oximetry 95 Oxygen Delivery Mechanical Ventilation Fraction of Inspired Oxygen 70 05/18/24 20:00 05/18/24 20:00 05/18/24 20:00 Temperature Pulse Rate 102 H 102 H Respiratory Rate 24 H 24 H Blood Pressure Pulse Oximetry 92 Oxygen Delivery Mechanical Ventilation Fraction of Inspired Oxygen 70 05/18/24 20:00 05/18/24 20:00 05/18/24 20:00 Temperature 37.4 C Pulse Rate 105 H 105 H Respiratory Rate 24 H Blood Pressure 110/44 L Pulse Oximetry 92 Oxygen Delivery Fraction of Inspired Oxygen 70 05/18/24 20:16 05/18/24 20:23 05/18/24 22:00 Temperature Pulse Rate 104 H 98 102 H Respiratory Rate 24 H 26 H 26 H Blood Pressure Pulse Oximetry Oxygen Delivery Fraction of Inspired Oxygen 05/18/24 22:00 05/18/24 22:00 05/18/24 22:00 Temperature 37.2 C Pulse Rate 102 H 101 H 101 H Respiratory Rate 26 H 24 H Blood Pressure 108/50 L Pulse Oximetry 90 Oxygen Delivery Fraction of Inspired Oxygen 05/18/24 22:35 05/19/24 00:00 05/19/24 00:00 Temperature Pulse Rate 97 104 H 104 H Respiratory Rate 24 H 24 H Blood Pressure Pulse Oximetry 95 Oxygen Delivery Mechanical Ventilation Fraction of Inspired Oxygen 80 05/19/24 00:00 05/19/24 00:00 05/19/24 00:00 Temperature 37.1 C Pulse Rate 104 H 104 H Respiratory Rate 24 H Blood Pressure 101/52 L Pulse Oximetry 93 93 Oxygen Delivery Mechanical Ventilation Fraction of Inspired Oxygen 80 05/19/24 00:00 05/19/24 01:05 05/19/24 01:05 Temperature Pulse Rate 99 99 Respiratory Rate 26 H Blood Pressure Pulse Oximetry 94 Oxygen Delivery Mechanical Ventilation Fraction of Inspired Oxygen 80 80 05/19/24 01:11 05/19/24 02:00 05/19/24 02:00 Temperature 37.1 C Pulse Rate 101 H 104 H 104 H Respiratory Rate 26 H 25 H Blood Pressure 112/51 L Pulse Oximetry 91 Oxygen Delivery Fraction of Inspired Oxygen 05/19/24 02:00 05/19/24 02:00 05/19/24 04:00 Temperature Pulse Rate 104 H 104 H Respiratory Rate 25 H 25 H Blood Pressure Pulse Oximetry 93 Oxygen Delivery Mechanical Ventilation Fraction of Inspired Oxygen 80 05/19/24 04:00 05/19/24 04:00 05/19/24 04:00 Temperature 37.2 C Pulse Rate 103 H 103 H Respiratory Rate 27 H Blood Pressure 118/49 L Pulse Oximetry 93 Oxygen Delivery Fraction of Inspired Oxygen 80 05/19/24 04:15 05/19/24 04:16 05/19/24 04:16 Temperature Pulse Rate 104 H 105 H 105 H Respiratory Rate 24 H 24 H 24 H Blood Pressure Pulse Oximetry Oxygen Delivery Fraction of Inspired Oxygen 05/19/24 04:47 05/19/24 04:47 05/19/24 04:53 Temperature Pulse Rate 107 H 107 H 109 H Respiratory Rate 28 H 28 H Blood Pressure Pulse Oximetry 91 Oxygen Delivery Mechanical Ventilation Fraction of Inspired Oxygen 80 05/19/24 06:00 05/19/24 06:00 05/19/24 06:30 Temperature 37.4 C Pulse Rate 108 H 108 H 104 H Respiratory Rate 24 H 24 H Blood Pressure 113/43 L Pulse Oximetry 92 Oxygen Delivery Fraction of Inspired Oxygen 05/19/24 06:31 05/19/24 08:00 05/19/24 08:00 Temperature 37.8 C H Pulse Rate 108 H 115 H Respiratory Rate 24 H 28 H Blood Pressure 112/43 L Pulse Oximetry 98 Oxygen Delivery Fraction of Inspired Oxygen 85 05/19/24 08:00 05/19/24 08:00 05/19/24 08:00 Temperature Pulse Rate 115 H 115 H Respiratory Rate 28 H 28 H Blood Pressure Pulse Oximetry 93 Oxygen Delivery Mechanical Ventilation Fraction of Inspired Oxygen 85 05/19/24 08:35 05/19/24 08:37 05/19/24 08:51 Temperature Pulse Rate 112 H 113 H 115 H Respiratory Rate 25 H 26 H Blood Pressure Pulse Oximetry 97 Oxygen Delivery Mechanical Ventilation Fraction of Inspired Oxygen 85 05/19/24 09:34 05/19/24 09:34 05/19/24 10:00 Temperature Pulse Rate 117 H Respiratory Rate 27 H Blood Pressure Pulse Oximetry 97 Oxygen Delivery Fraction of Inspired Oxygen 70 05/19/24 10:00 05/19/24 10:00 05/19/24 11:10 Temperature 37.7 C H Pulse Rate 117 H 117 H 115 H Respiratory Rate 27 H 26 H Blood Pressure 115/49 L Pulse Oximetry 95 96 Oxygen Delivery Mechanical Ventilation Fraction of Inspired Oxygen 70 05/19/24 12:00 05/19/24 12:00 05/19/24 12:00 Temperature 37.3 C Pulse Rate 114 H 111 H Respiratory Rate 26 H 26 H Blood Pressure 96/63 L Pulse Oximetry 96 Oxygen Delivery Fraction of Inspired Oxygen 70 05/19/24 12:00 05/19/24 12:00 05/19/24 13:06 Temperature Pulse Rate 114 H 152 H Respiratory Rate 26 H 26 H Blood Pressure Pulse Oximetry 96 Oxygen Delivery Mechanical Ventilation Fraction of Inspired Oxygen 70 05/19/24 13:09 05/19/24 13:47 05/19/24 13:50 Temperature Pulse Rate 151 H 116 H 115 H Respiratory Rate Blood Pressure 83/45 L 92/48 L Pulse Oximetry 96 Oxygen Delivery Mechanical Ventilation Fraction of Inspired Oxygen 70 05/19/24 14:00 05/19/24 14:00 05/19/24 14:18 Temperature Pulse Rate 110 H 108 H 109 H Respiratory Rate 26 H 26 H Blood Pressure 92/50 L Pulse Oximetry Oxygen Delivery Fraction of Inspired Oxygen Intake/Output Intake/Output: Intake & Output 05/16/24 05/17/24 05/18/24 05/19/24 23:59 23:59 23:59 23:59 Intake Total 660 900.1 1014.0 958.1 Output Total 1100 1400 1675 325 Balance -440 -499.9 -661.0 633.1 Meds/Results Medications: Active Medications Generic Name Dose Route Start Last Admin Trade Name Freq PRN Reason Stop Dose Admin Acetaminophen 650 mg 05/14/24 21:15 05/16/24 16:22 Acetaminophen 325 Mg Tablet PO 650 mg Q4H PRN Administration Mild Pain (1-3) or Fever Albuterol/Ipratropium 3 ml 05/18/24 02:00 05/19/24 08:34 Ipratropium 0.5 Mg/Albuterol Sulfate 2.5 Mg Ampul.Neb 3 Ml INHALATION 3 ml Q6HRT MIKAYLA Administration Azathioprine 50 mg 05/16/24 09:00 05/17/24 09:17 Azathioprine 50 Mg Tablet PO 50 mg DAILY MIKAYLA Administration Benzonatate 200 mg 05/16/24 10:52 05/16/24 16:19 Benzonatate 100 Mg Capsule PO 200 mg TID PRN Administration Cough Cyanocobalamin 1,000 mcg 05/15/24 10:45 05/17/24 09:15 Cyanocobalamin 1,000 Mcg Tablet PO 1,000 mcg Q48HR MIKAYLA Administration Docusate Sodium 100 mg 05/16/24 15:00 Docusate Sodium 100 Mg Capsule PO Q12H PRN Constipation Enoxaparin Sodium 30 mg 05/19/24 09:00 05/19/24 09:06 Enoxaparin 30 Mg/0.3 Ml Syringe SUB-Q 30 mg DAILY MIKAYLA Administration Gabapentin 300 mg 05/16/24 09:00 05/19/24 09:06 Gabapentin 300 Mg Capsule PO 300 mg BID MIKAYLA Administration Hydroxychloroquine Sulfate 200 mg 05/16/24 11:00 05/17/24 09:17 Hydroxychloroquine Sulfate 200 Mg Tablet PO 200 mg QAM MIKAYLA Administration Hydroxychloroquine Sulfate 100 mg 05/16/24 21:00 05/17/24 21:24 Hydroxychloroquine Sulfate 100 Mg Tablet PO 100 mg HS MIKAYLA Administration Doxycycline Hyclate 100 mg in 100 mls @ 100 mls/hr 05/17/24 10:00 05/19/24 10:06 Vibramycin 100 Mg/Ns 100 Ml IVPB Infused Q12H MIKAYLA Infusion Fentanyl Citrate 2,500 mcg in 250 mls @ 7.5 mls/hr 05/17/24 23:55 05/19/24 14:00 Fentanyl 2,500 Mcg/Ns 250 Ml IV CONT 75 mcg/hr .[id number] MIKAYLA 7.5 mls/hr Titration Protocol 75 MCG/HR Propofol 100 mls @ 8.925 mls/hr 05/17/24 23:55 05/19/24 14:00 Diprivan IV CONT 25 mcg/kg/min .[id number] MIKAYLA 8.93 mls/hr Titration Protocol 25 MCG/KG/MIN Vancomycin HCl 1,250 mg in 250 mls @ 166.667 mls/hr 05/19/24 13:00 05/19/24 14:56 Vancomycin 1,250 Mg/Ns 250 Ml IVPB 166.67 mls/hr Q36H MIKAYLA Administration Norepinephrine Bitartrate 8 mg in 250 mls @ 16.875 mls/hr 05/19/24 13:05 05/19/24 14:18 Levophed 8 Mg/D5w 250 Ml IV CONT 9 mcg/min .[id number] MIKAYLA 16.88 mls/hr Titration Protocol 9 MCG/MIN Meropenem 500 mg in 100 mls @ 200 mls/hr 05/19/24 21:00 IVPB 05/21/24 10:00 Q12HR MIKAYLA Ibuprofen 600 mg 05/15/24 10:45 05/17/24 21:24 Ibuprofen 600 Mg Tablet PO 600 mg Q12HR MIKAYLA Administration Levothyroxine Sodium 44 mcg 05/19/24 06:30 05/19/24 05:24 Levothyroxine Sodium Inj 100 Mcg/5 Ml Vial IV PUSH 44 mcg DAILY@0630 MIKAYLA Administration Melatonin 5 mg 05/14/24 21:15 05/14/24 22:20 Melatonin 5 Mg Tablet PO 5 mg HS PRN Administration Insomnia Multi-Ingred Cream/Lotion/Oil/Oint 1 applic 05/18/24 09:00 05/19/24 09:07 Mineral Oil/White Petrolatum Ointment EACH EYE 1 applic Q12HR MIKAYLA Administration Multivitamins Therapeutic 1 tablet 05/15/24 10:40 05/17/24 09:18 Multivitamins Therapeutic Tab (*Bkc) PO 1 tablet DAILY MIKAYLA Administration Non-Formulary Medication 0 mg 05/16/24 13:00 05/17/24 17:56 Cevimeline PO 06/15/24 12:59 30 mg TID MIKAYLA Administration Pantoprazole Sodium 40 mg 05/19/24 21:00 Pantoprazole Sodium Iv 40 Mg Vial IV PUSH Q12HR MIKAYLA Polyethylene Glycol 17 gm 05/16/24 15:00 Polyethylene Glycol 3350 17 Gm Powd.Pack PO QAM PRN Constipation Polysaccharide Iron Complex 150 mg 05/17/24 08:00 05/18/24 09:40 Polysaccharide Iron Complex 150 Mg Capsule PO Not Given DAILY@0800 [facility] Prochlorperazine Edisylate 10 mg 05/14/24 21:15 Prochlorperazine Edisylate 10 Mg/2 Ml Vial IV PUSH Q6H PRN Nausea And Vomiting Rosuvastatin Calcium 5 mg 05/15/24 10:40 05/19/24 09:07 Rosuvastatin 5 Mg Tablet PO 5 mg DAILY MIKAYLA Administration Sodium Chloride 10 ml 05/18/24 14:00 05/19/24 14:56 Central Line Flush IV PUSH 10 ml Q8HR MIKAYLA Administration Sodium Chloride 10 ml 05/18/24 08:21 Central Line Flush IV PUSH PRN PRN with TPN bag changes Sodium Chloride 20 ml 05/18/24 08:21 Central Line Flush IV PUSH PRN PRN after blood draws Vitamin D 2,000 units 05/15/24 10:45 05/17/24 09:16 Cholecalciferol 1,000 Units Tablet PO 2,000 units DAILY MIKAYLA Administration Radiology Results: ITS Impressions Venous Doppler Study 05/17/24 20:52 IMPRESSION: Negative bilateral lower extremity venous US. No deep vein thrombosis. Chest CTA 05/17/24 21:17 IMPRESSION: 1. No definite pulmonary embolism is seen. 2. Bilateral pneumonia in the upper and lower lobes. 3. Bilateral pleural effusion. Chest X-Ray 05/19/24 06:58 IMPRESSION: 1. Lines and tubes in expected position. 2. No change in diffuse lateral lung disease consistent with pulmonary edema, pneumonia, ARDS or some combination thereof. Renal Ultrasound 05/19/24 09:28 IMPRESSION: 1. Bilateral diffuse mild renal cortical atrophy with mild increased parenchymal echogenicity consistent with medical renal disease and age-appropriate atrophy. Labs Labs: Laboratory Results - last 24 hr 05/19/24 05/19/24 05/19/24 05:22 11:05 11:15 WBC 10.9 H RBC 2.65 L Hgb 8.4 L Hct 26.1 L MCV 98.5 MCH 31.7 MCHC 32.2 RDW 16.4 H Plt Count 134 L MPV 10.8 H Immature Gran % (Auto) Not Reportable Neut % (Auto) Not Reportable Lymph % (Auto) Not Reportable [place] % (Auto) Not Reportable Eos % (Auto) Not Reportable Baso % (Auto) Not Reportable Lymph # (Auto) Not Reportable [place] # (Auto) Not Reportable Eos # (Auto) Not Reportable Baso # (Auto) Not Reportable Abs Immat Gran (auto) Not Reportable Absolute Neuts (auto) Not Reportable Absolute Nucleated RBC Not Reportable Total Counted 100 Neutrophils % (Manual) 83 H Band Neutrophils % 4 Lymphocytes % (Manual) 8.0 L Monocytes % (Manual) 2 L Eosinophils % (Manual) 3 Nucleated RBC % Not Reportable Abs Neuts (Manual) 9.48 H Abs Lymphs (Manual) 0.87 L Abs Monocytes (Manual) 0.21 Absolute Eos (Manual) 0.32 Platelet Estimate Adequate Schistocytes None seen Sodium 143 Potassium 3.6 Chloride 108 H Carbon Dioxide 25 Anion Gap 10 BUN 29 H Creatinine 1.54 H Estim Creat Clear Calc Not Reportable Estimated GFR 32 L Glucose 83 POC Capillary Glucose Calcium 8.7 Phosphorus 5.2 H Magnesium 1.8 Total Bilirubin 0.8 AST 36 ALT 12 Alkaline Phosphatase 83 Total Creatine Kinase < 20 L < 20 L Total Protein 6.0 L Albumin 3.3 L Urine Eosinophils None seen Ur Random Sodium 15 Ur Random Potassium 45.7 Urine Creatinine 95.0 05/19/24 05/19/24 14:10 14:49 WBC RBC Hgb Hct MCV MCH MCHC RDW Plt Count MPV Immature Gran % (Auto) Neut % (Auto) Lymph % (Auto) [place] % (Auto) Eos % (Auto) Baso % (Auto) Lymph # (Auto) [place] # (Auto) Eos # (Auto) Baso # (Auto) Abs Immat Gran (auto) Absolute Neuts (auto) Absolute Nucleated RBC Total Counted Neutrophils % (Manual) Band Neutrophils % Lymphocytes % (Manual) Monocytes % (Manual) Eosinophils % (Manual) Nucleated RBC % Abs Neuts (Manual) Abs Lymphs (Manual) Abs Monocytes (Manual) Absolute Eos (Manual) Platelet Estimate Schistocytes Sodium Potassium Chloride Carbon Dioxide Anion Gap BUN Creatinine Estim Creat Clear Calc Estimated GFR Glucose POC Capillary Glucose 53 L* 137 H Calcium Phosphorus Magnesium Total Bilirubin AST ALT Alkaline Phosphatase Total Creatine Kinase Total Protein Albumin Urine Eosinophils Ur Random Sodium Ur Random Potassium Urine Creatinine
--- NOTE | 2024-05-19 15:47 | PCRCNOTE ---
1346- RESPIRATORY TX HELD AT THIS TIME PER R.N. DUE TO ELEVATED HEART RATE; DR. GIOVANA PITTS.
[2024-05-19] MEDS: PROPOFOL IV EMULSION 100 ML 8.93 MG IV CONT (17:14)
[2024-05-19] MEDS: FENTANYL 2,500MCG/NS250ML(*CRX 2,500 MCG/250 ML BAG 7.5 MCG IV CONT (17:15)
[2024-05-19 17:23] LABS: Anion Gap 15 mmol/L (4-12); Blood Urea Nitrogen 32 mg/dL (7-17); Calcium 8.2 mg/dL (8.4-10.2); Carbon Dioxide 18 mmol/L (22-30); Chloride 107 mmol/L (98-107); Estimated Glomerular Filt Rate 20; Glucose 106 mg/dL (65-110); Magnesium 2.4 mg/dL (1.6-2.3); Phosphorus 9.2 mg/dL (2.5-4.5); Potassium 5.8 mmol/L (3.4-5.0); Sodium 140 mmol/L (137-145)
--- NOTE | 2024-05-19 18:04 | PC.NURSE ---
Patient bladder scanned at 1804 for decreased urine output. Saldivar catheter has been flushed twice throughout shift without improvement in output. Bladder scanner indicating less than 63 mls of residual urine residing in bladder. MD updated and made aware.
[2024-05-19 18:13] LABS: Glucose Point of Care 102 mg/dl (65-105)
[2024-05-19] MEDS: LACTATED RINGERS 1,000 ML 100 ML IV CONT (18:42)
[2024-05-19] MEDS: VASOPRESSIN INJ 100 UNITS in DEXTROSE 5% 95 ML IV CONT (18:42)
[2024-05-19] MEDS: SODIUM BICARBONATE 8.4% 50 MEQ/50 ML SYRINGE 100 MEQ IV PUSH (18:43)
[2024-05-19] MEDS: INSULIN HUMAN REGULAR (*BKC) 100 UNITS/ML 10 UNITS IV PUSH (18:44)
[2024-05-19] MEDS: SODIUM ZIRCONIUM CYCLOSILICATE 10 GM POWD.PACK PO (18:44)
[2024-05-19] MEDS: ALBUTEROL SULFATE NEB 2.5 MG/3 ML INH 15 MG INHALATION (18:58)
[2024-05-19 20:20] LABS: Glucose Point of Care 162 mg/dl (65-105)
[2024-05-19] MEDS: MEROPENEM 500 MG/NS 100 ML 500 MG/100 ML BAG 200 MG IVPB (20:50)
--- NOTE | 2024-05-19 22:35 | PCRCNOTE ---
Patient received a stat continuous albuterol breathing tx which started at 18:58, this treatment lasted until 1999, therapist did not give patients scheduled 1999 tx because of this. Patients heart rate was increasing due to 15mg albuterol. See next scheduled tx
--- NOTE | 2024-05-19 22:50 | PC.NURSE ---
2240 Heart rate bouncing between 104 and 144; at times looks like Afib. EKG obtained that reads Afib. Dr Khan notified and order for amio bolus and drip obtained.
[2024-05-19] MEDS: AMIODARONE 150 MG/D5W 100 ML 150 MG/100 ML BAG 600 MG IV CONT (23:02)
[2024-05-19] MEDS: AMIODARONE 360 MG/D5W 200 ML 360 MG/200 ML BAG 33.33 MG IV CONT (23:03)
[2024-05-19] MEDS: NOREPINEPHRINE 8 MG/D5W 250 ML 8 MG/250 ML BAG 37.5 MG IV CONT (23:41)
[2024-05-20] VITALS: BP 92/62; PULSE 66; PULSE 71; RESP 26; TEMP 36.2; O2SAT 95
[2024-05-20 00:20] VITALS: BP 109/42; PULSE 68; RESP 26
[2024-05-20] MEDS: LORazepam INJ (*CRX) 2 MG/ML VIAL IV PUSH (00:22)
--- NOTE | 2024-05-20 01:02 | PC.NURSE ---
Patient's and daughters in room due to patient's declining condition. Discussed increased oxygen requirements, increase in BP support, Decreased heart rate, poor urine output, mottling present on legs and feet, as well as increased residuals of tube feeding. Discussed comfort measures and explained process. After leaving family alone to confer they have decided to proceed with comfort measures and terminally weaning patient off vent. Respiratory notified. [employer] sales representative on floor who looked up patient and said that due to age they would not pursue organ donation unless neuro changes and it was OK to withdraw.
--- NOTE | 2024-05-20 01:07 | PC.NURSE ---
0005 Dr Jauregui called and comfort measure orders received.
--- NOTE | 2024-05-20 01:07 | PC.NURSE ---
0020 Drips turned off. 2mg ativan given and respiratory in room to terminally wean patient.
--- NOTE | 2024-05-20 01:08 | PC.NURSE ---
0045 Patient time of 0037; verified by Delphine Benavides RN and Rina Sesay RN.
--- NOTE | 2024-05-20 01:39 | PC.NURSE ---
05/19/24 2313 Heart rate dropped to 45 and sustaining below 60. Amio drip shut off.
[2024-05-21 15:34] LABS: Chloride Rand Ur 24 mmol/L (32-290); Chloride/Creatinine Rand Ur 23 (38-318); Creatinine Random Urine 103 mg/dL (20-275)
[2024-05-22 18:48] LABS: Mycoplasma IgM Antibody Titer 45 U/mL
[2024-05-23 19:54] LABS: Pneumococcal Antigen Urine NOT DETECTED
--- NOTE | 2024-05-24 08:24 | PM.DDS ---
Discharge Summary Date and Time Date of : 05/20/24 Time of : 00:37 Provider Pronounced By: 2 RNs Name of First RN That Pronounced: ciera izaguirre Name of Second RN That Pronounced: vikki roth Additional Data Confirmation of as documented by pronouncing clinician: Pupillary Reflex, Palpable Pulses, Response to Stimuli, Heart Tones and Breath Sounds Name of Provider Notified: jarrett Time Provider Notified: 00:59 Provider Requests Autopsy: No Family Requests Autopsy: No Transfer Agent Notified: Yes Date [facility] Notified of : 05/20/24 Time [facility] Notified of : 01:31
[2024-05-24 22:08] LABS: Legionella pneumophila Ag Ur NOT DETECTED
== END 2024-05-20 00:37 | disposition expired | DRG 871 ==
LOC: ANHED 21:34 → ANHIMU 22:00 → ANHICU 05-18 08:12 → ANHIMU 05-21 10:53
PROVIDERS: Internal Medicine; Nurse Practitioner Adult Health; Nurse Practitioner Family; Student in an Organized Health Care Education/Training Program; Admitting Provider Internal Medicine; Emergency Provider Emergency Medicine; PCP Nurse Practitioner; Visit Provider Internal Medicine
DX: A41.9 Sepsis, unspecified organism (principal); I21.A1 Myocardial infarction type 2; J18.9 Pneumonia, unspecified organism; J96.00 Acute respiratory failure, unspecified whether with hypoxia or hypercapnia; N39.0 Urinary tract infection, site not specified; E44.0 Moderate protein-calorie malnutrition; Z16.12 Extended spectrum beta lactamase (ESBL) resistance; N17.9 Acute kidney failure, unspecified; B96.20 Unspecified Escherichia coli [E. coli] as the cause of diseases classified elsewhere; E03.9 Hypothyroidism, unspecified; E78.5 Hyperlipidemia, unspecified; G62.9 Polyneuropathy, unspecified; K21.9 Gastro-esophageal reflux disease without esophagitis; M06.9 Rheumatoid arthritis, unspecified; M35.3 Polymyalgia rheumatica; Z20.822 Contact with and (suspected) exposure to COVID-19; Z68.26 Body mass index [BMI] 26.0-26.9, adult; Z66 Do not resuscitate
CPT/HCPCS: 31500; 36415; 36430; 36569; 36600; 71045; 71275; 76775; 80048; 80053; 81001; 82375; 82436; 82550; 82570; 82805; 82948; 83050; 83540; 83550; 83605; 83735; 83880; 84100; 84133; 84145; 84300; 84478; 84484; 85014; 85018; 85025; 85380; 85610; 85730; 85999; 86738; 86850; 86900; 86901; 86920; 87040; 87070; 87086; 87186; 87205; 87449; 87637; 87641; 87899; 93005; 93970; 94002; 94003; 94640; 96361; 96375; 97161; 97165; 99285; A9270; C1751; C8929; G0378; J0282; J0330; J0650; J1644; J1650; J1815; J1939; J1940; J1956; J2003; J2060; J2185; J2405; J2470; J2543; J2704; J3010; J3370; J7030; J7042; J7050; J7120; P9016; P9047; Q9957; Q9967